=== PATIENT | female | born 1935 | race Caucasian/White ===

== ENCOUNTER → 2016-05-23 | Outpatient (CLI) | payer OTHER ==
[~2016-05-23] MED LIST: ANT25 PO; ASPI81TA28 PO; ATOR-22 PO; DILT120C68 PO; ESCI1TAB6 PO
[2016-05-23 14:04] LABS: CHOLESTEROL/HDL RATIO 3.2
== END | disposition home or self-care (01) ==
LOC: C.LABBC 11:59
PROVIDERS: ATTEND Family Medicine
DX: E55.9 Vitamin D deficiency, unspecified (principal); E78.5 Hyperlipidemia, unspecified

== ENCOUNTER → 2016-10-09 | Outpatient (CLI) | payer OTHER ==
[~2016-10-09] MED LIST changes: +ATOR-54 PO; +DILT120T3 PO; +ESCI10TA17 PO; +LISI-461 PO; +LSN10 PO; +SPRIN/30 INH; +ZLF50 PO
[2016-10-09 17:18] LABS: BASO % 0.4 %; BASO ABS # 0.03 K/uL (0-0.2); COMPLETE YES; HEMATOCRIT 42.9 % (37-47); IG% 0.1 %; LYMPH ABS # 2.44 K/uL (1.2-3.4); MEAN CELL VOLUME 88.6 fL (80-100); MEAN CORPUSCULAR HEMOGLOBIN 29.1 pg (25-34); MEAN CORPUSCULAR HGB CONC 32.9 g/dl (32-36); MEAN PLATELET VOLUME 9.2 fL (7.4-10.4); MONO % 9.5 %; PLATELET COUNT 402 K/uL (130-400); RED BLOOD COUNT 4.84 M/uL (4.2-5.4); WHITE BLOOD COUNT 7.17 K/uL (4.8-10.8)
[2016-10-09 17:22] LABS: URINE APPEARANCE CLEAR (CLEAR); URINE BILIRUBIN NEG (NEG); URINE COLOR DK YELLOW; URINE EPITHELIAL CELL AUTO 20-30 /lpf (0-5); URINE NITRITE NEG (NEG); URINE SPECIFIC GRAVITY 1.018 (1.000-1.030); UROBILINOGEN NEG (NEG)
[2016-10-09 17:23] LABS: MANUAL MICROSCOPIC REQUIRED? NO; REVIEW REQ? NO
[2016-10-09 18:08] LABS: ALT/SGPT 11 U/L (12-78); BLOOD UREA NITROGEN 8 mg/dl (7-18); BUN/CREATININE RATIO 12.4 (10-20); CARBON DIOXIDE 30 mmol/L (21-32); CHLORIDE 104 mmol/L (98-107); CHOLESTEROL 209 mg/dl (0-200); CREATININE 0.67 mg/dl (0.60-1.20); GLUCOSE 103 mg/dl (70-99); POTASSIUM 3.7 mmol/L (3.5-5.1); SODIUM 141 mmol/L (136-145); TRIGLYCERIDES 84 mg/dl (0-150); VERY LOW DENSITY LIPOPROT CALC 17 mg/dl
[2016-10-09 18:11] LABS: ALKALINE PHOSPHATASE 155 U/L (45-117); AST/SGOT 11 U/L (15-37); CHOLESTEROL/HDL RATIO 3.5; HDL CHOLESTEROL 60 mg/dl; LDL CHOLESTEROL CALCULATED 132 mg/dl
[2016-10-09 18:32] LABS: CALCIUM 9.1 mg/dl (8.5-10.1)
--- NOTE | 2016-10-14 11:15 | CODING QUERY MEDICAL NECESSITY ---
CQSUPPORTING DIAGNOSIS NEEDED A supporting diagnosis is required for the test/procedure performed on this patient in order for us to be reimbursed by the patient's insurance. Please provide a supporting diagnosis for the following test/procedure listed below next to the test name along with your signature. *If there is no additional diagnosis for this patient that would support the following test/procedure please document that below next to the test/procedure. Test(s)/Procedure(s) that require a supporting diagnosis: CATHERINE 10/09/16 URINE CULTURE Provider Signature: Date: Thank you Kriss Rodriguez [employer] Once completed, please kindly fax back to [phone] For questions please call [phone]
== END | disposition home or self-care (01) ==
LOC: C.LABBC 12:53
PROVIDERS: ATTEND Family Medicine
DX: R42 Dizziness and giddiness (principal); I10 Essential (primary) hypertension; E55.9 Vitamin D deficiency, unspecified; E78.5 Hyperlipidemia, unspecified

== ENCOUNTER 2016-10-13 11:44 | Emergency (ER) | payer OTHER ==
[~2016-10-13] VITALS: Ht 157.5 cm; Wt 51.2 kg
[2016-10-13 11:55] VITALS: TEMP 36.8; Ht 157.5 cm; Wt 51.2 kg
[2016-10-13] MEDS ORDERED: SODIUM CHLORIDE 0.9% 1000ML 1,000 ML IV STA (12:20)
[2016-10-13 12:27] LABS: BASO % 0.4 %; BASO ABS # 0.03 K/uL (0-0.2); COMPLETE YES; EOS % 2.1 %; HEMATOCRIT 41.5 % (37-47); IG% 0.3 %; LYMPH % 33.6 %; LYMPH ABS # 2.51 K/uL (1.2-3.4); MEAN CELL VOLUME 86.8 fL (80-100); MEAN CORPUSCULAR HEMOGLOBIN 29.1 pg (25-34); MEAN CORPUSCULAR HGB CONC 33.5 g/dl (32-36); MEAN PLATELET VOLUME 8.7 fL (7.4-10.4); MONO % 9.2 %; NEUT % 54.4 %; PLATELET COUNT 350 K/uL (130-400); RED BLOOD COUNT 4.78 M/uL (4.2-5.4); WHITE BLOOD COUNT 7.46 K/uL (4.8-10.8)
[2016-10-13 12:43] LABS: BLOOD UREA NITROGEN 10 mg/dl (7-18); BUN/CREATININE RATIO 11.9 (10-20); CALCIUM 8.6 mg/dl (8.5-10.1); CARBON DIOXIDE 28 mmol/L (21-32); CHLORIDE 105 mmol/L (98-107); CREATININE 0.82 mg/dl (0.60-1.20); GLUCOSE 139 mg/dl (70-99); MAGNESIUM 2.3 mg/dl (1.8-2.4); POTASSIUM 3.5 mmol/L (3.5-5.1); SODIUM 142 mmol/L (136-145)
--- NOTE | 2016-10-13 12:46 | DIAGNOSTIC IMAGING REPORT ---
CHEST ONE VIEW PORTABLE CLINICAL HISTORY: Generalized Weakness DIZZINESS, NAUSEA. COMPARISON STUDY: 09/12/2005 FINDINGS: The chest has an emphysematous configuration. The heart is the upper limits of normal in size. There is no failure. There is no focal pulmonary consolidation. There are no pleural effusions.[ There is radiographic evidence of pulmonary emphysema. IMPRESSION: Emphysema. No acute findings. Electronically signed by: Xavier Bland M.D. 10/13/2016 12:45 PM Dictated Date/Time: 10/13/2016 12:44 PM
--- NOTE | 2016-10-13 13:01 | DIAGNOSTIC IMAGING REPORT ---
CT HEAD WITHOUT CONTRAST (CT) CLINICAL HISTORY: Generalized Weakness DIZZINESS COMPARISON STUDY: MRI the brain dated 02/02/2016 TECHNIQUE: Axial CT of the brain is performed from the vertex to the skull base. IV contrast was not administered for this examination. CT DOSE: 537.48 mGy.cm FINDINGS: No intra or extra-axial mass lesions are visualized. There is no CT evidence of acute cortical infarction. There is no evidence of midline shift. There is no acute hemorrhage. No calvarial fractures are visualized. There are mild white matter hypodensities likely on a small vessel basis. There is no evidence of pathologic ventricular dilatation. There is no evidence of acute sinusitis IMPRESSION: No acute intracranial findings Electronically signed by: Xavier Bland M.D. 10/13/2016 1:00 PM Dictated Date/Time: 10/13/2016 12:59 PM
--- NOTE | 2016-10-13 13:05 | EMERGENCY ROOM VISIT NOTE ---
History Report prepared by Sanjeev: Amanda Jaime Under the Supervision of: Dr. Jamari Bell M.D. First contact with patient: 12:08 Chief Complaint: DIZZY Stated Complaint: DIZZY, NAUSEA Nursing Triage Summary: Dizziness for a few weeks. Pt saw PCP last week but did not hear back. Daughter reports she has been laying down all the time. Patient reports she gets more dizzy when standing. History of Present Illness The patient is a 81 year old female who presents to the Emergency Room with complaints of intermittent dizziness starting about 2 weeks ago. The patient describes the dizziness as room spinning. She has symptom relief with lying down and worsening symptoms with movement. She also reports nausea but denies vomiting. As per family, the patient has been sleeping more than normal. She has a loss of appetite and a reduced fluid intake. She denies any recent falls, headache, ear pain, urinary symptoms, lower extremity swelling, or any other complaints. She did not have any recent changes in medication. She has a history of hypertension and high cholesterol. She does not have a history of diabetes. She is a never smoker. Source of History: patient Onset: about 2 weeks ago Position: other (global) Quality: other (dizziness) Timing: intermittent Modifying Factors (Worsening): movement Modifying Factors (Relieving): other (lying down) Associated Symptoms: No headache, No urinary symptoms Review of Systems See HPI for pertinent positives & negatives. A total of 10 systems reviewed and were otherwise negative. Past Medical & Surgical Medical Problems: (1) High cholesterol (2) Hypertension Family History Patient reports no known family medical history. Social History Smoking Status: Never Smoker Marital Status: Occupation Status: retired Current/Historical Medications Scheduled Aspirin (Aspirin Ec), 81 MG PO DAILY Atorvastatin (Lipitor), 20 MG PO DAILY Diltiazem Hcl Ext Rel (Tiazac), 120 MG PO DAILY Escitalopram Oxalate (Lexapro), 5 MG PO DAILY Scheduled PRN Meclizine HCl (Meclizine HCl), 1 TAB PO TID PRN for Dizziness or Vertigo Allergies Coded Allergies: Penicillins (Verified Allergy, Mild, OTHER, 10/13/16) UNKNOWN Physical Exam Vital Signs Date Time Temp Pulse Resp B/P (MAP) Pulse Ox O2 Delivery O2 Flow Rate FiO2 10/13/16 14:40 64 16 193/77 94 6/11/17 12:10 78 16 138/66 94 Room Air 77 140/66 82 116/65 10/13/16 11:55 36.8 89 18 133/59 92 Room Air Physical Exam GENERAL: Patient is mildly dehydrated appearing and in no acute distress. HEENT: No acute trauma, normocephalic atraumatic, mucous membranes dry, no nasal congestion, no scleral icterus. NECK: No stridor, no adenopathy, no meningismus, trachea is midline. LUNGS: No dyspnea. Clear to auscultation and equal bilaterally. No wheeze, no rhonchi. HEART: Regular rate and rhythm. No murmurs, rubs, gallops appreciated. ABDOMEN: Soft, nontender, bowel sounds positive, no masses appreciated, no peritonitis. BACK: No midline tenderness, no CVA tenderness EXTREMITIES: Normal motion all extremities, no cyanosis, no edema. NEUROLOGIC: Alert and oriented, no acute motor or sensory deficits, no focal weakness, cranial nerves grossly intact. SKIN: No rash, no jaundice, no diaphoresis. Medical Decision & Procedures ER Provider Diagnostic Interpretation: X ray results are stated below per my interpretation and the radiologist's interpretation. CHEST ONE VIEW PORTABLE CLINICAL HISTORY: Generalized Weakness DIZZINESS, NAUSEA. COMPARISON STUDY: 09/12/2005 FINDINGS: The chest has an emphysematous configuration. The heart is the upper limits of normal in size. There is no failure. There is no focal pulmonary consolidation. There are no pleural effusions.[ There is radiographic evidence of pulmonary emphysema. IMPRESSION: Emphysema. No acute findings. Electronically signed by: Xavier Bland M.D. 10/13/2016 12:45 PM Dictated Date/Time: 10/13/2016 12:[address] results as stated below per interpretation by me and the radiologist: CT HEAD WITHOUT CONTRAST (CT) CLINICAL HISTORY: Generalized Weakness DIZZINESS COMPARISON STUDY: MRI the brain dated 02/02/2016 TECHNIQUE: Axial CT of the brain is performed from the vertex to the skull base. IV contrast was not administered for this examination. CT DOSE: 537.48 mGy.cm FINDINGS: No intra or extra-axial mass lesions are visualized. There is no CT evidence of acute cortical infarction. There is no evidence of midline shift. There is no acute hemorrhage. No calvarial fractures are visualized. There are mild white matter hypodensities likely on a small vessel basis. There is no evidence of pathologic ventricular dilatation. There is no evidence of acute sinusitis IMPRESSION: No acute intracranial findings Electronically signed by: Xavier Bland M.D. 10/13/2016 1:00 PM Dictated Date/Time: 10/13/2016 12:59 PM Laboratory Results 10/13/16 12:10 Red Blood Count 4.78, Mean Corpuscular Volume 86.8, Mean Corpuscular Hemoglobin 29.1, Mean Corpuscular Hemoglobin Concent 33.5, Mean Platelet Volume 8.7, Neutrophils (%) (Auto) 54.4, Lymphocytes (%) (Auto) 33.6, Monocytes (%) (Auto) 9.2, Eosinophils (%) (Auto) 2.1, Basophils (%) (Auto) 0.4, Neutrophils # (Auto) 4.05, Lymphocytes # (Auto) 2.51, Monocytes # (Auto) 0.69, Eosinophils # (Auto) 0.16, Basophils # (Auto) 0.03 10/13/16 12:10 Test 10/13/16 12:10 10/13/16 13:40 White Blood Count 7.46 K/uL (4.8-10.8) Red Blood Count 4.78 M/uL (4.2-5.4) Hemoglobin 13.9 g/dL (12.0-16.0) Hematocrit 41.5 % (37-47) Mean Corpuscular Volume 86.8 fL (80-100) Mean Corpuscular Hemoglobin 29.1 pg (25-34) Mean Corpuscular Hemoglobin Concent 33.5 g/dl (32-36) Platelet Count 350 K/uL (130-400) Mean Platelet Volume 8.7 fL (7.4-10.4) Neutrophils (%) (Auto) 54.4 % Lymphocytes (%) (Auto) 33.6 % Monocytes (%) (Auto) 9.2 % Eosinophils (%) (Auto) 2.1 % Basophils (%) (Auto) 0.4 % Neutrophils # (Auto) 4.05 K/uL (1.4-6.5) Lymphocytes # (Auto) 2.51 K/uL (1.2-3.4) Monocytes # (Auto) 0.69 K/uL (0.11-0.59) Eosinophils # (Auto) 0.16 K/uL (0-0.5) Basophils # (Auto) 0.03 K/uL (0-0.2) RDW Standard Deviation 44.1 fL (36.4-46.3) RDW Coefficient of Variation 13.8 % (11.5-14.5) Immature Granulocyte % (Auto) 0.3 % Immature Granulocyte # (Auto) 0.02 K/uL (0.00-0.02) Anion Gap 9.0 mmol/L (3-11) Est Creatinine Clear Calc Drug Dose 42.6 ml/min Estimated GFR () 77.8 Estimated GFR (Non- 67.1 BUN/Creatinine Ratio 11.9 (10-20) Calcium Level 8.6 mg/dl (8.5-10.1) Magnesium Level 2.3 mg/dl (1.8-2.4) Troponin I < 0.015 ng/ml (0-0.045) Urine Color YELLOW Urine Appearance CLEAR (CLEAR) Urine pH 7.5 (4.5-7.5) Urine Specific [place] 1.014 (1.000-1.030) Urine Protein NEG (NEG) Urine Glucose (UA) NEG (NEG) Urine Ketones NEG (NEG) Urine Occult Blood 1+ (NEG) Urine Nitrite NEG (NEG) Urine Bilirubin NEG (NEG) Urine Urobilinogen NEG (NEG) Urine Leukocyte Esterase TRACE (NEG) Urine WBC (Auto) 1-5 /hpf (0-5) Urine RBC (Auto) 5-10 /hpf (0-4) Urine Hyaline Casts (Auto) 1-5 /lpf (0-5) Urine Epithelial Cells (Auto) 10-20 /lpf (0-5) Urine Bacteria (Auto) NEG (NEG) Laboratory results as reviewed by me. Medications Administered Medications (Trade) Dose Ordered Sig/Alex Route Start Time Stop Time Status Last Admin Dose Admin Sodium Chloride 1,000 ml @ 999 mls/hr Q1H1M STAT IV 10/13/16 12:20 10/13/16 13:20 DC 10/13/16 12:45 999 MLS/HR Meclizine HCl (Antivert Tab) 25 mg NOW STAT PO 10/13/16 14:26 10/13/16 14:27 DC 10/13/16 14:34 25 MG Meclizine HCl (Antivert 25MG Home Pack) 1 homepack UD ONCE PO 10/13/16 14:30 10/13/16 14:31 DC 10/13/16 14:30 1 HOMEPACK ECG Indication: other (Dizzy) Rate (beats per minute): 67 Rhythm: normal sinus Findings: Q waves (Septal), no acute ischemic change, no ectopy, other ( Flipped P waves) Comparison ECG Date: April 08, 2001; September 10, 2015 Change: These are acute changes when compared to April 08, 2001. Q waves are also noted but the flipped P waves are new when compared to September 10, 2015. ED Course 1208: The patient was evaluated in room C02B. A complete history and physical exam was performed. 1220: Sodium Chloride 1000 ml @ 999 mls/hr IV 1418: Reevaluated the patient. Discussed results and recommended admission but the patient declined. She wants to try Meclizine at home. The patient's daughter is aware of the patient's decision. I discussed discharge instructions : She verbalized understanding and agreement. The patient is ready for discharge. 1426:: Meclizine HCl 25 mg PO 1430: Meclizine HCl 1 homepack PO Medical Decision Differential diagnoses include Benign positional vertigo, Dehydration, Hypovolemia, Anemia, Tumor, Infection, Hypoglycemia, Electrolyte abnormalities, Cardiac sources, Intracerebral event, Toxicologic, Neurologic, as well as others were entertained. Medication Reconciliation: I attest that I have personally reviewed the patient 's current medication list. Blood pressure screening: Patient was found to have an elevated blood pressure and was referred to their primary doctor for recheck and further treatment. 81 yr old female arrives [facility] complaint of vertiginous symptoms with standing over last few weeks. Mildly dehydrated appearing by exam consistent with poor appetite. Work-up including CT head, cxr, ua, labs all unremarkable. EKG with some subtle changes from previous a few weeks ago which may be related to lead placement though clearly there is somewhat a concern that this may he worse than usual. Fortunately Trop negative. Discussed bringing in for MRI, US neck/ heart, discussion with pulm/cards and further evaluation. She and family are not interested in staying in hospital. I discussed possibility of pulm HTN, etc , She is aware she can return at any time for further evaluation and treatment. Wishes to try meclizine as outpatient. Discussed restrictions. Made very clear she must contact PCP for follow up. Impression Primary Impression: Vertigo Additional Impression: Dehydration Scribe Attestation The scribe's documentation has been prepared under my direction and personally reviewed by me in its entirety. I confirm that the note above accurately reflects all work, treatment, procedures, and medical decision making performed by me. Departure Information Dispostion Home / Self-Care Prescriptions Meclizine HCl (Meclizine HCl) 25 Mg Tab 1 TAB PO TID Y for Dizziness or Vertigo, #15 TAB Prov: Jamari Bell M.D. 10/13/16 Referrals No Doctor, Assigned (PCP) Forms HOME CARE DOCUMENTATION FORM, IMPORTANT VISIT INFORMATION Patient Instructions ED Dizziness O, My [facility] Additional Instructions It is very important you follow up with your primary care provider for further evaluation to discuss your symptoms and your findings. Please discuss further work up, possibly including MRI, Ultrasound of Carotids, Ultrasound of Heart, etc. You may need further evaluation of your EKG findings as well. We are always here to help. Return if you feel you need further evaluation or if you have worsening symptoms of any kind. Problem Qualifiers
[2016-10-13] MEDS ORDERED: DILT120C68 PO (13:38)
[2016-10-13] MEDS ORDERED: ATOR-22 PO (13:38)
[2016-10-13] MEDS ORDERED: ASPI81TA28 PO (13:38)
[2016-10-13] MEDS ORDERED: ESCI1TAB6 PO (13:38)
[2016-10-13 13:53] LABS: URINE APPEARANCE CLEAR (CLEAR); URINE BILIRUBIN NEG (NEG); URINE COLOR YELLOW; URINE NITRITE NEG (NEG); URINE PH 7.5 (4.5-7.5); URINE SPECIFIC GRAVITY 1.014 (1.000-1.030); UROBILINOGEN NEG (NEG); ZZUR CULT IF INDIC CLEAN CATCH NO
[2016-10-13 13:54] LABS: MANUAL MICROSCOPIC REQUIRED? NO; REVIEW REQ? NO
[2016-10-13] MEDS ORDERED: MECLIZINE HCL 25 MG TAB PO STA (14:26)
[2016-10-13] MEDS ORDERED: ANT25 PO (14:27)
[2016-10-13] MEDS ORDERED: MECLIZINE HCL 25MG HOME PACK PO ONE (14:30)
[2016-10-13 14:40] VITALS: BP 193/77; PULSE 64; O2SAT 94
[2017-02-16] MEDS ORDERED: LSN10 PO (08:48)
[2017-03-10] MEDS ORDERED: ESCI10TA17 PO (09:26)
[2017-03-10] MEDS ORDERED: LISI-461 PO (09:26)
== END 2016-10-13 14:42 | disposition home or self-care (01) ==
LOC: C.EDB 11:45 → C.EDC 14:42
DX: R42 Dizziness and giddiness (principal); E86.0 Dehydration; I10 Essential (primary) hypertension; E78.00 Pure hypercholesterolemia, unspecified; Z79.82 Long term (current) use of aspirin; Z79.899 Other long term (current) drug therapy

== ENCOUNTER → 2017-01-16 | Outpatient (CLI) | payer OTHER ==
[~2017-01-16] MED LIST changes: -LISI-461 PO
[2017-01-16 12:13] LABS: URINE APPEARANCE CLOUDY (CLEAR); URINE COLOR DK YELLOW; URINE EPITHELIAL CELL AUTO 20-30 /lpf (0-5); URINE NITRITE NEG (NEG); URINE PH 5.5 (4.5-7.5); URINE SPECIFIC GRAVITY 1.029 (1.000-1.030); UROBILINOGEN NEG (NEG)
[2017-01-16 12:19] LABS: MANUAL MICROSCOPIC REQUIRED? NO; REVIEW REQ? YES
[2017-01-16 12:43] LABS: URINE BILIRUBIN NEG (NEG)
[2017-01-16 12:54] LABS: URINE PATH CASTS 0-3 WAXY CASTS /lpf (0)
[2017-01-16 12:55] LABS: URINE MUCUS PRESENT (NONE PRSENT)
== END | disposition home or self-care (01) ==
LOC: C.LABSPEC 11:07
PROVIDERS: ATTEND Nurse Practitioner Adult Health
DX: F03.90 Unspecified dementia, unspecified severity, without behavioral disturbance, psychotic disturbance, mood disturbance, and anxiety (principal)

== ENCOUNTER 2017-02-13 12:24 | Observation (INO) | payer OTHER ==
[~2017-02-13] VITALS: Ht 160 cm; Wt 48.2 kg
[~2017-02-13 12:24] MED LIST changes: -ATOR-54 PO; -DILT120T3 PO; -ESCI10TA17 PO; -LSN10 PO; -SPRIN/30 INH; -ZLF50 PO
[2017-02-13] MEDS ORDERED: SODIUM CHLORIDE 0.9% 500ML 500 ML IV STA ×2 (12:52→15:54)
--- NOTE | 2017-02-13 13:14 | DIAGNOSTIC IMAGING REPORT ---
CHEST ONE VIEW PORTABLE CLINICAL HISTORY: Generalized Weakness DIARRHEA, JAUNDICE. COMPARISON STUDY: 10/13/2016 FINDINGS: The heart is the upper limits of normal in size. The chest is emphysematous configuration. There is tortuosity/ectasia of the ascending thoracic aorta. There is no failure. There is no focal pulmonary consolidation. There are no pleural effusions.[ IMPRESSION: No active disease in the chest. Electronically signed by: Xavier Bland M.D. 02/13/2017 1:13 PM Dictated Date/Time: 02/13/2017 1:12 PM
[2017-02-13 13:35] LABS: BASO % 0.4 %; BASO ABS # 0.03 K/uL (0-0.2); COMPLETE YES; EOS % 1.3 %; HEMATOCRIT 41.1 % (37-47); IG% 0.1 %; LYMPH % 26.2 %; LYMPH ABS # 2.18 K/uL (1.2-3.4); MEAN CELL VOLUME 85.8 fL (80-100); MEAN CORPUSCULAR HEMOGLOBIN 28.8 pg (25-34); MEAN CORPUSCULAR HGB CONC 33.6 g/dl (32-36); MONO % 9.5 %; NEUT % 62.5 %; PLATELET COUNT 261 K/uL (130-400); RED BLOOD COUNT 4.79 M/uL (4.2-5.4); WHITE BLOOD COUNT 8.31 K/uL (4.8-10.8)
[2017-02-13 13:44] LABS: PROTHROMBIN TIME (PATIENT) 10.3 SECONDS (9.0-12.0)
[2017-02-13 13:59] LABS: ALT/SGPT 11 U/L (12-78); BLOOD UREA NITROGEN 17 mg/dl (7-18); CARBON DIOXIDE 28 mmol/L (21-32); CHLORIDE 107 mmol/L (98-107); CREATININE 0.75 mg/dl (0.60-1.20); GLUCOSE 98 mg/dl (70-99); MAGNESIUM 2.1 mg/dl (1.8-2.4); POTASSIUM 3.5 mmol/L (3.5-5.1); SODIUM 141 mmol/L (136-145)
[2017-02-13 14:02] LABS: ALKALINE PHOSPHATASE 145 U/L (45-117); AST/SGOT 10 U/L (15-37); CKMB/CK RATIO 4.1 (0-3.0); PHOSPHORUS 2.7 mg/dl (2.5-4.9)
--- NOTE | 2017-02-13 15:31 | DIAGNOSTIC IMAGING REPORT ---
ABDOMINAL AORTIC ULTRASOUND CLINICAL HISTORY: Pulsatile mid abdomen. COMPARISON STUDY: No previous studies for comparison. TECHNIQUE: Sonography of the abdominal aorta was performed. FINDINGS: The caliber of the proximal abdominal aorta was normal, measuring 2 cm. The caliber of the mid abdominal aorta was normal, measuring 1.9 cm. Note was made of a 5.5 x 5.5 cm infrarenal abdominal aortic aneurysm with extensive eccentric intraluminal thrombus. The proximal bilateral common iliac arteries were obscured on this exam. IMPRESSION: 5.5 cm infrarenal abdominal aortic aneurysm. Electronically signed by: Ramírez Saunders M.D. 02/13/2017 3:30 PM Dictated Date/Time: 02/13/2017 3:27 PM
[2017-02-13] MEDS ORDERED: OPTIRAY 320 IV PRN (16:00)
--- NOTE | 2017-02-13 16:57 | DIAGNOSTIC IMAGING REPORT ---
ANGIO ABD/PELVIS WITH CONTRAST CLINICAL HISTORY: 82 years-old Female presenting with abdominal aortic aneurysm on ultrasound, CTA for further evaluation. TECHNIQUE: Multidetector CT angiography of the abdomen and pelvis was performed after the administration of intravenous contrast. 3-D volumetric and/or maximum intensity projection (MIP) images were subsequently reconstructed for review. IV contrast: 93 mL of Optiray 320. A dose lowering technique was used consistent with the principles of ALARA (as low as reasonably achievable). COMPARISON: Ultrasound performed earlier the same day. CT DOSE (mGy.cm): The estimated cumulative dose is 254.23 mGy.cm. FINDINGS: [employer] topogram: Unremarkable. Vasculature: Calcified and noncalcified atherosclerosis of the aorta. Eccentric aneurysmal dilatation of the infrarenal abdominal aortic along the left lateral aspect immediately distal to the left renal artery with prominent crescentic mural thrombus. The morphology is consistent with a penetrating ulcer/pseudoaneurysm, measuring approximately 3 cm in height from the expected left lateral contour of the aorta, 2.3 cm in width at the neck, and 3.5 cm in width maximally. More inferiorly and medially proximal to the aortic bifurcation is an abdominal aortic aneurysm measuring 5.5 x 4.9 cm with prominent mural thrombus. The bilateral iliac vessels remain patent without significant stenosis or occlusion. Celiac, superior mesenteric, and right renal arteries patent at their origins and along the courses. Less than 25% stenosis at the origin of the left renal artery. Remaining abdomen and pelvis: Paraseptal emphysematous changes at the lung bases. Normal heart size. No pericardial pleural effusion. Allowing for the arterial phase of contrast, liver, gallbladder, pancreas, spleen, right adrenal gland normal. Left adrenal gland demonstrates nodular thickening. Hypodensity in the lower pole of the right kidney possibly simple cyst. No hydronephrosis. Bladder normal. Normal noncontrast appearance of the uterus essentially with a calcified fibroid. No adnexal masses. Diverticulosis of the sigmoid colon. No bowel obstruction. Mild wall thickening of the descending portion of the duodenum suggested. Degenerative changes of the spine. Osteopenia. IMPRESSION: 1. 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 2. Infrarenal abdominal aortic aneurysm immediately proximal to the bifurcation measuring 5.5 x 4.9 cm. Electronically signed by: Semaj Prather M.D. 02/13/2017 4:56 PM Dictated Date/Time: 02/13/2017 4:48 PM
[2017-02-13 17:16] LABS: MANUAL MICROSCOPIC REQUIRED? NO; REVIEW REQ? NO; URINE APPEARANCE CLEAR (CLEAR); URINE BILIRUBIN NEG (NEG); URINE COLOR YELLOW; URINE EPITHELIAL CELL AUTO >30 /lpf (0-5); URINE NITRITE NEG (NEG); URINE PH 5.5 (4.5-7.5); UROBILINOGEN NEG (NEG); ZZUR CULT IF INDIC CLEAN CATCH NO
[2017-02-13] MEDS ORDERED: ACETAMINOPHEN 325 MG TAB PO PRN (18:15)
[2017-02-13] MEDS ORDERED: ONDANSETRON INJ 2 MG/ML 2 ML VIAL IV PRN (18:15)
--- NOTE | 2017-02-13 19:54 | EMERGENCY ROOM VISIT NOTE ---
History Report prepared by Dainaibmartir: Keyshawn Nagel Under the Supervision of: Dr. Jamari Bell M.D. First contact with patient: 12:43 Chief Complaint: WEAKNESS Stated Complaint: DIARRHEA, JAUNDICE, VERY TIRED/SLEEPING A LOT History of Present Illness The patient is a 82 year old female who presents to the Emergency Room with complaints of persistent generalized weakness beginning a few days ago. She also complains of dizziness, diarrhea, and fatigue. The patient's daughter notes that the patient appeared jaundiced yesterday. She states that the patient has been having problems with diarrhea intermittently for years but it has worsened in the past few days. The patient denies any LOC, abdominal pain, chest pain, or SOB. She is a former smoker. Source of History: patient Onset: A few days ago Position: other (generalized) Quality: other (weakness) Timing: other (persistent) Associated Symptoms: + diarrhea, + fatigue, No LOC, No chest pain, No SOB, No abdominal pain Note: Additional symptoms: dizziness. Review of Systems See HPI for pertinent positives & negatives. A total of 10 systems reviewed and were otherwise negative. Past Medical & Surgical Medical Problems: (1) Alzheimers disease (2) Dehydration, mild (3) High cholesterol (4) Hypertension (5) Memory loss Family History Patient reports no known family medical history. Social History Smoking Status: Former Smoker Marital Status: Occupation Status: retired Current/Historical Medications Scheduled Aspirin (Aspirin Ec), 81 MG PO DAILY Allergies Coded Allergies: Penicillins (Verified Allergy, Unknown, OTHER, 02/13/17) UNKNOWN Physical Exam Vital Signs Date Time Temp Pulse Resp B/P (MAP) Pulse Ox O2 Delivery O2 Flow Rate FiO2 02/13/17 18:58 82 153/58 93 Room Air 02/13/17 17:02 61 182/68 97 Room Air 02/13/17 15:02 63 136/71 96 Room Air 02/13/17 13:32 63 02/13/17 12:26 36.4 80 18 141/69 96 Room Air Physical Exam GENERAL: Patient is frail appearing and in minimal distress. Appears mildly cachectic. Appears dehydrated. HEENT: No acute trauma, normocephalic atraumatic, mucous membranes dry, no nasal congestion, no scleral icterus. NECK: No stridor, no adenopathy, no meningismus, trachea is midline. LUNGS: No dyspnea. No wheeze, no rhonchi. Mildly decreased breath sounds in the left lower lobe. HEART: Regular rate and rhythm. No murmurs, rubs, gallops appreciated. ABDOMEN: Soft, nontender, bowel sounds positive, no peritonitis. Pulsatile mass mid abdomen. BACK: No midline tenderness, no CVA tenderness EXTREMITIES: Normal motion all extremities, no cyanosis. Veinous stasis bilateral lower legs. NEUROLOGIC: Alert and oriented, no acute motor or sensory deficits, no focal weakness, cranial nerves grossly intact. SKIN: No rash, no jaundice, no diaphoresis. Medical Decision & Procedures ER Provider Diagnostic Interpretation: Radiology results and stated below per my review and radiologist interpretation: CHEST ONE VIEW PORTABLE FINDINGS: The heart is the upper limits of normal in size. The chest is emphysematous configuration. There is tortuosity/ectasia of the ascending thoracic aorta. There is no failure. There is no focal pulmonary consolidation. There are no pleural effusions.[ IMPRESSION: No active disease in the chest. Electronically signed by: Xavier Bland M.D. 02/13/2017 1:13 PM ABDOMINAL AORTIC ULTRASOUND FINDINGS: The caliber of the proximal abdominal aorta was normal, measuring 2 cm. The caliber of the mid abdominal aorta was normal, measuring 1.9 cm. Note was made of a 5.5 x 5.5 cm infrarenal abdominal aortic aneurysm with extensive eccentric intraluminal thrombus. The proximal bilateral common iliac arteries were obscured on this exam. IMPRESSION: 5.5 cm infrarenal abdominal aortic aneurysm. Electronically signed by: Ramírez Saunders M.D. 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 Vasculature: Calcified and noncalcified atherosclerosis of the aorta. Eccentric aneurysmal dilatation of the infrarenal abdominal aortic along the left lateral aspect immediately distal to the left renal artery with prominent crescentic mural thrombus. The morphology is consistent with a penetrating ulcer/pseudoaneurysm, measuring approximately 3 cm in height from the expected left lateral contour of the aorta, 2.3 cm in width at the neck, and 3.5 cm in width maximally. More inferiorly and medially proximal to the aortic bifurcation is an abdominal aortic aneurysm measuring 5.5 x 4.9 cm with prominent mural thrombus. The bilateral iliac vessels remain patent without significant stenosis or occlusion. Celiac, superior mesenteric, and right renal arteries patent at their origins and along the courses. Less than 25% stenosis at the origin of the left renal artery. Remaining abdomen and pelvis: Paraseptal emphysematous changes at the lung bases. Normal heart size. No pericardial pleural effusion. Allowing for the arterial phase of contrast, liver, gallbladder, pancreas, spleen, right adrenal gland normal. Left adrenal gland demonstrates nodular thickening. Hypodensity in the lower pole of the right kidney possibly simple cyst. No hydronephrosis. Bladder normal. Normal noncontrast appearance of the uterus essentially with a calcified fibroid. No adnexal masses. Diverticulosis of the sigmoid colon. No bowel obstruction. Mild wall thickening of the descending portion of the duodenum suggested. Degenerative changes of the spine. Osteopenia. IMPRESSION: 1. 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 2. Infrarenal abdominal aortic aneurysm immediately proximal to the bifurcation measuring 5.5 x 4.9 cm. Electronically signed by: Semaj Prather M.D. 02/13/2017 4:56 PM Laboratory Results 02/13/17 13:20 Red Blood Count 4.79, Mean Corpuscular Volume 85.8, Mean Corpuscular Hemoglobin 28.8, Mean Corpuscular Hemoglobin Concent 33.6, Mean Platelet Volume 9.0, Neutrophils (%) (Auto) 62.5, Lymphocytes (%) (Auto) 26.2, Monocytes (%) (Auto) 9.5, Eosinophils (%) (Auto) 1.3, Basophils (%) (Auto) 0.4, Neutrophils # (Auto) 5.19, Lymphocytes # (Auto) 2.18, Monocytes # (Auto) 0.79, Eosinophils # (Auto) 0.11, Basophils # (Auto) 0.03 02/13/17 13:20 Test 02/13/17 13:20 02/13/17 17:05 White Blood Count 8.31 K/uL (4.8-10.8) Red Blood Count 4.79 M/uL (4.2-5.4) Hemoglobin 13.8 g/dL (12.0-16.0) Hematocrit 41.1 % (37-47) Mean Corpuscular Volume 85.8 fL (80-100) Mean Corpuscular Hemoglobin 28.8 pg (25-34) Mean Corpuscular Hemoglobin Concent 33.6 g/dl (32-36) Platelet Count 261 K/uL (130-400) Mean Platelet Volume 9.0 fL (7.4-10.4) Neutrophils (%) (Auto) 62.5 % Lymphocytes (%) (Auto) 26.2 % Monocytes (%) (Auto) 9.5 % Eosinophils (%) (Auto) 1.3 % Basophils (%) (Auto) 0.4 % Neutrophils # (Auto) 5.19 K/uL (1.4-6.5) Lymphocytes # (Auto) 2.18 K/uL (1.2-3.4) Monocytes # (Auto) 0.79 K/uL (0.11-0.59) Eosinophils # (Auto) 0.11 K/uL (0-0.5) Basophils # (Auto) 0.03 K/uL (0-0.2) RDW Standard Deviation 46.6 fL (36.4-46.3) RDW Coefficient of Variation 14.7 % (11.5-14.5) Immature Granulocyte % (Auto) 0.1 % Immature Granulocyte # (Auto) 0.01 K/uL (0.00-0.02) Prothrombin Time 10.3 SECONDS (9.0-12.0) Prothromb Time International Ratio 1.0 (0.9-1.1) Activated Partial Thromboplast Time 25.7 SECONDS (21.0-31.0) Partial Thromboplastin Ratio 1.0 Anion Gap 6.0 mmol/L (3-11) Est Creatinine Clear Calc Drug Dose 44.0 ml/min Estimated GFR () 86.0 Estimated GFR (Non- 74.2 BUN/Creatinine Ratio 23.0 (10-20) Calcium Level 9.0 mg/dl (8.5-10.1) Phosphorus Level 2.7 mg/dl (2.5-4.9) Magnesium Level 2.1 mg/dl (1.8-2.4) Total Bilirubin 0.4 mg/dl (0.2-1) Direct Bilirubin < 0.1 mg/dl (0-0.2) Aspartate Amino Transf (AST/SGOT) 10 U/L (15-37) Alanine Aminotransferase (ALT/SGPT) 11 U/L (12-78) Alkaline Phosphatase 145 U/L (45-117) Total Creatine Kinase 39 U/L (26-192) Creatine Kinase MB 1.6 ng/ml (0.5-3.6) Creatine Kinase MB Ratio 4.1 (0-3.0) Troponin I < 0.015 ng/ml (0-0.045) Total Protein 6.9 gm/dl (6.4-8.2) Albumin 3.4 gm/dl (3.4-5.0) Lipase 173 U/L (73-393) Urine Color YELLOW Urine Appearance CLEAR (CLEAR) Urine pH 5.5 (4.5-7.5) Urine Specific [place] 1.040 (1.000-1.030) Urine Protein TRACE (NEG) Urine Glucose (UA) NEG (NEG) Urine Ketones NEG (NEG) Urine Occult Blood 1+ (NEG) Urine Nitrite NEG (NEG) Urine Bilirubin NEG (NEG) Urine Urobilinogen NEG (NEG) Urine Leukocyte Esterase TRACE (NEG) Urine WBC (Auto) 5-10 /hpf (0-5) Urine RBC (Auto) 5-10 /hpf (0-4) Urine Hyaline Casts (Auto) 10-30 /lpf (0-5) Urine Epithelial Cells (Auto) >30 /lpf (0-5) Urine Bacteria (Auto) NEG (NEG) Laboratory results as reviewed by me. Medications Administered Medications (Trade) Dose Ordered Sig/Alex Route Start Time Stop Time Status Last Admin Dose Admin Sodium Chloride 500 ml @ 999 mls/hr Q31M STAT IV 02/13/17 12:52 02/13/17 13:22 DC 02/13/17 13:29 999 MLS/HR Sodium Chloride 500 ml @ 999 mls/hr Q31M STAT IV 02/13/17 15:54 02/13/17 16:24 DC 02/13/17 15:54 999 MLS/HR ECG Indication: weakness Rate (beats per minute): 65 Rhythm: normal sinus Findings: no acute ischemic change, no ectopy ED Course 1245: The patient was evaluated in room A9B. A complete history and physical exam was performed. 1252: Ordered Sodium Chloride 500 ml @ 999 mls/hr IV. 1410: I reassessed the patient. She feels fine. Her daughter states "she just doesn't look right". We discussed further testing and they agreed to an aortic US. 1552: I checked in on the patient. She still has not been able to give a urine sample. 1554: Ordered Sodium Chloride 500 ml @ 999 mls/hr IV. 1710: I spoke with the patient. She would like to go home. 1725: Upon reevaluation, the patient is resting comfortably. Her family would like her to stay in the hospital as they feel she is too weak to go home. Discussed results and treatment plan with the patient. She verbalized understanding and agreement with the treatment plan. The patient will be evaluated for further management. 1902: I checked in on the patient. Her blood pressure drops to the 30's and raises to the 50's periodically. Her ECG shows a sinus bradycardia with periodic atrial clauses. Medical Decision Differential: Sepsis, Infectious (UTI/Pneumonia/Meningitis/etc), Metabolic/ Electrolyte Abnormality, Cardiac, Hepatic, Endocrine, Toxicologic, Neurologic, amongst other pathologies entertained. 82 yr old female arrives with family for generalized weakness. Noted to be quite dehydrated by exam, along with findings of presumed aortic aneurysm. No neuro deficits and in no distress. Given 500ml Bolus x 2 with minimal UOP even after a few hours. UA finally just shows some trace blood which has been noted before, without clear evidence infection. CXR without obvious abnormality. US aorta 5.5cm aneurysm. Discussed with vascular who suggest CTA abdo/pelv for aorta eval, reviewed findings of this with Dr Man who notes plan to see her in a few days as outpatient. On re-evaluation of patient family is very much concerned about her weakness and risks of falling at home. Given their concerns , minimal UOP thus far, mild HTN and other findings hospitalist consulted for further evaluation. Medication Reconcilliation Current Medication List: was personally reviewed by me Blood Pressure Screening Patient's blood pressure: Elevated blood pressure Blood pressure disposition: Elevated BP felt to be situational Consults Time Called: 1549 Consulting Physician: Dr. Man -Vascular Surgery Returned Call: [phone] Discussed the patient's case. Dr. Man recommends ordering a CTA abdomen & pelvis aorta, and having the patient follow up this week. 1703: Discussed the patient's CTA. Dr. Man recommends the patient follow up in the clinic on Friday. Additional Consults: Time Called: 1720 Consulted Physician: Dr. Pablo -[facility] [place] Returned Call: [phone] Additional Comments: Discussed the patient's case. The patient will be evaluated for further treatment and disposition. Impression Primary Impression: Generalized weakness Additional Impressions: Aortic aneurysm Hematuria Dehydration Scribe Attestation The scribe's documentation has been prepared under my direction and personally reviewed by me in its entirety. I confirm that the note above accurately reflects all work, treatment, procedures, and medical decision making performed by me. Departure Information Dispostion Being Evaluated By Hospitalist Referrals Adrianne Ludwig MD (PCP) Patient Instructions My [facility] Problem Qualifiers
[2017-02-13 19:55] VITALS: Ht 160 cm; Wt 48.2 kg
[2017-02-13 21:00] VITALS: BP 153/58; PULSE 69; TEMP 36.5; O2SAT 95
[2017-02-13] MEDS: NSS + 20MEQ KCL 1000ML 1,000 ML IV SCH (21:35)
[2017-02-13] MEDS ORDERED: INFLUENZA VACCINE HIGH DOSE 65+ 0.5 ML SYR IM. ONE (22:00)
[2017-02-13] MEDS ORDERED: IV FLUIDS COMPLETED PRN (22:00)
[2017-02-13] MEDS ORDERED: INFLUENZA ADMINISTRATION CHARGE ONE (22:00)
[2017-02-13 23:50] VITALS: BP 134/61; PULSE 70; TEMP 36.5; O2SAT 95
[2017-02-14] VITALS (12 sets, daily range): BP systolic 162–213; BP diastolic 64–94; PULSE 72–87; TEMP 36.3–36.5; O2SAT 93–96
[2017-02-14] MEDS: NSS + 20MEQ KCL 1000ML 1,000 ML IV SCH ×2 (06:10→18:23)
[2017-02-14 07:19] LABS: BASO % 0.5 %; BASO ABS # 0.04 K/uL (0-0.2); COMPLETE YES; EOS % 2.5 %; IG% 0.1 %; LYMPH % 33.9 %; LYMPH ABS # 2.58 K/uL (1.2-3.4); MEAN CORPUSCULAR HEMOGLOBIN 27.7 pg (25-34); MEAN CORPUSCULAR HGB CONC 32.2 g/dl (32-36); MEAN PLATELET VOLUME 8.9 fL (7.4-10.4); MONO % 10.2 %; NEUT % 52.8 %; PLATELET COUNT 223 K/uL (130-400); WHITE BLOOD COUNT 7.62 K/uL (4.8-10.8)
[2017-02-14 07:27] LABS: PARTIAL THROMBOPLASTIN RATIO 1.1; PROTHROMBIN TIME (PATIENT) 10.3 SECONDS (9.0-12.0)
[2017-02-14 07:57] LABS: BUN/CREATININE RATIO 19.1 (10-20); CALCIUM 7.9 mg/dl (8.5-10.1); CREATININE 0.5 mg/dl (0.60-1.20); POTASSIUM 3.7 mmol/L (3.5-5.1)
--- NOTE | 2017-02-14 09:56 | History and Physical ---
History & Physical Date & Time of Service: Feb 14, 2017 at 09:46. The patient was seen and examined on 02/13/2017 Chief Complaint: Dehydration, Mild. Memory Loss Primary Care Physician: Adrianne Ludwig MD History of Present Illness Source: patient, family The patient is an 82-year-old female who presents to emergency room with progressive generalized weakness over the past months in particular worsening over the past few days. She also has had some dizziness, diarrhea and fatigue. The patient's daughter thought that she might for jaundice the previous day. She has not had any recent travels or any known sick exposures. Family reports that she's had progressive memory loss due to dementia over the past several years, and was unable to tolerate 2 medications that were tried for improvement. Family also notes that there has been what they thought was blood in her urine. Past Medical/Surgical History Medical Problems: (1) Alzheimers disease Status: Chronic (2) High cholesterol Status: Chronic (3) Hypertension Status: Chronic Family History Patient reports no known family medical history. Social History Smoking Status: Former Smoker Smokeless Tobacco Use: No Alcohol Use: none Drug Use: none Marital Status: Occupational Status: retired Immunizations History of Influenza Vaccine: Unknown History of Tetanus Vaccine?: Unknown History of Pneumococcal: Unknown History of Hepatitis B Vaccine: Unknown Multi-Drug Resistant Organisms History of MDRO: No Allergies Coded Allergies: Penicillins (Verified Allergy, Unknown, OTHER, 02/13/17) UNKNOWN Home Medications Scheduled Aspirin (Aspirin Ec), 81 MG PO DAILY Review of Systems The patient denies chest pain, palpitations, shortness of breath, cough, lower extremity swelling, vision change, hearing change, sore throat, fevers, chills, sweats, vomiting, constipation, abdominal pain, pelvic pain, blood in stool, dysuria, urinary frequency or urgency, rash, abnormal bruising or bleeding, imbalance, focal weakness, numbness or tingling in arms or legs, generalized arthralgias or myalgias, back or neck pain, or night sweats. The review of systems is otherwise negative other than for that already noted above, and at least 10 systems have been reviewed. Physical Exam Vital Signs Date Time Temp Pulse Resp B/P (MAP) Pulse Ox O2 Delivery O2 Flow Rate FiO2 02/14/17 08:12 36.4 72 18 189/66 (107) 95 Room Air 02/14/17 07:50 195/94 (127) 02/14/17 00:00 93 Room Air 02/13/17 23:50 36.5 70 18 134/61 (85) 95 Room Air 02/13/17 21:00 36.5 69 20 153/58 (89) 95 Room Air 02/13/17 20:17 79 149/57 93 02/13/17 19:55 Room Air 02/13/17 18:58 82 153/58 93 Room Air 02/13/17 17:02 61 182/68 97 Room Air 02/13/17 15:02 63 136/71 96 Room Air 02/13/17 13:32 63 02/13/17 12:26 36.4 80 18 141/69 96 Room Air The patient is awake, well-developed and adequately nourished, alert and oriented 3, normocephalic and atraumatic, lying in bed and in no acute distress. HEENT--PERRL, EOMI, mucous membranes and oropharynx dry. Neck--supple, no JVD or bruits, thyroid normal, trachea midline, no adenopathy. Heart--normal S1 and S2, no extra beats, no murmurs, rubs or gallops. Lungs--clear bilaterally but diminished throughout, no respiratory distress, no accessory muscle use. Abdomen--normal bowel sounds and soft, nontender and nondistended, no hernias or masses, no organomegaly. Extremities--no cyanosis, clubbing or edema. There are good distal pulses b/l. Dermatologic--normal skin turgor, normal color, warm and dry, no abnormal lymph nodes, no rash. Neurologic--cranial nerves II through XII grossly intact, motor and sensory examination normal. Rheumatologic--normal range of motion, nontender, muscles and joints. Psychiatric--normal affect. Diagnostics Laboratory Results Results Past 24 Hours Test 02/13/17 13:20 02/13/17 17:05 02/14/17 07:03 Range/Units White Blood Count 8.31 7.62 4.8-10.8 K/uL Red Blood Count 4.79 4.30 4.2-5.4 M/uL Hemoglobin 13.8 11.9 12.0-16.0 g/dL Hematocrit 41.1 37.0 37-47 % Mean Corpuscular Volume 85.8 86.0 80-100 fL Mean Corpuscular Hemoglobin 28.8 27.7 25-34 pg Mean Corpuscular Hemoglobin Concent 33.6 32.2 32-36 g/dl Platelet Count 261 223 130-400 K/uL Mean Platelet Volume 9.0 8.9 7.4-10.4 fL Neutrophils (%) (Auto) 62.5 52.8 % Lymphocytes (%) (Auto) 26.2 33.9 % Monocytes (%) (Auto) 9.5 10.2 % Eosinophils (%) (Auto) 1.3 2.5 % Basophils (%) (Auto) 0.4 0.5 % Neutrophils # (Auto) 5.19 4.02 1.4-6.5 K/uL Lymphocytes # (Auto) 2.18 2.58 1.2-3.4 K/uL Monocytes # (Auto) 0.79 0.78 0.11-0.59 K/uL Eosinophils # (Auto) 0.11 0.19 0-0.5 K/uL Basophils # (Auto) 0.03 0.04 0-0.2 K/uL RDW Standard Deviation 46.6 46.3 36.4-46.3 fL RDW Coefficient of Variation 14.7 14.7 11.5-14.5 % Immature Granulocyte % (Auto) 0.1 0.1 % Immature Granulocyte # (Auto) 0.01 0.01 0.00-0.02 K/uL Prothrombin Time 10.3 10.3 9.0-12.0 SECONDS Prothromb Time International Ratio 1.0 1.0 0.9-1.1 Activated Partial Thromboplast Time 25.7 28.0 21.0-31.0 SECONDS Partial Thromboplastin Ratio 1.0 1.1 Sodium Level 141 142 136-145 mmol/L Potassium Level 3.5 3.7 3.5-5.1 mmol/L Chloride Level 107 110 98-107 mmol/L Carbon Dioxide Level 28 26 21-32 mmol/L Anion Gap 6.0 6.0 3-11 mmol/L Blood Urea Nitrogen 17 10 7-18 mg/dl Creatinine 0.75 0.50 0.60-1.20 mg/dl Est Creatinine Clear Calc Drug Dose 44.0 66.0 ml/min Estimated GFR () 86.0 104.5 Estimated GFR (Non- 74.2 90.1 BUN/Creatinine Ratio 23.0 19.1 10-20 Random Glucose 98 85 70-99 mg/dl Calcium Level 9.0 7.9 8.5-10.1 mg/dl Phosphorus Level 2.7 2.5-4.9 mg/dl Magnesium Level 2.1 2.0 1.8-2.4 mg/dl Total Bilirubin 0.4 0.2-1 mg/dl Direct Bilirubin < 0.1 0-0.2 mg/dl Aspartate Amino Transf (AST/SGOT) 10 15-37 U/L Alanine Aminotransferase (ALT/SGPT) 11 12-78 U/L Alkaline Phosphatase 145 45-117 U/L Total Creatine Kinase 39 26-192 U/L Creatine Kinase MB 1.6 0.5-3.6 ng/ml Creatine Kinase MB Ratio 4.1 0-3.0 Troponin I < 0.015 0-0.045 ng/ml Total Protein 6.9 6.4-8.2 gm/dl Albumin 3.4 3.4-5.0 gm/dl Lipase 173 73-393 U/L Urine Color YELLOW Urine Appearance CLEAR CLEAR Urine pH 5.5 4.5-7.5 Urine Specific [place] 1.040 1.000-1.030 Urine Protein TRACE NEG Urine Glucose (UA) NEG NEG Urine Ketones NEG NEG Urine Occult Blood 1+ NEG Urine Nitrite NEG NEG Urine Bilirubin NEG NEG Urine Urobilinogen NEG NEG Urine Leukocyte Esterase TRACE NEG Urine WBC (Auto) 5-10 0-5 /hpf Urine RBC (Auto) 5-10 0-4 /hpf Urine Hyaline Casts (Auto) 10-30 0-5 /lpf Urine Epithelial Cells (Auto) >30 0-5 /lpf Urine Bacteria (Auto) NEG NEG Diagnostic Radiology Patient Name: YAMILA VO Unit Number: [id number] Dictated: 02/13/171311 Transcribed: 02/13/171311 ARG Printed Date/Time: [~ rep prt dt]/[~ rep prt tm] [~ rep ct labl] - [~ rep ct ivnm] [facility] [place] [address] Dictated: 02/13/171311 Transcribed: 10/12/17 1312 ARG Printed Date/Time: [~ rep prt dt]/[~ rep prt tm] [~ rep ct labl] - [~ rep ct ivnm] CHEST ONE VIEW PORTABLE CLINICAL HISTORY: Generalized Weakness DIARRHEA, JAUNDICE. COMPARISON STUDY: 10/13/2016 FINDINGS: The heart is the upper limits of normal in size. The chest is emphysematous configuration. There is tortuosity/ectasia of the ascending thoracic aorta. There is no failure. There is no focal pulmonary consolidation. There are no pleural effusions.[ IMPRESSION: No active disease in the chest. Electronically signed by: Xavier Bland M.D. 02/13/2017 1:13 PM Dictated Date/Time: 02/13/2017 1:12 PM The status of this report is Signed. Draft = Not yet reviewed or approved by Radiologist. Signed = Reviewed and approved by Radiologist. <AttendingPhy></AttendingPhy> <FamilyPhy>Adrianne Ludwig MD</FamilyPhy> < PrimaryPhy>Adrianne Ludwig MD</PrimaryPhy> <UnitNumber>[id number]</UnitNumber > <VisitNumber>[id number]</VisitNumber> <PatientName>YAMILA VO</ PatientName> <DateOfBirth>1935</DateOfBirth> <Location>[facility]</Location> < ServiceDate>02/13/17</ServiceDate> <MNE>ESINDI</MNE> <OrderingPhy>Jamari Bell M.D.</OrderingPhy> <OrderingPhyMNE>f rep ord dr ruiz</OrderingPhyMNE> < DictatingPhyMNE>f rep dict dr ruiz</DictatingPhyMNE> <CCListMNE>f rep ct mne</ CCListMNE> <AdmittingPhyMNE>f pt admit dr ruiz</AdmittingPhyMNE> <AttendingPhyMNE >f pt attend dr ruiz</AttendingPhyMNE> <ConsultingPhyMNE>f pt consult dr ruiz</ConsultingPhyMNE> <FamilyPhyMNE>f pt fam dr ruiz</FamilyPhyMNE> <OtherPhyMNE>f pt other dr ruiz</OtherPhyMNE> < PrimaryPhyMNE>f pt prim care dr ruiz</PrimaryPhyMNE> <ReferringPhyMNE>f pt referring dr ruiz</ReferringPhyMNE> Patient Name: YAMILA VO Unit Number: [id number] Dictated: 02/13/171526 Transcribed: 02/13/171526 JA Printed Date/Time: [~ rep prt dt]/[~ rep prt tm] [~ rep ct labl] - [~ rep ct ivnm] [facility] Radiology Department [place], [place] [id number] Dictated: 02/13/171526 Transcribed: 02/13/171526 JA Printed Date/Time: [~ rep prt dt]/[~ rep prt tm] [~ rep ct labl] - [~ rep ct ivnm] [~ rep ct add3]] ABDOMINAL AORTIC ULTRASOUND CLINICAL HISTORY: Pulsatile mid abdomen. COMPARISON STUDY: No previous studies for comparison. TECHNIQUE: Sonography of the abdominal aorta was performed. FINDINGS: The caliber of the proximal abdominal aorta was normal, measuring 2 cm. The caliber of the mid abdominal aorta was normal, measuring 1.9 cm. Note was made of a 5.5 x 5.5 cm infrarenal abdominal aortic aneurysm with extensive eccentric intraluminal thrombus. The proximal bilateral common iliac arteries were obscured on this exam. IMPRESSION: 5.5 cm infrarenal abdominal aortic aneurysm. Electronically signed by: Ramírez Saunders M.D. 02/13/2017 3:30 PM Dictated Date/Time: 02/13/2017 3:27 PM The status of this report is Signed. Draft = Not yet reviewed or approved by Radiologist. Signed = Reviewed and approved by Radiologist. <AttendingPhy></AttendingPhy> <FamilyPhy>Adrianne Ludwig MD</FamilyPhy> < PrimaryPhy>Adrianne Ludwig MD</PrimaryPhy> <UnitNumber>[id number]</UnitNumber > <VisitNumber>[id number]</VisitNumber> <PatientName>YAMILA VO</ PatientName> <DateOfBirth>1935</DateOfBirth> <Location>[facility]</Location> < ServiceDate>02/13/17</ServiceDate> <MNE>ESINDI</MNE> <OrderingPhy>Jamari Bell M.D.</OrderingPhy> <OrderingPhyMNE>f rep ord dr ruiz</OrderingPhyMNE> < DictatingPhyMNE>f rep dict dr ruiz</DictatingPhyMNE> <CCListMNE>f rep ct mne</ CCListMNE> <AdmittingPhyMNE>f pt admit dr ruiz</AdmittingPhyMNE> <AttendingPhyMNE >f pt attend dr ruiz</AttendingPhyMNE> <ConsultingPhyMNE>f pt consult dr ruiz</ConsultingPhyMNE> <FamilyPhyMNE>f pt fam dr ruiz</FamilyPhyMNE> <OtherPhyMNE>f pt other dr uriz</OtherPhyMNE> < PrimaryPhyMNE>f pt prim care dr ruiz</PrimaryPhyMNE> <ReferringPhyMNE>f pt referring dr ruiz</ReferringPhyMNE> Patient Name: YAMILA VO Unit Number: [id number] Dictated: 02/13/171647 Transcribed: 02/13/171647 PBS Printed Date/Time: [~ rep prt dt]/[~ rep prt tm] [~ rep ct labl] - [~ rep ct ivnm] [facility] [place] [address] Dictated: 02/13/171647 Transcribed: 02/13/171647 PBS Printed Date/Time: [~ rep prt dt]/[~ rep prt tm] [~ rep ct labl] - [~ rep ct ivnm] [~ rep ct add3]] ANGIO ABD/PELVIS WITH CONTRAST CLINICAL HISTORY: 82 years-old Female presenting with abdominal aortic aneurysm on ultrasound, CTA for further evaluation. TECHNIQUE: Multidetector CT angiography of the abdomen and pelvis was performed after the administration of intravenous contrast. 3-D volumetric and/or maximum intensity projection (MIP) images were subsequently reconstructed for review. IV contrast: 93 mL of Optiray 320. A dose lowering technique was used consistent with the principles of ALARA (as low as reasonably achievable). COMPARISON: Ultrasound performed earlier the same day. CT DOSE (mGy.cm): The estimated cumulative dose is 254.23 mGy.cm. FINDINGS: Correctional Counselor/Case Manager topogram: Unremarkable. Vasculature: Calcified and noncalcified atherosclerosis of the aorta. Eccentric aneurysmal dilatation of the infrarenal abdominal aortic along the left lateral aspect immediately distal to the left renal artery with prominent crescentic mural thrombus. The morphology is consistent with a penetrating ulcer/pseudoaneurysm, measuring approximately 3 cm in height from the expected left lateral contour of the aorta, 2.3 cm in width at the neck, and 3.5 cm in width maximally. More inferiorly and medially proximal to the aortic bifurcation is an abdominal aortic aneurysm measuring 5.5 x 4.9 cm with prominent mural thrombus. The bilateral iliac vessels remain patent without significant stenosis or occlusion. Celiac, superior mesenteric, and right renal arteries patent at their origins and along the courses. Less than 25% stenosis at the origin of the left renal artery. Remaining abdomen and pelvis: Paraseptal emphysematous changes at the lung bases. Normal heart size. No pericardial pleural effusion. Allowing for the arterial phase of contrast, liver, gallbladder, pancreas, spleen, right adrenal gland normal. Left adrenal gland demonstrates nodular thickening. Hypodensity in the lower pole of the right kidney possibly simple cyst. No hydronephrosis. Bladder normal. Normal noncontrast appearance of the uterus essentially with a calcified fibroid. No adnexal masses. Diverticulosis of the sigmoid colon. No bowel obstruction. Mild wall thickening of the descending portion of the duodenum suggested. Degenerative changes of the spine. Osteopenia. IMPRESSION: 1. 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 2. Infrarenal abdominal aortic aneurysm immediately proximal to the bifurcation measuring 5.5 x 4.9 cm. Electronically signed by: Semaj Prather M.D. 02/13/2017 4:56 PM Dictated Date/Time: 02/13/2017 4:48 PM The status of this report is Signed. Draft = Not yet reviewed or approved by Radiologist. Signed = Reviewed and approved by Radiologist. <AttendingPhy></AttendingPhy> <FamilyPhy>Adrianne Ludwig MD</FamilyPhy> < PrimaryPhy>Adrianne Ludwig MD</PrimaryPhy> <UnitNumber>[id number]</UnitNumber > <VisitNumber>[id number]</VisitNumber> <PatientName>YAMILA VO</ PatientName> <DateOfBirth>1935</DateOfBirth> <Location>[facility]</Location> < ServiceDate>02/13/17</ServiceDate> <MNE>ESINDI</MNE> <OrderingPhy>Jamari Bell M.D.</OrderingPhy> <OrderingPhyMNE>f rep ord dr ruiz</OrderingPhyMNE> < DictatingPhyMNE>f rep dict dr ruiz</DictatingPhyMNE> <CCListMNE>f rep ct sara</ CCListMNE> <AdmittingPhyMNE>f pt admit dr ruiz</AdmittingPhyMNE> <AttendingPhyMNE >f pt attend dr ruiz</AttendingPhyMNE> <ConsultingPhyMNE>f pt consult dr ruiz</ConsultingPhyMNE> <FamilyPhyMNE>f pt fam dr ruiz</FamilyPhyMNE> <OtherPhyMNE>f pt other dr ruiz</OtherPhyMNE> < PrimaryPhyMNE>f pt prim care dr ruiz</PrimaryPhyMNE> <ReferringPhyMNE>f pt referring dr ruiz</ReferringPhyMNE> Impression Assessment and Plan Dehydration/secondary to resolving diarrhea-- Admit for IV fluids. Urine specific gravity elevated suggesting dehydration. Follow serial laboratories, urine culture and sensitivities. Deconditioning-- Consult PT/OT/renal social worker. 5.5 x 4.9 infrarenal abdominal aortic aneurysm-- Noted and follow as an outpatient with Dr. Man who is aware of the patient. SDAT- Has been intolerant of medications tried in the past. Has been seen by Dr. Guan in the past. Continue aspirin 81 mg daily. Level of Care Med/Surg Advanced Directives Existing Advance Directive: No Existing Living Will: No Existing Power of Senior Military Analyst: Yes (DTRS THINK THAT DTR KRISTA MIGHT BE. NOT SURE) Resuscitation Status FULL RESUSCITATION VTE Prophylaxis VTE Risk Assessment Done? Y/N: Yes Risk Level: Moderate Given or contraindicated: SCD's
--- NOTE | 2017-02-14 10:41 | Neurology Consultation ---
Neurology Consultation Date of Consultation: Feb 14, 2017. Attending Physician: Eduardo Pablo M.D. 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 Over the past couple years the patient has been tried on 3 different medications to help slow down the symptoms of dementia but is not tolerated Aricept, Namenda, or Exelon patch. Patient's symptoms at last clinic visit in August appeared fairly stable. She has been noted to have a slow cognitive decline over several years. No behavioral disturbance or hallucinations. The patient more recently has been living with her daughter. Per review of the ER notes, the patient presented with generalized weakness, dizziness, diarrhea, and fatigue. Daughter was also concerned about some possible jaundice. This morning, history is taken by the patient who is a fairly poor historian. She cannot tell me why she was in the hospital. She denied any weakness. Denied any illness symptoms. Denied any dizziness. She denies any pain. No chest pain or shortness of breath. She does admit to some memory problems. She feels like she is at her baseline and feels pretty good. Labs reviewed. Unremarkable CBC and complete metabolic panel except for a elevated alkaline Raghu. UA suggests possible UTI. Brain MRI from 2016 was reviewed. Noted minimal old small vessel ischemic disease and a tiny left basal ganglia infarct. Patient is taking daily aspirin. On review of systems the patient does note a mild headache this morning but reports that it seems a normal headache and is not unusual for her. She reports that she rarely gets a headache Past Medical/Surgical History Medical Problems: (1) Aortic aneurysm Status: Acute (2) Dehydration Status: Acute (3) Dehydration Status: Acute (4) Generalized weakness Status: Acute (5) Hematuria Status: Acute (6) Vertigo Status: Acute Mixed moderate Alzheimer's and vascular type dementia Family History Noncontributory Social History Lives with daughter. Needs help with some of her activities of daily living such as managing medications Smokeless Tobacco Use: No Alcohol Use: none Drug Use: none Marital Status: Occupation Status: retired Allergies Coded Allergies: Penicillins (Verified Allergy, Unknown, OTHER, 02/13/17) UNKNOWN Current Inpatient Medications Current Inpatient Medications Medications (Trade) Dose Ordered Sig/Alex Route Start Time Stop Time Status Last Admin Dose Admin Ioversol (Optiray 320) 111 ml UD PRN IV 02/13/17 16:00 02/17/17 15:59 Acetaminophen (Tylenol Tab) 650 mg Q4H PRN PO 02/13/17 18:15 03/15/17 18:14 Aspirin (Ecotrin Tab) 81 mg DAILY PO 02/14/17 08:00 03/16/17 08:59 Ondansetron HCl (Zofran Inj) 4 mg Q6H PRN IV 02/13/17 18:15 03/15/17 18:14 Potassium Chloride/Sodium Chloride 1,000 ml @ 100 mls/hr Q10H IV 02/13/17 21:00 03/15/17 20:59 02/14/17 06:10 100 MLS/HR Miscellaneous (Iv Fluids Completed) 1 ea PRN PRN N/A 02/13/17 22:00 02/13/18 21:59 Review of Systems Complete review of systems otherwise negative except for the above noted in history of present illness Physical Exam Vital Signs (Past 24 Hrs): Date Time Temp Pulse Resp B/P (MAP) Pulse Ox O2 Delivery O2 Flow Rate FiO2 02/14/17 08:30 96 Room Air 02/14/17 08:12 36.4 72 18 189/66 (107) 95 Room Air 02/14/17 07:50 195/94 (127) 02/14/17 00:00 93 Room Air 02/13/17 23:50 36.5 70 18 134/61 (85) 95 Room Air 02/13/17 21:00 36.5 69 20 153/58 (89) 95 Room Air 02/13/17 20:17 79 149/57 93 02/13/17 19:55 Room Air 02/13/17 18:58 82 153/58 93 Room Air 02/13/17 17:02 61 182/68 97 Room Air 02/13/17 15:02 63 136/71 96 Room Air 02/13/17 13:32 63 02/13/17 12:26 36.4 80 18 141/69 96 Room Air Gen.: Patient is alert and sitting in bed, in no acute distress. HEENT: Normocephalic /atraumatic, no scleral icterus Heart: Regular rate and rhythm Extremities: No gross deformities or rashes noted Neurological examination: Mental status: Patient is alert and oriented x2. She was oriented to person and correctly stated that she was in the hospital and her correct room number. She incorrectly stated that the year was 2007 and that the month was January. She did not recognize me from clinic. Attention and concentration normal for the situation. Poor fund of knowledge. Poor historian. Speech is fluent without any dysarthria or aphasia noted Cranial nerve: Funduscopic examination was unremarkable. No papilledema. Pupils equally round and reactive to light. Extraocular muscles intact without nystagmus. No facial asymmetry noted. Facial sensation intact. Tongue is midline. Good palatal elevation. Good shoulder shrug bilaterally. Hearing grossly intact to voice. Strength: 5/5 both proximal and distally in all extremities. There is no arm drift. Tone is normal. Sensation: Grossly intact to light touch in all extremities. Deep tendon reflexes: +1 in bilateral biceps, brachioradialis and patellar. Toes were downgoing to plantar stimulation Coordination: Patient had good finger to nose without dysmetria Station within the bed was normal Laboratory Results Past 24 Hours: 02/14/17 07:03 Red Blood Count 4.30, Mean Corpuscular Volume 86.0, Mean Corpuscular Hemoglobin 27.7, Mean Corpuscular Hemoglobin Concent 32.2, Mean Platelet Volume 8.9, Neutrophils (%) (Auto) 52.8, Lymphocytes (%) (Auto) 33.9, Monocytes (%) (Auto) 10.2, Eosinophils (%) (Auto) 2.5, Basophils (%) (Auto) 0.5, Neutrophils # (Auto ) 4.02, Lymphocytes # (Auto) 2.58, Monocytes # (Auto) 0.78, Eosinophils # (Auto ) 0.19, Basophils # (Auto) 0.04 02/14/17 07:03 Test 02/13/17 13:20 02/13/17 17:05 02/14/17 07:03 Phosphorus Level 2.7 mg/dl (2.5-4.9) Total Bilirubin 0.4 mg/dl (0.2-1) Direct Bilirubin < 0.1 mg/dl (0-0.2) Aspartate Amino Transf (AST/SGOT) 10 U/L (15-37) Alanine Aminotransferase (ALT/SGPT) 11 U/L (12-78) Alkaline Phosphatase 145 U/L (45-117) Total Creatine Kinase 39 U/L (26-192) Creatine Kinase MB 1.6 ng/ml (0.5-3.6) Creatine Kinase MB Ratio 4.1 (0-3.0) Troponin I < 0.015 ng/ml (0-0.045) Total Protein 6.9 gm/dl (6.4-8.2) Albumin 3.4 gm/dl (3.4-5.0) Lipase 173 U/L (73-393) Urine Color YELLOW Urine Appearance CLEAR (CLEAR) Urine pH 5.5 (4.5-7.5) Urine Specific [place] 1.040 (1.000-1.030) Urine Protein TRACE (NEG) Urine Glucose (UA) NEG (NEG) Urine Ketones NEG (NEG) Urine Occult Blood 1+ (NEG) Urine Nitrite NEG (NEG) Urine Bilirubin NEG (NEG) Urine Urobilinogen NEG (NEG) Urine Leukocyte Esterase TRACE (NEG) Urine WBC (Auto) 5-10 /hpf (0-5) Urine RBC (Auto) 5-10 /hpf (0-4) Urine Hyaline Casts (Auto) 10-30 /lpf (0-5) Urine Epithelial Cells (Auto) >30 /lpf (0-5) Urine Bacteria (Auto) NEG (NEG) White Blood Count 7.62 K/uL (4.8-10.8) Red Blood Count 4.30 M/uL (4.2-5.4) Hemoglobin 11.9 g/dL (12.0-16.0) Hematocrit 37.0 % (37-47) Mean Corpuscular Volume 86.0 fL (80-100) Mean Corpuscular Hemoglobin 27.7 pg (25-34) Mean Corpuscular Hemoglobin Concent 32.2 g/dl (32-36) Platelet Count 223 K/uL (130-400) Mean Platelet Volume 8.9 fL (7.4-10.4) Neutrophils (%) (Auto) 52.8 % Lymphocytes (%) (Auto) 33.9 % Monocytes (%) (Auto) 10.2 % Eosinophils (%) (Auto) 2.5 % Basophils (%) (Auto) 0.5 % Neutrophils # (Auto) 4.02 K/uL (1.4-6.5) Lymphocytes # (Auto) 2.58 K/uL (1.2-3.4) Monocytes # (Auto) 0.78 K/uL (0.11-0.59) Eosinophils # (Auto) 0.19 K/uL (0-0.5) Basophils # (Auto) 0.04 K/uL (0-0.2) RDW Standard Deviation 46.3 fL (36.4-46.3) RDW Coefficient of Variation 14.7 % (11.5-14.5) Immature Granulocyte % (Auto) 0.1 % Immature Granulocyte # (Auto) 0.01 K/uL (0.00-0.02) Prothrombin Time 10.3 SECONDS (9.0-12.0) Prothromb Time International Ratio 1.0 (0.9-1.1) Activated Partial Thromboplast Time 28.0 SECONDS (21.0-31.0) Partial Thromboplastin Ratio 1.1 Anion Gap 6.0 mmol/L (3-11) Est Creatinine Clear Calc Drug Dose 66.0 ml/min Estimated GFR () 104.5 Estimated GFR (Non- 90.1 BUN/Creatinine Ratio 19.1 (10-20) Calcium Level 7.9 mg/dl (8.5-10.1) Magnesium Level 2.0 mg/dl (1.8-2.4) Imaging As noted above in history of present illness Impression This is a 82-year-old female who is followed in neurology clinic for 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 Patient has not tolerated 3 different medications for treatment of dementia. Neurological status is stable. Plan No additional neurological recommendations at this time. Infectious and metabolic workup per hospitalist team regarding generalized weakness and not feeling well. The patient already has neurology follow-up appointment in clinic in August 2017 for dementia reevaluation and can keep this appointment. Agree with PT OT evaluation for discharge planning If there is any questions or concerns, feel free to call/page me
[2017-02-14] MEDS: ASPIRIN 81 MG ECTAB PO SCH (10:52)
[2017-02-14] MEDS: HydrALAZINE HCL 20 MG/ML VIAL IV. PRN ×2 (14:48→20:53)
[2017-02-14] MEDS ORDERED: ATOR-54 PO (16:19)
[2017-02-14] MEDS ORDERED: ZLF50 PO (16:19)
[2017-02-14] MEDS ORDERED: SPRIN/30 INH (16:19)
[2017-02-14] MEDS ORDERED: DILT120T3 PO (16:19)
--- NOTE | 2017-02-14 16:29 | Hospitalist Progress Note ---
Hospitalist Progress Note Date of Service Feb 14, 2017. Subjective Pt evaluation today including: conversation w/ patient, conversation w/ family (daughter at bedside), physical exam, chart review, lab review, review of inpatient medication list Pain: None PO Intake: Tolerating PO diet Voiding: no voiding problems Patient complains of dizziness upon standing. She complains of weakness and fatigue as well as dyspnea on exertion. Per the daughter, the patient has been having poor appetite, weight loss, and intermittent diarrhea for the last few months. The patient denies fevers, chills, sweats, chest pain, palpitations, claudication, cough, wheezing, shortness of breath at rest, nausea, vomiting, abdominal pain, dysuria, hematuria, urinary retention, paralysis, numbness and tingling. Additional Comments: See HPI for pertinent positives and negatives. All other systems reviewed and negative. Objective Vital Signs Date Time Temp Pulse Resp B/P (MAP) Pulse Ox O2 Delivery O2 Flow Rate FiO2 02/14/17 15:45 162/71 (101) 02/14/17 12:00 175/72 (106) 02/14/17 08:30 96 Room Air 02/14/17 08:12 36.4 72 18 189/66 (107) 95 Room Air 02/14/17 07:50 195/94 (127) 02/14/17 00:00 93 Room Air 02/13/17 23:50 36.5 70 18 134/61 (85) 95 Room Air 02/13/17 21:00 36.5 69 20 153/58 (89) 95 Room Air 02/13/17 20:17 79 149/57 93 02/13/17 19:55 Room Air 02/13/17 18:58 82 153/58 93 Room Air 02/13/17 17:02 61 182/68 97 Room Air Physical Exam Notes: General appearance: +Thin. Well-developed, well-nourished, no apparent distress Head: Normocephalic, atraumatic Eyes: Normal inspection, PERRL, EOMI ENT: Normal ENT inspection, hearing grossly normal, pharynx normal Neck: Supple, no JVD, trachea midline Respiratory/Chest: Lungs clear to auscultation, normal breath sounds, no respiratory distress Cardiovascular: Regular rate & rhythm, no gallop, no murmur Abdomen/GI: Normal bowel sounds, non-tender, soft Extremities/Musculoskeletal: Normal inspection, no calf tenderness, no pedal edema Neurological/Psych: +Disoriented to time. Alert, normal mood/affect, oriented x 2 Skin: Normal color, warm/dry, no rash Laboratory Results Last 24 Hours Test 02/13/17 17:05 02/14/17 07:03 Urine Color YELLOW Urine Appearance CLEAR Urine pH 5.5 Urine Specific [place] 1.040 Urine Protein TRACE Urine Glucose (UA) NEG Urine Ketones NEG Urine Occult Blood 1+ Urine Nitrite NEG Urine Bilirubin NEG Urine Urobilinogen NEG Urine Leukocyte Esterase TRACE Urine WBC (Auto) 5-10 /hpf Urine RBC (Auto) 5-10 /hpf Urine Hyaline Casts (Auto) 10-30 /lpf Urine Epithelial Cells (Auto) >30 /lpf Urine Bacteria (Auto) NEG White Blood Count 7.62 K/uL Red Blood Count 4.30 M/uL Hemoglobin 11.9 g/dL Hematocrit 37.0 % Mean Corpuscular Volume 86.0 fL Mean Corpuscular Hemoglobin 27.7 pg Mean Corpuscular Hemoglobin Concent 32.2 g/dl Platelet Count 223 K/uL Mean Platelet Volume 8.9 fL Neutrophils (%) (Auto) 52.8 % Lymphocytes (%) (Auto) 33.9 % Monocytes (%) (Auto) 10.2 % Eosinophils (%) (Auto) 2.5 % Basophils (%) (Auto) 0.5 % Neutrophils # (Auto) 4.02 K/uL Lymphocytes # (Auto) 2.58 K/uL Monocytes # (Auto) 0.78 K/uL Eosinophils # (Auto) 0.19 K/uL Basophils # (Auto) 0.04 K/uL RDW Standard Deviation 46.3 fL RDW Coefficient of Variation 14.7 % Immature Granulocyte % (Auto) 0.1 % Immature Granulocyte # (Auto) 0.01 K/uL Prothrombin Time 10.3 SECONDS Prothromb Time International Ratio 1.0 Activated Partial Thromboplast Time 28.0 SECONDS Partial Thromboplastin Ratio 1.1 Sodium Level 142 mmol/L Potassium Level 3.7 mmol/L Chloride Level 110 mmol/L Carbon Dioxide Level 26 mmol/L Anion Gap 6.0 mmol/L Blood Urea Nitrogen 10 mg/dl Creatinine 0.50 mg/dl Est Creatinine Clear Calc Drug Dose 66.0 ml/min Estimated GFR () 104.5 Estimated GFR (Non- 90.1 BUN/Creatinine Ratio 19.1 Random Glucose 85 mg/dl Calcium Level 7.9 mg/dl Magnesium Level 2.0 mg/dl Assessment and Plan 82 y/o female with a history of HTN, HLD, COPD, Alzheimer's disease, and depression who presents with weakness, dizziness and fatigue. Dehydration, intermittent diarrhea, weakness, fatigue--stable -Admit to med/surg for observation -Decrease IVF to 75 cc/hr. Poor oral intake -Ongoing intermittent diarrhea as well as decreased appetite and weight loss in last 6 months or so -Consult manager body Memory loss -Neurology consulted, appreciate recs: No additional neurological recommendations at this time. Keep previously scheduled neuro f/u appt. Agree with PT/OT eval. Deconditioning -PT/OT evaluate and treat -PT recommend rehab if pt cannot meet specified goals 5.5 x 4.9 infrarenal abdominal aortic aneurysm -Noted and follow as an outpatient with Dr. Man who is aware of the patient. HTN -Continue diltiazem 120 mg PO qd -Cover with hydralazine 10 mg IV q6h prn SBP >180 HLD -Continue Lipitor 20 mg PO hs Depression -Continue Zoloft 50 mg PO qd COPD -Continue Spiriva inh qd DVT prophylaxis -SCDs Code Status -Level I, FULL RESUSCITATION STATUS
[2017-02-14] MEDS: BOOST PLUS VANILLA PO SCH ×2 (18:25)
[2017-02-15] VITALS (7 sets, daily range): BP systolic 145–211; BP diastolic 62–86; PULSE 64–88; TEMP 36.5–36.7; O2SAT 93–95
[2017-02-15] MEDS: NSS + 20MEQ KCL 1000ML 1,000 ML IV SCH ×2 (05:58→20:13)
[2017-02-15 06:15] LABS: BASO % 0.7 %; BASO ABS # 0.05 K/uL (0-0.2); COMPLETE YES; EOS % 2.8 %; HEMATOCRIT 35.1 % (37-47); IG% 0.3 %; LYMPH % 37.2 %; LYMPH ABS # 2.79 K/uL (1.2-3.4); MEAN CELL VOLUME 85.2 fL (80-100); MEAN CORPUSCULAR HEMOGLOBIN 28.9 pg (25-34); MEAN CORPUSCULAR HGB CONC 33.9 g/dl (32-36); MEAN PLATELET VOLUME 9.1 fL (7.4-10.4); PLATELET COUNT 232 K/uL (130-400); RED BLOOD COUNT 4.12 M/uL (4.2-5.4)
[2017-02-15 06:20] LABS: PARTIAL THROMBOPLASTIN RATIO 1.1; PROTHROMBIN TIME (PATIENT) 10.7 SECONDS (9.0-12.0)
[2017-02-15 06:41] LABS: BUN/CREATININE RATIO 10.7 (10-20); CALCIUM 8.2 mg/dl (8.5-10.1); CREATININE 0.42 mg/dl (0.60-1.20); MAGNESIUM 1.9 mg/dl (1.8-2.4); POTASSIUM 3.7 mmol/L (3.5-5.1)
[2017-02-15] MEDS ORDERED: SERTRALINE HCL 50 MG TAB PO SCH (08:00)
[2017-02-15] MEDS: TIOTROPIUM BROMIDE 5 PUFF/90 MCG INH INH SCH (09:08)
[2017-02-15] MEDS: BOOST PLUS VANILLA PO SCH ×6 (09:09→17:34)
[2017-02-15] MEDS: DILTIAZEM HCL 120 MG EXT REL CAP PO SCH (09:10)
[2017-02-15] MEDS: ASPIRIN 81 MG ECTAB PO SCH (09:10)
[2017-02-15] MEDS: ATORVASTATIN 20 MG TAB PO SCH (09:10)
[2017-02-15] MEDS ORDERED: ESCI10TA17 PO (16:45)
--- NOTE | 2017-02-15 16:50 | Discharge Instructions ---
Discharge Instructions Date of Service Feb 15, 2017. Admission Reason for Admission: Dehydration, Mild. Memory Loss Discharge Discharge Diagnosis / Problem: Incidental Infrarenal abdominal aortic aneurysm / hypertension Discharge Goals Goal(s): Decrease discomfort, Improve function Activity Recommendations Activity Limitations: resume your previous activity . Instructions / Follow-Up Instructions / Follow-Up F/U with vascular surgery on Friday (Appointment already made) F/U with PCP in 1-2 weeks (Appointment not made) Current Hospital Diet Patient's current hospital diet: Regular Diet Discharge Diet Recommended Diet: Regular Diet Pending Studies Studies pending at discharge: no Medical Emergencies . Who to Call and When: Medical Emergencies: If at any time you feel your situation is an emergency, please call 911 immediately. . Non-Emergent Contact Non-Emergency issues call your: Primary Care Provider Call Non-Emergent contact if: your pain is worsening, your pain is unusual for you . . "Provider Documentation" section prepared by Jose Alejandro Bernal. . VTE Core Measure Inpt VTE Proph given/why not?: SCD's
[2017-02-15] MEDS ORDERED: LISINOPRIL 10 MG TAB PO SCH (21:00)
--- NOTE | 2017-02-15 23:47 | Progress Note ---
Subjective Date of Service: Feb 15, 2017. Subjective Pt evaluation today including: conversation w/ patient, physical exam 82 yo female has no complaints and is reading the newspaper. Problem List Medical Problems: (1) Aortic aneurysm Status: Acute (2) Dehydration Status: Acute (3) Dehydration Status: Acute (4) Generalized weakness Status: Acute (5) Hematuria Status: Acute (6) Vertigo Status: Acute Review of Systems Constitutional: No fever, No chills Respiratory: No cough, No sputum Cardiac: No chest pain, No orthopnea Breast: No breast lump Abdomen: No pain, No nausea Musculoskeletal: No joint pain Neurologic: No memory loss, No paralysis Psychiatric: No depression symptoms, No anhedonism Endo: No fatigue Skin: No rash, No itch All Other Systems: Reviewed and Negative Medications Current Inpatient Medications Medications (Trade) Dose Ordered Sig/Alex Route Start Time Stop Time Status Last Admin Dose Admin Ioversol (Optiray 320) 111 ml UD PRN IV 02/13/17 16:00 02/17/17 15:59 Acetaminophen (Tylenol Tab) 650 mg Q4H PRN PO 02/13/17 18:15 03/15/17 18:14 02/14/17 22:21 650 MG Aspirin (Ecotrin Tab) 81 mg DAILY PO 02/14/17 08:00 03/16/17 08:59 02/15/17 09:10 81 MG Ondansetron HCl (Zofran Inj) 4 mg Q6H PRN IV 02/13/17 18:15 03/15/17 18:14 Potassium Chloride/Sodium Chloride 1,000 ml @ 75 mls/hr [id number] IV 02/13/17 21:00 03/15/17 20:59 02/15/17 20:13 75 MLS/HR Miscellaneous (Iv Fluids Completed) 1 ea PRN PRN N/A 02/13/17 22:00 02/13/18 21:59 Hydralazine HCl (HydrALAZINE INJ) 10 mg Q6H PRN IV. 02/14/17 13:45 03/16/17 13:44 02/14/17 20:53 10 MG Atorvastatin Calcium (Lipitor Tab) 20 mg DAILY PO 02/15/17 08:00 03/17/17 07:59 02/15/17 09:10 20 MG Tiotropium [place] (Spiriva Handihaler Inhaler) 1 puff DAILY INH 02/15/17 08:00 03/17/17 07:59 02/15/17 09:08 1 PUFF Diltiazem HCl (TIAzac CAP) 120 mg QAM PO 02/15/17 08:00 03/17/17 07:59 02/15/17 09:10 120 MG Enteral Nutritional Formula (Boost Plus Vanilla) 1 can TIDM PO 02/14/17 17:00 03/16/17 16:59 02/15/17 09:09 1 CAN Escitalopram Oxalate (Lexapro Tab) 10 mg QAM PO 02/16/17 08:00 03/18/17 07:59 Lisinopril (Zestril Tab) 10 mg QPM PO 02/15/17 21:00 03/17/17 20:59 02/15/17 20:15 10 MG Objective Vital Signs Date Time Temp Pulse Resp B/P (MAP) Pulse Ox O2 Delivery O2 Flow Rate FiO2 02/15/17 16:00 Room Air 02/15/17 16:00 36.7 70 14 151/62 (91) 95 Room Air 73 182/66 (104) 76 174/79 (110) 02/15/17 11:24 36.6 67 18 173/66 (101) 94 Room Air 81 161/77 (105) 84 160/78 (105) 02/15/17 08:00 Room Air 02/15/17 07:15 36.5 74 20 177/70 (105) 94 Room Air 02/15/17 03:55 36.5 74 18 145/77 (99) 95 Room Air 02/15/17 01:20 145/77 (99) 02/15/17 00:00 93 Room Air Physical Exam General Appearance: WD/WN, no apparent distress Neck: supple, no adenopathy Respiratory/Chest: chest non-tender, lungs clear, normal breath sounds Cardiovascular: regular rate, rhythm, no edema, no gallop Abdomen: normal bowel sounds, non tender Extremities: non-tender Neurologic/Psychiatric: + pertinent finding (oriented to person, place ( improvement), not time (2013), but does know our president is trump (which she very much likes)) Lymphatic: no adenopathy Laboratory Results Last 24 Hours Test 02/15/17 05:45 White Blood Count 7.50 K/uL Red Blood Count 4.12 M/uL Hemoglobin 11.9 g/dL Hematocrit 35.1 % Mean Corpuscular Volume 85.2 fL Mean Corpuscular Hemoglobin 28.9 pg Mean Corpuscular Hemoglobin Concent 33.9 g/dl Platelet Count 232 K/uL Mean Platelet Volume 9.1 fL Neutrophils (%) (Auto) 49.0 % Lymphocytes (%) (Auto) 37.2 % Monocytes (%) (Auto) 10.0 % Eosinophils (%) (Auto) 2.8 % Basophils (%) (Auto) 0.7 % Neutrophils # (Auto) 3.68 K/uL Lymphocytes # (Auto) 2.79 K/uL Monocytes # (Auto) 0.75 K/uL Eosinophils # (Auto) 0.21 K/uL Basophils # (Auto) 0.05 K/uL RDW Standard Deviation 46.0 fL RDW Coefficient of Variation 14.6 % Immature Granulocyte % (Auto) 0.3 % Immature Granulocyte # (Auto) 0.02 K/uL Prothrombin Time 10.7 SECONDS Prothromb Time International Ratio 1.0 Activated Partial Thromboplast Time 29.7 SECONDS Partial Thromboplastin Ratio 1.1 Sodium Level 140 mmol/L Potassium Level 3.7 mmol/L Chloride Level 108 mmol/L Carbon Dioxide Level 26 mmol/L Anion Gap 5.0 mmol/L Blood Urea Nitrogen 5 mg/dl Creatinine 0.42 mg/dl Est Creatinine Clear Calc Drug Dose 78.6 ml/min Estimated GFR () 110.6 Estimated GFR (Non- 95.5 BUN/Creatinine Ratio 10.7 Random Glucose 89 mg/dl Calcium Level 8.2 mg/dl Magnesium Level 1.9 mg/dl Assessment and Plan This is a 82-year-old female who is followed in neurology clinic for 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 Patient has not tolerated 3 different medications for treatment of dementia. As per Neuro, Neurological status is stable. Infrarenal aortic aneurysm Found on imaging in ER Infrarenal abdominal aortic aneurysm immediately proximal to the bifurcation measuring 5.5 x 4.9 cm. D/W daughter Keisha Has appointment on Friday with vascular surgeon. Patient is asymptomatic BP is elevated, will add new BP med: lisinopril Moderate Mixed Vascular and Alzheimer's dementia Appreciate Neuro input No additional neurological recommendations at this time. Infectious and metabolic workup per hospitalist team regarding generalized weakness and not feeling well. The patient already has neurology follow-up appointment in clinic in August 2017 for dementia reevaluation and can keep this appointment. Agree with PT OT evaluation for discharge planning HTN not controlled. will continue home meds and start lisnopril depression Daughter states no improvement, will increase lexapro to 10mg PO daily will discharge patient tomorrow in AM if BP is better controlled.
[2017-02-16 06:42] LABS: BASO % 0.5 %; BASO ABS # 0.04 K/uL (0-0.2); COMPLETE YES; EOS % 4.5 %; HEMATOCRIT 36.6 % (37-47); IG% 0.2 %; LYMPH % 36.6 %; LYMPH ABS # 2.94 K/uL (1.2-3.4); MEAN CELL VOLUME 85.3 fL (80-100); MEAN CORPUSCULAR HEMOGLOBIN 27.5 pg (25-34); MEAN CORPUSCULAR HGB CONC 32.2 g/dl (32-36); NEUT % 48.2 %; PLATELET COUNT 253 K/uL (130-400); RED BLOOD COUNT 4.29 M/uL (4.2-5.4); WHITE BLOOD COUNT 8.03 K/uL (4.8-10.8)
[2017-02-16 06:57] LABS: PARTIAL THROMBOPLASTIN RATIO 1.1; PROTHROMBIN TIME (PATIENT) 10.5 SECONDS (9.0-12.0)
[2017-02-16 07:18] LABS: BUN/CREATININE RATIO 12.3 (10-20); CREATININE 0.42 mg/dl (0.60-1.20); MAGNESIUM 1.9 mg/dl (1.8-2.4); POTASSIUM 3.9 mmol/L (3.5-5.1)
[2017-02-16 07:26] VITALS: BP_SYST 156; BP_SYST 163; BP_SYST 166; BP_DIAS 66; BP_DIAS 67; BP_DIAS 69; PULSE 72; PULSE 75; TEMP 36.5; O2SAT 95
[2017-02-16] MEDS ORDERED: ESCITALOPRAM OXALATE 10 MG TAB PO SCH (08:00)
[2017-02-16] MEDS: TIOTROPIUM BROMIDE 5 PUFF/90 MCG INH INH SCH (08:31)
[2017-02-16] MEDS: ASPIRIN 81 MG ECTAB PO SCH (08:32)
[2017-02-16] MEDS: BOOST PLUS VANILLA PO SCH ×2 (08:32)
[2017-02-16] MEDS: ATORVASTATIN 20 MG TAB PO SCH (08:33)
[2017-02-16] MEDS: DILTIAZEM HCL 120 MG EXT REL CAP PO SCH (08:34)
[2017-02-16] MEDS ORDERED: LSN10 PO (08:48)
--- NOTE | 2017-02-16 08:53 | Discharge Instructions ---
Discharge Instructions Date of Service Feb 16, 2017. Admission Reason for Admission: Hypertension, memory loss Discharge Discharge Diagnosis / Problem: Hypetertension, Abdominal aortic aneurysm Discharge Goals Goal(s): Decrease discomfort, Improve function, Specific goals (follow up with vascular surgery tomorrow) Activity Recommendations Activity Limitations: resume your previous activity . Instructions / Follow-Up Instructions / Follow-Up Medications: - LISINOPRIL: new blood pressure medication, take 10mg in the evening, due this evening, script sent to pharmacy [facility]: needs close follow up with vascular surgery Hypertension: Lisinopril added in addition to Cardizem, close follow up with Dr. Ludwig to make sure blood pressure controlled, there is room to increase lisinopril follow a low sodium diet FOLLOW UP - vascular surgery tomorrow for AAA - please call for appointment with Dr. Ludwig in 1-2 weeks for blood pressure check Current Hospital Diet Patient's current hospital diet: Regular Diet Discharge Diet Recommended Diet: Low Sodium Diet (2gm Na) Pending Studies Studies pending at discharge: no Medical Emergencies . Who to Call and When: Medical Emergencies: If at any time you feel your situation is an emergency, please call 911 immediately. . Non-Emergent Contact Non-Emergency issues call your: Primary Care Provider Call Non-Emergent contact if: your pain is worsening, your pain is unusual for you, you have any medication questions . . "Provider Documentation" section prepared by Marcello Christopher. . VTE Core Measure Inpt VTE Proph given/why not?: SCD's [place] Drug Monitoring Program Search Results: no issues identified
--- NOTE | 2017-02-16 09:16 | Discharge Summary ---
Discharge Summary Date of Service Feb 16, 2017. Discharge Summary Admission Date: Feb 13, 2017 at 18:17 Discharge Date: Feb 16, 2017 Discharge Disposition: Home Principal Diagnosis: Hypertensive urgency Problems/Secondary Diagnoses: AAA, infrarenal Confusion, dementia Dizziness, chronic Immunizations: Have You Had Influenza Vaccine: Unknown History of Tetanus Vaccine?: Unknown History of Pneumococcal: Unknown History of Hepatitis B Vaccine: Unknown Procedures: CT angiogram abdomen/pelvis - AAA, infrarenal, details in full report and below Consultations: none Medication Reconciliation New Medications: Lisinopril (Zestril) 10 Mg Tab 10 MG PO QPM, #30 TAB 3 Refills Continued Medications: Aspirin (Aspirin Ec) 81 Mg Tab 81 MG PO DAILY Atorvastatin (Lipitor) 20 Mg Tab 1 TAB PO DAILY for 90 Days, #90 TAB 1 Refill Diltiazem Hcl (Diltiazem Hcl) 120 Mg Tab 120 MG PO DAILY Escitalopram (Lexapro) 10 Mg Tab 10 MG PO DAILY for 30 Days, #30 TAB Tiotropium [place] (Spiriva Handihaler) 30 Puff/540 Mcg Aerp 1 CAP INH DAILY for 30 Days, #30 CAP 3 Refills Discharge Exam Patient feeling well, sitting in bed reading newspaper. No complaints of pain or shortness of breath. Ambulated independently to the bathroom without dizziness. Discuss that blood pressure was better controlled this AM at 160's systolic. Discussed taking Lisinopril 10mg every evening in addition to Cardizem. Discussed importance of close follow up with vascular surgery, scheduled for Saturday 02/17 Review of Systems: Constitutional: No fever, No chills, No sweats, No weight loss, No weakness , No fatigue, No problem reported Eyes: No worsening of vision, No eye pain, No redness, No discharge, No diplopia, No problem reported ENT: No hearing loss, No unusual epistaxis, No nasal symptoms, No sore throat, No tinnitus, No dental problems, No trouble swallowing, No problem reported Respiratory: No cough, No sputum, No wheezing, No shortness of breath, No dyspnea on exertion, No dyspnea at rest, No hemoptysis, No problem reported Cardiovascular: No chest pain, No orthopnea, No PND, No edema, No claudication, No palpitations, No problem reported Abdomen: No pain, No nausea, No vomiting, No diarrhea, No constipation, No GI bleeding, No problem reported Musculoskeletal: No joint pain, No muscle pain, No swelling, No calf pain, No problem reported Genitourinary - Female: No dysuria, No urinary frequency, No urinary urgency , No urinary incontinence, No urinary retention, No hematuria Neurologic: + memory loss (chronic), No paralysis, No weakness, No numbness/ tingling, No vertigo, No balance problems, No problem reported Psychiatric: + depression symptoms, No anhedonism, No anxiety, No insomnia, No substance abuse, No problem reported Endocrine: No fatigue, No excessive thirst, No excessive urination, No problem reported Hematologic / Lymphatic: No abnormal bleeding/bruising, No clotting problems , No swollen lymph nodes, No night sweats, No problem reported Integumentary: No rash, No itch, No new/changing skin lesions, No color change, No bleeding, No problem reported Physical Exam: General Appearance: WD/WN, no apparent distress Eyes: normal inspection, EOMI, sclerae normal ENT: normal ENT inspection, hearing grossly normal, pharynx normal Neck: supple, no adenopathy, no JVD, trachea midline Respiratory/Chest: chest non-tender, lungs clear, normal breath sounds, no respiratory distress, no accessory muscle use Cardiovascular: regular rate, rhythm, no edema, no gallop, no JVD, no murmur , normal peripheral pulses Abdomen / GI: normal bowel sounds, non tender, soft, no organomegaly, + pertinent finding (AAA can be palpated below umbilicus) Extremities: normal inspection, no calf tenderness, normal capillary refill , no pedal edema, normal range of motion, pelvis stable Neurologic/Psychiatric: defensive secondary coach II-XII nml as tested, no motor/sensory deficits , alert, normal mood/affect, normal reflexes, oriented x 3 Skin: normal color, warm/dry, no rash Lymphatic: no adenopathy Hospital Course This is a 82-year-old female who is followed in neurology clinic for 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 Patient has not tolerated 3 different medications for treatment of dementia. As per Neuro, Neurological status is stable. Infrarenal aortic aneurysm Found on imaging in ER Infrarenal abdominal aortic aneurysm immediately proximal to the bifurcation measuring 5.[address] Bernal discussed with daughter Keisha Has appointment on Saturday 02/17 with vascular surgeon. Patient is asymptomatic Moderate Mixed Vascular and Alzheimer's dementia Appreciate Neuro input No additional neurological recommendations at this time. Infectious and metabolic workup per hospitalist team regarding generalized weakness and not feeling well. The patient already has neurology follow-up appointment in clinic in August 2017 for dementia reevaluation and can keep this appointment. HTN was not controlled at times, systolic pressure > 200, no immediate symptoms Lisinopril 10mg added in the evening yesterday, BP improved this AM to 160's systolic, continue Cardizem 120mg daily follow up with vascular surgery and PCP, likely need to titrate up on Lisinopril follow potassium with being on UMBERTO depression Daughter states no improvement, will increase lexapro to 10mg PO daily d/c to home with daughter, follow up with vascular surgery tomorrow, PCP in 1-2 weeks Total Time Spent: Greater than 30 minutes This includes examination of the patient, discharge planning, medication reconciliation, and communication with other providers. Discharge Instructions Please refer to the electronic Patient Visit Report (Discharge Instructions) for additional information. Follow-Up Vascular surgery 02/17 Dr. Ludwig in 1-2 weeks for blood pressure check Additional Copies To Adrianne Ludwig MD
[2017-02-16 09:33] VITALS: BP 166/67; PULSE 72; TEMP 36.5; O2SAT 95
== END 2017-02-16 10:20 | disposition home or self-care (01) ==
LOC: C.EDB 12:26 → C.4E 18:17 → EDBEDREQ 18:21 → ENRESERV 19:14
PROVIDERS: ADMIT Hospitalist; ATTEND Internal Medicine
DX: I16.0 Hypertensive urgency (principal); E86.0 Dehydration; R19.7 Diarrhea, unspecified; F32.9 Major depressive disorder, single episode, unspecified; I71.4 Abdominal aortic aneurysm, without rupture; R41.0 Disorientation, unspecified; G30.9 Alzheimer's disease, unspecified; F02.80 Dementia in other diseases classified elsewhere, unspecified severity, without behavioral disturbance, psychotic disturbance, mood disturbance, and anxiety; J44.9 Chronic obstructive pulmonary disease, unspecified; Z79.82 Long term (current) use of aspirin; Z87.891 Personal history of nicotine dependence

== ENCOUNTER 2017-03-25 06:41 | Day surgery (SDC) | payer OTHER ==
[2017-03-10 09:27] VITALS: Ht 152.4 cm; Wt 48.7 kg
--- NOTE | 2017-03-10 10:12 | PAT Medication Instructions ---
Service Date Mar 10, 2017. Current Home Medication List Aspirin (Aspirin Ec), 81 MG PO HS Atorvastatin (Lipitor), 1 TAB PO HS Diltiazem Hcl (Diltiazem Hcl), 120 MG PO HS Escitalopram (Lexapro), 10 MG PO HS Lisinopril (Zestril), 10 MG PO HS Tiotropium [place] (Spiriva Handihaler), 1 CAP INH DAILY PRN for WHEEZING Medication Instructions For Your Scheduled Surgery - Contact your surgeon for instructions for: Aspirin (Aspirin Ec), 81 MG PO HS - Hold the following medications the night before surgery: Lisinopril (Zestril), 10 MG PO HS - Take the following medications the morning of surgery with a sip of water: Tiotropium [place] (Spiriva Handihaler), 1 CAP INH DAILY PRN for WHEEZING (if needed) - Take the following medications as scheduled the night before surgery: Atorvastatin (Lipitor), 1 TAB PO HS Escitalopram (Lexapro), 10 MG PO HS Diltiazem Hcl (Diltiazem Hcl), 120 MG PO HS Tiotropium [place] (Spiriva Handihaler), 1 CAP INH DAILY PRN for WHEEZING (if needed) If you have any questions please call us at [phone] or [phone] or [phone]
[2017-03-10 11:08] LABS: BASO % 0.4 %; BASO ABS # 0.03 K/uL (0-0.2); COMPLETE YES; EOS % 1.5 %; HEMATOCRIT 38.2 % (37-47); IG% 0.3 %; LYMPH % 22.7 %; LYMPH ABS # 1.63 K/uL (1.2-3.4); MEAN CELL VOLUME 86.8 fL (80-100); MEAN CORPUSCULAR HEMOGLOBIN 28.4 pg (25-34); MEAN CORPUSCULAR HGB CONC 32.7 g/dl (32-36); MEAN PLATELET VOLUME 9.2 fL (7.4-10.4); MONO % 7.9 %; NEUT % 67.2 %; PLATELET COUNT 326 K/uL (130-400); WHITE BLOOD COUNT 7.17 K/uL (4.8-10.8)
[2017-03-10 11:22] LABS: PARTIAL THROMBOPLASTIN RATIO 1.1; PROTHROMBIN TIME (PATIENT) 10.5 SECONDS (9.0-12.0)
[2017-03-10 13:25] LABS: BUN/CREATININE RATIO 9.5 (10-20); CREATININE 0.7 mg/dl (0.60-1.20); POTASSIUM 4.1 mmol/L (3.5-5.1)
[~2017-03-25] VITALS: Ht 152.4 cm; Wt 48.7 kg
--- NOTE | 2017-03-25 06:13 | History and Physical ---
History & Physical Date of Service Mar 25, 2017. History & Physical CC: Abdominal aortic aneurysm HPI: Mrs. Chin is an 82-year-old female that was admitted for dehydration and weakness. She was found to have a 5.5 cm abdominal aortic aneurysm. This was a bilobed aneurysm starting below the renal arteries. She was not known to have an aneurysm in the past. There is a family history of aneurysmal disease. She has no symptoms other than chronic back pain. She has no claudication, but she does not walk fast enough to claudicate. She has no symptoms of cerebrovascular insufficiency. She is slightly confused. ALLERGIES: PENICILLIN. MEDICATIONS: Included aspirin, diltiazem, Lexapro, Lipitor, lisinopril and Spiriva. PAST MEDICAL HISTORY: Positive for Alzheimer's, hypercholesterolemia and hypertension. FAMILY HISTORY: Not known. SOCIAL HISTORY: She is a former smoker, smoked for 40 years, quit 12 years ago. She does not drink. REVIEW OF SYSTEMS: Ten systems were reviewed. Positive findings were loss of appetite, jaundice, diarrhea in the history of present illness. PHYSICAL EXAMINATION: The patient is awake, oriented x3. She is in no apparent distress. She has normal body habitus. Blood pressure was 112/70 on the right, 110/70 on the left. Head and neck within normal limits. No carotid bruits. Heart had a regular rate and rhythm. Lungs are clear bilaterally. Abdominal exam is benign with a 5-cm pulsatile mass in the midepigastrium. Vascular exam reveals radials, carotids, supratemporal arteries +2 bilaterally. Femorals are +2. I cannot appreciate pedal pulses in either foot. Upper and lower extremities are normal on inspection. There is good capillary refill in both feet. Neurologic exam is grossly intact. IMPRESSION: Abdominal aortic aneurysm. PLAN AND RECOMMENDATIONS: The CTA showed that the aneurysm may be able to be repaired by the endovascular approach. There is a seal zone below the upper lobe of the aneurysm. The neck itself is fairly short. Patient is admitted at this time for a possible PEVAR. If this can not be done will not convert to open but send her to [place] for a FEVAR. I have discussed the risks options and benefits of the procedure with the patient. The patient understands the risks options and benefits and agrees to the procedure.
[~2017-03-25 06:41] MED LIST changes: -ANT25 PO; -ATOR-22 PO; +ATOR-54 PO; +CLINDAMYCIN 600 MG/54 ML D5W 54 ML IV SCH; -DILT120C68 PO; +DILT120T3 PO; +ESCI10TA17 PO; -ESCI1TAB6 PO; +LACTATED RINGER'S 1000ML 1,000 ML IV ONE; +LACTATED RINGER'S 1000ML 1,000 ML IV SCH; +LISI-461 PO; +SPRIN/30 INH
[2017-03-25] MEDS ORDERED: ADD VANTAGE IV SCH (07:00)
[2017-03-25] MEDS ORDERED: CLINDAMYCIN IV SCH (07:00)
[2017-03-25] MEDS ORDERED: DEXTROSE 5% IV SCH (07:00)
--- NOTE | 2017-03-25 07:26 | Progress Note ---
Progress Note Date of Service Mar 25, 2017. Progress Note Patient with diarrhea today. Due to the type of surgery would cancel surgery and reschedule.
[2017-03-25 07:52] LABS: BASO % 0.5 %; BASO ABS # 0.04 K/uL (0-0.2); HEMATOCRIT 39.5 % (37-47); IG% 0.4 %; LYMPH % 30.3 %; LYMPH ABS # 2.23 K/uL (1.2-3.4); MEAN CELL VOLUME 87.2 fL (80-100); MEAN CORPUSCULAR HEMOGLOBIN 27.8 pg (25-34); MEAN PLATELET VOLUME 9.4 fL (7.4-10.4); MONO % 11.2 %; NEUT % 55.6 %; PLATELET COUNT 289 K/uL (130-400); RED BLOOD COUNT 4.53 M/uL (4.2-5.4); WHITE BLOOD COUNT 7.35 K/uL (4.8-10.8)
[2017-03-25 08:04] LABS: COMPLETE YES; MEAN CORPUSCULAR HGB CONC 31.9 g/dl (32-36)
[2017-03-25 08:21] LABS: BUN/CREATININE RATIO 17.8 (10-20); CALCIUM 8.4 mg/dl (8.5-10.1); CREATININE 0.74 mg/dl (0.60-1.20); PHOSPHORUS 2.8 mg/dl (2.5-4.9); POTASSIUM 3.9 mmol/L (3.5-5.1)
== END 2017-03-25 08:40 | disposition home or self-care (01) ==
LOC: C.ACU 06:41
PROVIDERS: ATTEND Surgery Vascular Surgery
DX: I71.4 Abdominal aortic aneurysm, without rupture (principal); Z53.8 Procedure and treatment not carried out for other reasons; R19.7 Diarrhea, unspecified; I10 Essential (primary) hypertension; E78.00 Pure hypercholesterolemia, unspecified; Z87.891 Personal history of nicotine dependence; Z79.82 Long term (current) use of aspirin; Z79.899 Other long term (current) drug therapy

== ENCOUNTER 2017-04-11 08:29 | Inpatient (IN) | payer OTHER ==
[2017-04-11] VITALS (25 sets, daily range): BP systolic 54–167; BP diastolic 31–72; PULSE 55–79; TEMP 36.5–36.8; O2SAT 92–100; Ht 152.4 cm; Wt 54.2 kg
[~2017-04-11] VITALS: Ht 152.4 cm; Wt 54.2 kg
--- NOTE | 2017-04-11 06:03 | History and Physical ---
History & Physical Date of Service Apr 11, 2017. History & Physical CC: Abdominal aortic aneurysm HPI: Mrs. Chin is an 82-year-old female that was admitted for dehydration and weakness. She was found to have a 5.5 cm abdominal aortic aneurysm. This was a bilobed aneurysm starting below the renal arteries. She was not known to have an aneurysm in the past. There is a family history of aneurysmal disease. She has no symptoms other than chronic back pain. She has no claudication, but she does not walk fast enough to claudicate. She has no symptoms of cerebrovascular insufficiency. She is slightly confused. ALLERGIES: PENICILLIN. MEDICATIONS: Included aspirin, diltiazem, Lexapro, Lipitor, lisinopril and Spiriva. PAST MEDICAL HISTORY: Positive for Alzheimer's, hypercholesterolemia and hypertension. FAMILY HISTORY: Not known. SOCIAL HISTORY: She is a former smoker, smoked for 40 years, quit 12 years ago. She does not drink. REVIEW OF SYSTEMS: Ten systems were reviewed. Positive findings were loss of appetite, jaundice, diarrhea in the history of present illness. PHYSICAL EXAMINATION: The patient is awake, oriented x3. She is in no apparent distress. She has normal body habitus. Blood pressure was 112/70 on the right, 110/70 on the left. Head and neck within normal limits. No carotid bruits. Heart had a regular rate and rhythm. Lungs are clear bilaterally. Abdominal exam is benign with a 5-cm pulsatile mass in the midepigastrium. Vascular exam reveals radials, carotids, supratemporal arteries +2 bilaterally. Femorals are +2. I cannot appreciate pedal pulses in either foot. Upper and lower extremities are normal on inspection. There is good capillary refill in both feet. Neurologic exam is grossly intact. IMPRESSION: Abdominal aortic aneurysm. PLAN AND RECOMMENDATIONS: The CTA showed that the aneurysm may be able to be repaired by the endovascular approach. There is a seal zone below the upper lobe of the aneurysm. The neck itself is fairly short. Patient is admitted at this time for a possible PEVAR. If this can not be done will not convert to open but send her to [place] for a FEVAR. I have discussed the risks options and benefits of the procedure with the patient. The patient understands the risks options and benefits and agrees to the procedure.
[~2017-04-11 08:29] MED LIST changes: -CLINDAMYCIN 600 MG/54 ML D5W 54 ML IV SCH; +CLINDAMYCIN 600 MG/54 ML D5W IV SCH; -LACTATED RINGER'S 1000ML 1,000 ML IV ONE; +SODIUM CHLORIDE 0.9% 1000ML 1,000 ML IV SCH
--- NOTE | 2017-04-11 09:49 | History & Physical Bridge Note ---
H&P Re-Evaluation Bridge Note: I have examined the patient, reviewed the History & Physical and in the interval since the performance of the History & Physical I have noted the following changes of clinical significance: No changes noted
[2017-04-11 10:05] LABS: CALCIUM 8.7 mg/dl (8.5-10.1); CREATININE 0.76 mg/dl (0.60-1.20); POTASSIUM 3.9 mmol/L (3.5-5.1)
[2017-04-11] MEDS ORDERED: LIDOCAINE HCL 2% 2 ML VIAL (20MG/ML) ONE (10:50)
[2017-04-11] MEDS ORDERED: MIDAZOLAM HCL 1 MG/ML 2ML VIAL ONE (10:50)
[2017-04-11] MEDS ORDERED: FENTANYL CITRATE INJ 50 MCG/1 ML 2 ML VIAL ONE (10:50)
[2017-04-11] MEDS ORDERED: ONDANSETRON INJ 2 MG/ML 2 ML VIAL ONE (10:50)
[2017-04-11] MEDS ORDERED: NEOSTIGMINE METHYLSULFATE 5 MG/5 ML SYR ONE (10:50)
[2017-04-11] MEDS ORDERED: GLYCOPYRROLATE INJ 0.2 MG/ML VIAL ONE (10:50)
[2017-04-11] MEDS ORDERED: PROPOFOL IV EMULSION 10 MG/ML 20 ML VIAL IV ONE (10:50)
[2017-04-11] MEDS ORDERED: DEXAMETHASONE SOD INJ 4 MG/ML VIAL ONE (10:50)
[2017-04-11] MEDS ORDERED: PHENYLEPHRINE HCL INJ 10 MG/ML VIAL ONE (12:02)
[2017-04-11] MEDS ORDERED: CISATRACURIUM BESYLATE IV SOLN 2 MG/ML 10 ML VIAL ONE (12:02)
[2017-04-11] MEDS ORDERED: HEPARIN SOD (PORCINE) 1000 UNIT/ML 10 ML VIAL ONE (13:40)
[2017-04-11] MEDS ORDERED: IODIXANOL (VISIPAQUE) 270 MG/ML 150ML FLUSH ONE (14:09)
--- NOTE | 2017-04-11 14:16 | [facility] Post Operative Brief Note ---
Immediate Operative Summary Operative Date Apr 11, 2017. Pre-Operative Diagnosis Abdominal aortic aneurysm Post-Operative Diagnosis Same Procedure(s) Performed Percutaneous Endovascular Aneurysm Repair, Right Femoral Cutdown, Repair Of Femoral Artery, Insertion Of Endovascular Anchors, Coil Embolization Of Sac Surgeon Dr. Man Ballistic Technician Surgeon(s) Lizabeth Menezes MD Estimated Blood Loss 150 ml Findings Type I endoleak of upper sac seen, shows delayed fill and pooling of contrast Specimens None Anesthesia Gen Complication(s) None Disposition Recovery Room / PACU
[2017-04-11] MEDS ORDERED: LABETALOL HCL IV 5 MG/ML 20ML IV ONE (14:29)
[2017-04-11] MEDS ORDERED: EpHEDrine SULFATE INJ 50 MG/ML AMP IV PRN (14:30)
[2017-04-11] MEDS ORDERED: ONDANSETRON INJ 2 MG/ML 2 ML VIAL IV PRN (14:30)
[2017-04-11] MEDS ORDERED: ATROPINE SULFATE 0.1 MG/ML 5ML SYR IV PRN (14:30)
[2017-04-11] MEDS ORDERED: TIOTROPIUM BROMIDE 5 PUFF/90 MCG INH INH PRN (14:30)
[2017-04-11] MEDS ORDERED: FLUMAZENIL 0.1 MG/1 ML 10 ML VIAL IV PRN (14:30)
[2017-04-11] MEDS ORDERED: OXYCODONE/ACETAMINOPHEN 5-325 TAB PO PRN (14:30)
[2017-04-11] MEDS ORDERED: FENTANYL CITRATE INJ 50 MCG/1 ML 2 ML VIAL IV PRN (14:30)
[2017-04-11] MEDS ORDERED: ACETAMINOPHEN 325 MG TAB PO PRN (14:30)
[2017-04-11] MEDS ORDERED: NALOXONE HCL 0.4 MG/1 ML VIAL/CARP IV PRN (14:30)
[2017-04-11] MEDS ORDERED: LABETALOL HCL IV 5 MG/ML 20ML IV PRN (14:30)
[2017-04-11 14:44] LABS: HEMATOCRIT 33.1 % (37-47)
--- NOTE | 2017-04-11 14:53 | Anesthesiology Progress Note ---
Anesthesia Post Op Note Date & Time Apr 11, 2017 at 14:52 Vital Signs Pain Intensity: 0 Vital Signs Past 12 Hours Date Time Temp Pulse Resp B/P (MAP) Pulse Ox O2 Delivery O2 Flow Rate FiO2 04/11/17 14:19 37.4 80 16 133/55 100 Oxymask 10 04/11/17 09:11 36.7 71 22 152/72 97 Room Air Notes Mental Status: alert / awake / arousable, participated in evaluation Pt Amnestic to Procedure: Yes Nausea / Vomiting: adequately controlled Pain: adequately controlled Airway Patency, RR, SpO2: stable & adequate BP & HR: stable & adequate Hydration State: stable & adequate Anesthetic Complications: no major complications apparent patient to be transferred to ICU.
--- NOTE | 2017-04-11 15:38 | DIAGNOSTIC IMAGING REPORT ---
DATE OF PROCEDURE: 04/11/2017 PREOPERATIVE DIAGNOSIS: Infrarenal asymptomatic abdominal aortic aneurysm. POSTOPERATIVE DIAGNOSIS: Same. PROCEDURES: 1. EVAR with Endurant 2 graft main body of the right femoral access with a 28 x 13 x 145. 2. Contralateral limb via left femoral access with a 16 x 13 x 124 iliac limb. 3. Coil embolization of proximal bilobed aneurysm with four 6 mm nesting coils. 4. Proximal fixation with 2 Aptus aortic screws. 5. Percutaneous skin closure of the left femoral artery with ProGlide used in a Preclose fashion. 6. Cut-down of right femoral artery and primary closure. SURGEON: Dr. Kieran Man. CIVIL ENGINEERING DIRECTOR: Dr. Lizabeth Menezes. ANESTHESIA: General endotracheal anesthesia. FLUIDS: 1200 crystalloid. URINE OUTPUT: 100 mL. CONTRAST: 229 mL. FLUOROSCOPY TIME: 21.5 minutes. MILLIGRAYS: 508 milligrays. CONDITION: Extubated to PACU. COMPLICATIONS: Right femoral ProGlide to adequately obtain hemostasis requiring a right femoral cutdown. INDICATIONS: Mrs. Chin is an 82-year-old female who presents with a bilobed infrarenal abdominal aortic aneurysm. She is asymptomatic at this time given size criteria and her proximal aneurysm saccular in appearance. She was advised of the risks and benefits of undergoing endovascular procedure and agreed to undergo the procedure. PROCEDURE: The patient was brought into the operative suite. A timeout occurred. The patient was prepped and draped in the usual fashion. A bilateral common femoral access was obtained. ProGlides were placed in a Preclose fashion bilaterally. The right side required 3 ProGlides as the first did not deploy successfully. A 8 Togolese sheaths were placed in bilateral groins. A Glidewire was then inserted through the right 8-Togolese sheath into the aorta. Kumpe catheter was placed over the wire and the wire was exchanged for a Gerald wire. The right femoral artery then was serially dilated with a 12, 14, 16 size dilator and then an 18-Togolese Finley DrySeal sheath was placed into the external iliac artery. On the left side a Glidewire was placed. A marking pigtail was then placed over the wire into the aorta. An aortogram was performed. This demonstrated a bilobed infrarenal abdominal aortic aneurysm with the proximal aneurysm having a saccular and coliform appearance. A Lunderquist wire was placed through the pigtail. The pigtail was removed and then the 8-Togolese sheath was removed. A 12 Togolese Finley DrySeal sheath was placed into the left femoral artery. A wire then was reinserted and the angled glide catheter was parked in the proximal aneurysm. This was confirmed with angiography. A Lunderquist Glidewire was then reinserted. A pigtail was placed through this and then the Glidewire was removed and the marker pigtail was hooked up to the power injector. Attention was turned back to the right groin. The main body of the device was advanced through the right femoral artery. Another aortogram was obtained to verify location of the renals. Once the device was positioned appropriately we began to deploy. Once a couple of stents were released the graft was repositioned and another aortogram was was taken. The graft was readjusted and deployed until the contralateral gate opened. A floppy Glidewire was then inserted through the marked pigtail on the left side. This catheter was exchanged for a Kumpe catheter. The contralateral gate was cannulated. The Kumpe catheter was able to sit clearly within the graft. The contralateral limb was placed. The graft was ballooned at the proximal end and all the junction points. Completion aortogram was obtained. This showed a continued type 1 endoleak in the proximal aneurysm. The stent was re-ballooned and another aortogram was obtained. This showed persistent endoleak. Two Aptus screws were placed. Aortogram was obtained. This also demonstrated persistent endoleak; however, it had slowed significantly. At this time, it was decided that we will reimage the patient in 3 months to see if the endoleak stops once the patient is no longer heparinized. At this time, catheters were removed. A floppy ____ was placed in the right femoral artery. The 18 Togolese Finley DrySeal was removed. The ProGlide knots were patent and tied however there remained significant, however hemostasis was not obtained. The ____ were cut down. The femoral artery was dissected free. Arteriotomies were closed with 6-0 Prolene. Hemostasis was obtained. Attention was then turned to the left side and the 14-Togolese sheath was removed. ProGlides were tightened and hemostasis was obtained. Pressure was held on the left groin. The right femoral incision was closed with 2-0, 3-0 and 4-0 Vicryl and Dermabond. The patient was then extubated and transferred to PACU in stable condition. Dr. Kieran Man was present and scrubbed for the entirety of this case.
[2017-04-11] MEDS ORDERED: D5W AND 1/2NSS 1,000 ML IV SCH (16:00)
--- NOTE | 2017-04-11 16:41 | Critical Care Consultation ---
Critical Care Consultation Date of Consultation: Apr 11, 2017. Attending Physician: Kieran Man M.D. Reason for Consultation: Percutaneous Endovascular AAA Repair History of Present Illness The patient is an 82-year-old female with a past medical history of Alzheimer's dementia, hypertension, hyperlipidemia, and 5.5 x 4.9 cm abdominal aortic aneurysm that presents today for AAA repair. The patient was incidentally found to have a 5.5 cm AAA on a previous admission in February when she was admitted for generalized weakness and dehydration. A PEVAR (percutaneous endovascular AAA repair) was successfully performed by Dr. Man this afternoon and pulses were obtained bilaterally in both the posterior tibial and dorsalis pedis arteries. The patient has a history of moderate mixed vascular and Alzheimer's dementia, and at baseline has mild confusion. No acute events were reported during the surgery and Dr. Man stated that they AAA contained a rupture in the upper lobe. Past Medical/Surgical History Hypertension, hyperlipidemia, AAA, mixed vascular and Alzheimer's dementia Family History Patient reports no known family medical history. Social History Smoking Status: Former Smoker Drug Use: none Marital Status: Occupation Status: retired Allergies Coded Allergies: Donepezil (Unverified Allergy, Unknown, unknown, 03/10/17) Penicillins (Verified Allergy, Unknown, UNKNOWN, 03/10/17) Home Medications Scheduled Aspirin (Aspirin Ec), 81 MG PO HS Atorvastatin (Lipitor), 1 TAB PO HS Diltiazem Hcl (Diltiazem Hcl), 120 MG PO HS Escitalopram (Lexapro), 10 MG PO HS Lisinopril (Zestril), 10 MG PO HS Scheduled PRN Tiotropium [place] (Spiriva Handihaler), 1 CAP INH DAILY PRN for WHEEZING Current Inpatient Medications Current Inpatient Medications Medications (Trade) Dose Ordered Sig/Alex Route Start Time Stop Time Status Last Admin Dose Admin Morphine Sulfate (MoRPHine SULFATE INJ) If PO analgesic is orde... Q2H PRN IV 04/11/17 14:30 04/25/17 14:29 Oxycodone/ Acetaminophen (Percocet 5-325mg Tab) `1-2 TABS FOR MODER... Q4H PRN PO 04/11/17 14:30 04/25/17 14:29 Acetaminophen (Tylenol Tab) 650 mg Q4H PRN PO 04/11/17 14:30 05/11/17 14:29 Clindamycin Phosphate 600 mg/ Dextrose 54 ml @ 100 mls/hr Q8H IV 04/11/17 20:00 04/12/17 04:33 Dextrose/Sodium Chloride 1,000 ml @ 125 mls/hr Q8H IV 04/11/17 16:00 05/11/17 14:15 Aspirin (Ecotrin Tab) 81 mg HS PO 04/11/17 21:00 05/11/17 20:59 Atorvastatin Calcium (Lipitor Tab) 20 mg HS PO 04/11/17 21:00 05/11/17 20:59 Escitalopram Oxalate (Lexapro Tab) 10 mg HS PO 04/11/17 21:00 05/11/17 20:59 Lisinopril (Zestril Tab) 10 mg HS PO 04/11/17 21:00 05/11/17 20:59 Tiotropium [place] (Spiriva Handihaler Inhaler) 1 puff DAILY PRN INH 04/11/17 14:30 05/11/17 14:29 Diltiazem HCl (TIAzac CAP) 120 mg HS PO 04/11/17 21:00 05/11/17 20:59 Fentanyl Citrate (Fentanyl Inj) 25 mcg Q5M PRN IV 04/11/17 14:30 04/11/17 19:30 Naloxone HCl (Narcan Inj) 0.2 mg Q2M PRN IV 04/11/17 14:30 04/11/17 19:30 Flumazenil (Romazicon Inj) 0.2 mg Q2M PRN IV 04/11/17 14:30 04/11/17 19:30 Ondansetron HCl (Zofran Inj) 4 mg ONE PRN IV 04/11/17 14:30 04/11/17 19:30 Labetalol HCl (Normodyne IV) 5 mg Q5M PRN IV 04/11/17 14:30 04/11/17 19:30 Ephedrine Sulfate (EpHEDrine SULFATE INJ) 5 mg Q5M PRN IV 04/11/17 14:30 04/11/17 19:30 Atropine Sulfate (Atropine Sulfate 0.1MG/Ml Inj) 0.5 mg Q1M PRN IV 04/11/17 14:30 12/8/17 19:30 Review of Systems Constitutional: + fatigue, No fever, No chills, No sweats Eyes: No worsening of vision Respiratory: No cough, No sputum, No wheezing, No shortness of breath Cardiovascular: No chest pain, No palpitations Abdomen: No pain, No nausea, No vomiting, No diarrhea, No constipation Neurologic: No weakness, No numbness/tingling Physical Exam Date Time Temp Pulse Resp B/P (MAP) Pulse Ox O2 Delivery O2 Flow Rate FiO2 04/11/17 15:24 37.2 04/11/17 15:22 69 12 139/52 98 04/11/17 15:22 70 12 04/11/17 15:21 67 24 04/11/17 15:21 72 24 130/75 99 04/11/17 15:16 69 16 143/73 99 04/11/17 15:16 69 16 04/11/17 15:11 66 16 04/11/17 15:11 70 16 147/67 98 04/11/17 15:06 71 14 04/11/17 15:06 71 14 140/54 98 04/11/17 15:05 152/83 04/11/17 15:01 72 14 134/52 98 04/11/17 15:01 72 14 04/11/17 15:00 73 12 150/74 98 04/11/17 15:00 73 12 04/11/17 14:56 136/64 04/11/17 14:55 74 16 04/11/17 14:55 74 16 124/50 97 04/11/17 14:50 76 16 04/11/17 14:50 76 16 148/74 94 04/11/17 14:49 77 14 129/52 93 04/11/17 14:49 77 14 04/11/17 14:45 146/69 04/11/17 14:44 78 16 116/47 99 04/11/17 14:44 79 16 04/11/17 14:41 145/61 04/11/17 14:39 76 17 129/52 99 04/11/17 14:39 76 17 04/11/17 14:35 153/73 04/11/17 14:34 77 15 124/49 99 04/11/17 14:34 77 15 04/11/17 14:30 147/66 04/11/17 14:29 78 17 135/53 99 04/11/17 14:29 78 17 04/11/17 14:25 147/65 04/11/17 14:24 78 12 04/11/17 14:24 78 12 126/51 99 04/11/17 14:20 164/62 04/11/17 14:20 146/73 04/11/17 14:19 37.4 80 16 133/55 100 Oxymask 10 04/11/17 14:19 80 7 99 04/11/17 14:19 80 7 04/11/17 09:11 36.7 71 22 152/72 97 Room Air General Appearance: well-appearing, no apparent distress Head: normocephalic, atraumatic Eyes: PERRLA, EOMI, sclerae normal, conjunctivae normal Neck: normal range of motion, trachea midline Respiratory: breath sounds normal, clear to auscultation, no respiratory distress Cardiovasular: regular rate/rhythm, normal S1S2, no M/G/R Abdomen: non tender, normal bowel sounds, no rebound, no masses Lower Extremities: no edema, normal ROM, other (Dressings over bilateral femoral arteries c/d/i with no acute tenderness over the manipulated areas. Patient able to move her lower extremities displaying 5/5 strength and sensation over the lower extremities grossly intact. Pulses were obtained over the dorsalis pedis and posterior tibial arteries) Pulses: radial (R) (2+), radial (L) (2+), dorsalis pedis (R) (1+), dorsalis pedis (L) (1+), posterior tibial (R), posterior tibial (L) (1+) Neuro: alert, normal motor exam, normal sensation, normal speech, other ( Oriented to person and place) Laboratory Results Last 24 Hours Test 04/11/17 09:27 04/11/17 14:35 Sodium Level 136 mmol/L Potassium Level 3.9 mmol/L Chloride Level 106 mmol/L Carbon Dioxide Level 28 mmol/L Anion Gap 2.0 mmol/L Blood Urea Nitrogen 17 mg/dl Creatinine 0.76 mg/dl Est Creatinine Clear Calc Drug Dose 41.0 ml/min Estimated GFR () 84.7 Estimated GFR (Non- 73.1 BUN/Creatinine Ratio 22.0 Random Glucose 91 mg/dl Calcium Level 8.7 mg/dl Hemoglobin 10.7 g/dL Hematocrit 33.1 % Assessment & Plan Patient is an 82 year old female that presents to the ICU for post-op therapy s/ p percutaneous endovascular AAA repair Neuro - CAM ICU negative - Oriented to place and person - Underlying mixed vascular and Alzheimer's dementia - Continue home Lexapro 10 mg PO qhs CV - AAA repair : Percutaneous Endovascular Aneurysm Repair, Right Femoral Cutdown , Repair Of Femoral Artery, Insertion Of Endovascular Anchors, Coil Embolization Of Sac - Type I endoleak of upper sac seen, shows delayed fill and pooling of contrast - No complications, estimated blood loss 150 mL - Continue home Aspirin, Lipitor, Diltiazem, and Lisinopril - Monitor on telemetry - Labetalol 5mg for SBP > 160 or DBP > 100 - Percocet and Labetalol on board for pain Respiratory - Saturating well on room air - Supplemental oxygen as required - Lungs clear to auscultation - Continue home Tiotropium [place] that is used PRN for wheezing GI/ Nutrition - AHA heart healthy diet Fluids/ Renal - IV D5 + 1/2 NS @ 125 ml/hr - CBC and BMP ordered for tomorrow ID - Clindamycin 600mg q8h 2 doses post op Heme - H/H 10.6/33.1 - Baseline Hgb of 12 - CBC ordered for tomorrow morning Endocrine - No history of Diabetes or Thyroid disease DVT PPX - SCD Code Status - Full Resuscitation Addendum: At 1830 Dr. Man called to room over concern over right femoral hematoma. Dr. Man examined the site and stated the sutures were appropriately in place and he was not concerned with the surgical site at this time Resident Physician Supervision Note: Dr. Ribeiro was resident physician during care of patient. I separately evaluated patient and did history and exam. I discussed the case with the resident and generally agree with the findings and plan. Patient had a second episode of back pain and hypotension with systolics in the 50s. Patient was immediately resuscitated with crystalloid, colloid, as well as blood. Initially she was given 1 unit of packed red blood cells. I discussed this case with Dr. Man at the bedside. Limited bedside ultrasound did not reveal retroperitoneal hematoma nor free fluid in the pelvis. It was noted that her IVC was completely collapsing with respiration, examination of the hematoma site did not reveal an expanding hematoma. Since the initial resuscitation the patient's urinary output has greatly increased. I have personally spent 90 minutes of critical care time in the direct management of this patient. This is a life/limb threatening event. This includes time spent evaluating patient, direct bedside care, chart review, placing orders, interpretation of diagnostic studies, discussion with consultants, patient, and family members, as well as other required patient management activities. This time is exclusive of all separately billable procedures, and teaching time and separate from and in addition to any other critical care service time. Documented By: Dane Lares DO Resident Tracking Resident Involvement: Resident Care Provided Care Provided: [facility]
[2017-04-11] MEDS ORDERED: NURSING VERBAL MED ORDER ONE ×4 (19:00→21:30)
[2017-04-11] MEDS ORDERED: NOREPINEPHRINE BIT INJ 8 MG in DEXTROSE 5% 500ML 500 ML IV PRN (19:00)
[2017-04-11] MEDS: SODIUM CHLORIDE 0.9% 1000ML 1,000 ML IV SCH ×2 (19:00→19:01)
[2017-04-11] MEDS: MoRPHine SULFATE 4 MG/ML 1 ML CARP\\VIAL IV PRN (19:35)
[2017-04-11] MEDS: ALBUMIN HUMAN 25% 12.5 GM/50 ML VIAL IV SCH ×2 (19:36→20:08)
[2017-04-11 19:46] LABS: BUN/CREATININE RATIO 24.8 (10-20); CALCIUM 6.4 mg/dl (8.5-10.1); CREATININE 0.63 mg/dl (0.60-1.20); POTASSIUM 3.9 mmol/L (3.5-5.1)
[2017-04-11] MEDS ORDERED: CALCIUM GLUCONATE 10% 1,000 MG in SODIUM CHLORIDE 0.9% 50ML 50 ML IV STA (20:00)
[2017-04-11] MEDS: CLINDAMYCIN IV 600 MG in DEXTROSE 5% 50ML 50 ML IV SCH (20:08)
[2017-04-11] MEDS: DILTIAZEM HCL 120 MG EXT REL CAP PO SCH (21:00)
[2017-04-11] MEDS: LISINOPRIL 10 MG TAB PO SCH (21:00)
[2017-04-11] MEDS: ASPIRIN 81 MG ECTAB PO SCH (21:21)
[2017-04-11] MEDS: ESCITALOPRAM OXALATE 10 MG TAB PO SCH (21:21)
[2017-04-11] MEDS: ATORVASTATIN 20 MG TAB PO SCH (21:21)
[2017-04-11] MEDS: NORMOSOL R 1,000 ML IV SCH (21:45)
[2017-04-12] VITALS (11 sets, daily range): BP systolic 125–189; BP diastolic 48–93; PULSE 69–97; TEMP 36.5–36.8; O2SAT 91–100
[2017-04-12 01:07] LABS: HEMATOCRIT 26.9 % (37-47); MEAN CELL VOLUME 87.3 fL (80-100); MEAN CORPUSCULAR HEMOGLOBIN 28.6 pg (25-34); MEAN CORPUSCULAR HGB CONC 32.7 g/dl (32-36); PLATELET COUNT 133 K/uL (130-400); RED BLOOD COUNT 3.08 M/uL (4.2-5.4); WHITE BLOOD COUNT 9.83 K/uL (4.8-10.8)
[2017-04-12] MEDS: CLINDAMYCIN IV 600 MG in DEXTROSE 5% 50ML 50 ML IV SCH (03:50)
[2017-04-12] MEDS: NORMOSOL R 1,000 ML IV SCH (06:28)
[2017-04-12 06:45] LABS: HEMATOCRIT 25.2 % (37-47); MEAN CELL VOLUME 86.9 fL (80-100); MEAN CORPUSCULAR HEMOGLOBIN 28.3 pg (25-34); MEAN CORPUSCULAR HGB CONC 32.5 g/dl (32-36); MEAN PLATELET VOLUME 9.3 fL (7.4-10.4); PLATELET COUNT 147 K/uL (130-400); WHITE BLOOD COUNT 10.26 K/uL (4.8-10.8)
[2017-04-12 07:24] LABS: CALCIUM 7.3 mg/dl (8.5-10.1); CREATININE 0.55 mg/dl (0.60-1.20); PHOSPHORUS 2.9 mg/dl (2.5-4.9); POTASSIUM 4.3 mmol/L (3.5-5.1)
[2017-04-12] MEDS: MoRPHine SULFATE 4 MG/ML 1 ML CARP\\VIAL IV PRN (08:20)
[2017-04-12] MEDS ORDERED: PANTOprazole SOD 40 MG TAB PO STA (10:04)
--- NOTE | 2017-04-12 10:04 | Progress Note ---
Progress Note Date of Service: Apr 12, 2017. Subjective No complaints this am. Did have emesis earlier today with mild chest discomfort. Problem List Medical Problems: (1) Aortic aneurysm Status: Acute (2) Dehydration Status: Acute (3) Dehydration Status: Acute (4) Generalized weakness Status: Acute (5) Hematuria Status: Acute (6) Vertigo Status: Acute Objective Vital Signs Vital Signs Past 12 Hours Date Time Temp Pulse Resp B/P (MAP) Pulse Ox O2 Delivery O2 Flow Rate FiO2 04/12/17 08:00 36.8 80 26 189/93 (125) 98 Nasal Cannula 2.0 145/66 (92) 04/12/17 08:00 Nasal Cannula 2.0 98 04/12/17 06:00 73 20 153/65 (94) 93 Room Air 04/12/17 05:00 76 14 138/54 (82) 100 Nasal Cannula 2.0 139/48 (78) 04/12/17 04:00 36.5 71 15 129/50 (76) 98 Nasal Cannula 2.0 132/51 (78) 04/12/17 04:00 Nasal Cannula 2.0 04/12/17 03:00 74 17 141/55 (83) 99 Nasal Cannula 2.0 148/57 (87) 04/12/17 02:00 77 16 151/51 (84) 98 Nasal Cannula 2.0 155/57 (89) 04/12/17 01:00 73 12 160/60 (93) 98 Nasal Cannula 2.0 158/58 (91) 04/12/17 00:00 36.5 69 19 125/69 (87) 99 Nasal Cannula 2.0 04/12/17 00:00 Nasal Cannula 2.0 04/11/17 23:00 70 14 119/50 (73) 98 Nasal Cannula 2.0 Exam Awake and alert VSS, Afebrile Groins without change from last pm Calves without tenderness Dopplers unchanged. Good urine output Good perfusion to feet Laboratory and Microbiology Results Past 24 Hours Test 04/11/17 14:35 04/11/17 19:12 04/12/17 00:10 04/12/17 00:57 Range/Units Hemoglobin 10.7 7.7 8.8 12.0-16.0 g/dL Hematocrit 33.1 23.0 26.9 37-47 % Sodium Level 138 136-145 mmol/L Potassium Level 3.9 3.5-5.1 mmol/L Chloride Level 111 98-107 mmol/L Carbon Dioxide Level 22 21-32 mmol/L Anion Gap 5.0 3-11 mmol/L Blood Urea Nitrogen 16 7-18 mg/dl Creatinine 0.63 0.60-1.20 mg/dl Est Creatinine Clear Calc Drug Dose 49.5 ml/min Estimated GFR () 96.8 Estimated GFR (Non- 83.5 BUN/Creatinine Ratio 24.8 10-20 Random Glucose 245 70-99 mg/dl Calcium Level 6.4 8.5-10.1 mg/dl Ionized Calcium 1.01 1.12-1.32 mmol/l Random Cortisol 33.71 mcg/dl Bedside Glucose 153 70-90 mg/dl White Blood Count 9.83 4.8-10.8 K/uL Red Blood Count 3.08 4.2-5.4 M/uL Mean Corpuscular Volume 87.3 80-100 fL Mean Corpuscular Hemoglobin 28.6 25-34 pg Mean Corpuscular Hemoglobin Concent 32.7 32-36 g/dl RDW Standard Deviation 44.9 36.4-46.3 fL RDW Coefficient of Variation 14.0 11.5-14.5 % Platelet Count 133 130-400 K/uL Mean Platelet Volume 9.0 7.4-10.4 fL Test 04/12/17 05:57 04/12/17 08:57 Range/Units White Blood Count 10.26 4.8-10.8 K/uL Red Blood Count 2.90 4.2-5.4 M/uL Hemoglobin 8.2 12.0-16.0 g/dL Hematocrit 25.2 37-47 % Mean Corpuscular Volume 86.9 80-100 fL Mean Corpuscular Hemoglobin 28.3 25-34 pg Mean Corpuscular Hemoglobin Concent 32.5 32-36 g/dl RDW Standard Deviation 45.1 36.4-46.3 fL RDW Coefficient of Variation 14.2 11.5-14.5 % Platelet Count 147 130-400 K/uL Mean Platelet Volume 9.3 7.4-10.4 fL Sodium Level 135 136-145 mmol/L Potassium Level 4.3 3.5-5.1 mmol/L Chloride Level 106 98-107 mmol/L Carbon Dioxide Level 22 21-32 mmol/L Anion Gap 7.0 3-11 mmol/L Blood Urea Nitrogen 13 7-18 mg/dl Creatinine 0.55 0.60-1.20 mg/dl Est Creatinine Clear Calc Drug Dose 56.6 ml/min Estimated GFR () 101.2 Estimated GFR (Non- 87.4 BUN/Creatinine Ratio 23.0 10-20 Random Glucose 123 70-99 mg/dl Calcium Level 7.3 8.5-10.1 mg/dl Phosphorus Level 2.9 2.5-4.9 mg/dl Magnesium Level 2.0 1.8-2.4 mg/dl Troponin I < 0.015 0-0.045 ng/ml Imp: Post PEVAR with right groin repair Plan: Patient had a bought of hypotension last pm. Responded to fluids and one unit of blood. Doing much better today. Will transfer to floor if hgb remains stable.
--- NOTE | 2017-04-12 11:10 | Critical Care Progress Note ---
Critical Care Progress Note Date of Service Apr 12, 2017. ICU Day ICU Day Number: [address] Lares Subjective Patient is resting comfortably in bed this morning with no acute complaints. The patient did have an episode of emesis this morning mostly containing food she has eaten for breakfast. She was complaining of Objective GENERAL: Awake, alert, well-appearing, in no distress HENT: Normocephalic, atraumatic. EYES: Normal conjunctiva. Sclera non-icteric. NECK: Supple. No nuchal rigidity. RESPIRATORY: Clear to auscultation. CARDIAC: Regular rate, normal rhythm. Extremities warm and well perfused. Pulses equal. ABDOMEN: Soft, non-distended. No tenderness to palpation. No rebound or guarding. No masses. RECTAL: Deferred. MUSCULOSKELETAL: Chest examination reveals no tenderness. Dressings c/d/i over bilateral groin areas. No tenderness to palpation over the incisional sites bilaterally. Hematoma appears reduced in size from exam post-operatively. LOWER EXTREMITIES: Calves are equal size bilaterally and non-tender. No edema. No discoloration. NEURO: Normal sensorium. No sensory or motor deficits noted. SKIN: No rash or jaundice noted. Current SOFA Score SOFA Score Response (Comments) Value Platelets (x10) < 150 1 Bilirubin (mg/dL) < 1.2 0 [place] Coma Score 15 0 Level of Hypotension No Hypotension 0 Creatinine (mg/dL) < 1.2 0 Total 1 Assessment & Plan Patient is an 82 year old female that presents to the ICU for post-op therapy s/ p percutaneous endovascular AAA repair Neuro - CAM ICU negative - Oriented to place and person - Underlying mixed vascular and Alzheimer's dementia - Continue home Lexapro 10 mg PO qhs CV - POD #1 s/p AAA repair - Hypotension significantly improved after 2L fluid bolus + 1 unit of PRBC ( last night at bedside p - AAA repair : Percutaneous Endovascular Aneurysm Repair, Right Femoral Cutdown , Repair Of Femoral Artery, Insertion Of Endovascular Anchors, Coil Embolization Of Sac - Type I endoleak of upper sac seen, shows delayed fill and pooling of contrast - No complications, estimated blood loss 150 mL - Continue home Aspirin, Lipitor, Diltiazem, and Lisinopril - Monitor on telemetry - Labetalol 5mg for SBP > 160 or DBP > 100 - Percocet and Labetalol on board for pain - Patient was complaining of chest pain early today --> Initial troponin negative and No ST changes on initial EKG --> Repeat Troponin this afternoon - Questionable Afib on initial EKG --> Will remain on telemetry and will recheck EKG - Will d/c A line after afternoon labs Respiratory - Saturating well on room air - Supplemental oxygen as required - Lungs clear to auscultation - Continue home Tiotropium [place] that is used PRN for wheezing GI/ Nutrition - AHA heart healthy diet - Protonix Fluids/ Renal - D/C Fluids --> Initially received IV D5 + 1/2 NS @ 125 ml/hr - Creatinine 0.55 ID - Clindamycin 600mg q8h 2 doses post op Heme - H/H 9.7/30.8 after receiving 1 unit of blood --> Repeat H/H with afternoon troponin - Baseline Hgb of 12 Endocrine - No history of Diabetes or Thyroid disease DVT PPX - SCD Code Status - Full Resuscitation Resident Physician Supervision Note: Dr. Ribeiro was resident physician during care of patient. I separately evaluated patient and did history and exam. I discussed the case with the resident and generally agree with the findings and plan. Patient's hypotensive episode overnight was likely secondary to vasovagal pain response and decrease preload, H&H has remained stable status post transfusion of 1 unit, sitting upright in bed eating breakfast feels well. Stable for downgraded out of the ICU today Documented By: Dane Lares DO Consults & Procedures Consultants: Intensive Care Procedures: A-line placement Data Medications: Current Inpatient Medications Medications (Trade) Dose Ordered Sig/Alex Route Start Time Stop Time Status Last Admin Dose Admin Morphine Sulfate (MoRPHine SULFATE INJ) If PO analgesic is orde... Q2H PRN IV 04/11/17 14:30 04/25/17 14:29 04/12/17 08:20 3 MG Oxycodone/ Acetaminophen (Percocet 5-325mg Tab) `1-2 TABS FOR MODER... Q4H PRN PO 04/11/17 14:30 04/25/17 14:29 Acetaminophen (Tylenol Tab) 650 mg Q4H PRN PO 04/11/17 14:30 05/11/17 14:29 04/11/17 17:44 650 MG Aspirin (Ecotrin Tab) 81 mg HS PO 04/11/17 21:00 05/11/17 20:59 04/11/17 21:21 81 MG Atorvastatin Calcium (Lipitor Tab) 20 mg HS PO 04/11/17 21:00 05/11/17 20:59 04/11/17 21:21 20 MG Escitalopram Oxalate (Lexapro Tab) 10 mg HS PO 04/11/17 21:00 05/11/17 20:59 04/11/17 21:21 10 MG Lisinopril (Zestril Tab) 10 mg HS PO 04/11/17 21:00 05/11/17 20:59 Future hold Tiotropium [place] (Spiriva Handihaler Inhaler) 1 puff DAILY PRN INH 04/11/17 14:30 05/11/17 14:29 Diltiazem HCl (TIAzac CAP) 120 mg HS PO 04/11/17 21:00 05/11/17 20:59 Future hold Pantoprazole Sodium (Protonix Tab) 40 mg QAM PO 04/13/17 09:00 05/13/17 08:59 Vital Signs: Date Time Temp Pulse Resp B/P (MAP) Pulse Ox O2 Delivery O2 Flow Rate FiO2 04/12/17 08:00 36.8 80 26 189/93 (125) 98 Nasal Cannula 2.0 145/66 (92) 04/12/17 08:00 Nasal Cannula 2.0 98 04/12/17 06:00 73 20 153/65 (94) 93 Room Air 04/12/17 05:00 76 14 138/54 (82) 100 Nasal Cannula 2.0 139/48 (78) 04/12/17 04:00 36.5 71 15 129/50 (76) 98 Nasal Cannula 2.0 132/51 (78) 04/12/17 04:00 Nasal Cannula 2.0 04/12/17 03:00 74 17 141/55 (83) 99 Nasal Cannula 2.0 148/57 (87) 04/12/17 02:00 77 16 151/51 (84) 98 Nasal Cannula 2.0 155/57 (89) 04/12/17 01:00 73 12 160/60 (93) 98 Nasal Cannula 2.0 158/58 (91) 04/12/17 00:00 36.5 69 19 125/69 (87) 99 Nasal Cannula 2.0 04/12/17 00:00 Nasal Cannula 2.0 04/11/17 23:00 70 14 119/50 (73) 98 Nasal Cannula 2.0 04/11/17 22:00 73 17 151/63 (92) 98 Nasal Cannula 2.0 153/61 (91) 04/11/17 21:39 36.7 70 16 155/67 99 2.0 04/11/17 21:00 36.8 79 18 122/71 99 2.0 04/11/17 20:00 Nasal Cannula 2.0 04/11/17 20:00 36.6 75 14 146/58 95 2.0 04/11/17 19:30 36.6 74 18 157/61 94 2.0 04/11/17 19:15 36.7 65 15 167/65 94 2.0 04/11/17 19:00 36.8 62 16 157/59 92 2.0 04/11/17 18:58 63 17 102/49 (66) 100 Nasal Cannula 2.0 04/11/17 18:53 55 22 62/37 (45) 100 Nasal Cannula 2.0 04/11/17 18:49 62 24 54/31 (39) 99 Nasal Cannula 2.0 04/11/17 18:47 77 23 78/38 (51) 100 Nasal Cannula 2.0 04/11/17 18:45 79 19 98 Nasal Cannula 2.0 04/11/17 18:36 72 20 94/45 (61) 97 Nasal Cannula 2.0 04/11/17 18:31 70 21 88/51 (63) 99 Nasal Cannula 2.0 04/11/17 18:00 73 21 124/60 (81) 98 Nasal Cannula 2.0 110/52 (71) 04/11/17 17:45 68 16 132/63 (86) 99 Nasal Cannula 2.0 04/11/17 17:30 64 19 130/61 (84) 99 Nasal Cannula 2.0 04/11/17 17:15 63 20 115/62 (79) 99 Nasal Cannula 2.0 04/11/17 17:00 64 16 119/58 (78) 99 Nasal Cannula 2.0 04/11/17 16:46 65 16 103/50 (67) 98 Nasal Cannula 2.0 04/11/17 16:30 65 20 109/52 (71) 98 Nasal Cannula 2.0 04/11/17 16:15 36.5 107/51 (69) 04/11/17 16:00 107/54 (71) 04/11/17 16:00 Nasal Cannula 2.0 04/11/17 15:24 37.2 04/11/17 15:22 69 12 139/52 98 04/11/17 15:22 70 12 04/11/17 15:21 67 24 04/11/17 15:21 72 24 130/75 99 04/11/17 15:16 69 16 143/73 99 04/11/17 15:16 69 16 04/11/17 15:11 66 16 04/11/17 15:11 70 16 147/67 98 04/11/17 15:06 71 14 04/11/17 15:06 71 14 140/54 98 04/11/17 15:05 152/83 04/11/17 15:01 72 14 134/52 98 04/11/17 15:01 72 14 04/11/17 15:00 73 12 150/74 98 04/11/17 15:00 73 12 04/11/17 14:56 136/64 04/11/17 14:55 74 16 04/11/17 14:55 74 16 124/50 97 04/11/17 14:50 76 16 04/11/17 14:50 76 16 148/74 94 04/11/17 14:49 77 14 129/52 93 04/11/17 14:49 77 14 04/11/17 14:45 146/69 04/11/17 14:44 78 16 116/47 99 04/11/17 14:44 79 16 04/11/17 14:41 145/61 04/11/17 14:39 76 17 129/52 99 04/11/17 14:39 76 17 04/11/17 14:35 153/73 04/11/17 14:34 77 15 124/49 99 04/11/17 14:34 77 15 04/11/17 14:30 147/66 04/11/17 14:29 78 17 135/53 99 04/11/17 14:29 78 17 04/11/17 14:25 147/65 04/11/17 14:24 78 12 04/11/17 14:24 78 12 126/51 99 04/11/17 14:20 164/62 04/11/17 14:20 146/73 04/11/17 14:19 37.4 80 16 133/55 100 Oxymask 10 04/11/17 14:19 80 7 99 04/11/17 14:19 80 7 Laboratory Results: Last 24 Hours Test 04/11/17 14:35 04/11/17 19:12 04/12/17 00:10 04/12/17 00:57 Hemoglobin 10.7 g/dL 7.7 g/dL 8.8 g/dL Hematocrit 33.1 % 23.0 % 26.9 % Sodium Level 138 mmol/L Potassium Level 3.9 mmol/L Chloride Level 111 mmol/L Carbon Dioxide Level 22 mmol/L Anion Gap 5.0 mmol/L Blood Urea Nitrogen 16 mg/dl Creatinine 0.63 mg/dl Est Creatinine Clear Calc Drug Dose 49.5 ml/min Estimated GFR () 96.8 Estimated GFR (Non- 83.5 BUN/Creatinine Ratio 24.8 Random Glucose 245 mg/dl Calcium Level 6.4 mg/dl Ionized Calcium 1.01 mmol/l Random Cortisol 33.71 mcg/dl Bedside Glucose 153 mg/dl White Blood Count 9.83 K/uL Red Blood Count 3.08 M/uL Mean Corpuscular Volume 87.3 fL Mean Corpuscular Hemoglobin 28.6 pg Mean Corpuscular Hemoglobin Concent 32.7 g/dl RDW Standard Deviation 44.9 fL RDW Coefficient of Variation 14.0 % Platelet Count 133 K/uL Mean Platelet Volume 9.0 fL Test 04/12/17 05:57 04/12/17 08:57 White Blood Count 10.26 K/uL Red Blood Count 2.90 M/uL Hemoglobin 8.2 g/dL Hematocrit 25.2 % Mean Corpuscular Volume 86.9 fL Mean Corpuscular Hemoglobin 28.3 pg Mean Corpuscular Hemoglobin Concent 32.5 g/dl RDW Standard Deviation 45.1 fL RDW Coefficient of Variation 14.2 % Platelet Count 147 K/uL Mean Platelet Volume 9.3 fL Sodium Level 135 mmol/L Potassium Level 4.3 mmol/L Chloride Level 106 mmol/L Carbon Dioxide Level 22 mmol/L Anion Gap 7.0 mmol/L Blood Urea Nitrogen 13 mg/dl Creatinine 0.55 mg/dl Est Creatinine Clear Calc Drug Dose 56.6 ml/min Estimated GFR () 101.2 Estimated GFR (Non- 87.4 BUN/Creatinine Ratio 23.0 Random Glucose 123 mg/dl Calcium Level 7.3 mg/dl Phosphorus Level 2.9 mg/dl Magnesium Level 2.0 mg/dl Troponin I < 0.015 ng/ml Resident Tracking Resident Involvement: Resident Care Provided Care Provided: Adult Hospital Medicine
[2017-04-12 14:47] LABS: HEMATOCRIT 26.9 % (37-47)
[2017-04-12] MEDS: ASPIRIN 81 MG ECTAB PO SCH (23:36)
[2017-04-12] MEDS: ESCITALOPRAM OXALATE 10 MG TAB PO SCH (23:36)
[2017-04-12] MEDS: LISINOPRIL 10 MG TAB PO SCH (23:37)
[2017-04-12] MEDS: ATORVASTATIN 20 MG TAB PO SCH (23:37)
[2017-04-12] MEDS: DILTIAZEM HCL 120 MG EXT REL CAP PO SCH (23:37)
[2017-04-13 07:25] VITALS: BP 100/57; PULSE 76; TEMP 36.7; O2SAT 90
[2017-04-13 07:30] VITALS: O2SAT 90
[2017-04-13] MEDS ORDERED: PANTOprazole SOD 40 MG TAB PO SCH (09:00)
[2017-04-13] MEDS ORDERED: OXYC-57 PO (10:04)
--- NOTE | 2017-04-13 10:04 | Progress Note ---
Progress Note Date of Service: Apr 13, 2017. Subjective No complaints. No pain Problem List Medical Problems: (1) Aortic aneurysm Status: Acute (2) Dehydration Status: Acute (3) Dehydration Status: Acute (4) Generalized weakness Status: Acute (5) Hematuria Status: Acute (6) Vertigo Status: Acute Objective Vital Signs Vital Signs Past 12 Hours Date Time Temp Pulse Resp B/P (MAP) Pulse Ox O2 Delivery O2 Flow Rate FiO2 04/13/17 07:30 90 Room Air 04/13/17 07:25 36.7 76 15 100/57 (71) 90 Room Air 04/12/17 23:40 Nasal Cannula 2.0 04/12/17 23:10 36.7 85 17 126/64 (84) 91 Nasal Cannula 2.0 Exam Awake alert Eating well No changed in groins. Hgb stable Laboratory and Microbiology Results Past 24 Hours Test 04/12/17 14:31 04/12/17 20:20 Range/Units Hemoglobin 8.7 12.0-16.0 g/dL Hematocrit 26.9 37-47 % Troponin I 0.026 0.044 0-0.045 ng/ml Imp: Post PEVAR Plan: Doing well, Will d/c today. Slightly confused but has confusion as a baseline
--- NOTE | 2017-04-13 10:07 | Discharge Instructions ---
Discharge Instructions Date of Service Apr 13, 2017. Admission Reason for Admission: Abdominal Aortic Aneurysm Discharge Discharge Diagnosis / Problem: Endovascular aortic aneurysm repair Discharge Goals Goal(s): Therapeutic intervention Activity Recommendations Activity Limitations: per Instructions/Follow-up section Shower/Bathe: tomorrow . Instructions / Follow-Up Instructions / Follow-Up Call [phone] to schedule a follow up appointment if one not already scheduled. SPECIAL CARE INSTRUCTIONS: Medications: * Continue to take your medications as directed. Incision/Puncture Site Care: * You will have an incision or puncture in each of your groins. Liquid glue will be used to seal your incisions/puncture site. This will lift off as the incisions/ puncture sites heal. * If Liquid glue is not used, there will be small dressings covering your incisions. After you get home, you may remove the dressings and shower - allowing the warm soapy water to run over it. * Be sure to dry the sites well and keep them dry. * DO NOT SOAK IN A TUB/POOL/etc. UNTIL ALL SURGICAL SITES ARE HEALED. DO NOT REMOVE THE GLUE UNTIL THE INCISIONS HEAL. 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 * You may walk and go up and down steps. * Avoid excessive bending or movement at the level of the incisions or punctures. Risks and Possible Complications: * Infection/Drainage/Bleeding - Drainage or bleeding from the incisions/ puncture site should be minimal. If you have excessive bleeding or drainage, call our office ([phone]) right away. * Pain/Numbness - You may experience some mild pain or soreness at your incision sites. You may also have some numbness around the incisions or into the insides of your thighs. Bruising is normal and should resolve within 2 weeks. * Changes in Appetite or Bowel Habits - Mostly related to anesthesia and pain medication, some patients have reported decreased appetite and/or problems with constipation. These symptoms usually improve over a few weeks. Remembering to take an [id number] stool softener, as directed, will help you to avoid constipation. Call our office and seek emergent treatment if you develop: * Fever or chills * Have a temperature greater than 101 degrees F * Any redness or purulent drainage from your incisions or punctures * Severe abdominal, chest or back pain SKIN IRRITATION: * You may experience some redness and/or swelling in the area where radiation was administered. If any skin irritation occurs, please contact your family physician. You will be receiving a call from the Vascular Surgery Nurse after you are discharged. FOLLOW UP VISIT: It is important for you to keep your follow up appointments with your medical provider. Keep any scheduled doctor appointments. Current Hospital Diet Patient's current hospital diet: AHA Diet (Heart Healthy) Discharge Diet Recommended Diet: AHA Diet (Heart Healthy) Procedures Procedures Performed: Percutaneous Endovascular Aneurysm Repair, Right Femoral Cutdown, Repair Of Femoral Artery, Insertion Of Endovascular Anchors, Coil Embolization Of Sac Pending Studies Studies pending at discharge: no Medical Emergencies . Who to Call and When: Medical Emergencies: If at any time you feel your situation is an emergency, please call 911 immediately. . Non-Emergent Contact Non-Emergency issues call your: Surgeon . "Provider Documentation" section prepared by Kieran Man. . VTE Core Measure Inpt VTE Proph given/why not?: Enoxaparin (Lovenox)SQ, SCD's [place] Drug Monitoring Program Search Results: no issues identified
[2017-04-13 10:09] VITALS: BP 100/57; PULSE 76; TEMP 36.7; O2SAT 90
--- NOTE | 2017-04-15 01:22 | DISCHARGE SUMMARY ---
ADMISSION DIAGNOSIS: Abdominal aortic aneurysm. DISCHARGE DIAGNOSES: 1. Status post endovascular aortic aneurysm repair and right femoral cutdown. 2. Abdominal aortic aneurysm. DISCHARGE CONDITION: Stable. CONSULTATIONS IN THE HOSPITAL: Included critical care during his ICU stay. PROCEDURES IN THE HOSPITAL: Included: 1. Percutaneous endovascular aneurysm repair with right femoral cutdown and repair of femoral artery. 2. Insertion of endovascular anchors and coil embolization of the sac. This was performed on 04/11/2017 with an EBL of 150 mL and a noted type 1 endoleak. HISTORY OF PRESENT ILLNESS: Mrs. Chin is an 82-year-old female who was admitted to the hospital for weakness and dehydration. During her workup, she was found to have a 5.5 cm abdominal aortic aneurysm which was bilobed, starting below the renal artery. She had no symptoms and not been known previously to have any aneurysm. She denied any other complaints. However, due to the size of the aneurysm and her risk of rupture, she was recommended to consider undergoing repair. This was discussed with the patient as well as her family, and she expressed understanding and agreement to proceed. HOSPITAL COURSE: The patient was admitted on 04/11/2017 after undergoing her percutaneous endovascular aneurysm repair and right femoral cut down. She did essentially well postoperatively. She had some nausea and emesis x1. On postop day 1, her hemoglobin and vital signs remained essentially stable otherwise. She did have 1 unit of blood during her hospital stay and did have some fluid resuscitation as well. The patient continued to improve and was felt to be stable enough for discharge on postop day 2. PHYSICAL EXAMINATION: VITAL SIGNS: On the day of discharge, her vital signs were as follows: Blood pressure of 126/64 with a temperature of 36.7, pulse of 85, pulse oximetry of 91% on room air. CONSTITUTIONAL AND GENERAL: The patient is a chronically ill appearing elderly female in no acute distress. She was ambulatory with a walker. HEAD: Normocephalic, atraumatic. EYES: EOMI. ENMT: No hearing loss, rhinorrhea or pharyngeal erythema. NECK: Supple, nontender, with midline trachea, without masses or crepitus. LUNGS: No dyspnea. They are decreased somewhat throughout but clear bilaterally. CARDIOVASCULAR: Nondisplaced apical impulse with a regular rate and rhythm, without murmurs. Peripheral pulses are equal in extremities including carotid, brachial, radial and femoral pulses. Her lower extremity distal pulses are +1. She has brisk capillary refill and no sign of distal ischemia. ABDOMEN: Soft, nontender, with normoactive bowel sounds in all 4 quadrants, without guarding or rebound. There is no flank or CVA tenderness. EXTREMITIES: Both lower demonstrate no cyanosis, edema, clubbing, varicosities or ulcers. Bilateral groin sites demonstrate good healing for postop day 2. Her right groin is closed with el, this is tender to palpation, did not appear to have any significant erythema and only a minimal amount of bloody discharge on the dressing. There is no erythema and no significant ecchymosis. Her left groin did demonstrate some mild left groin ecchymosis, no tenderness at this puncture site appropriately for postop day 2. NEUROLOGIC: The patient has grossly intact cranial nerves and grossly intact sensation. She does have some mild baseline confusion. FOLLOWUP: Should be with Dr. Man or his PA, Laura Lewis, within 2 days for reevaluation. MEDICATIONS: Reconciled and are as per her discharge instructions. DIET: Should be a low-cholesterol AHA diet. The patient and family members advised to call the office with any other questions.
[2017-04-15] MEDS ORDERED: PRVHFAIN INH (15:59)
[2017-04-15] MEDS ORDERED: SPRIN INH (15:59)
== END 2017-04-13 11:06 | disposition home or self-care (01) | DRG 269 ==
LOC: C.ACU 08:29 → C.3E 12:02 → UNDOADMIN 12:02 → EDBEDREQSVC 12:43 → CANBEDREQ 13:34 → C.MSICU 14:21 → CANBEDREQ 14:49 → ENRESERV 15:14 → C.MSN 04-12 16:04
PROVIDERS: ADMIT Surgery Vascular Surgery; ATTEND Surgery Vascular Surgery
PROC: 04V03DZ Restriction of Abdominal Aorta with Intraluminal Device, Percutaneous Approach (ICD-10-PCS; principal; 2017-04-11 10:30)
DX: I71.4 Abdominal aortic aneurysm, without rupture (principal); I95.9 Hypotension, unspecified; G30.9 Alzheimer's disease, unspecified; F02.80 Dementia in other diseases classified elsewhere, unspecified severity, without behavioral disturbance, psychotic disturbance, mood disturbance, and anxiety; I10 Essential (primary) hypertension; E78.5 Hyperlipidemia, unspecified; Z79.82 Long term (current) use of aspirin; Z79.899 Other long term (current) drug therapy; Z87.891 Personal history of nicotine dependence; Z88.0 Allergy status to penicillin

== ENCOUNTER 2017-04-14 11:08 | Observation (INO) | payer OTHER ==
[~2017-04-14] VITALS: Ht 160 cm; Wt 57.1 kg
[~2017-04-14 11:08] MED LIST changes: -CLINDAMYCIN 600 MG/54 ML D5W IV SCH; -LACTATED RINGER'S 1000ML 1,000 ML IV SCH; +OXYC-57 PO; -SODIUM CHLORIDE 0.9% 1000ML 1,000 ML IV SCH
[2017-04-14] MEDS ORDERED: OXYCODONE/ACETAMINOPHEN 5-325 TAB PO STA (11:35)
--- NOTE | 2017-04-14 12:35 | DIAGNOSTIC IMAGING REPORT ---
L-SPINE MIN 4 VIEWS ROUTINE CLINICAL HISTORY: Back pain status post trauma COMPARISON STUDY: No previous studies for comparison. FINDINGS: The bones are osteopenic. No acute fractures or traumatic subluxations are visualized. There is no pathologic bowel dilatation. The patient is status post aortobiiliac stent grafting. An embolic coils are visualized within the left central abdomen at the L2 level. IMPRESSION: Osteopenia. No acute fractures or traumatic subluxations are visualized. Electronically signed by: Xavier Bland M.D. 04/14/2017 12:34 PM Dictated Date/Time: 04/14/2017 12:33 PM
--- NOTE | 2017-04-14 12:36 | DIAGNOSTIC IMAGING REPORT ---
CHEST ONE VIEW PORTABLE CLINICAL HISTORY: fall CHEST AND BACK PAIN COMPARISON STUDY: 02/13/2017 FINDINGS: The heart is mildly enlarged. The chest has an emphysematous configuration. There is no pneumothorax. There is no focal pulmonary consolidation. There are no pleural effusions. There are minimal basilar atelectatic changes.[ IMPRESSION: No active disease in the chest. Electronically signed by: Xavier Bland M.D. 04/14/2017 12:35 PM Dictated Date/Time: 04/14/2017 12:34 PM
--- NOTE | 2017-04-14 13:05 | EMERGENCY ROOM VISIT NOTE ---
History Report prepared by Dainaibmartir: Christine Whitten Under the Supervision of: Dr. Jacky Alvarez D.O. First contact with patient: 11:28 Chief Complaint: FALL Stated Complaint: FALL/CONTUSION History of Present Illness The patient is an 82 year old female who presents to the Emergency Room with complaints of a sudden fall that occurred just prior to arrival. Per the patient's daughter, the patient was trying to get out of bed this morning when she fell. She notes that the patient hit her head and back and has complained of head pain and back pain. The patient's daughter does not believe that the patient lost any consciousness. She notes that the patient just had surgery on Friday on her Aortic Aneurysms. The patient's history is limited secondary to the patient's Alzheimer's and dementia. Source of History: patient, family (daughter) History Limited By: dementia (and Alzheimer's) Onset: prior to arrival Position: other (global) Quality: other (fall) Timing: other (sudden) Associated Symptoms: + headache, + back pain, No LOC Review of Systems The HPI and ROS are limited secondary to the patient's dementia and Alzheimer's. Past Medical & Surgical Medical Problems: (1) AAA (abdominal aortic aneurysm) (2) Alzheimers disease (3) Dehydration, mild (4) High cholesterol (5) Hypertension (6) Memory loss Family History Patient reports no known family medical history. Social History Smoking Status: Former Smoker Drug Use: none Marital Status: Occupation Status: retired Current/Historical Medications Scheduled Aspirin (Aspirin Ec), 81 MG PO HS Atorvastatin (Lipitor), 1 TAB PO HS Diltiazem Hcl (Diltiazem Hcl), 120 MG PO HS Escitalopram (Lexapro), 10 MG PO HS Lisinopril (Zestril), 10 MG PO HS Scheduled PRN Tiotropium [place] (Spiriva Handihaler), 1 CAP INH DAILY PRN for WHEEZING Allergies Coded Allergies: Donepezil (Unverified Allergy, Unknown, unknown, 04/14/17) Penicillins (Verified Allergy, Unknown, UNKNOWN, 04/14/17) Physical Exam Vital Signs Date Time Temp Pulse Resp B/P (MAP) Pulse Ox O2 Delivery O2 Flow Rate FiO2 04/14/17 14:34 89 04/14/17 14:08 95 114/69 91 Room Air 04/14/17 12:05 98 04/14/17 11:19 90 Room Air 04/14/17 11:19 37.0 107 20 169/69 94 Room Air Physical Exam CONSTITUTIONAL/VITAL SIGNS: Reviewed / noted above. GENERAL: Non-toxic in appearance. INTEGUMENTARY: Warm, dry, and [place]. HEAD: Normocephalic. EYES: without scleral icterus or trauma. ENT/OROPHARYNX: clear and moist. LYMPHADENOPATHY/NECK: Is supple without lymphadenopathy or meningismus. RESPIRATORY: Lungs clear and equal. CARDIOVASCULAR: Regular rate and rhythm. GI/ABDOMEN: Soft and nontender. No organomegaly or pulsatile mass. No rebound or guarding. Normal bowel sounds. EXTREMITIES: Warm and well perfused. Ecchymosis in the bilateral groin, consistent with recent procedure. BACK: No CVA tenderness. NEUROLOGICAL: Intact without focal deficits. PSYCHIATRIC: normal affect. MUSCULOSKELETAL: Normally developed with good muscle tone. Medical Decision & Procedures ER Provider Diagnostic Interpretation: X ray results and stated below per my interpretation and radiology interpretation. L-SPINE MIN 4 VIEWS ROUTINE CLINICAL HISTORY: Back pain status post trauma COMPARISON STUDY: No previous studies for comparison. FINDINGS: The bones are osteopenic. No acute fractures or traumatic subluxations are visualized. There is no pathologic bowel dilatation. The patient is status post aortobiiliac stent grafting. An embolic coils are visualized within the left central abdomen at the L2 level. IMPRESSION: Osteopenia. No acute fractures or traumatic subluxations are visualized. Electronically signed by: Xavier Bland M.D. 04/14/2017 12:34 PM Dictated Date/Time: 04/14/2017 12:33 PM CHEST ONE VIEW PORTABLE CLINICAL HISTORY: fall CHEST AND BACK PAIN COMPARISON STUDY: 02/13/2017 FINDINGS: The heart is mildly enlarged. The chest has an emphysematous configuration. There is no pneumothorax. There is no focal pulmonary consolidation. There are no pleural effusions. There are minimal basilar atelectatic changes.[ IMPRESSION: No active disease in the chest. Electronically signed by: Xavier Bland M.D. 04/14/2017 12:35 PM Dictated Date/Time: 04/14/2017 12:34 PM Laboratory Results 04/14/17 11:20 04/14/17 11:20 Test 04/14/17 11:20 Red Blood Count 3.17 M/uL (4.2-5.4) Mean Corpuscular Volume 86.4 fL (80-100) Mean Corpuscular Hemoglobin 29.0 pg (25-34) Mean Corpuscular Hemoglobin Concent 33.6 g/dl (32-36) RDW Standard Deviation 44.3 fL (36.4-46.3) RDW Coefficient of Variation 13.9 % (11.5-14.5) Mean Platelet Volume 9.4 fL (7.4-10.4) Anion Gap 7.0 mmol/L (3-11) Est Creatinine Clear Calc Drug Dose 65.2 ml/min Estimated GFR () 101.2 Estimated GFR (Non- 87.4 BUN/Creatinine Ratio 14.4 (10-20) Calcium Level 8.2 mg/dl (8.5-10.1) Laboratory results as stated above per my review. Medications Administered Medications (Trade) Dose Ordered Sig/Alex Route Start Time Stop Time Status Last Admin Dose Admin Oxycodone/ Acetaminophen (Percocet 5-325mg Tab) 1 tab NOW STAT PO 04/14/17 11:35 04/14/17 11:37 DC 04/14/17 12:05 1 TAB ED Course 1130: Previous medical records were reviewed. The patient was evaluated in room C2B. A complete history and physical examination was performed. 1257: Ordered Percocet 5-325 mg 1 tab PO. 1258: I reevaluated the patient and she is resting comfortably. I discussed the test results with her and her daughter and I discussed the treatment plan. The patient's daughter notes that the patient is too weak to go home. Medical Decision Differentials include: Close head injury, intracranial bleed, facial trauma, cervical spine trauma, chest and thoracic trauma, abdominal and intra-abdominal trauma, spine neurologic trauma, and extremity trauma. This is an 82-year-old female who presents to the ED with a chief complaint of a fall. The patient fell out of bed. She complained of some back pain. She also reports that she hit her head. Her exam was unremarkable with regards to her recent fall. She has no obvious contusions or injuries to her back or head. She is mildly tender diffusely in the back. There is no midline tenderness to the cervical, thoracic or lumbar spine. The patient does have some ecchymosis in the bilateral groins related to recent aortic aneurysm repair. X-ray of the chest and lumbar spine were performed there is no evidence of acute injury per the patient was told results. She was given a Percocet for pain. This isn't well for controlling her pain but the patient is too weak to go home. Daughter is concerned that she is not going to do well at home. PT/OT evaluation was performed here. She is felt to be a good candidate for rehabilitation. Because of pending insurance acceptance and time of day, the patient will be observed overnight awaiting pending insurance approval for PT/OT. I did speak with the hospitalist about this patient. They will see the patient. Medication Reconcilliation Current Medication List: was personally reviewed by me Blood Pressure Screening Patient's blood pressure: Elevated blood pressure Blood pressure disposition: Referred to PCP Impression Primary Impression: Fall Additional Impression: Back pain Scribe Attestation The scribe's documentation has been prepared under my direction and personally reviewed by me in its entirety. I confirm that the note above accurately reflects all work, treatment, procedures, and medical decision making performed by me. Departure Information Dispostion Being Evaluated By Hospitalist Referrals Adrianne Ludwig MD (PCP) Forms HOME CARE DOCUMENTATION FORM, IMPORTANT VISIT INFORMATION Patient Instructions My [facility] Additional Instructions Follow-up with your doctor for further care and evaluation in 1-2 days. Return to the emergency department for worsening or new symptoms or any concerns. You have been examined and treated today on an emergency basis only. This is not a substitute for, or an effort to provide, complete comprehensive medical care. It is impossible to recognize and treat all injuries or illnesses in a single emergency department visit. It is therefore important that you follow up closely with your doctor. Call as soon as possible for an appointment. Problem Qualifiers
[2017-04-14 14:48] LABS: HEMATOCRIT 27.4 % (37-47); MEAN CELL VOLUME 86.4 fL (80-100); MEAN CORPUSCULAR HGB CONC 33.6 g/dl (32-36); MEAN PLATELET VOLUME 9.4 fL (7.4-10.4); PLATELET COUNT 220 K/uL (130-400); RED BLOOD COUNT 3.17 M/uL (4.2-5.4)
[2017-04-14 14:55] LABS: BUN/CREATININE RATIO 14.4 (10-20); CALCIUM 8.2 mg/dl (8.5-10.1); CREATININE 0.55 mg/dl (0.60-1.20); POTASSIUM 3.5 mmol/L (3.5-5.1)
[2017-04-14] MEDS ORDERED: ACETAMINOPHEN 325 MG TAB PO PRN (17:15)
[2017-04-14] MEDS ORDERED: ONDANSETRON INJ 2 MG/ML 2 ML VIAL IV PRN (17:15)
[2017-04-14 18:20] VITALS: BP 153/70; PULSE 109; TEMP 37.1; O2SAT 98; Ht 160 cm; Wt 57.1 kg
[2017-04-14] MEDS ORDERED: IV FLUIDS COMPLETED PRN (20:00)
--- NOTE | 2017-04-14 23:22 | History and Physical ---
History & Physical Date & Time of Service: Apr 14, 2017 at 22:59 Chief Complaint: Back Pain, Fall Primary Care Physician: Adrianne Ludwig MD History of Present Illness Source: patient, family, hospital records 82 yo female with recent history of AAA endovascular repair, was just discharged on 04/13. Her post operative course was complicated by acute blood loss anemia, some hypotension and chest pain. She was treated with PRBC transfusion and watched closely in the ICU. Her vitals were stable and she was eating well. Discharged to home. She returned today after falling at home. The fall was unwitnessed and the patient is a poor historian with baseline dementia. She was found on her back on the floor next to her bed. She c/o pain in her back. Her family said that in the hospital she ambulated to the restroom with assistance, never further. In the ED her vitals were stable. CXR and x-ray of her lumbar spine was negative for any fractures. She was evaluated by PT/OT and they recommended rehabilitation. Attempted to transfer patient to [facility] directly from the ED but there was not enough time to secure insurance authorization. Admission was requested. Patient denies chest pain, dyspnea, light headedness or dizziness. Admits to generalized weakness. Admits to some abdominal pain but cannot really describe when she has it or characterized the pain or location. Again, she is a poor historian. Past Medical/Surgical History AAA repair Acute blood loss anemia Medical Problems: (1) Alzheimers disease Status: Chronic (2) High cholesterol Status: Chronic (3) Hypertension Status: Chronic Family History Patient reports no known family medical history. HTN Social History Smoking Status: Former Smoker Drug Use: none Marital Status: Occupational Status: retired Immunizations History of Influenza Vaccine: Unknown History of Tetanus Vaccine?: Unknown History of Pneumococcal: Unknown History of Hepatitis B Vaccine: Unknown Multi-Drug Resistant Organisms History of MDRO: No Allergies Coded Allergies: Donepezil (Unverified Allergy, Unknown, unknown, 04/14/17) Penicillins (Verified Allergy, Unknown, UNKNOWN, 04/14/17) Home Medications Scheduled Aspirin (Aspirin Ec), 81 MG PO HS Atorvastatin (Lipitor), 1 TAB PO HS Diltiazem Hcl (Diltiazem Hcl), 120 MG PO HS Escitalopram (Lexapro), 10 MG PO HS Lisinopril (Zestril), 10 MG PO HS Scheduled PRN Tiotropium [place] (Spiriva Handihaler), 1 CAP INH DAILY PRN for WHEEZING Review of Systems Constitutional: No fever, No chills, No sweats, No weight loss, No weakness, No fatigue, No problem reported Eyes: No worsening of vision, No eye pain, No redness, No discharge, No diplopia, No problem reported ENT: No hearing loss, No unusual epistaxis, No nasal symptoms, No sore throat, No tinnitus, No dental problems, No trouble swallowing, No problem reported Respiratory: No cough, No sputum, No wheezing, No shortness of breath, No dyspnea on exertion, No dyspnea at rest, No hemoptysis, No problem reported Cardiovascular: No chest pain, No orthopnea, No PND, No edema, No claudication , No palpitations, No problem reported Abdomen: + pain (vague description, intermittent), No nausea, No vomiting, No diarrhea, No constipation, No GI bleeding, No problem reported Musculoskeletal: + joint pain (low back after fall), No muscle pain, No swelling, No calf pain, No problem reported Genitourinary - Female: No dysuria, No urinary frequency, No urinary urgency, No urinary incontinence, No urinary retention, No hematuria Psychiatric: No depression symptoms, No anhedonism, No anxiety, No insomnia, No substance abuse, No problem reported Endocrine: No fatigue, No excessive thirst, No excessive urination, No problem reported Hematologic / Lymphatic: No abnormal bleeding/bruising, No clotting problems, No swollen lymph nodes, No night sweats, No problem reported Integumentary: No rash, No itch, No new/changing skin lesions, No color change , No bleeding, No problem reported Allergic / Immunologic: No environmental allergies, No seasonal allergies, No pet sensitivities, No food allergies, No hives, No frequent infections, No poor healing, No prolonged convalescence, No problem reported Physical Exam Vital Signs Date Time Temp Pulse Resp B/P (MAP) Pulse Ox O2 Delivery O2 Flow Rate FiO2 04/14/17 18:20 37.1 109 20 153/70 98 Nasal Cannula 2.0 04/14/17 17:48 99 134/65 91 04/14/17 16:54 109 121/59 90 Room Air 12/11/17 14:34 89 04/14/17 14:08 95 114/69 91 Room Air 04/14/17 12:05 98 04/14/17 11:19 90 Room Air 04/14/17 11:19 37.0 107 20 169/69 94 Room Air General Appearance: WD/WN, no apparent distress Head: normocephalic, atraumatic Eyes: normal inspection, EOMI, sclerae normal ENT: normal ENT inspection, hearing grossly normal, pharynx normal Neck: supple, no adenopathy, no JVD, trachea midline Respiratory/Chest: chest non-tender, lungs clear, normal breath sounds, no respiratory distress, no accessory muscle use Cardiovascular: regular rate, rhythm, no edema, no gallop, no JVD, no murmur, normal peripheral pulses Abdomen/GI: normal bowel sounds, non tender, soft, no organomegaly Back: normal inspection, no CVA tenderness, no muscle spasm, normal range of motion Extremities/Musculoskelatal: normal inspection, no calf tenderness, normal capillary refill, no pedal edema, normal range of motion Neurologic/Psych: waist fitter II-XII nml as tested, alert, normal mood/affect, oriented x 3, + abnormal gait (needs assistance, poor balance, shuffling), + motor weakness (generalized) Skin: normal color, warm/dry, no rash Diagnostics Laboratory Results Results Past 24 Hours Test 04/14/17 11:20 Range/Units White Blood Count 15.20 4.8-10.8 K/uL Red Blood Count 3.17 4.2-5.4 M/uL Hemoglobin 9.2 12.0-16.0 g/dL Hematocrit 27.4 37-47 % Mean Corpuscular Volume 86.4 80-100 fL Mean Corpuscular Hemoglobin 29.0 25-34 pg Mean Corpuscular Hemoglobin Concent 33.6 32-36 g/dl RDW Standard Deviation 44.3 36.4-46.3 fL RDW Coefficient of Variation 13.9 11.5-14.5 % Platelet Count 220 130-400 K/uL Mean Platelet Volume 9.4 7.4-10.4 fL Sodium Level 134 136-145 mmol/L Potassium Level 3.5 3.5-5.1 mmol/L Chloride Level 101 98-107 mmol/L Carbon Dioxide Level 26 21-32 mmol/L Anion Gap 7.0 3-11 mmol/L Blood Urea Nitrogen 8 7-18 mg/dl Creatinine 0.55 0.60-1.20 mg/dl Est Creatinine Clear Calc Drug Dose 65.2 ml/min Estimated GFR () 101.2 Estimated GFR (Non- 87.4 BUN/Creatinine Ratio 14.4 10-20 Random Glucose 92 70-99 mg/dl Calcium Level 8.2 8.5-10.1 mg/dl Diagnostic Radiology Lumbar spine: no fractures, + osteopenia CXR normal EKG poor baseline, lots of artifact, however, rhythm does appear to be irregular, questionable P waves, rate controlled Impression Assessment and Plan 82 yo female with recent AAA endovascular repair, returns after discharge after falling at home, no loss of consciousness, just overall weakness - Fall at home: likely just deconditioning, therapy recommending rehab PT/OT to continue no fractures on lumbar x-ray could there be another etiology to fall, could it be syncope since it was unwitnessed and poor historian repeat EKG in the AM due to possible atrial fibrillation, this was noted on prior stay on critical care progress note check echocardiogram - Atrial fibrillation? repeat EKG in the AM to see if quality can be improved if Atrial fibrillation confirmed then consult cardiology since this would be new diagnosis would need to determine anticoagulation on Diltiazem already, continue current dosing - Recent AAA repair with acute blood loss anemia abdomen soft, non tender and distal pulses in legs intact Hb stable at 9.2 - Alzheimer's dementia - Leukocytosis: reaction to fall? no pneumonia on CXR no fever will check UA and urine culture Level of Care Med/Surg Advanced Directives Existing Living Will: No Existing Power of Scroll Machine Operator: No Resuscitation Status FULL RESUSCITATION VTE Prophylaxis VTE Risk Assessment Done? Y/N: Yes Risk Level: Moderate Given or contraindicated: Unfractionated heparin SQ Additional Copies To Kieran Man M.D.; Adrianne Ludwig MD
[2017-04-14 23:25] VITALS: BP 157/77; PULSE 103; TEMP 36.8; O2SAT 92
[2017-04-15 03:02] LABS: URINE APPEARANCE CLEAR (CLEAR); URINE BILIRUBIN NEG (NEG); URINE COLOR YELLOW; URINE NITRITE NEG (NEG); URINE PH 5.5 (4.5-7.5); URINE SPECIFIC GRAVITY 1.016 (1.000-1.030); UROBILINOGEN NEG (NEG)
[2017-04-15 03:03] LABS: MANUAL MICROSCOPIC REQUIRED? NO; REVIEW REQ? NO
[2017-04-15 06:35] LABS: PROTHROMBIN TIME (PATIENT) 10.3 SECONDS (9.0-12.0)
[2017-04-15 07:00] VITALS: BP 122/73; PULSE 103; TEMP 36.5; O2SAT 94
[2017-04-15] MEDS ORDERED: DILTIAZEM HCL 30 MG TAB PO ONE (08:30)
[2017-04-15] MEDS ORDERED: HEPARIN SOD 5000 UNIT/0.5 ML CARP SQ SCH (09:00)
[2017-04-15 11:50] LABS: BASO % 0.2 %; BASO ABS # 0.02 K/uL (0-0.2); EOS % 0.2 %; HEMATOCRIT 25.5 % (37-47); IG% 0.4 %; LYMPH % 10.8 %; LYMPH ABS # 1.29 K/uL (1.2-3.4); MEAN CELL VOLUME 85.9 fL (80-100); MEAN CORPUSCULAR HGB CONC 33.7 g/dl (32-36); MEAN PLATELET VOLUME 8.8 fL (7.4-10.4); MONO % 12.6 %; NEUT % 75.8 %; PLATELET COUNT 222 K/uL (130-400); RED BLOOD COUNT 2.97 M/uL (4.2-5.4); WHITE BLOOD COUNT 11.89 K/uL (4.8-10.8)
[2017-04-15 12:37] LABS: COMPLETE YES
--- NOTE | 2017-04-15 13:30 | ECHOCARDIOGRAM REPORT ---
*NOTICE TO RECEIVING LIBERTARIAN AGENCY This information is strictly Confidential and protected under [place] law. [place] law prohibits you from making any further disclosure of this information unless further disclosure is expressly permitted by the written consent of the person to whom it pertains or is authorized by law. A general authorization for the release of medical or other information is not sufficient for this purpose. Hospital accepts no responsibility if the information is made available to any other person, INCLUDING THE PATIENT. Interpretation Summary * Name: YAMILA VO Study Date: 04/15/2017 06:38 AM BP: 157/77 mmHg * Patient Location: .[facility]\S\W353\S\2 HR: 102 * : 1935 (M/d/yyy) Gender: Female Height: 63 in * Age: 82 yrs Ethnicity: [place] Weight: 125 lb * Ordering Physician: Marcello Christopher * Referring Physician: Self, Referred * Performed By: Crystal Marshall, [facility] * * Reason For Study: POSSIBLE SYNCOPE * BSA: 1.6 m2 * -- Conclusions -- * Left ventricular systolic function is normal. * No regional wall motion abnormalities noted. * Ejection Fraction = 60-65%. * There is borderline concentric left ventricular hypertrophy. * Grade I diastolic dysfunction, (abnormal relaxation pattern). * Aortic valve sclerosis bordering on mild stenosis. * Mild aortic regurgitation. * Mild to moderate mitral regurgitation. Procedure Details * A complete two-dimensional transthoracic echocardiogram was performed (2D, M-mode, Doppler and color flow Doppler). Left Ventricle * The left ventricle is normal in size. * There is borderline concentric left ventricular hypertrophy. * Left ventricular systolic function is normal. * Ejection Fraction = 60-65%. * No regional wall motion abnormalities noted. Right Ventricle * The right ventricle is grossly normal size. * The right ventricular systolic function is normal as assessed by tricuspid annular plane systolic excursion (TAPSE) (normal >1.5 cm). Atria * The left atrium is mildly dilated. * Right atrial size is normal. * No ASD detected; PFO is not assessed. Mitral Valve * The mitral valve is normal. * There is no mitral valve stenosis. * There is mild to moderate mitral regurgitation. Tricuspid Valve * The tricuspid valve is not well visualized, but is grossly normal. * There is no tricuspid stenosis. * Significant tricuspid regurgitation is absent. Aortic Valve * The aortic valve is not well visualized. * Aortic valve sclerosis bordering on mild stenosis. * Mild aortic regurgitation. Pulmonic Valve * The pulmonary valve is not well seen, but the Doppler examination is normal without significant regurgitation or stenosis. Great Vessels * The aortic root is normal size. * The pulmonary is not well visualized. Pericardium/Pleural * There is no pericardial effusion. Great Vessels * Normal inferior vena cava size and collapsability with sniff indicates a normal right atrial pressure of 3 mmHg Left Ventricular Diastolic Function * Grade I diastolic dysfunction, (abnormal relaxation pattern). MMode 2D Measurements and Calculations IVSd 1.0 cm IVSs 1.3 cm LVIDd 4.3 cm LVIDs 3.6 cm LVPWd 0.96 cm LVPWs 1.1 cm IVS/LVPW 1.1 FS 15.2 % EDV(Teich) 83.2 ml ESV(Teich) 56.2 ml EF(Teich) 32.5 % EDV(cubed) 79.7 ml ESV(cubed) 48.5 ml EF(cubed) 39.1 % % IVS thick 20.9 % % LVPW thick 17.1 % LV mass(C)d 143.5 grams LV mass(C)dI 90.6 grams/m\S\2 LV mass(C)s 143.6 grams LV mass(C)sI 90.7 grams/m\S\2 SV(Teich) 27.0 ml SI(Teich) 17.1 ml/m\S\2 SV(cubed) 31.2 ml SI(cubed) 19.7 ml/m\S\2 Ao root diam 3.3 cm Ao root area 8.7 cm\S\2 LA dimension 2.8 cm LA/Ao 0.84 LVOT diam 1.9 cm LVOT area 2.9 cm\S\2 LVAd ap4 29.3 cm\S\2 LVLd ap4 7.4 cm EDV(MOD-sp4) 95.1 ml EDV(sp4-el) 98.5 ml LVAs ap4 20.6 cm\S\2 LVLs ap4 6.0 cm ESV(MOD-sp4) 59.5 ml ESV(sp4-el) 60.0 ml EF(MOD-sp4) 37.5 % EF(sp4-el) 39.1 % LVAd ap2 25.3 cm\S\2 LVLd ap2 6.9 cm EDV(MOD-sp2) 78.3 ml EDV(sp2-el) 79.1 ml LVAs ap2 16.9 cm\S\2 LVLs ap2 5.3 cm ESV(MOD-sp2) 46.3 ml ESV(sp2-el) 45.4 ml EF(MOD-sp2) 40.9 % EF(sp2-el) 42.6 % LVLd %diff -7.91 % EDV(MOD-bp) 86.0 ml LVLs %diff -13.36 % ESV(MOD-bp) 55.4 ml EF(MOD-bp) 35.6 % SV(MOD-sp4) 35.6 ml SI(MOD-sp4) 22.5 ml/m\S\2 SV(MOD-sp2) 32.0 ml SI(MOD-sp2) 20.2 ml/m\S\2 SV(MOD-bp) 30.7 ml SI(MOD-bp) 19.4 ml/m\S\2 SV(sp4-el) 38.5 ml SI(sp4-el) 24.3 ml/m\S\2 SV(sp2-el) 33.7 ml SI(sp2-el) 21.3 ml/m\S\2 Doppler Measurements and Calculations MV E max matheus 71.8 cm/sec MV A max matheus 92.6 cm/sec MV E/A 0.77 MV P1/2t max matheus 86.9 cm/sec MV P1/2t 79.4 msec MVA(P1/2t) 2.8 cm\S\2 MV dec slope 320.4 cm/sec\S\2 MV dec time 0.28 sec Ao V2 max 188.2 cm/sec Ao max PG 14.2 mmHg Ao max PG (full) 10.1 mmHg DARIAN(V,A) 1.6 cm\S\2 DARIAN(V,D) 1.6 cm\S\2 AI max matheus 394.5 cm/sec AI max PG 62.4 mmHg AI dec slope 319.8 cm/sec\S\2 AI P1/2t 361.2 msec LV V1 max PG 4.0 mmHg LV V1 max 100.4 cm/sec MR max matheus 619.7 cm/sec MR max PG 154.0 mmHg PA V2 max 104.5 cm/sec PA max PG 4.4 mmHg TR max matheus 317.6 cm/sec
--- NOTE | 2017-04-15 14:35 | DIAGNOSTIC IMAGING REPORT ---
CT SCAN OF THE BRAIN WITHOUT IV CONTRAST CLINICAL HISTORY: Change in mental status. COMPARISON STUDY: CT of the brain dated 10/13/2016. TECHNIQUE: Unenhanced axial CT scan of the brain is performed from the vertex to the skull base. CT DOSE: 537.48 mGy.cm FINDINGS: Brain parenchyma: There are age-related involutional changes noting mild to moderate subcortical and periventricular microangiopathic change. There is no hemorrhage, mass effect, or evidence of acute territorial ischemia by CT criteria. Ortega-white matter is preserved. No extra-axial fluid collection is seen. Ventricles, sulci, cisterns: Prominent secondary to involutional change. Intracranial vasculature: There is atherosclerotic calcification of the cavernous carotid and vertebral arteries. Calvarium: Unremarkable. Sinuses and mastoids: The visualized paranasal sinuses are clear. The mastoid air cells are well pneumatized. Orbits: The bony orbits are grossly intact. There are bilateral ocular lens implants. IMPRESSION: There is no hemorrhage, mass effect, or evidence of acute territorial ischemia by CT criteria. Electronically signed by: Waldo Wilson M.D. 04/15/2017 2:33 PM Dictated Date/Time: 04/15/2017 2:31 PM
[2017-04-15 15:27] VITALS: BP 129/59; PULSE 94; TEMP 36.9; O2SAT 95
[2017-04-15 15:53] VITALS: BP 129/59; PULSE 94; TEMP 36.9; O2SAT 95
[2017-04-15] MEDS ORDERED: PRVHFAIN INH (15:59)
[2017-04-15] MEDS ORDERED: SPRIN INH (15:59)
--- NOTE | 2017-04-15 16:04 | Discharge Instructions ---
Discharge Instructions Date of Service Apr 15, 2017. Admission Reason for Admission: Back Pain, Fall Discharge Discharge Diagnosis / Problem: fall - weakness Discharge Goals Goal(s): Improve function, Increase independence, Diagnostic testing, Therapeutic intervention Activity Recommendations Activity Level: Assistance Required Therapies: Physical Therapy, Occupational Therapy . Additional Information Patient informed of condition: Yes Advance Directives: No DNR: No Level of Care: Skilled (rehab emphasis) Communicable Disease: No Prognosis: Improving Instructions / Follow-Up Instructions / Follow-Up a) fall / weakness -appearing to be deconditioning and delirium -ongoing PT/OT -ongoing supportive care -fortunately showed no significant trauma from the fall b) delirium on dementia -appears per family to have a degree of baseline dementia but current mentation much worse - only since AAA repair last week - suspect she has a large degree of delirium superimposed on chronic dementia -no other secondary causes identified (no s/s infections, CT head negative for stroke, exam reassuring and consistent with simple delirium. did have WBC 15 but came down to 12 without intervention and deemed likely demargination from the fall) c) question of afib -has had periods of irregular rhythm - auscultates to sinus w ectopy, EKGs show at times sinus w ectopy and at times afib, although every afib appearing tracing also has a wandering baseline making interpretation quite difficult -if she were to have afib she would benefit from anticoagulation based on CHADS2 -Vasc of 5; would follow serial EKGs and have event monitor set up to better determine this d) severe COPD -changed spiriva from "prn" to scheduled, added albuterol prn; has been stable, does have faint wheeze on exam but asymptomatic e) probable osteoporosis -bones appearing quite osteopenic on plain films, as possible in near future would obtain DEXA and vitamin D levels, then treat as appropriate. as thin, white, postmenopausal, former smoker - certainly high risk Current Hospital Diet Patient's current hospital diet: Regular Diet Discharge Diet Recommended Diet: Regular Diet Pending Studies Studies pending at discharge: no Medical Emergencies . Who to Call and When: Medical Emergencies: If at any time you feel your situation is an emergency, please call 911 immediately. . Non-Emergent Contact Non-Emergency issues call your: Primary Care Provider . . "Provider Documentation" section prepared by Brandon Mahoney. . Core Measure Problem Core Measures: None
--- NOTE | 2017-04-15 18:21 | Discharge Summary ---
Discharge Summary Date of Service Apr 15, 2017. Discharge Summary Admission Date: Apr 14, 2017 at 17:04 Discharge Date: Apr 15, 2017 Discharge Disposition: snf facility Principal Diagnosis: fall/weakness Problems/Secondary Diagnoses: delirium superimposed on dementia possible paroxysmal afib severe COPD leukocytosis likely demargination from falling Immunizations: Have You Had Influenza Vaccine: Unknown History of Tetanus Vaccine?: Unknown History of Pneumococcal: Unknown History of Hepatitis B Vaccine: Unknown Procedures: DIAGNOSTIC IMAGING [~ rep ct add3]] CT SCAN OF THE BRAIN WITHOUT IV CONTRAST CLINICAL HISTORY: Change in mental status. COMPARISON STUDY: CT of the brain dated 10/13/2016. TECHNIQUE: Unenhanced axial CT scan of the brain is performed from the vertex to the skull base. CT DOSE: 537.48 mGy.cm FINDINGS: Brain parenchyma: There are age-related involutional changes noting mild to moderate subcortical and periventricular microangiopathic change. There is no hemorrhage, mass effect, or evidence of acute territorial ischemia by CT criteria. Ortega-white matter is preserved. No extra-axial fluid collection is seen. Ventricles, sulci, cisterns: Prominent secondary to involutional change. Intracranial vasculature: There is atherosclerotic calcification of the cavernous carotid and vertebral arteries. Calvarium: Unremarkable. Sinuses and mastoids: The visualized paranasal sinuses are clear. The mastoid air cells are well pneumatized. Orbits: The bony orbits are grossly intact. There are bilateral ocular lens implants. IMPRESSION: There is no hemorrhage, mass effect, or evidence of acute territorial ischemia by CT criteria. Electronically signed by: Waldo Wilson M.D. 04/15/2017 2:33 PM Dictated Date/Time: 04/15/2017 2:31 PM [~ rep ct add3]] CHEST ONE VIEW PORTABLE CLINICAL HISTORY: fall CHEST AND BACK PAIN COMPARISON STUDY: 02/13/2017 FINDINGS: The heart is mildly enlarged. The chest has an emphysematous configuration. There is no pneumothorax. There is no focal pulmonary consolidation. There are no pleural effusions. There are minimal basilar atelectatic changes.[ IMPRESSION: No active disease in the chest. Electronically signed by: Xavier Bland M.D. 04/14/2017 12:35 PM Dictated Date/Time: 04/14/2017 12:34 PM L-SPINE MIN 4 VIEWS ROUTINE CLINICAL HISTORY: Back pain status post trauma COMPARISON STUDY: No previous studies for comparison. FINDINGS: The bones are osteopenic. No acute fractures or traumatic subluxations are visualized. There is no pathologic bowel dilatation. The patient is status post aortobiiliac stent grafting. An embolic coils are visualized within the left central abdomen at the L2 level. IMPRESSION: Osteopenia. No acute fractures or traumatic subluxations are visualized. Electronically signed by: Xavier Bland M.D. 04/14/2017 12:34 PM Dictated Date/Time: 04/14/2017 12:33 PM Last Resulted CBC 04/15/17 11:34 Red Blood Count 2.97, Mean Corpuscular Volume 85.9, Mean Corpuscular Hemoglobin 29.0, Mean Corpuscular Hemoglobin Concent 33.7, Mean Platelet Volume 8.8, Neutrophils (%) (Auto) 75.8, Lymphocytes (%) (Auto) 10.8, Monocytes (%) (Auto) 12.6, Eosinophils (%) (Auto) 0.2, Basophils (%) (Auto) 0.2, Neutrophils # (Auto ) 9.01, Lymphocytes # (Auto) 1.29, Monocytes # (Auto) 1.50, Eosinophils # (Auto ) 0.02, Basophils # (Auto) 0.02 Last Resulted BMP 04/14/17 11:20 Last 24 Hours Test 04/15/17 02:00 04/15/17 05:50 04/15/17 11:34 Urine Color YELLOW Urine Appearance CLEAR Urine pH 5.5 Urine Specific Clements 1.016 Urine Protein NEG Urine Glucose (UA) NEG Urine Ketones 1+ Urine Occult Blood 1+ Urine Nitrite NEG Urine Bilirubin NEG Urine Urobilinogen NEG Urine Leukocyte Esterase NEG Urine WBC (Auto) 1-5 /hpf Urine RBC (Auto) 0-4 /hpf Urine Hyaline Casts (Auto) 0 /lpf Urine Epithelial Cells (Auto) 5-10 /lpf Urine Bacteria (Auto) NEG Prothrombin Time 10.3 SECONDS Prothromb Time International Ratio 1.0 White Blood Count 11.89 K/uL Red Blood Count 2.97 M/uL Hemoglobin 8.6 g/dL Hematocrit 25.5 % Mean Corpuscular Volume 85.9 fL Mean Corpuscular Hemoglobin 29.0 pg Mean Corpuscular Hemoglobin Concent 33.7 g/dl Platelet Count 222 K/uL Mean Platelet Volume 8.8 fL Neutrophils (%) (Auto) 75.8 % Lymphocytes (%) (Auto) 10.8 % Monocytes (%) (Auto) 12.6 % Eosinophils (%) (Auto) 0.2 % Basophils (%) (Auto) 0.2 % Neutrophils # (Auto) 9.01 K/uL Lymphocytes # (Auto) 1.29 K/uL Monocytes # (Auto) 1.50 K/uL Eosinophils # (Auto) 0.02 K/uL Basophils # (Auto) 0.02 K/uL RDW Standard Deviation 43.7 fL RDW Coefficient of Variation 13.9 % Immature Granulocyte % (Auto) 0.4 % Immature Granulocyte # (Auto) 0.05 K/uL Red Blood Cell Morphology Unremarkable Medication Reconciliation New Medications: Albuterol (Ventolin Hfa) 60 Puffs/5400 Mcg Aers 1 PUFF INH Q4 PRN for SOB/Wheezing, #1 INHALER Tiotropium Ambrose (Spiriva Handihaler) 5 Puff/90 Mcg Aerp 1 PUFF INH QAM, #30 CAP Continued Medications: Aspirin (Aspirin Ec) 81 Mg Tab 81 MG PO HS Atorvastatin (Lipitor) 20 Mg Tab 1 TAB PO HS for 90 Days, TAB 1 Refill Diltiazem Hcl (Diltiazem Hcl) 120 Mg Tab 120 MG PO HS Escitalopram (Lexapro) 10 Mg Tab 10 MG PO HS, TAB Lisinopril (Zestril) 10 Mg Tab 10 MG PO HS, TAB Discontinued Medications: Tiotropium Ambrose (Spiriva Handihaler) 30 Puff/540 Mcg Aerp 1 CAP INH DAILY PRN for WHEEZING for 30 Days, #30 CAP 3 Refills Discharge Exam Physical Exam: General Appearance: no apparent distress Eyes: EOMI ENT: hearing grossly normal Neck: trachea midline Respiratory/Chest: no respiratory distress, no accessory muscle use, + wheezing (faint) Cardiovascular: regular rate, rhythm (regular w ectopy) Neurologic/Psychiatric: map colorer II-XII nml as tested, alert, + disoriented Skin: normal color, warm/dry Hospital Course fall - appearing to be a combination of deconditioning/weakness and lack of attentiveness from delirium -will benefit from SNF stay [id number] -baseline dementia better tahn current mentation per family -note that she got worse after AAA repair -no other causes identified - no evidence of bacterial infection no stroke -supportive care questionable paroxysmal afib -EKGs both last stay and current show regular w ectopy when good tracings, but some tracings also appear c/w afib -- but oddly enough each of these are also technically difficult to interpret due to wandering baselines --> because she would definitely benefit from anticoagulation ([id number] of 5, not quite 7% risk of stroke per year) if she actually had afib, confirming or refuting this is of importance - would do serial ekgs and event monitor to better define situation severe COPD -change spiriva to daily scheduled, add albuterol prn leukocytosis -appearing demargination from fall - improved from 15-->12 wtihout intervention ; clinical follow up warranted presumed osteoporosis -fortunately no fractures with this fall, high risk- outpt w/u warratned Total Time Spent: Greater than 30 minutes This includes examination of the patient, discharge planning, medication reconciliation, and communication with other providers. Discharge Instructions Please refer to the electronic Patient Visit Report (Discharge Instructions) for additional information.
[2017-04-15] MEDS ORDERED: DILTIAZEM HCL 120 MG EXT REL CAP PO SCH (21:00)
[2017-04-15] MEDS ORDERED: ESCITALOPRAM OXALATE 10 MG TAB PO SCH (21:00)
[2017-04-15] MEDS ORDERED: ATORVASTATIN 20 MG TAB PO SCH (21:00)
[2017-04-15] MEDS ORDERED: LISINOPRIL 10 MG TAB PO SCH (21:00)
[2017-04-15] MEDS ORDERED: ASPIRIN 81 MG ECTAB PO SCH (21:00)
[2017-04-16] MEDS ORDERED: TIOTROPIUM BROMIDE 5 PUFF/90 MCG INH INH SCH (09:00)
== END 2017-04-15 16:40 ==
LOC: EDBD 11:08 → C.EDC 11:10 → C.MSW 17:04 → ENRESERV 17:28
PROVIDERS: ADMIT Internal Medicine; ATTEND Family Medicine
DX: R53.1 Weakness (principal); R51 Headache; M54.9 Dorsalgia, unspecified; G30.9 Alzheimer's disease, unspecified; F02.80 Dementia in other diseases classified elsewhere, unspecified severity, without behavioral disturbance, psychotic disturbance, mood disturbance, and anxiety; I10 Essential (primary) hypertension; E78.00 Pure hypercholesterolemia, unspecified; J44.9 Chronic obstructive pulmonary disease, unspecified; D72.829 Elevated white blood cell count, unspecified; W06.XXXA Fall from bed, initial encounter; Z87.891 Personal history of nicotine dependence; Z79.82 Long term (current) use of aspirin; Z79.899 Other long term (current) drug therapy

== ENCOUNTER 2017-04-16 09:54 | Observation (INO) | payer OTHER ==
[~2017-04-16] VITALS: Ht 162.6 cm; Wt 51.2 kg
[~2017-04-16 09:54] MED LIST changes: -OXYC-57 PO; +PRVHFAIN INH; +SPRIN INH; -SPRIN/30 INH
[2017-04-16 10:30] LABS: BASO % 0.1 %; BASO ABS # 0.01 K/uL (0-0.2); EOS % 0.5 %; EOS ABS # 0.04 K/uL (0-0.5); HEMATOCRIT 24.9 % (37-47); HEMOGLOBIN 8.4 g/dL (12.0-16.0); IG# 0.02 K/uL (0.00-0.02); LYMPH % 14.6 %; LYMPH ABS # 1.26 K/uL (1.2-3.4); MEAN CELL VOLUME 86.5 fL (80-100); MEAN CORPUSCULAR HEMOGLOBIN 29.2 pg (25-34); MEAN CORPUSCULAR HGB CONC 33.7 g/dl (32-36); MEAN PLATELET VOLUME 8.6 fL (7.4-10.4); MONO % 13.2 %; MONO ABS # 1.14 K/uL (0.11-0.59); NEUT % 71.4 %; NEUT ABS # 6.15 K/uL (1.4-6.5); PLATELET COUNT 244 K/uL (130-400); RED CELL DISTRIBUTION WIDTH CV 14.1 % (11.5-14.5); RED CELL DISTRIBUTION WIDTH SD 44.1 fL (36.4-46.3); WHITE BLOOD COUNT 8.62 K/uL (4.8-10.8)
--- NOTE | 2017-04-16 10:44 | EMERGENCY ROOM VISIT NOTE ---
History Report prepared by Sanjeev: Andrei Davis Under the Supervision of: Dr. Jacky Guardado M.D. First contact with patient: 10:00 Chief Complaint: BLEEDING Stated Complaint: WOUND History of Present Illness The patient is a 82 year old female who presents to the Emergency Room with complaints of persistent bleeding starting this morning. The patient has recently had an aneurysm repair, and she is having some bleeding from her right groin. Source of History: patient Onset: this morning Position: other (right groin) Quality: other (bleeding) Timing: other (persistent ) Review of Systems See HPI for pertinent positives & negatives. A total of 10 systems reviewed and were otherwise negative. Past Medical & Surgical Medical Problems: (1) AAA (abdominal aortic aneurysm) (2) Alzheimers disease (3) Dehydration, mild (4) High cholesterol (5) Hypertension (6) Memory loss Family History Patient reports no known family medical history. Social History Smoking Status: Former Smoker Drug Use: none Marital Status: Occupation Status: retired Current/Historical Medications Scheduled Aspirin (Aspirin Ec), 81 MG PO HS Atorvastatin (Lipitor), 1 TAB PO HS Diltiazem Hcl (Diltiazem Hcl), 120 MG PO HS Escitalopram (Lexapro), 10 MG PO HS Lisinopril (Zestril), 10 MG PO HS Tiotropium [place] (Spiriva Handihaler), 1 PUFF INH QAM Scheduled PRN Albuterol (Ventolin Hfa), 1 PUFF INH Q4 PRN for SOB/Wheezing Allergies Coded Allergies: Donepezil (Unverified Allergy, Unknown, unknown, 04/14/17) Penicillins (Verified Allergy, Unknown, UNKNOWN, 04/14/17) Physical Exam Vital Signs Date Time Temp Pulse Resp B/P (MAP) Pulse Ox O2 Delivery O2 Flow Rate FiO2 04/16/17 12:45 36.9 77 20 139/63 Room Air 04/16/17 11:01 139/63 04/16/17 10:54 77 20 94 04/16/17 10:48 74 04/16/17 10:46 129/75 04/16/17 10:01 36.9 81 18 148/65 95 Room Air Physical Exam GENERAL: Patient is a healthy-appearing well-nourished female HEAD: Normocephalic atraumatic EYES: Ocular movements intact pupils equal and react to light OROPHARYNX mucous membranes are moist no exudates present no erythema or edema present NECK: Supple no nuchal rigidity CHEST: Good equal expansion LUNGS: Clear and equal to auscultation CARDIAC: Normal S1 and S2 ABDOMEN: Soft nontender no guarding BACK: No CVA tenderness EXTREMITIES: Oozing fluid from the right inguinal area. No pain upon palpation normal muscle strength in all groups no clubbing cyanosis or edema NEURO: Patient is following commands and answering questions appropriately. Alert and oriented x3 Cranial Nerves 2-12 grossly intact Medical Decision & Procedures ER Provider Diagnostic Interpretation: Radiology results as stated below per my review and radiologist interpretation: CT SCAN OF THE BRAIN WITHOUT IV CONTRAST CLINICAL HISTORY: Change in mental status. COMPARISON STUDY: CT of the brain dated 04/15/2017. TECHNIQUE: Unenhanced axial CT scan of the brain is performed from the vertex to the skull base. A dose lowering technique was utilized adhering to the principles of ALARA. CT DOSE: 537.48 mGy.cm FINDINGS: Brain parenchyma: There are age-related involutional changes noting mild subcortical and periventricular microangiopathic change. There is no hemorrhage, mass effect, or evidence of acute territorial ischemia by CT criteria. Ortega-white matter is preserved. No extra-axial fluid collection is seen. Ventricles, sulci, cisterns: Prominent secondary to involutional change. Intracranial vasculature: There is atherosclerotic calcification of the cavernous carotid arteries. Calvarium: Unremarkable. Sinuses and mastoids: The visualized paranasal sinuses are clear. The mastoid air cells are well pneumatized. Orbits: The bony orbits are grossly intact. There are bilateral ocular lens implants. IMPRESSION: There is no hemorrhage, mass effect, or evidence of acute territorial ischemia by CT criteria. Electronically signed by: Waldo Wilson M.D. 04/16/2017 11:49 AM Dictated Date/Time: 04/16/2017 11:48 AM CHEST ONE VIEW PORTABLE CLINICAL HISTORY: Acute change in mental status COMPARISON STUDY: 04/14/2017 FINDINGS: The cardiac and mediastinal contours remain stable. The patient remains hyperinflated. There are mildly increased basilar markings likely atelectatic. There is no failure. There are no significant pleural effusions.[ IMPRESSION: 1. Suspected emphysema 2. Mildly prominent basilar markings likely atelectatic Electronically signed by: Xavier Bland M.D. 04/16/2017 11:52 AM Dictated Date/Time: 04/16/2017 11:51 AM Laboratory Results 04/16/17 10:15 Red Blood Count 2.88, Mean Corpuscular Volume 86.5, Mean Corpuscular Hemoglobin 29.2, Mean Corpuscular Hemoglobin Concent 33.7, Mean Platelet Volume 8.6, Neutrophils (%) (Auto) 71.4, Lymphocytes (%) (Auto) 14.6, Monocytes (%) (Auto) 13.2, Eosinophils (%) (Auto) 0.5, Basophils (%) (Auto) 0.1, Neutrophils # (Auto ) 6.15, Lymphocytes # (Auto) 1.26, Monocytes # (Auto) 1.14, Eosinophils # (Auto ) 0.04, Basophils # (Auto) 0.01 04/16/17 10:15 Test 04/16/17 10:15 04/16/17 12:56 White Blood Count 8.62 K/uL (4.8-10.8) Red Blood Count 2.88 M/uL (4.2-5.4) Hemoglobin 8.4 g/dL (12.0-16.0) Hematocrit 24.9 % (37-47) Mean Corpuscular Volume 86.5 fL (80-100) Mean Corpuscular Hemoglobin 29.2 pg (25-34) Mean Corpuscular Hemoglobin Concent 33.7 g/dl (32-36) Platelet Count 244 K/uL (130-400) Mean Platelet Volume 8.6 fL (7.4-10.4) Neutrophils (%) (Auto) 71.4 % Lymphocytes (%) (Auto) 14.6 % Monocytes (%) (Auto) 13.2 % Eosinophils (%) (Auto) 0.5 % Basophils (%) (Auto) 0.1 % Neutrophils # (Auto) 6.15 K/uL (1.4-6.5) Lymphocytes # (Auto) 1.26 K/uL (1.2-3.4) Monocytes # (Auto) 1.14 K/uL (0.11-0.59) Eosinophils # (Auto) 0.04 K/uL (0-0.5) Basophils # (Auto) 0.01 K/uL (0-0.2) RDW Standard Deviation 44.1 fL (36.4-46.3) RDW Coefficient of Variation 14.1 % (11.5-14.5) Immature Granulocyte % (Auto) 0.2 % Immature Granulocyte # (Auto) 0.02 K/uL (0.00-0.02) Red Blood Cell Morphology Unremarkable Anion Gap 9.0 mmol/L (3-11) Est Creatinine Clear Calc Drug Dose 91.4 ml/min Estimated GFR () 111.5 Estimated GFR (Non- 96.2 BUN/Creatinine Ratio 18.0 (10-20) Calcium Level 7.9 mg/dl (8.5-10.1) Total Bilirubin 1.1 mg/dl (0.2-1) Direct Bilirubin 0.3 mg/dl (0-0.2) Aspartate Amino Transf (AST/SGOT) 18 U/L (15-37) Alanine Aminotransferase (ALT/SGPT) 12 U/L (12-78) Alkaline Phosphatase 88 U/L (45-117) Total Creatine Kinase 109 U/L (26-192) Creatine Kinase MB 2.5 ng/ml (0.5-3.6) Creatine Kinase MB Ratio 2.3 (0-3.0) Troponin I 1.520 ng/ml (0-0.045) Total Protein 5.5 gm/dl (6.4-8.2) Albumin 2.3 gm/dl (3.4-5.0) Lipase 185 U/L (73-393) Labs reviewed by ED physician. ECG Indication: weakness Rate (beats per minute): 80 Rhythm: sinus rhythm Findings: PVC, no acute ischemic change, other (Short [place] interval) ED Course 1000: Past medical records reviewed. The patient was evaluated in room B2. A complete history and physical examination was performed. 1014: I discussed the patient's case with Laura Lewis PA-C, Endovascular Surgery, and she states that Dr. Man is going to come evaluate the patient. 1036: I reassessed the patient, and she was resting comfortably. 1055: Potassium Chloride 40meq PO 1114: Sodium Chloride 500 ml @ 999 mls/hr 1200: I talked to the patient, and I discussed the results. 1257: I discussed the patient's case with Dr. Man - Vascular Surgery, and he recommends that the patient be evaluated by the hospitalist. 1308: I discussed the patient's case with Dr. Torre, she has agreed to evaluate the patient for further management and care. 1313: Upon reevaluation, the patient is doing well, and I discussed the treatment plan with her. She is agreeable to the plan and will be evaluated for further management. Medical Decision Differential diagnoses include: Surgical site bleeding. This is an 82-year-old female who is brought in from her long term over concerns that the patient was hallucinating this morning and in addition was bleeding from her right groin area. The bleeding is controlled upon arrival to the emergency department and 4 x 4's were placed. Due to the fact that the patient was hallucinating she was sent for CAT scan of the head as well as a chest x-ray. The patient was found to have an elevation in her troponin at 1.5 however has no evidence of STEMI on EKG. She has a normal white blood cell count. Due to the patient's hemoglobin being 8.2 a type and screen was obtained. Medication Reconcilliation Current Medication List: was personally reviewed by me Blood Pressure Screening Patient's blood pressure: Elevated blood pressure Monitored by the hospitalist Consults Time Called: 1005 Consulting Physician: Laura Lewis PA-C, Endovascular surgery Returned Call: 1014 I discussed the patient's case with Laura Lewis PA-C, Endovascular Surgery, and she states that Dr. Man is going to come evaluate the patient. Additional Consults: Time Called: 1005 Consulted Physician: Dr. Man - Vascular Surgery Returned Call: 1257 Additional Comments: I discussed the patient's case with Dr. Man - Vascular Surgery, and he recommends that the patient be evaluated by the hospitalist. Time Called: 1300 Consulted Physician: Dr. Torre Returned Call: 1308 Additional Comments: I discussed the patient's case with Dr. Torre, she has agreed to evaluate the patient for further management and care. Impression Primary Impression: Weakness Additional Impressions: Anemia Elevated troponin Scribe Attestation The scribe's documentation has been prepared under my direction and personally reviewed by me in its entirety. I confirm that the note above accurately reflects all work, treatment, procedures, and medical decision making performed by me. Departure Information Dispostion Being Evaluated By Hospitalist Referrals Adrianne Ludwig MD (PCP) Patient Instructions My [facility] Problem Qualifiers Additional Impressions: Anemia Anemia type: unspecified type Qualified Codes: D64.9 - Anemia, unspecified
[2017-04-16 10:47] LABS: ALBUMIN 2.3 gm/dl (3.4-5.0); CALCIUM 7.9 mg/dl (8.5-10.1); CREATININE 0.41 mg/dl (0.60-1.20)
[2017-04-16 10:50] LABS: TOTAL PROTEIN 5.5 gm/dl (6.4-8.2)
[2017-04-16] MEDS ORDERED: POTASSIUM CHLORIDE 20 MEQ/15 ML UDC PO STA (10:55)
[2017-04-16] MEDS ORDERED: SODIUM CHLORIDE 0.9% 500ML 500 ML IV STA (11:14)
--- NOTE | 2017-04-16 11:51 | DIAGNOSTIC IMAGING REPORT ---
CT SCAN OF THE BRAIN WITHOUT IV CONTRAST CLINICAL HISTORY: Change in mental status. COMPARISON STUDY: CT of the brain dated 04/15/2017. TECHNIQUE: Unenhanced axial CT scan of the brain is performed from the vertex to the skull base. A dose lowering technique was utilized adhering to the principles of ALARA. CT DOSE: 537.48 mGy.cm FINDINGS: Brain parenchyma: There are age-related involutional changes noting mild subcortical and periventricular microangiopathic change. There is no hemorrhage, mass effect, or evidence of acute territorial ischemia by CT criteria. Ortega-white matter is preserved. No extra-axial fluid collection is seen. Ventricles, sulci, cisterns: Prominent secondary to involutional change. Intracranial vasculature: There is atherosclerotic calcification of the cavernous carotid arteries. Calvarium: Unremarkable. Sinuses and mastoids: The visualized paranasal sinuses are clear. The mastoid air cells are well pneumatized. Orbits: The bony orbits are grossly intact. There are bilateral ocular lens implants. IMPRESSION: There is no hemorrhage, mass effect, or evidence of acute territorial ischemia by CT criteria. Electronically signed by: Waldo Wilson M.D. 04/16/2017 11:49 AM Dictated Date/Time: 04/16/2017 11:48 AM
--- NOTE | 2017-04-16 11:54 | DIAGNOSTIC IMAGING REPORT ---
CHEST ONE VIEW PORTABLE CLINICAL HISTORY: Acute change in mental status COMPARISON STUDY: 04/14/2017 FINDINGS: The cardiac and mediastinal contours remain stable. The patient remains hyperinflated. There are mildly increased basilar markings likely atelectatic. There is no failure. There are no significant pleural effusions.[ IMPRESSION: 1. Suspected emphysema 2. Mildly prominent basilar markings likely atelectatic Electronically signed by: Xavier Bland M.D. 04/16/2017 11:52 AM Dictated Date/Time: 04/16/2017 11:51 AM
[2017-04-16 12:45] VITALS: BP 139/63; PULSE 77; TEMP 36.9; Ht 162.6 cm; Wt 51.2 kg
[2017-04-16 12:53] LABS: CKMB 2.5 ng/ml (0.5-3.6)
[2017-04-16] MEDS ORDERED: POTASSIUM CHLORIDE 20 MEQ/15 ML UDC ONE (13:25)
[2017-04-16] MEDS ORDERED: ONDANSETRON INJ 2 MG/ML 2 ML VIAL IV PRN (13:45)
[2017-04-16] MEDS ORDERED: MAGNESIUM HYDROXIDE SUSP 30 ML UDC PO PRN (13:45)
[2017-04-16] MEDS ORDERED: ALUMINUM/MAGNESIUM/SIMETH (MAALOX MAX) 30 ML UDC PO PRN (13:45)
[2017-04-16] MEDS ORDERED: ALBUTEROL HFA 8 GM INHALER INH PRN (13:45)
[2017-04-16] MEDS ORDERED: IV FLUIDS COMPLETED PRN (14:00)
[2017-04-16 15:35] VITALS: BP 139/65; TEMP 36.9; O2SAT 94
--- NOTE | 2017-04-16 16:51 | ECHOCARDIOGRAM REPORT ---
*NOTICE TO RECEIVING LIBERTARIAN AGENCY This information is strictly Confidential and protected under [place] law. [place] law prohibits you from making any further disclosure of this information unless further disclosure is expressly permitted by the written consent of the person to whom it pertains or is authorized by law. A general authorization for the release of medical or other information is not sufficient for this purpose. Hospital accepts no responsibility if the information is made available to any other person, INCLUDING THE PATIENT. Interpretation Summary * Name: YAMILA VO Study Date: 04/16/2017 03:29 PM BP: 139/65 mmHg * Patient Location: [facility] HR: 78 * : 1935 (M/d/yyyy) Gender: Female Height: 64 in * Age: 82 yrs Ethnicity: [place] Weight: 126 lb * Ordering Physician: Brandon Mahoney * Performed By: Yolanda Nur RDCS * * Reason For Study: LIMITED- ELEVATED TROP * BSA: 1.6 m2 * -- Conclusions -- * Limited 2D study. * Left ventricular systolic function is normal. * No regional wall motion abnormalities noted. * Ejection Fraction = 55-60%. * There is borderline concentric left ventricular hypertrophy. * Compared with study dated 04/30/2017, no significant change. Procedure Details * Left Ventricle The left ventricle is normal in size. There is borderline concentric left ventricular hypertrophy. Ejection Fraction = 55-60%. Left ventricular systolic function is normal. No regional wall motion abnormalities noted. * Right Ventricle The right ventricle is not well visualized. * Atria Borderline left atrial enlargement. * Mitral Valve The mitral valve is grossly normal. * Tricuspid Valve The tricuspid valve is not well visualized, but is grossly normal. * Aortic Valve The aortic valve opens well. * Great Vessels The aortic root is normal size. Normal inferior vena cava size and collapsability with sniff indicates a normal right atrial pressure of 3 mmHg * * MMode 2D Measurements and Calculations * IVSd 1.4 cm * IVSs 1.6 cm * * LVIDd 4.9 cm * LVIDs 3.4 cm * LVPWd 0.96 cm * LVPWs 1.7 cm * * IVS/LVPW 1.4 * FS 29.9 % * EDV(Teich) 110.5 ml * ESV(Teich) 47.5 ml * EF(Teich) 57.0 % * * EDV(cubed) 114.5 ml * ESV(cubed) 39.4 ml * EF(cubed) 65.6 % * % IVS thick 11.6 % * % LVPW thick 81.6 % * * LV mass(C)d 217.0 grams * LV mass(C)dI 135.0 grams/m\S\2 * LV mass(C)s 218.1 grams * LV mass(C)sI 135.7 grams/m\S\2 * * SV(Teich) 63.0 ml * SI(Teich) 39.2 ml/m\S\2 * SV(cubed) 75.1 ml * SI(cubed) 46.8 ml/m\S\2 * * LA dimension 3.3 cm * * LVAd ap4 31.0 cm\S\2 * LVLd ap4 7.5 cm * EDV(MOD-sp4) 106.5 ml * EDV(sp4-el) 107.8 ml * LVAs ap4 17.2 cm\S\2 * LVLs ap4 5.4 cm * ESV(MOD-sp4) 46.7 ml * ESV(sp4-el) 46.2 ml * EF(MOD-sp4) 56.2 % * EF(sp4-el) 57.1 % * * LVAd ap2 29.4 cm\S\2 * LVLd ap2 7.4 cm * EDV(MOD-sp2) 96.7 ml * EDV(sp2-el) 99.6 ml * LVAs ap2 17.0 cm\S\2 * LVLs ap2 6.0 cm * ESV(MOD-sp2) 41.6 ml * ESV(sp2-el) 40.7 ml * EF(MOD-sp2) 57.0 % * EF(sp2-el) 59.2 % * * LVLd %diff -2.43 % * EDV(MOD-bp) 101.5 ml * LVLs %diff 10.3 % * ESV(MOD-bp) 46.2 ml * EF(MOD-bp) 54.5 % * * SV(MOD-sp4) 59.8 ml * SI(MOD-sp4) 37.2 ml/m\S\2 * * SV(MOD-sp2) 55.1 ml * SI(MOD-sp2) 34.3 ml/m\S\2 * * SV(MOD-bp) 55.4 ml * SI(MOD-bp) 34.4 ml/m\S\2 * * SV(sp4-el) 61.6 ml * SI(sp4-el) 38.3 ml/m\S\2 * * SV(sp2-el) 58.9 ml * SI(sp2-el) 36.7 ml/m\S\2 * * *
[2017-04-16 19:20] VITALS: BP 151/76; PULSE 89; TEMP 37.1; O2SAT 93
--- NOTE | 2017-04-16 20:55 | HISTORY & PHYSICAL EXAMINATION ---
DATE OF ADMISSION: 04/16/2017 CHIEF COMPLAINT: Bleeding from groin site. HISTORY OF PRESENT ILLNESS: The patient is a pleasant, somewhat confused 82-year-old female known to me from yesterday when she was discharged to [facility]. At that point in time, she was in stable condition was showing no acute illness other than weakness and delirium, went to [facility] and then unfortunately this morning had a sudden onset of what sounded to be rather profuse bleeding from her right groin site where she had an endovascular repair of an abdominal aortic aneurysm. In discussion with the physician at [facility] , apparently it was a rather dramatic amount of bleeding and they sent her to the ER for further evaluation where fortunately she was hemodynamically stable, but of course with the bleeding, vascular surgery was asked to evaluate because she incidentally was found to have an elevated troponin and we were asked to admit. She adamantly denies any chest pain or shortness of breath. She seems less confused than yesterday and certainly I believe her proximal history to have veracity. She has not had any cardiac symptoms or pulmonary symptoms whatsoever. She does not entirely remember bleeding from her groin site but vaguely does. She denies any weakness, lightheadedness or dizziness. REVIEW OF SYSTEMS: Fairly difficult because of her mental state, but essentially is negative except for as above as best can be ascertained. PAST MEDICAL HISTORY: Includes Alzheimer's type dementia which sounds to be probably moderate based on mental status as described by her daughters although this is not entirely clear, abdominal aortic aneurysm status post recent repair, hypertension, hyperlipidemia, longstanding tobacco abuse, severe COPD. PAST SURGICAL HISTORY: Most relevant is the recent endovascular abdominal aortic aneurysm repair. FAMILY HISTORY: Hypertension. SOCIAL HISTORY: She is a former smoker it is hard to quantify pack years, but in discussion with her daughters it sounds like quite a bit. She is and retired. Has been living at home independently until her most recent hospital stay where she was then transferred to [facility] with a rehab emphasis. ALLERGIES: INCLUDES DONEPEZIL AND PENICILLINS. HOME MEDICATIONS: Aspirin 81 mg daily, Lipitor, diltiazem 120 mg at bedtime, Lexapro 10 mg at bedtime, lisinopril 10 mg at bedtime, Spiriva 18 mcg 1 puff daily and albuterol q. 4 hours p.r.n. shortness of breath or wheeze. PHYSICAL EXAMINATION: VITAL SIGNS: Temp 36.9, pulse 77, respiratory rate 20, blood pressure 139/63. She is 94-95% on room air. GENERAL: She is awake and alert. She still essentially disoriented in that she does not know where she is. She does know who she is. She is vaguely aware of the circumstances of what is going on but she is much more conversationally appropriate than she was yesterday. HEENT: Normocephalic, atraumatic. Mucous membranes are moist. CARDIOVASCULAR: Distant, but not tachycardic. No rubs, murmurs or gallops. LUNGS: Clear to auscultation bilaterally. No rales, rhonchi, or wheezes. Her wheezing from has cleared. "DICTATION ENDS HERE" MTDD
--- NOTE | 2017-04-16 20:55 | History and Physical ---
History & Physical Date of Service Apr 16, 2017. History & Physical obs #[id number]
--- NOTE | 2017-04-16 21:02 | HISTORY & PHYSICAL EXAMINATION ---
DATE OF ADMISSION: 04/16/2017 This is a continuation on admission H&P. PHYSICAL EXAMINATION ABDOMEN: Soft, nondistended, nontender, no masses or organomegaly. EXTREMITIES: Without cyanosis, clubbing or edema. She has no calf tenderness. Her right groin site shows a linear incision without overt opening or dehiscence. There is no surrounding erythema. There is no crepitus. There is a serosanguineous drainage constantly coming out of it. It seems to have responded fairly well to pressure, given that the dressing was not overtly saturated; however, as soon as I took it off to inspect the site, there was immediate serosanguineous drainage, but again, responded to pressure when I put it back on and her right posterior thigh has diffuse bruising. There are no cords. There is no calf tenderness. Distally, she appears to be neurovascularly intact. MENTAL STATUS: As above noted in the HPI with confusion and disorientation, but better conversation. The daughters also note this, as well, that she is not back to her baseline, but is better than she was before. SKIN: Shows no rashes, no pallor or icterus. NEUROLOGIC: Shows no focal deficits. Cranial nerves II-XII are grossly intact. Gross motor and sensory are intact. MUSCULOSKELETAL: Exam yields no gross lesions. LABS AND DIAGNOSTICS: CBC shows a white count of 8.62, hemoglobin 8.4, platelets 244. Her hemoglobin yesterday was 8.6. Complete metabolic panel with sodium 134, potassium 3.0, chloride 99, CO2 25, BUN 7, creatinine 0.41, calcium 7.9, glucose 110, total bilirubin of 1.1 with a direct of 0.3, AST 18, ALT 12, alkaline phosphatase is 88, CK total of 109 with an MB of 2.5. Troponin 1.52, total protein 5.5, albumin 2.3, lipase 185. PT of 10.1 with an INR of 1.0. EKG is sinus with ectopy and no ischemic changes.
[2017-04-16] MEDS: ESCITALOPRAM OXALATE 10 MG TAB PO SCH (21:05)
[2017-04-16] MEDS: ATORVASTATIN 20 MG TAB PO SCH (21:05)
[2017-04-16] MEDS: LISINOPRIL 10 MG TAB PO SCH (21:05)
[2017-04-16] MEDS: DILTIAZEM HCL 120 MG ER CAP PO SCH (21:05)
[2017-04-16] MEDS: BOOST VANILLA PO SCH (21:13)
--- NOTE | 2017-04-16 21:22 | HISTORY & PHYSICAL EXAMINATION ---
DATE OF ADMISSION: 04/16/2017 ADDENDUM LABS AND DIAGNOSTICS: After EKG, her head CT showed age-related involutional changes, no hemorrhage, mass effect or territorial ischemia. Essentially nothing acute and her chest x-ray showed suspected emphysema hyperinflation, increased basilar markings, likely atelectasis. ASSESSMENT AND PLAN: 1. Bleeding. This appears to be bleeding from her operative site. Fortunately, she is very hemodynamically stable, so I doubt it is an arterial bleed. The question would be whether it is capillary bleed, incisional bleed or nearby venous bleed. Does appear to be temporarily stabilized with pressure and I have discussed the case with vascular surgery who will be evaluating her for if any more definitive management is needed because of the bleeding, although she does not appear to be in much of an acute blood loss anemia situation. Obviously, we will be following her hemodynamics closely and trending her hemoglobin with a low threshold to transfuse especially should the bleeding continue. However, at this point in time she appears stable enough that I doubt this will be necessary. 2. Elevated troponin, it almost certainly has to be demand ischemia given that she shows no EKG signs of myocardial infarction and no symptoms of cardiac ischemia and therefore one would have to relate it to the physiologic stress of the bleeding or at least even of the stressors of having the bleeding and then being transferred back to the ER possibly but again she is totally asymptomatic. We will repeat an echocardiogram to ensure there is no new wall motion abnormalities and will trend cardiac enzymes. There is certainly absolutely no indication for an emergent heart catheterization at this time as I was working with her yesterday working up her possible atrial fibrillation. There was nothing about her situation that appeared unstable from a coronary disease standpoint. Certainly with her age, hypertension, hyperlipidemia and tobacco use, she likely does harbor a degree of underlying coronary disease and I discussed this with her and her daughters in regards to medication management versus interventional management and given her generally asymptomatic stage unless there is any new wall motion abnormalities, it appears prudent to hold off on excessive interventions at this time. Otherwise, as above-noted. 3. Dementia with superimposed delirium as discussed in yesterday's notes and discussed extensively with her daughter, Skyla yesterday and then readdressed with both Skyla and Arielle today. She appears to have baseline dementia and had delirium that seems to really entirely be related to the procedure and anesthesia. She has now been screened and rescreened for toxic metabolic, infectious or other neurovascular encephalopathy type changes yesterday as well as again today with no significant positive findings and I suspect that her delirium will slowly lift over time in less restrictive environments, hence yesterday she had gone to a skilled. 4. Weakness/deconditioning and falls. This appears to be predominantly related to the delirium. I would believe skilled to be the most appropriate level of care for her at this time once the above acute issues have been once again settled. 5. Chronic obstructive pulmonary disease. She had very severe chronic obstructive pulmonary disease on PFTs 15 years ago but is surprisingly asymptomatic yesterday noting her PFTs as well as her wheezing. I changed her Spiriva from p.r.n. to scheduled and added p.r.n. albuterol and she is no longer wheezing. She is not hypoxic and she is not short of breath. 6. Hypokalemia, repleted in the ER. Follow up in the morning. 7. Protein malnutrition with hypoalbuminemia, nutritional support here and at the skilled. 8. Hypocalcemia. Check a vitamin D, especially given that she has presumed osteoporosis. 9. Deep venous thrombosis prophylaxis. Pharmacologic prophylaxis contraindicated due to the bleeding from her groin site. 10. Disposition: She will be observed on telemetry with all of the above. I anticipate a return to skilled that appears to be the most appropriate setting for her weakness and delirium. I had extensive discussions with her daughters, one of which was overtly and openly hostile initially in our discussions and then once I was able to explain the entirety of her mother's situation what see and what we were doing for her, she then became appreciative of efforts in care.
[2017-04-16 23:50] VITALS: O2SAT 93
[2017-04-17] VITALS (8 sets, daily range): BP systolic 154–176; BP diastolic 64–76; PULSE 73–85; TEMP 36.5–37.2; O2SAT 92–95
[2017-04-17] MEDS: TIOTROPIUM BROMIDE 5 PUFF/90 MCG INH INH SCH (08:01)
[2017-04-17] MEDS: BOOST VANILLA PO SCH ×3 (08:13→21:16)
[2017-04-17] MEDS ORDERED: OPTIRAY 320 IV PRN (10:45)
[2017-04-17 12:23] LABS: BASO % 0.1 %; BASO ABS # 0.01 K/uL (0-0.2); EOS % 0.6 %; EOS ABS # 0.06 K/uL (0-0.5); HEMATOCRIT 25.8 % (37-47); HEMOGLOBIN 8.5 g/dL (12.0-16.0); IG# 0.04 K/uL (0.00-0.02); LYMPH % 17.8 %; LYMPH ABS # 1.65 K/uL (1.2-3.4); MEAN CELL VOLUME 86.9 fL (80-100); MEAN CORPUSCULAR HEMOGLOBIN 28.6 pg (25-34); MEAN CORPUSCULAR HGB CONC 32.9 g/dl (32-36); MEAN PLATELET VOLUME 8.7 fL (7.4-10.4); MONO % 15.5 %; MONO ABS # 1.43 K/uL (0.11-0.59); NEUT % 65.6 %; NEUT ABS # 6.06 K/uL (1.4-6.5); PLATELET COUNT 303 K/uL (130-400); RED CELL DISTRIBUTION WIDTH CV 14.4 % (11.5-14.5); RED CELL DISTRIBUTION WIDTH SD 45.6 fL (36.4-46.3); WHITE BLOOD COUNT 9.25 K/uL (4.8-10.8)
[2017-04-17 12:52] LABS: CALCIUM 7.9 mg/dl (8.5-10.1); CREATININE 0.36 mg/dl (0.60-1.20); POTASSIUM 3.6 mmol/L (3.5-5.1)
--- NOTE | 2017-04-17 13:15 | Medical Consult ---
Consultation Note Date of Service Apr 17, 2017. Consultation Note consult not needed/ Patient well known to us. Recent PEVAR with right groin cutdown. Has serousang drainage from groin. On exam: No hematoma of right groin. Dressing has serous drainage on it. Good distal flow. Imp: Serous drainage from groin Plan: Frequent dressing changes. CTA for follow up for PEVAR ordered.
--- NOTE | 2017-04-17 15:08 | DIAGNOSTIC IMAGING REPORT ---
ANGIO ABD/PELVIS COMBO CLINICAL HISTORY: 82 years-old Female presenting with postop endograft placement on 04/11/2017. TECHNIQUE: Multidetector CT angiography of the abdomen and pelvis was performed before and after the administration of intravenous contrast. 3-D volumetric and/or maximum intensity projection (MIP) images were subsequently reconstructed for review. IV contrast: 95 mL of Optiray 320. A dose lowering technique was used consistent with the principles of ALARA (as low as reasonably achievable). Stenosis measurements were based on NASCET-like criteria. COMPARISON: 02/13/2017. CT DOSE (mGy.cm): The estimated cumulative dose is 1265.93 mGy.cm. FINDINGS: Warranty Coordinator topogram: Unremarkable. 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 Additionally, a modular stent graft in the infrarenal abdominal aorta is now in place with biiliac extension across both the penetrating ulcer/pseudoaneurysm and more distal fusiform aneurysm. There is partial opacification of the penetrating ulcer/pseudoaneurysm which appears intimately associated with the stent graft likely implying alyssa discontinuity or poor apposition of modular components. No evidence of a feeding vessel. The more distal aneurysm is completely occluded. The aneurysm sac now measures up to 5.7 x 5.3 cm, previously 5.5 x 4.9 cm. No evidence of a feeding vessel or opacification on delayed imaging. Mild periaortic fat infiltration at the aneurysm. The stent is patent throughout including the bilateral iliac extension. Major branch vessels of the abdominal aorta are patent though approximately 50% stenosis of the left renal artery is apparent. Conventional hepatic arterial anatomy. Bilateral common, internal, and external iliac arteries patent. Although significant infiltration and hematoma surrounding the superficial aspect of the right common femoral artery, no pseudoaneurysm is apparent despite mild intimal irregularity. This is likely at the site of intravascular access. The hematoma measures up to 2 to 3 cm in diameter. Remaining abdomen and pelvis: Lung bases: Minimal dependent changes likely atelectasis. Mild smooth interlobular septal thickening. Multichamber enlargement of the heart. Interval development of small bilateral pleural effusions. Liver: Normal morphology. Tiny hypodensity in the left hepatic lobe likely hepatic cyst or hamartoma. Patent hepatic vasculature. Biliary: No intrahepatic or extrahepatic biliary ductal dilatation. Normal gallbladder. Pancreas: Normal. Spleen: Normal. Adrenal glands: Mild nodular thickening of the adrenal glands, nonspecific. Kidneys and ureters: Well-defined hypodensity in the right kidney likely simple cyst. No hydronephrosis. Normal excretion bilaterally. No nephrolithiasis. Extrarenal pelvises noted. Ureters poorly assessed. Bladder: Normal. Pelvic organs: Uterus and ovaries normal. Bowel: Limited diverticulosis of the sigmoid colon. Moderate stool burden throughout normal caliber colon. Feces noted within the dilated small bowel. Small bowel measures up to 3.2 cm in diameter in the superior pelvis (series 7 image 258). No focal transition point to suggest obstruction. Mild distention of the descending portion of the duodenum likely in part due to mass effect on the horizontal portion of the duodenum secondary to the aneurysm. Peritoneal cavity: No free fluid or intraperitoneal gas. Mild diffuse retroperitoneal infiltration. Lymph nodes: No enlarged lymph nodes in the abdomen or pelvis. Abdominal wall: Mild diffuse body wall edema. Musculoskeletal: Degenerative changes of the spine. Osteopenia. IMPRESSION: 1. Posttreatment changes of the modular endograft placement in the infrarenal aorta extending into the bilateral common iliac arteries. 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 This may either represent a defect in the graft or junctional separation of modular components. 2. Slight interval increased size of the infrarenal abdominal aortic aneurysm immediately inferior to the penetrating ulcer/pseudoaneurysm, however, no convincing evidence of an endoleak. This has been appropriately occluded by the stent graft. 3. Small hematoma associated with right common femoral arterial access. No evidence of a local pseudoaneurysm. Electronically signed by: Semaj Prather M.D. 04/17/2017 3:06 PM Dictated Date/Time: 04/17/2017 2:39 PM
--- NOTE | 2017-04-17 18:24 | Progress Note ---
Subjective Date of Service: Apr 17, 2017. Subjective Pt evaluation today including: conversation w/ patient, conversation w/ family , physical exam, chart review, lab review, review of inpatient medication list no new complaints no cp no sob [facility] not [facility], year is 1954 revisited with dtr and updated at the time of my visit and revisit was awaiting vascular surgery eval - later evaluated, input appreciated ongoing oozing from groin site through the night but no major bleeding Problem List Medical Problems: (1) Anemia Status: Acute (2) Aortic aneurysm Status: Acute (3) Back pain Status: Acute (4) Dehydration Status: Acute (5) Dehydration Status: Acute (6) Elevated troponin Status: Acute (7) Fall Status: Acute (8) Generalized weakness Status: Acute (9) Hematuria Status: Acute (10) Vertigo Status: Acute (11) Weakness Status: Acute Review of Systems all other ROS otherwise negative except for as above as best can be ascertained Objective Vital Signs Date Time Temp Pulse Resp B/P (MAP) Pulse Ox O2 Delivery O2 Flow Rate FiO2 04/17/17 16:03 36.9 73 20 176/70 (105) 94 04/17/17 16:00 Room Air 04/17/17 12:00 Room Air 04/17/17 11:34 37.2 83 20 156/74 (101) 94 Room Air 04/17/17 08:00 Room Air 04/17/17 07:25 36.8 85 20 155/64 (94) 95 Room Air 154/76 (102) 04/17/17 04:15 93 Room Air 04/17/17 03:30 36.7 80 18 158/72 (100) 92 Room Air 04/17/17 00:24 36.7 82 16 155/67 (96) 93 Room Air 04/16/17 23:50 93 Room Air 04/16/17 20:00 Room Air 04/16/17 19:20 37.1 89 18 151/76 (101) 93 Room Air Physical Exam General Appearance: no apparent distress Eyes: EOMI ENT: hearing grossly normal Neck: trachea midline Respiratory/Chest: no respiratory distress, no accessory muscle use Extremities: + pertinent finding (R groin site with dressing, gauze w serosanguanous drainage but not saturated and not overtly bloody) Neurologic/Psychiatric: stamp redemption clerk II-XII nml as tested, alert, + disoriented (see above, conversationally appropriate but doesn't remember circumstances surrounding situation) Skin: normal color Laboratory Results Last 24 Hours Test 04/16/17 18:28 04/16/17 23:50 04/17/17 03:38 04/17/17 11:48 Hemoglobin 8.8 g/dL 8.5 g/dL Troponin I 1.400 ng/ml 1.140 ng/ml Urine Color YELLOW Urine Appearance CLEAR Urine pH 8.5 Urine Specific [place] 1.018 Urine Protein NEG Urine Glucose (UA) NEG Urine Ketones NEG Urine Occult Blood NEG Urine Nitrite NEG Urine Bilirubin NEG Urine Urobilinogen NEG Urine Leukocyte Esterase TRACE Urine WBC (Auto) 1-5 /hpf Urine RBC (Auto) 5-10 /hpf Urine Hyaline Casts (Auto) 0 /lpf Urine Epithelial Cells (Auto) 10-20 /lpf Urine Bacteria (Auto) NEG White Blood Count 9.25 K/uL Red Blood Count 2.97 M/uL Hematocrit 25.8 % Mean Corpuscular Volume 86.9 fL Mean Corpuscular Hemoglobin 28.6 pg Mean Corpuscular Hemoglobin Concent 32.9 g/dl Platelet Count 303 K/uL Mean Platelet Volume 8.7 fL Neutrophils (%) (Auto) 65.6 % Lymphocytes (%) (Auto) 17.8 % Monocytes (%) (Auto) 15.5 % Eosinophils (%) (Auto) 0.6 % Basophils (%) (Auto) 0.1 % Neutrophils # (Auto) 6.06 K/uL Lymphocytes # (Auto) 1.65 K/uL Monocytes # (Auto) 1.43 K/uL Eosinophils # (Auto) 0.06 K/uL Basophils # (Auto) 0.01 K/uL RDW Standard Deviation 45.6 fL RDW Coefficient of Variation 14.4 % Immature Granulocyte % (Auto) 0.4 % Immature Granulocyte # (Auto) 0.04 K/uL Red Blood Cell Morphology Unremarkable Sodium Level 133 mmol/L Potassium Level 3.6 mmol/L Chloride Level 101 mmol/L Carbon Dioxide Level 25 mmol/L Anion Gap 7.0 mmol/L Blood Urea Nitrogen 8 mg/dl Creatinine 0.36 mg/dl Est Creatinine Clear Calc Drug Dose 104.1 ml/min Estimated GFR () 116.4 Estimated GFR (Non- 100.4 BUN/Creatinine Ratio 23.5 Random Glucose 92 mg/dl Calcium Level 7.9 mg/dl 25-Hydroxy Vitamin D Total 11.7 ng/ml Assessment and Plan 1. Bleeding. -hemodynamically stable, pressure and gauze currently controlling the situation , but seems to bleed more with movement, which obviously would preclude meaningful rehab. -vascular surgery eval pending; coags and platelets have been Ok, Hgb stable - continue to follow 2. Elevated troponin, it almost certainly has to be demand ischemia given that she shows no EKG signs of myocardial infarction and no symptoms of cardiac ischemia and echo without RWMA -med management, presumed CAD. no symptoms. troponin slowly going down and never reached a high peak -would strongly consider stress testing once able -certainly no role for [facility] at this time given overall stability 3. Dementia with superimposed delirium -supportive care, least restrictive environment, re-orientation, frequently re- screen for other exacerbating / inciting factors - none at this time 4. Weakness/deconditioning and falls. This appears to be predominantly related to the delirium. -PT/OT/SNF once bleeding issue has been resolved 5. Chronic obstructive pulmonary disease. She had very severe chronic obstructive pulmonary disease on PFTs 15 years ago but is surprisingly asymptomatic -spiriva daily, albuterol prn 6. Hypokalemia, repleted in the ER. repeat BMP shows repletion 7. Protein malnutrition with hypoalbuminemia, nutritional support here and at the [facility] facility - for now boost TID 8. Hypocalcemia and vitamin D deficiency - replace D, repeat levels in 3 months , outpt DEXA 9. Deep venous thrombosis prophylaxis. Pharmacologic prophylaxis contraindicated due to the bleeding from her groin site. 10. dispo - maintain on tele pending further input from vascular, anticipate eventual return to SNF
[2017-04-17] MEDS: ACETAMINOPHEN 325 MG TAB PO PRN (18:27)
[2017-04-17] MEDS: ESCITALOPRAM OXALATE 10 MG TAB PO SCH (21:16)
[2017-04-17] MEDS: LISINOPRIL 10 MG TAB PO SCH (21:16)
[2017-04-17] MEDS: DILTIAZEM HCL 120 MG ER CAP PO SCH (21:16)
[2017-04-17] MEDS: ATORVASTATIN 20 MG TAB PO SCH (21:16)
[2017-04-18] VITALS (7 sets, daily range): BP systolic 133–169; BP diastolic 54–74; PULSE 66–85; TEMP 36.5–37.1; O2SAT 92–97
[2017-04-18] MEDS: CHOLECALCIFEROL 1000 INTER.UNIT TAB PO SCH (08:45)
[2017-04-18] MEDS: TIOTROPIUM BROMIDE 5 PUFF/90 MCG INH INH SCH (08:46)
[2017-04-18] MEDS ORDERED: ERGOCALCIFEROL 50,000 INTER.UNIT CAP PO SCH (09:00)
[2017-04-18] MEDS: BOOST VANILLA PO SCH ×3 (09:00→21:00)
[2017-04-18 09:46] LABS: BASO % 0.2 %; BASO ABS # 0.02 K/uL (0-0.2); HEMATOCRIT 27.5 % (37-47); HEMOGLOBIN 9.1 g/dL (12.0-16.0); IG# 0.03 K/uL (0.00-0.02); LYMPH % 14.4 %; MEAN CORPUSCULAR HEMOGLOBIN 28.8 pg (25-34); MEAN PLATELET VOLUME 8.4 fL (7.4-10.4); MONO % 11.3 %; NEUT % 72.8 %; NEUT ABS # 7.08 K/uL (1.4-6.5); PLATELET COUNT 329 K/uL (130-400); RED CELL DISTRIBUTION WIDTH CV 14.4 % (11.5-14.5); RED CELL DISTRIBUTION WIDTH SD 45.5 fL (36.4-46.3); WHITE BLOOD COUNT 9.73 K/uL (4.8-10.8)
[2017-04-18 09:48] LABS: MEAN CORPUSCULAR HGB CONC 33.1 g/dl (32-36)
[2017-04-18] MEDS: ACETAMINOPHEN 325 MG TAB PO PRN (12:54)
[2017-04-18] MEDS: DICLOFENAC SOD 1% GEL 100 GM TUBE EXT SCH ×3 (17:05→21:35)
--- NOTE | 2017-04-18 18:40 | Progress Note ---
Subjective Date of Service: Apr 18, 2017. Subjective Pt evaluation today including: conversation w/ patient, physical exam, chart review, lab review, review of inpatient medication list feeling better she notes no breathing problems no belly pain no leg or foot pain d/w vascular - no interventions needed, small leak self healing repeat CT 4wks nursing notes slow oozing of serous fluid Problem List Medical Problems: (1) Anemia Status: Acute (2) Aortic aneurysm Status: Acute (3) Back pain Status: Acute (4) Dehydration Status: Acute (5) Dehydration Status: Acute (6) Elevated troponin Status: Acute (7) Fall Status: Acute (8) Generalized weakness Status: Acute (9) Hematuria Status: Acute (10) Vertigo Status: Acute (11) Weakness Status: Acute Review of Systems ROS otherwise unobtainable except for as above Objective Vital Signs Date Time Temp Pulse Resp B/P (MAP) Pulse Ox O2 Delivery O2 Flow Rate FiO2 04/18/17 16:00 Room Air 04/18/17 15:09 37.1 66 20 133/70 (91) 93 Room Air 04/18/17 12:00 Room Air 04/18/17 11:40 36.6 73 18 169/70 (103) 97 04/18/17 08:00 Room Air 04/18/17 07:56 36.8 68 18 143/54 (83) 94 04/18/17 04:00 Room Air 04/18/17 03:10 36.5 85 18 168/74 (105) 92 Room Air 04/18/17 00:01 Room Air 04/17/17 23:35 36.5 75 18 163/75 (104) 94 Room Air 04/17/17 20:00 Room Air 04/17/17 19:29 36.6 78 18 173/72 (105) 95 Room Air Physical Exam General Appearance: no apparent distress Eyes: EOMI ENT: hearing grossly normal Neck: trachea midline Respiratory/Chest: no respiratory distress, no accessory muscle use Extremities: no pedal edema, no calf tenderness, + pertinent finding (good DP pulses b/l) Neurologic/Psychiatric: tree trimmer II-XII nml as tested, alert, + pertinent finding ( about the same mentation as yesterday) Skin: normal color, warm/dry Laboratory Results Last 24 Hours Test 04/18/17 09:33 White Blood Count 9.73 K/uL Red Blood Count 3.16 M/uL Hemoglobin 9.1 g/dL Hematocrit 27.5 % Mean Corpuscular Volume 87.0 fL Mean Corpuscular Hemoglobin 28.8 pg Mean Corpuscular Hemoglobin Concent 33.1 g/dl Platelet Count 329 K/uL Mean Platelet Volume 8.4 fL Neutrophils (%) (Auto) 72.8 % Lymphocytes (%) (Auto) 14.4 % Monocytes (%) (Auto) 11.3 % Eosinophils (%) (Auto) 1.0 % Basophils (%) (Auto) 0.2 % Neutrophils # (Auto) 7.08 K/uL Lymphocytes # (Auto) 1.40 K/uL Monocytes # (Auto) 1.10 K/uL Eosinophils # (Auto) 0.10 K/uL Basophils # (Auto) 0.02 K/uL RDW Standard Deviation 45.5 fL RDW Coefficient of Variation 14.4 % Immature Granulocyte % (Auto) 0.3 % Immature Granulocyte # (Auto) 0.03 K/uL Assessment and Plan 1. Bleeding. -hemodynamically stable, bleeding has faded to low amount of serous fluid 2. Elevated troponin, it almost certainly has to be demand ischemia given that she shows no EKG signs of myocardial infarction and no symptoms of cardiac ischemia and echo without RWMA - possibly trop even up from aortic leak -med management, presumed CAD. no symptoms. troponin slowly going down and never reached a high peak -would strongly consider stress testing once able -certainly no role for C at this time given overall stability 3. Dementia with superimposed delirium -supportive care, least restrictive environment, re-orientation, frequently re- screen for other exacerbating / inciting factors - none at this time - does seem improving 4. Weakness/deconditioning and falls. This appears to be predominantly related to the delirium. -PT/OT/SNF once bleeding issue has been resolved - probably back to [facility] tomorrow 5. Chronic obstructive pulmonary disease. She had very severe chronic obstructive pulmonary disease on PFTs 15 years ago but is surprisingly asymptomatic -continue spiriva daily, albuterol prn 6. Hypokalemia, repleted in the ER. repeat BMP shows repletion 7. Protein malnutrition with hypoalbuminemia, nutritional support here and at the [facility] facility - for now boost TID 8. Hypocalcemia and vitamin D deficiency - replace D, repeat levels in 3 months , outpt DEXA 9. Deep venous thrombosis prophylaxis. Pharmacologic prophylaxis contraindicated due to the bleeding from her groin site. 10. dispo - med surg, hopefully SNF tomorrow
[2017-04-18] MEDS: ESCITALOPRAM OXALATE 10 MG TAB PO SCH (21:38)
[2017-04-18] MEDS: DILTIAZEM HCL 120 MG ER CAP PO SCH (21:38)
[2017-04-18] MEDS: ATORVASTATIN 20 MG TAB PO SCH (21:39)
[2017-04-18] MEDS: LISINOPRIL 10 MG TAB PO SCH (21:39)
[2017-04-19 07:22] VITALS: BP 152/66; PULSE 74; TEMP 36.7; O2SAT 92
[2017-04-19] MEDS: CHOLECALCIFEROL 1000 INTER.UNIT TAB PO SCH (08:54)
[2017-04-19] MEDS: DICLOFENAC SOD 1% GEL 100 GM TUBE EXT SCH ×4 (08:55→21:12)
[2017-04-19] MEDS: BOOST VANILLA PO SCH ×3 (08:57→21:00)
[2017-04-19] MEDS: TIOTROPIUM BROMIDE 5 PUFF/90 MCG INH INH SCH (08:58)
[2017-04-19] MEDS ORDERED: Boost PO (09:29)
[2017-04-19] MEDS ORDERED: ERGO500011 PO (09:29)
[2017-04-19] MEDS ORDERED: VTMD1000 PO (09:29)
[2017-04-19] MEDS ORDERED: VLTG EXT (09:29)
--- NOTE | 2017-04-19 09:35 | Discharge Instructions ---
Discharge Instructions Date of Service Apr 19, 2017. Admission Reason for Admission: Anemia, Elevated Troponin Discharge Discharge Diagnosis / Problem: groin bleeding - now stable Discharge Goals Goal(s): Diagnostic testing, Therapeutic intervention Activity Recommendations Activity Level: Assistance Required Therapies: Physical Therapy, Occupational Therapy . Additional Information Patient informed of condition: No Advance Directives: No DNR: No Level of Care: Skilled (rehab emphasis) Communicable Disease: No Prognosis: Improving Instructions / Follow-Up Instructions / Follow-Up a) groin bleeding / anemia /endovascular repair of aneurysm -fortunately blood counts and hemodynamics stayed stable, bleeding has now resolved to serous drainage from the site -ongoing clinical follow up, periodic CBCs -repeat CT scan in 4 weeks and ongoing follow up with Dr Aggarwal -local wound care and dressings -hold aspirin an additional 48hrs then resume b) elevated troponin -no symptoms / ekg changes / echo findings consistent with ND -either was demand ischemia due to above, or possibly due to aortic pathology since she did have a small leak (see CT report - vascular surgery input on this was watchful waiting and repeat CT in 4 weeks) -resume aspirin as above -due to risks for CAD, would be reasonable for stress testing at some point in the near future once groin site has healed and deconditioning improved, but certainly no urgency in this regard; is already on appropriate med management in this regard as well c) delirium / weakness -ongoing PT/OT, time -goal is to return home -no new provoking factors identified (other than obviously having had to return to hospital environment; but no new infectious/toxic/metabolic reasons to provoke delirium) and seems to be slowly improving d) vitamin D deficiency -and presumed osteoporosis -vitamin D supplementation as above, repeat levels in about 12 weeks -outpt DEXA in near, but not emergent, future e) COPD -no exacerbation -spiriva daily, albuterol prn Current Hospital Diet Patient's current hospital diet: Regular Diet Discharge Diet Recommended Diet: Regular Diet Pending Studies Studies pending at discharge: no Medical Emergencies . Who to Call and When: Medical Emergencies: If at any time you feel your situation is an emergency, please call 911 immediately. . Non-Emergent Contact Non-Emergency issues call your: Primary Care Provider, Surgeon (dr aggarwal) . . "Provider Documentation" section prepared by Brandon Mahoney. . Core Measure Problem Core Measures: None
[2017-04-19 15:16] VITALS: BP 146/70; PULSE 72; TEMP 36.6; O2SAT 97
--- NOTE | 2017-04-19 16:21 | Progress Note ---
Subjective Date of Service: Apr 19, 2017. Subjective Pt evaluation today including: conversation w/ patient, conversation w/ family , physical exam, chart review, lab review, review of inpatient medication list feeling good overall no significant bleeding no cp no sob ready to go to snf for rehab far less confused - family believes she's around baseline mentation. family expresses frustration at lack of communication w vascular surgery. offered empathy and also explained what vascular d/w me in conversations regarding CT - family expressed appreciation of this and understanding of findings and plan Problem List Medical Problems: (1) Anemia Status: Acute (2) Aortic aneurysm Status: Acute (3) Back pain Status: Acute (4) Dehydration Status: Acute (5) Dehydration Status: Acute (6) Elevated troponin Status: Acute (7) Fall Status: Acute (8) Generalized weakness Status: Acute (9) Hematuria Status: Acute (10) Vertigo Status: Acute (11) Weakness Status: Acute Review of Systems all other ROS otherwise negative except for as above Objective Vital Signs Date Time Temp Pulse Resp B/P (MAP) Pulse Ox O2 Delivery O2 Flow Rate FiO2 04/19/17 15:40 Room Air 04/19/17 15:16 36.6 72 16 146/70 (95) 97 Room Air 04/19/17 07:30 Room Air 04/19/17 07:22 36.7 74 19 152/66 (94) 92 Room Air 04/19/17 00:25 Room Air 04/18/17 23:38 36.9 79 18 158/65 (96) 92 Room Air 04/18/17 21:36 74 163/64 (97) 04/18/17 20:00 36.7 68 18 161/73 (102) 94 Room Air 04/18/17 20:00 Room Air Physical Exam General Appearance: no apparent distress Eyes: EOMI ENT: hearing grossly normal Neck: trachea midline Respiratory/Chest: no respiratory distress, no accessory muscle use Extremities: normal range of motion 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 Bleeding. -hemodynamically stable, bleeding has faded to low amount of serous fluid 2. Elevated troponin, either related to aortic pathology or demand ischemia given that she shows no EKG signs of myocardial infarction and no symptoms of cardiac ischemia and echo without RWMA - possibly trop even up from aortic leak -med management, presumed CAD. no symptoms. troponin slowly going down and never reached a high peak -would strongly consider stress testing once able -certainly no role for C at this time given overall stability 3. Dementia with superimposed delirium -supportive care, least restrictive environment, re-orientation, frequently re- screen for other exacerbating / inciting factors - none at this time - does seem improving further 4. Weakness/deconditioning and falls. This appears to be predominantly related to the delirium. -PT/OT/SNF once bleeding issue has been resolved - stable for snf but they won' t accept until 04/21 5. Chronic obstructive pulmonary disease. She had very severe chronic obstructive pulmonary disease on PFTs 15 years ago but is surprisingly asymptomatic -continue spiriva daily, albuterol prn 6. Hypokalemia, repleted in the ER. repeat BMP shows repletion 7. Protein malnutrition with hypoalbuminemia, nutritional support here and at the assisted facility - for now boost TID 8. Hypocalcemia and vitamin D deficiency - replace D, repeat levels in 3 months , outpt DEXA 9. Deep venous thrombosis prophylaxis. Pharmacologic prophylaxis contraindicated due to the bleeding from her groin site. mechanical of dubious benefit and possible harm (falls, skin breakdown, etc) 10. dispo - stable on med/surg - to SNF once able
[2017-04-19 21:00] VITALS: BP 146/68; PULSE 68
[2017-04-19] MEDS: ATORVASTATIN 20 MG TAB PO SCH (21:13)
[2017-04-19] MEDS: DILTIAZEM HCL 120 MG ER CAP PO SCH (21:13)
[2017-04-19] MEDS: LISINOPRIL 10 MG TAB PO SCH (21:13)
[2017-04-19] MEDS: ESCITALOPRAM OXALATE 10 MG TAB PO SCH (21:13)
[2017-04-19 22:48] VITALS: BP 171/69; PULSE 90; TEMP 36.5; O2SAT 90
[2017-04-20 07:27] VITALS: BP_SYST 119; BP_SYST 158; BP_DIAS 61; BP_DIAS 71; PULSE 67; PULSE 75; TEMP 36.7; O2SAT 94
[2017-04-20] MEDS: DICLOFENAC SOD 1% GEL 100 GM TUBE EXT SCH ×4 (09:00→21:02)
[2017-04-20] MEDS: TIOTROPIUM BROMIDE 5 PUFF/90 MCG INH INH SCH (09:04)
[2017-04-20] MEDS: CHOLECALCIFEROL 1000 INTER.UNIT TAB PO SCH (09:04)
[2017-04-20] MEDS: BOOST VANILLA PO SCH ×3 (09:06→21:00)
--- NOTE | 2017-04-20 09:41 | Progress Note ---
Progress Note Date of Service: Apr 20, 2017. Subjective No complaints. Sitting in chair Problem List Medical Problems: (1) Anemia Status: Acute (2) Aortic aneurysm Status: Acute (3) Back pain Status: Acute (4) Dehydration Status: Acute (5) Dehydration Status: Acute (6) Elevated troponin Status: Acute (7) Fall Status: Acute (8) Generalized weakness Status: Acute (9) Hematuria Status: Acute (10) Vertigo Status: Acute (11) Weakness Status: Acute Objective Vital Signs Vital Signs Past 12 Hours Date Time Temp Pulse Resp B/P (MAP) Pulse Ox O2 Delivery O2 Flow Rate FiO2 04/20/17 07:27 36.7 67 18 158/71 (100) 94 Room Air 04/19/17 23:45 Room Air 04/19/17 22:48 36.5 90 16 171/69 (103) 90 Room Air Exam VSS Afebrile Groin incision ok, Serous drainage still present but decreasing Imp: Right groin drainage Plan: Continue local care Will repeat CT scan in 4 weeks
[2017-04-20] MEDS: ACETAMINOPHEN 325 MG TAB PO PRN (11:45)
[2017-04-20 15:30] VITALS: BP 158/71; PULSE 67; TEMP 36.7; O2SAT 94
[2017-04-20 15:58] VITALS: BP 124/84; PULSE 125; TEMP 36.5; O2SAT 96
--- NOTE | 2017-04-20 16:10 | Progress Note ---
Subjective Date of Service: Apr 20, 2017. Subjective Pt evaluation today including: conversation w/ patient, physical exam, chart review, lab review, review of inpatient medication list feeling ok overall no new complaints nursing notes hematuria pt awaiting placement tomorrow Problem List Medical Problems: (1) Anemia Status: Acute (2) Aortic aneurysm Status: Acute (3) Back pain Status: Acute (4) Dehydration Status: Acute (5) Dehydration Status: Acute (6) Elevated troponin Status: Acute (7) Fall Status: Acute (8) Generalized weakness Status: Acute (9) Hematuria Status: Acute (10) Vertigo Status: Acute (11) Weakness Status: Acute Review of Systems all other ROS otherwise negative except for as above Objective Vital Signs Date Time Temp Pulse Resp B/P (MAP) Pulse Ox O2 Delivery O2 Flow Rate FiO2 04/20/17 15:58 36.5 125 22 124/84 (97) 96 Room Air 04/20/17 07:45 Room Air 04/20/17 07:27 36.7 67 18 158/71 (100) 94 Room Air 04/19/17 23:45 Room Air 04/19/17 22:48 36.5 90 16 171/69 (103) 90 Room Air 04/19/17 21:00 68 146/68 (94) Physical Exam General Appearance: no apparent distress Eyes: EOMI ENT: hearing grossly normal Neck: trachea midline Respiratory/Chest: no respiratory distress, no accessory muscle use Extremities: normal range of motion Neurologic/Psychiatric: no bake 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 Bleeding. -hemodynamically stable, bleeding has faded to low amount of serous fluid, stable 2. Elevated troponin, either related to aortic pathology or demand ischemia given that she shows no EKG signs of myocardial infarction and no symptoms of cardiac ischemia and echo without RWMA - possibly trop even up from aortic leak -med management, presumed CAD. no symptoms. troponin slowly going down and never reached a high peak -would strongly consider stress testing once able -certainly no role for [facility] at this time given overall stability 3. Dementia with superimposed delirium -supportive care, least restrictive environment, re-orientation, frequently re- screen for other exacerbating / inciting factors - none at this time - shows ongoing improvement 4. Weakness/deconditioning and falls. This appears to be predominantly related to the delirium. -PT/OT/SNF-->stable for snf but they won't accept until 04/21 5. Chronic obstructive pulmonary disease. She had very severe chronic obstructive pulmonary disease on PFTs 15 years ago but is surprisingly asymptomatic -continue spiriva daily, albuterol prn 6. Hypokalemia, repleted in the ER. repeat BMP shows repletion 7. Protein malnutrition with hypoalbuminemia, nutritional support here and at the [facility] facility - for now boost TID 8. Hypocalcemia and vitamin D deficiency - replace D, repeat levels in 3 months , outpt DEXA 9. Deep venous thrombosis prophylaxis. Pharmacologic prophylaxis contraindicated due to the bleeding from her groin site. mechanical of dubious benefit and possible harm (falls, skin breakdown, etc) 10. hematuria - check UA, follow for sx. 11. dispo - stable on med/surg - to SNF once able
[2017-04-20] MEDS: ATORVASTATIN 20 MG TAB PO SCH (21:02)
[2017-04-20] MEDS: ESCITALOPRAM OXALATE 10 MG TAB PO SCH (21:02)
[2017-04-20] MEDS: LISINOPRIL 10 MG TAB PO SCH (21:02)
[2017-04-20 21:10] VITALS: BP 135/72; PULSE 83
[2017-04-20] MEDS: DILTIAZEM HCL 120 MG ER CAP PO SCH (21:10)
[2017-04-20 22:55] VITALS: BP 152/66; PULSE 85; TEMP 36.8; O2SAT 95
[2017-04-21 07:17] VITALS: BP 145/65; PULSE 80; TEMP 36.9; O2SAT 92
[2017-04-21] MEDS: BOOST VANILLA PO SCH ×3 (08:39→21:05)
[2017-04-21] MEDS: TIOTROPIUM BROMIDE 5 PUFF/90 MCG INH INH SCH (08:39)
[2017-04-21] MEDS: CHOLECALCIFEROL 1000 INTER.UNIT TAB PO SCH (08:40)
[2017-04-21] MEDS: DICLOFENAC SOD 1% GEL 100 GM TUBE EXT SCH ×4 (08:40→21:04)
[2017-04-21] MEDS: CEPHALEXIN MONOHYDRATE 500 MG CAP PO SCH ×2 (10:24→21:10)
--- NOTE | 2017-04-21 14:28 | Hospitalist Progress Note ---
Hospitalist Progress Note Date of Service Apr 21, 2017. Subjective Pt evaluation today including: conversation w/ patient, physical exam, chart review, lab review, review of inpatient medication list Pain: 3-5/10 dull abdominal pain, chronic PO Intake: Tolerating PO diet Voiding: no voiding problems Patient complains of 3-5 out of 10 dull pain diffusely in her abdomen, which is chronic. She does not note any alleviating or exacerbating factors. She otherwise is feeling well and denies other complaints. The patient denies fevers, chills, sweats, chest pain, palpitations, claudication, cough, wheezing , shortness of breath, nausea, vomiting, dysuria, hematuria, urinary retention, paralysis, weakness, numbness and tingling. Additional Comments: See HPI for pertinent positives and negatives. All other systems reviewed and negative. Objective Vital Signs Date Time Temp Pulse Resp B/P (MAP) Pulse Ox O2 Delivery O2 Flow Rate FiO2 04/21/17 07:55 Room Air 04/21/17 07:17 36.9 80 17 145/65 (91) 92 Room Air 04/21/17 00:00 Room Air 04/20/17 22:55 36.8 85 16 152/66 (94) 95 Room Air Nasal Cannula 04/20/17 21:10 83 135/72 (93) 04/20/17 15:58 36.5 125 22 124/84 (97) 96 Room Air 04/20/17 15:30 36.7 67 18 158/71 (100) 94 Room Air 04/20/17 15:30 Room Air Physical Exam Notes: General appearance: +Thin. Well-developed, well-nourished, no apparent distress Head: Normocephalic, atraumatic Eyes: Normal inspection, PERRL, EOMI ENT: Normal ENT inspection, hearing grossly normal, pharynx normal Neck: Supple, no JVD, trachea midline Respiratory/Chest: Lungs clear to auscultation, normal breath sounds, no respiratory distress Cardiovascular: Regular rate & rhythm, no gallop, no murmur Abdomen/GI: +Mild diffuse TTP. Normal bowel sounds, soft Extremities/Musculoskeletal: Normal inspection, no calf tenderness, no pedal edema Neurological/Psych: Alert, normal mood/affect Skin: Normal color, warm/dry, no rash Assessment and Plan 82 y/o female with a history of HTN, HLD, COPD, dementia, anxiety/depression, and osteopenia who presents with bleeding from the right groin. Bleeding from right groin site in setting of recent endovascular repair of AAA-- resolving -CTA abdomen/pelvis shows evidence of type III endoleak. Small hematoma associated with right common femoral arterial access. -Vascular surgery consulted, appreciate recs: Continue local wound care, repeat CT in 4 weeks -Area draining serosanguineous fluid -OK to resume aspirin on discharge UTI -UA positive for nitrites, leuks, 4+ bacteria -Urine culture pending -Start Keflex 500 mg PO BID for now pending C&S Elevated troponin--stable, likely secondary to demand ischemia -No ischemic changes on EKG, asymptomatic -Echo with regional wall motional abnormalities -Could be secondary to aortic leak -Troponin trending down -Consider stress testing when able HTN, HLD--stable -Continue diltiazem 120 mg PO qd, lisinopril 10 mg PO qd, Lipitor 20 mg PO qd COPD--stable, no acute exacerbation -Continue Spiriva Dementia--stable Depression/anxiety -Continue Lexapro 10 mg PO qd Weakness, deconditioning, and falls -PT/OT recommend SNF Protein malnutrition w/hypoalbuminemia -Boost TID -Could be contributing to weakness above Osteopenia, hypocalcemia and vitamin D deficiency -Vitamin D 11.7 here, repeat in 3 months. Recommend outpt DEXA -Ergocalciferol 01757 PO weekly -Vitamin D3 2000 IU PO qd DVT prophylaxis -Hold chemical prophylaxis due to bleeding -Mechanical ppx of questionable benefit, high risk of skin breakdown, etc. Code Status -Level I, FULL RESUSCITATION STATUS Dispo -[facility] when able. Not able to take today
[2017-04-21] MEDS ORDERED: ENOXAPARIN 40 MG/0.4 ML SYR SQ SCH (14:30)
[2017-04-21 15:21] VITALS: BP 147/56; PULSE 71; TEMP 36.7; O2SAT 97
[2017-04-21 20:54] VITALS: BP 125/57; PULSE 76
[2017-04-21] MEDS: DILTIAZEM HCL 120 MG ER CAP PO SCH (21:09)
[2017-04-21] MEDS: LISINOPRIL 10 MG TAB PO SCH (21:11)
[2017-04-21] MEDS: ESCITALOPRAM OXALATE 10 MG TAB PO SCH (21:11)
[2017-04-21] MEDS: ATORVASTATIN 20 MG TAB PO SCH (21:11)
[2017-04-21 22:52] VITALS: BP 143/63; PULSE 72; TEMP 36.7; O2SAT 94
[2017-04-22 07:20] VITALS: BP 133/56; PULSE 80; TEMP 36.9; O2SAT 94
[2017-04-22] MEDS: CHOLECALCIFEROL 1000 INTER.UNIT TAB PO SCH (07:44)
[2017-04-22] MEDS: DICLOFENAC SOD 1% GEL 100 GM TUBE EXT SCH (07:44)
[2017-04-22] MEDS: CEPHALEXIN MONOHYDRATE 500 MG CAP PO SCH (07:44)
[2017-04-22] MEDS: BOOST VANILLA PO SCH (07:48)
[2017-04-22] MEDS ORDERED: CALCIUM 600MG + VIT D 400 IU TAB PO SCH (09:00)
[2017-04-22] MEDS: TIOTROPIUM BROMIDE 5 PUFF/90 MCG INH INH SCH (10:14)
--- NOTE | 2017-04-22 11:16 | Discharge Summary ---
Discharge Summary Date of Service Apr 22, 2017. Discharge Summary Admission Date: Apr 16, 2017 at 13:33 Discharge Date: Apr 22, 2017 Discharge Disposition: nursing home facility ([facility]) Principal Diagnosis: Bleed from endovascular repair site Problems/Secondary Diagnoses: HTN, HLD, COPD, dementia, anxiety/depression, osteopenia Immunizations: Have You Had Influenza Vaccine: Unknown History of Tetanus Vaccine?: Unknown History of Pneumococcal: Unknown History of Hepatitis B Vaccine: Unknown Procedures: CT SCAN OF THE BRAIN WITHOUT IV CONTRAST CLINICAL HISTORY: Change in mental status. COMPARISON STUDY: CT of the brain dated 04/15/2017. TECHNIQUE: Unenhanced axial CT scan of the brain is performed from the vertex to the skull base. A dose lowering technique was utilized adhering to the principles of ALARA. CT DOSE: 537.48 mGy.cm FINDINGS: Brain parenchyma: There are age-related involutional changes noting mild subcortical and periventricular microangiopathic change. There is no hemorrhage, mass effect, or evidence of acute territorial ischemia by CT criteria. Ortega-white matter is preserved. No extra-axial fluid collection is seen. Ventricles, sulci, cisterns: Prominent secondary to involutional change. Intracranial vasculature: There is atherosclerotic calcification of the cavernous carotid arteries. Calvarium: Unremarkable. Sinuses and mastoids: The visualized paranasal sinuses are clear. The mastoid air cells are well pneumatized. Orbits: The bony orbits are grossly intact. There are bilateral ocular lens implants. IMPRESSION: There is no hemorrhage, mass effect, or evidence of acute territorial ischemia by CT criteria. CHEST ONE VIEW PORTABLE CLINICAL HISTORY: Acute change in mental status COMPARISON STUDY: 04/14/2017 FINDINGS: The cardiac and mediastinal contours remain stable. The patient remains hyperinflated. There are mildly increased basilar markings likely atelectatic. There is no failure. There are no significant pleural effusions.[ IMPRESSION: 1. Suspected emphysema 2. Mildly prominent basilar markings likely atelectatic ANGIO ABD/PELVIS COMBO CLINICAL HISTORY: 82 years-old Female presenting with postop endograft placement on 04/11/2017. TECHNIQUE: Multidetector CT angiography of the abdomen and pelvis was performed before and after the administration of intravenous contrast. 3-D volumetric and/or maximum intensity projection (MIP) images were subsequently reconstructed for review. IV contrast: 95 mL of Optiray 320. A dose lowering technique was used consistent with the principles of ALARA (as low as reasonably achievable). Stenosis measurements were based on NASCET-like criteria. COMPARISON: 02/13/2017. CT DOSE (mGy.cm): The estimated cumulative dose is 1265.93 mGy.cm. FINDINGS: At Risk Paraprofessional topogram: Unremarkable. 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 Additionally, a modular stent graft in the infrarenal abdominal aorta is now in place with biiliac extension across both the penetrating ulcer/pseudoaneurysm and more distal fusiform aneurysm. There is partial opacification of the penetrating ulcer/pseudoaneurysm which appears intimately associated with the stent graft likely implying alyssa discontinuity or poor apposition of modular components. No evidence of a feeding vessel. The more distal aneurysm is completely occluded. The aneurysm sac now measures up to 5.7 x 5.3 cm, previously 5.5 x 4.9 cm. No evidence of a feeding vessel or opacification on delayed imaging. Mild periaortic fat infiltration at the aneurysm. The stent is patent throughout including the bilateral iliac extension. Major branch vessels of the abdominal aorta are patent though approximately 50% stenosis of the left renal artery is apparent. Conventional hepatic arterial anatomy. Bilateral common, internal, and external iliac arteries patent. Although significant infiltration and hematoma surrounding the superficial aspect of the right common femoral artery, no pseudoaneurysm is apparent despite mild intimal irregularity. This is likely at the site of intravascular access. The hematoma measures up to 2 to 3 cm in diameter. Remaining abdomen and pelvis: Lung bases: Minimal dependent changes likely atelectasis. Mild smooth interlobular septal thickening. Multichamber enlargement of the heart. Interval development of small bilateral pleural effusions. Liver: Normal morphology. Tiny hypodensity in the left hepatic lobe likely hepatic cyst or hamartoma. Patent hepatic vasculature. Biliary: No intrahepatic or extrahepatic biliary ductal dilatation. Normal gallbladder. Pancreas: Normal. Spleen: Normal. Adrenal glands: Mild nodular thickening of the adrenal glands, nonspecific. Kidneys and ureters: Well-defined hypodensity in the right kidney likely simple cyst. No hydronephrosis. Normal excretion bilaterally. No nephrolithiasis. Extrarenal pelvises noted. Ureters poorly assessed. Bladder: Normal. Pelvic organs: Uterus and ovaries normal. Bowel: Limited diverticulosis of the sigmoid colon. Moderate stool burden throughout normal caliber colon. Feces noted within the dilated small bowel. Small bowel measures up to 3.2 cm in diameter in the superior pelvis (series 7 image 258). No focal transition point to suggest obstruction. Mild distention of the descending portion of the duodenum likely in part due to mass effect on the horizontal portion of the duodenum secondary to the aneurysm. Peritoneal cavity: No free fluid or intraperitoneal gas. Mild diffuse retroperitoneal infiltration. Lymph nodes: No enlarged lymph nodes in the abdomen or pelvis. Abdominal wall: Mild diffuse body wall edema. Musculoskeletal: Degenerative changes of the spine. Osteopenia. IMPRESSION: 1. Posttreatment changes of the modular endograft placement in the infrarenal aorta extending into the bilateral common iliac arteries. 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 This may either represent a defect in the graft or junctional separation of modular components. 2. Slight interval increased size of the infrarenal abdominal aortic aneurysm immediately inferior to the penetrating ulcer/pseudoaneurysm, however, no convincing evidence of an endoleak. This has been appropriately occluded by the stent graft. 3. Small hematoma associated with right common femoral arterial access. No evidence of a local pseudoaneurysm. Consultations: Vascular surgery Medication Reconciliation New Medications: Cholecalciferol (Vitamin D3) 1,000 Inter.unit Tab 2000 INTER.UNIT PO QAM, #30 TAB Diclofenac Sod (Voltaren) 100 Appln/100 Gm Gel 1 APPLN EXT QID, #100 GM Ergocalciferol (Vitamin D 43146 Unit) 50,000 Unit Cap 44389 INTERUNIT PO Fr@0900, #12 CAP [Boost] () 1 CAN LIQD 1 CAN PO TID, #30 BTL Continued Medications: Albuterol (Ventolin Hfa) 60 Puffs/5400 Mcg Aers 1 PUFF INH Q4 PRN for SOB/Wheezing, #1 INHALER Aspirin (Aspirin Ec) 81 Mg Tab 81 MG PO HS Atorvastatin (Lipitor) 20 Mg Tab 1 TAB PO HS for 90 Days, TAB 1 Refill Diltiazem Hcl (Diltiazem Hcl) 120 Mg Tab 120 MG PO HS Escitalopram (Lexapro) 10 Mg Tab 10 MG PO HS, TAB Lisinopril (Zestril) 10 Mg Tab 10 MG PO HS, TAB Tiotropium [place] (Spiriva Handihaler) 5 Puff/90 Mcg Aerp 1 PUFF INH QAM, #30 CAP Discharge Exam The patient reports feeling better. She still has her chronic abdominal pain but states that is less severe today, about a 3/10. She denies any other complaints. The patient denies fevers, chills, sweats, chest pain, palpitations , claudication, cough, wheezing, shortness of breath, nausea, vomiting, dysuria , hematuria, urinary retention, paralysis, weakness, numbness and tingling. Constitutional: No fever, No chills, No sweats Eyes: No worsening of vision, No eye pain, No diplopia ENT: No hearing loss, No nasal symptoms, No trouble swallowing Respiratory: No cough, No wheezing, No shortness of breath Cardiovascular: No chest pain, No claudication, No palpitations Abdomen: +Pain. No nausea, No vomiting Musculoskeletal: No joint pain, No muscle pain, No swelling Genitourinary - Female: No dysuria, No urinary retention, No hematuria Neurologic: No paralysis, No weakness, No numbness/tingling Integumentary: No rash, No itch, No color change General appearance: +Thin. Well-developed, well-nourished, no apparent distress Head: Normocephalic, atraumatic Eyes: Normal inspection, PERRL, EOMI ENT: Normal ENT inspection, hearing grossly normal, pharynx normal Neck: Supple, no JVD, trachea midline Respiratory/Chest: Lungs clear to auscultation, normal breath sounds, no respiratory distress Cardiovascular: Regular rate & rhythm, no gallop, no murmur Abdomen/GI: +Mild diffuse TTP. Normal bowel sounds, soft Extremities/Musculoskeletal: Normal inspection, no calf tenderness, no pedal edema Neurological/Psych: Alert, normal mood/affect Skin: Normal color, warm/dry, no rash Hospital Course 82 y/o female with a history of HTN, HLD, COPD, dementia, anxiety/depression, and osteopenia who presents with bleeding from the right groin. Bleeding from right groin site in setting of recent endovascular repair of AAA-- resolving -CTA abdomen/pelvis shows evidence of type III endoleak. Small hematoma associated with right common femoral arterial access. -Vascular surgery consulted, appreciate recs: Continue local wound care, repeat CT in 4 weeks -Area draining serosanguineous fluid -OK to resume aspirin on discharge UTI -UA positive for nitrites, leuks, 4+ bacteria -Urine culture pending -Start Keflex 500 mg PO BID for now pending C&S. Day #2 Elevated troponin--stable, likely secondary to demand ischemia -No ischemic changes on EKG, asymptomatic -Echo with regional wall motional abnormalities -Could be secondary to aortic leak -Troponin trending down -Consider stress testing when able HTN, HLD--stable -Continue diltiazem 120 mg PO qd, lisinopril 10 mg PO qd, Lipitor 20 mg PO qd COPD--stable, no acute exacerbation -Continue Spiriva Dementia--stable Depression/anxiety -Continue Lexapro 10 mg PO qd Weakness, deconditioning, and falls -PT/OT recommend SNF Protein malnutrition w/hypoalbuminemia -Boost TID -Could be contributing to weakness above Osteopenia, hypocalcemia and vitamin D deficiency -Vitamin D 11.7 here, repeat in 3 months. Recommend outpt DEXA -Ergocalciferol 04991 PO weekly -Vitamin D3 2000 IU PO qd DVT prophylaxis -Hold chemical prophylaxis due to bleeding -Mechanical ppx of questionable benefit, high risk of skin breakdown, etc. Code Status -Level I, FULL RESUSCITATION STATUS Dispo -Insurance auth approved for SNF. [facility] able to accept pt Total Time Spent: Greater than 30 minutes This includes examination of the patient, discharge planning, medication reconciliation, and communication with other providers. Discharge Instructions Please refer to the electronic Patient Visit Report (Discharge Instructions) for additional information. Follow-Up F/u with PCP and Dr. Man Repeat CTA abdomen/pelvis in 4 weeks Additional Copies To [facility]; Adrianne Ludwig M.D.
[2017-04-22 11:34] VITALS: BP 133/56; PULSE 80; TEMP 36.9; O2SAT 94
== END 2017-04-22 11:50 ==
LOC: EDBD 09:54 → C.EDB 09:57 → C.2T 13:33 → ENRESERV 14:02 → EDBEDREQ 04-18 18:34 → ENRESERV 04-18 19:05 → C.MSW 04-18 19:52
PROVIDERS: ADMIT Family Medicine; ATTEND Hospitalist
DX: I97.618 Postprocedural hemorrhage of a circulatory system organ or structure following other circulatory system procedure (principal); R53.1 Weakness; D64.9 Anemia, unspecified; J44.9 Chronic obstructive pulmonary disease, unspecified; M85.80 Other specified disorders of bone density and structure, unspecified site; E87.6 Hypokalemia; E83.51 Hypocalcemia; G30.9 Alzheimer's disease, unspecified; F02.80 Dementia in other diseases classified elsewhere, unspecified severity, without behavioral disturbance, psychotic disturbance, mood disturbance, and anxiety; E78.00 Pure hypercholesterolemia, unspecified; I10 Essential (primary) hypertension; Z87.891 Personal history of nicotine dependence; Z79.82 Long term (current) use of aspirin; Z88.0 Allergy status to penicillin; Z91.81 History of falling

== ENCOUNTER → 2017-05-20 | Outpatient (CLI) | payer OTHER ==
[~2017-05-20] MED LIST changes: +Boost PO; +ERGO500011 PO; +OPTIRAY 320 IV PRN; +VLTG EXT; +VTMD1000 PO
--- NOTE | 2017-05-20 11:17 | DIAGNOSTIC IMAGING REPORT ---
ANGIO ABD/PELVIS COMBO CLINICAL HISTORY: 82 years-old Female presents with abdominal aortic aneurysm status post repair. COMPARISON STUDY: CTA abdomen and pelvis 04/17/2017 TECHNIQUE: Following the IV administration of 120 cc of Optiray 320, CT angiogram of the abdomen and pelvis was performed from the lung bases the proximal femora. Images are reviewed in the axial, sagittal, and coronal planes. 3-D MIPS images are created and assessed. IV contrast was administered without complication. A dose lowering technique was utilized adhering to the principles of ALARA. CT DOSE: 1006.86 mGycm FINDINGS: CTA: No intramural hematoma identified on the noncontrast scan. Extensive mixed plaquing of the thoracic aorta, iliac and femoral vasculature redemonstrated. Aorto biiliac stent graft is again noted which is patent. Fusiform aneurysmal dilation of the infrarenal abdominal aorta redemonstrated measuring up to 5.6 x 4.7 cm in transverse and AP dimension, previously measuring approximately 5.6 x 4.9 cm on study dated 04/17/2017. No evidence of aneurysm rupture. Penetrating ulcer extending through the graft material below the level of the left renal artery origin is again seen measuring approximately 4.1 x 3.2 x 3.8 cm which appears unchanged from comparison. Multiple coils are seen within this distribution dependently. The iliac and femoral arteries are patent. There is a peripherally enhancing 2.5 x 1.4 cm collection near the right femoral access site which has decreased in size from prior study suggesting resolving hematoma. There is moderate atherosclerosis of the origin of the celiac trunk and superior mesenteric artery without evidence of high-grade stenosis. Inferior mesenteric arteries not well seen secondary to streak artifact. Renal arteries are patent bilaterally. CT ABDOMEN/PELVIS: Emphysematous changes are noted at the level the lung bases. No pneumatosis or pneumoperitoneum. Inferior cardiac chambers are unremarkable. Gallbladder, spleen, and pancreas appear unremarkable. There is a 3 mm low attenuating lesion of the left hepatic lobe noted suggesting hepatic cyst. No intrahepatic biliary ductal dilation identified. Thickening of the adrenal glands suggests adrenal hyperplasia. Renal vascular calcifications are noted bilaterally. No renal or ureteral calculi or hydronephrosis. 2.4 x 1.7 cm low attenuating lesion of the inferior pole right kidney suggests renal cyst. Urinary bladder is only partially distended. Calcification of the left ureter body measuring 7 mm suggests calcified fibroid. No adnexal mass lesions identified. No bulky adenopathy. There is no bowel obstruction or focal bowel wall thickening identified. Moderate sigmoid diverticulosis without diverticulitis. The bones appear at least moderately demineralized however appear intact. Multilevel degenerative changes of the spine are noted including advanced facet arthropathy. IMPRESSION: 1. Patent aortobiiliac stent graft redemonstrated with stable size of fusiform infrarenal [place] abdominal aortic aneurysm measuring up to 5.6 x 4.7 cm. No evidence of aneurysm rupture. 2. 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 3. Decreased size of small right inguinal hematoma adjacent to the right common femoral arterial access site. The above report was generated using voice recognition software. It may contain grammatical, syntax or spelling errors. Electronically signed by: Luis Maurer M.D. 05/20/2017 11:16 AM Dictated Date/Time: 05/20/2017 10:58 AM
== END | disposition home or self-care (01) ==
LOC: C.CTS 10:08
PROVIDERS: ATTEND Physician Assistant
DX: I71.4 Abdominal aortic aneurysm, without rupture (principal); Z95.5 Presence of coronary angioplasty implant and graft

== ENCOUNTER → 2017-08-21 | Outpatient (CLI) | payer OTHER ==
[~2017-08-21] MED LIST changes: -OPTIRAY 320 IV PRN
[2017-08-21 13:45] LABS: BASO % 0.5 %; BASO ABS # 0.04 K/uL (0-0.2); EOS % 1.6 %; EOS ABS # 0.13 K/uL (0-0.5); HEMATOCRIT 42.1 % (37-47); HEMOGLOBIN 13.3 g/dL (12.0-16.0); IG# 0.02 K/uL (0.00-0.02); LYMPH ABS # 2.81 K/uL (1.2-3.4); MEAN CORPUSCULAR HEMOGLOBIN 26.5 pg (25-34); MEAN CORPUSCULAR HGB CONC 31.6 g/dl (32-36); MEAN PLATELET VOLUME 9.5 fL (7.4-10.4); MONO % 10.3 %; MONO ABS # 0.83 K/uL (0.11-0.59); NEUT % 52.4 %; NEUT ABS # 4.21 K/uL (1.4-6.5); PLATELET COUNT 278 K/uL (130-400); RED CELL DISTRIBUTION WIDTH SD 48.6 fL (36.4-46.3); WHITE BLOOD COUNT 8.04 K/uL (4.8-10.8)
[2017-08-21 14:14] LABS: ALBUMIN 3.2 gm/dl (3.4-5.0); ALT/SGPT 14 U/L (12-78); AST/SGOT 14 U/L (15-37); BLOOD UREA NITROGEN 11 mg/dl (7-18); CARBON DIOXIDE 28 mmol/L (21-32); CREATININE 0.68 mg/dl (0.60-1.20); GLUCOSE 91 mg/dl (70-99); POTASSIUM 3.8 mmol/L (3.5-5.1); SODIUM 141 mmol/L (136-145)
[2017-08-21 14:16] LABS: ALKALINE PHOSPHATASE 135 U/L (45-117); TOTAL PROTEIN 6.9 gm/dl (6.4-8.2)
== END | disposition home or self-care (01) ==
LOC: C.LABBC 10:23
PROVIDERS: ATTEND Physician Assistant
DX: T82.330A Leakage of aortic (bifurcation) graft (replacement), initial encounter (principal); X58.XXXA Exposure to other specified factors, initial encounter

== ENCOUNTER → 2017-08-26 | Outpatient (CLI) | payer OTHER ==
[~2017-08-26] MED LIST changes: +OPTIRAY 320 IV PRN
--- NOTE | 2017-08-26 10:14 | DIAGNOSTIC IMAGING REPORT ---
ANGIO AA MACKENZIE LE RUNOFF CLINICAL HISTORY: 08/21/17 1030 C= 0.68 TECHNIQUE: Transaxial acquisition with multi axial reformatted images. COMPARISON STUDY: 05/20/2017 FINDINGS: Findings of an aorto biiliac stent graft. Stent graft appears to be stable. There is considerable [place] aneurysmal dilatation of the abdominal aorta measuring 5.5 cm. This is stable. The 4 cm penetrating ulcer extending to the endograft is stable. This consistent with a type III endoleak. This again is unchanged. There is no significant right inguinal hematoma. There is considerable atherosclerotic change of the arterial structures of the abdomen and pelvis throughout considered stable. There is moderate atherosclerotic change of the superficial femoral artery throughout its length. There is have a. Moderate stenosis of the distal left superficial femoral artery at the adductor canal. Stenosis of the left superficial femoral artery at the adductor canal. Popliteal artery opacifies appropriately. There is somewhat dampened 3 vessel runoff to the right leg. All 3 runoff vessels appear to be patent with perineal somewhat diminished in terms of flow distally. This is also seen of the other 2 vessels consistent with distal chronic small vessel change. The left leg shows poor flow within the anterior tibial artery. There is near complete loss of flow within the anterior tibial and peroneal vessel medially superior to the ankle. IMPRESSION: 1. Essentially unchanged evaluation of the abdomen and pelvis arterial vasculature compared to the prior study. 2. Stable type III endoleak with no change in size. 4. The penetrating ulcer through the endograft appears to be stable. 5. Unchanging aneurysmal distention of the [place] abdominal aorta. 6. Considerable chronic small vessel change of all major runoff vessels of the lower legs distally although this predominates in the right peroneal artery distally and on the left within the anterior tibial artery. 7. Near-complete loss of flow involving the extreme distal runoff vessels bilaterally. This consistent with a considerable chronic small vessel change. 8. Moderate stenosis distal left superficial femoral artery at the adductor canal The above report was generated using voice recognition software. It may contain grammatical, syntax or spelling errors. Electronically signed by: Goyo Rahman M.D. 08/26/2017 10:12 AM Dictated Date/Time: 08/26/2017 9:51 AM
== END | disposition home or self-care (01) ==
LOC: C.CTS 08:56
PROVIDERS: ATTEND Surgery Vascular Surgery
DX: T82.330A Leakage of aortic (bifurcation) graft (replacement), initial encounter (principal); X58.XXXA Exposure to other specified factors, initial encounter; I67.89 Other cerebrovascular disease; I77.1 Stricture of artery

== ENCOUNTER → 2017-09-19 | Day surgery (SDC) | payer OTHER ==
[~2017-09-19] VITALS: Ht 165.1 cm; Wt 47.6 kg
[~2017-09-19] MED LIST changes: +CLINDAMYCIN 600 MG/54 ML D5W IV SCH; +FENTANYL CITRATE INJ 50 MCG/1 ML 2 ML VIAL IV ONE; +FENTANYL CITRATE INJ 50 MCG/1 ML 2 ML VIAL ONE; +HEPARIN SOD (PORCINE) 1000 UNIT/ML 10 ML VIAL ONE; +IODIXANOL (VISIPAQUE) 270 MG/ML 150ML IV ONE; +LIDOCAINE HCL 1% 20 ML VIAL INJ ONE; +MIDAZOLAM HCL 1 MG/ML 2ML VIAL IV ONE; +MIDAZOLAM HCL 1 MG/ML 2ML VIAL ONE; -OPTIRAY 320 IV PRN; +SODIUM CHLORIDE 0.9% 1000ML IV SCH
--- NOTE | 2017-09-19 05:53 | History and Physical ---
History & Physical Date of Service September 19, 2017. History & Physical CC: Type I endoleak HPI: Mrs. Chin is an 82-year-old female who was found to have a 5.5 cm abdominal aortic aneurysm. This was a bilobed aneurysm starting below the renal arteries. She had a PEVAR done but was found to have an endoleak post op. She has no symptoms other than chronic back pain. She has no claudication , but she does not walk fast enough to claudicate. She has no symptoms of cerebrovascular insufficiency. ALLERGIES: PENICILLIN. MEDICATIONS: Included aspirin, diltiazem, Lexapro, Lipitor, lisinopril and Spiriva. PAST MEDICAL HISTORY: Positive for Alzheimer's, hypercholesterolemia and hypertension. FAMILY HISTORY: Not known. SOCIAL HISTORY: She is a former smoker, smoked for 40 years, quit 12 years ago. She does not drink. REVIEW OF SYSTEMS: Ten systems were reviewed. Positive findings were loss of appetite, jaundice, diarrhea in the history of present illness. PHYSICAL EXAMINATION: The patient is awake, oriented x3. She is in no apparent distress. She has normal body habitus. Blood pressure was 112/70 on the right, 110/70 on the left. Head and neck within normal limits. No carotid bruits. Heart had a regular rate and rhythm. Lungs are clear bilaterally. Abdominal exam is benign with a 5-cm pulsatile mass in the midepigastrium. Vascular exam reveals radials, carotids, supratemporal arteries +2 bilaterally. Femorals are +2. I cannot appreciate pedal pulses in either foot. Upper and lower extremities are normal on inspection. There is good capillary refill in both feet. Neurologic exam is grossly intact. IMPRESSION: Endoleak of PEVAR. PLAN AND RECOMMENDATIONS: Patient is now admitted for aortography. I have discussed the risks options and benefits of the procedure with the patient. The patient understands the risks options and benefits and agrees to the procedure.
[2017-09-19 09:22] VITALS: BP 172/62; PULSE 78; TEMP 36.5; O2SAT 95; Ht 165.1 cm; Wt 47.6 kg
--- NOTE | 2017-09-19 10:32 | Pre Sedation Assessment ---
Pre Sedation Assessment General Date of Sedation: September 19, 2017. Vital Signs Past 12 Hours Date Time Temp Pulse Resp B/P (MAP) Pulse Ox O2 Delivery O2 Flow Rate FiO2 09/19/17 09:22 36.5 78 16 172/62 (98) 95 Room Air Pre-Sedation Airway Assessment Smoking Status: Former Smoker Hx of Sleep Apnea: No Short Thick Neck: No Thyro-mental Distance: > 3 Finger Breadths Oral Cavity: Dentures Mallampati Classification: Class III ASA Classification: Class II NPO Status Date of Last Intake of Fluids: September 18, 2017 Time of Last Intake of Fluids: 1999 Date of Last Intake of Solids: September 18, 2017 Time of Last Intake of Solids: 1999 Notes The planned sedation has been discussed with the patient. Informed Consent was obtained. I have identified the patient, determined the appropriateness of sedation and have assessed the patient immediately prior to the procedure. All medicine(s) and interventions are by my order.
--- NOTE | 2017-09-19 11:46 | Post Sedation Assessment ---
Post Sedation Assessment General Date of Sedation September 19, 2017. Vital Signs: Vital Signs Past 12 Hours Date Time Temp Pulse Resp B/P (MAP) Pulse Ox O2 Delivery O2 Flow Rate FiO2 09/19/17 09:22 36.5 78 16 172/62 (98) 95 Room Air Post Procedure Recovery Score Activity: (2) Moves 4 extremities * Respiration: (2) Deep breath/cough Circulation: (2) +/-20% PreAnes Value Consciousness: (1) Arouseable (by name) Oxygen Saturation: (1) O2 needed for >90% Post Anesthesia Score: 8 Discharge Sedation Level of Care: Fast Track Phase II Post Sedation Plan On clinical assessment, the patient appears to have tolerated the sedation without complications. Patient is recovering as anticipated. Patient will continue to be monitored by nursing and may be discharged when sedation discharge criteria are met per below protocol. Upon Completions of procedure up to additional 15 minutes continue every 5 minute vital signs and the P.A.R. score; then discharge to a Phase I or Fast Track to Phase II per the following guidelines: * Discharge Patient to appropriate Phase II area if PAR is 8 or greater or return to pre- procedure baseline. The post - procedure orders will be as directed. * If PAR score is less than 8 or not return to pre-procedure baseline then patient will follow Phase I monitoring till PAR is reached for Phase II. The Phase I may be done in procedure room or may call to secure a Phase I area. * If naloxone or flumazenil are used for reversal, hold in Phase I for an additional 60 -120 minutes before discharge to Phase II. Please call the Sedation Physician to re-evaluate and complete post-note for discharge to Phase II area. Do NOT discharge from procedure sedation or Phase 1 until post- sedation evaluation note is complete by procedure /sedation MD Sedation Discharge Instructions to be given to the patient at discharge to home.
--- NOTE | 2017-09-19 11:46 | [facility] Post Operative Brief Note ---
Immediate Operative Summary Operative Date September 19, 2017. Pre-Operative Diagnosis Endoleak of PEVAR Post-Operative Diagnosis No endoleak Procedure(s) Performed Aortogram Moderate Sedation 1125 - 1145 Surgeon Donovan Remediation Project Engineer Surgeon(s) None Estimated Blood Loss 5 Findings Consistent with Post-Op Diagnosis Specimens None Drains None Anesthesia Type IV Sedat Cons RN Only Complication(s) none Disposition Accompanied Pt To Recover: no Disposition:
--- NOTE | 2017-09-19 11:50 | Discharge Instructions ---
Discharge Instructions Date of Service September 19, 2017. Visit Reason for Visit: Type 1 Endoleak Discharge Discharge Diagnosis / Problem: Type I endoleak Discharge Goals Goal(s): Diagnostic testing Activity Recommendations Activity Limitations: per Instructions/Follow-up section Anesthesia . Post Anesthesia Instructions: If you have had General Anesthesia or IV Sedation: * Do not drive today. * Resume driving when surgeon permits. * Do not make important decisions or sign legal documents today. * Call surgeon for: 1. Temperature elevations greater than 101 degrees F. 2. Uncontrollable pain. 3. Excessive bleeding. 4. Persistent nausea and vomiting. 5. Medication intolerance (nausea, vomiting or rash). * For nausea and vomiting use only clear liquids such as: tea, soda, bouillon until nausea subsides, then gradually increase diet as tolerated. * If you have any concerns or questions, call your surgeon's office. If physician is unavailable and it is an emergency, call 911 or go to the nearest emergency room. . Instructions / Follow-Up Instructions / Follow-Up Call [phone] to schedule a follow up appointment if one not already scheduled. SPECIAL CARE INSTRUCTIONS: Medications: * Continue to take your medications as directed. If you have been given a prescription for Plavix, please fill it immediately and take as directed. Incision Care: * Your puncture site may have some bruising and minor swelling for about one week. * You will have a small dressing covering your puncture site. You may remove the dressing after 24 hours and shower. You may let the warm soapy water run over it, but be sure to dry the puncture site well and keep it dry. * DO NOT IMMERSE THE INCISION IN A TUB/POOL/etc. UNTIL HEALED. * Puncture sites should be kept covered with a band-aid until it begins to heal. Restrictions: * Depending on whether you leg or arm was punctured to access the arteries, you will be required to lay flat, hold your arm still, or both, for about 4 hours after the procedure to prevent bleeding. * Limit your activity for the first 48 hours. You may walk and go up and down steps. Avoid excessive bending or movement at the puncture site. Possible Complications: * Excessive Swelling - after blood flow is improved you may notice increased swelling in the lower legs. This is a normal response. This usually depends on the amount of blockages in the leg, how long they have been there prior to your procedure and how much blood flow was restored. Elevating your legs will help to improve this. Please notify our office ([phone] ) if the swelling does not go away after lying in bed overnight. * Infection/Drainage/Bleeding - Drainage or bleeding from the puncture site should be minimal. If you have excessive bleeding or drainage, call our office ([phone]) right away. * Pain - You may experience some mild pain or soreness at your puncture site. If your pain does not improve, please contact our office ([phone]). Call your doctor and seek emergent treatment if you develop: * Temperature above 101 degrees * Any fever or chills * Any redness or purulent drainage from the puncture site * Any new dusky/blue colored toes or feet with coolness or sharp or aching pain. SKIN IRRITATION: * You may experience some redness and/or swelling in the area where radiation was administered. If any skin irritation occurs, please contact your family physician. FOLLOW UP VISIT: Keep any scheduled doctor appointments. Diet Recommendations Recommended Home Diet: resume previous diet Procedures Procedures Performed: Aortogram Moderate Sedation 1125 - 1145 Pending Studies Studies pending at discharge: no Medical Emergencies . Who to Call and When: Medical Emergencies: If at any time you feel your situation is an emergency, please call 911 immediately. . Non-Emergent Contact Non-Emergency issues call your: Surgeon . . "Provider Documentation" section prepared by Kieran Man. .
[2017-09-19 11:55] VITALS: BP 118/55; PULSE 60; TEMP 36.4; O2SAT 94
--- NOTE | 2017-09-19 11:55 | [facility] Operative Report ---
Operative Report Operative Date September 19, 2017. Pre-Operative Diagnosis Endoleak of PEVAR Post-Operative Diagnosis No endoleak Procedure(s) Performed Aortogram Moderate Sedation 1125 - 1145 Surgeon Donovan Military Logistics Specialist Surgeon(s) None Estimated Blood Loss 5 Findings No evidence of endoleak was seen Specimens None Drains None Anesthesia Type IV Sedat Cons RN Only Complication(s) none Disposition no Indications This patient's an 82-year-old female with endograft in place. She was found to have a type I endoleak on 2 CT scans done postoperatively. Aortogram for diagnosis was recommended.I have discussed the risks options and benefits of the procedure with the patient. The patient understands the risks options and benefits and agrees to the procedure. Description of Procedure The patient was taken to the angiogram suite and placed in the supine position. The right groin was prepped and draped in a sterile manner. Local anesthetic was administered and a percutaneous puncture was made in the right common femoral artery. An 035 wire and 5 [place] sheath were inserted. Next an 035 Glidewire and a pigtail was inserted through the sheath. It was passed up to just above the stent graft. We then did an aortogram in the anterior position. This was followed by right and left obliques, a crosstable lateral, and both cranial and caudal views. No evidence of endoleak's were seen on any injections. We did run to the imaging well beyond the point where the contrast had exited the graft. There is no delayed filling of any aneurysm sac. Sheath was then pulled pressure was applied adequate hemostasis was obtained. Sterile dressings were applied to the wound. The patient left the operation room in satisfactory condition and tolerated the procedure well. All needle and sponge counts were correct at the end of the procedure. I attest to the content of the Intraoperative Record and any orders documented therein. Any exceptions are noted below.
[2017-09-19 12:10] VITALS: BP 117/54; PULSE 58; TEMP 36.4; O2SAT 93
[2017-09-19 12:40] VITALS: BP 127/62; PULSE 60; O2SAT 93
[2017-09-19 13:10] VITALS: BP 127/73; PULSE 56; TEMP 36.5; O2SAT 94
[2017-09-19 14:10] VITALS: BP 122/73; PULSE 54; TEMP 36.5; O2SAT 95
== END | disposition home or self-care (01) ==
LOC: C.ACU 08:51
PROVIDERS: ATTEND Surgery Vascular Surgery
DX: T85.898A Other specified complication of other internal prosthetic devices, implants and grafts, initial encounter (principal); Y83.8 Other surgical procedures as the cause of abnormal reaction of the patient, or of later complication, without mention of misadventure at the time of the procedure; I71.4 Abdominal aortic aneurysm, without rupture; G30.9 Alzheimer's disease, unspecified; F02.80 Dementia in other diseases classified elsewhere, unspecified severity, without behavioral disturbance, psychotic disturbance, mood disturbance, and anxiety; E78.00 Pure hypercholesterolemia, unspecified; I10 Essential (primary) hypertension; Z88.0 Allergy status to penicillin; Z79.82 Long term (current) use of aspirin

== ENCOUNTER 2023-12-01 19:34 | Observation (INO) ==
[2023-12-01 20:23] LABS: Basophils # (auto) 0.08 K/uL (0.00-0.20); Basophils % (auto) 0.8 %; Eosinophils # (auto) 0.23 K/uL (0.00-0.50); Eosinophils % (auto) 2.2 %; Hematocrit (blood only) 42.3 % (37.0-47.0); Hemoglobin 13.9 g/dl (12.0-16.0); Immature Granulocytes # (auto) 0.06 K/uL (0.01-0.20); Immature Granulocytes % (auto) 0.6 %; Lymphocytes # (auto) 3.15 K/uL (1.20-3.40); Mean Corpuscular Hemoglobin 29.3 pg (25.0-34.0); Mean Corpuscular Hgb Conc 32.9 g/dL (32.0-36.0); Mean Corpuscular Volume 89.2 fL (80.0-100.0); Mean Platelet Volume 9.6 fL (9.4-12.4); Monocytes # (auto) 0.89 K/uL (0.11-0.59); Monocytes % (auto) 8.5 %; Neutrophils # (auto) 6.08 K/uL (1.40-6.50); Neutrophils % (auto) 57.9 %; Platelet Count 339 K/uL (130-400); RDW Coefficient of Variation 13.8 % (11.5-14.5); RDW Standard Deviation 45.1 fL (36.4-46.3); Red Blood Count 4.74 M/uL (4.20-5.40); White Blood Count 10.49 K/ul (4.8-10.8)
[2023-12-01 20:34] LABS: Alanine Aminotransferase 16 U/L (7-52); Albumin Globulin Ratio 1.4 (0.9-2); Albumin Level 4.2 gm/dl (3.4-5.0); Alkaline Phosphatase 95 U/L (34-104); Anion Gap 10 (3-11); Aspartate Aminotransferase 19 U/L (13-39); BUN Creatinine Ratio 28.3 (10-20); Bilirubin,Total 0.3 mg/dl (0.2-1.0); Blood Urea Nitrogen 53 mg/dl (6-23); Calcium 9.7 mg/dl (8.6-10.3); Carbon Dioxide 25 mmol/L (21-32); Chloride 100 mmol/L (98-107); Est GFR (African American) 27.3 ml/min; Est GFR (Non-African American) 23.6 ml/min; Globulin 2.9 gm/dl (2.5-4.0); Glucose 127 mg/dl (70-99(Fasting)); Potassium 3.9 mmol/L (3.5-5.1); Sodium 135 mmol/L (136-145); Total Protein 7.1 gm/dl (6.0-8.3)
--- NOTE | 2023-12-01 22:11 | Emergency Department Note ---
Impression & Plan Acute kidney injury, Acute metabolic encephalopathy, Acute dehydration ED Provider Note NAME: YAMILA VO AGE: 88 SEX: F : 1935 ARRIVES VIA: Walk-In INFORMANT: Patient, Daughter ED PROVIDER(S): Alejandro Gan MD CHIEF COMPLAINT: Weakness, decreased alertness, decreased appetite MEDICAL DECISION MAKING: Patient presents due to concern for word decreased appetite confusion weakness and fatigue. IV was established and blood work was obtained. Patient has a normal white count hemoglobin and platelet count. The patient's kidney function with BELA with creatinine 1.8 today. Patient's baseline is 0.8. The patient was ordered IV fluids. Urinalysis does not show evidence of obvious blood or infection. Patient's EKG did show possible SVT although by the time the patient had been seen by myself for heart rate had improved. Given the patient's BELA I do believe the patient would benefit from admission at this time. I did speak with the on-call hospital service Dr. Valle and the patient was admitted to the medicine service. Discussion w/ other healthcare providers: Dr. Oquendo inpatient medicine service Prior /Outside records reviewed: None Differential diagnosis: Infection, dehydration, metabolic abnormality, hypo/hyperglycemia, electrolyte imbalance, anemia, UTI, pneumonia, thyroid dysfunction among others were considered. Diagnostics, as interpreted by me: ECG: EKG shows possible SVT with a rate of 139 normal axis. Cardiac monitoring: An order was placed for continuous cardiac monitoring. The monitor shows a rate of 85 with sinus rhythm. Patient was placed on pulse oximetry Medical decision rules: None Imaging studies: I informally interpreted the patient's Chest x-ray does not show obvious pneumonia or pneumothorax but emphysematous changes noted with formal report to follow. HPI: Is old patient presents with daughter at bedside due to concern for patient started acting strangely and has had an increased propensity to sleep. Daughter was concerned given this and was referred here for further evaluation and treatment. Patient's daughter states that she was recently diagnosed with an E. coli UTI and was treated on antibiotic for a week which she finished several days ago. Patient states that her daughter was especially concerned today is that she was not very responsive and was so concerned that she brought her in today. She has noticed a decreased appetite. Patient denies any chest pains or shortness of breath. Patient does have a history of dementia. PAST MEDICAL HISTORY: See Below PAST SURGICAL HISTORY: See Below SOCIAL HISTORY: See Below HOME MEDICATIONS: See Below ALLERGIES: See Below VITALS: See Below PHYSICAL EXAMINATION: GENERAL: NAD, non-toxic. EYE EXAM: Normal conjunctiva. PERRL, no anisocoria and EOM's grossly intact w/o pain. OROPHARYNX: Dry mucus membranes, grossly normal dentition. NECK: Trachea midline, no stridor. LUNGS: Clear to auscultation. Normal chest wall mechanics. HEART: NSR, no MRG. ABDOMEN: Abdomen soft, non-tender, no masses, no rebound or guarding. BACK: No CVA TTP. SKIN: No rashes and no bruising. UPPER EXTREMITIES: Upper extremities are grossly normal. LOWER EXTREMITIES: Grossly normal, no edema. NEURO EXAM: Awake and alert follows commands, cranial nerves II-XII grossly intact, normal speech, moves all 4 extremities. Past Med/Surg History Problem List (Updated 12/06/23 @ 18:43 by Alejandro Gan MD) Acute dehydration (Acute) Acute metabolic encephalopathy (Acute) Urinary tract infection Acute kidney injury (Acute) Urinary incontinence (Chronic) High cholesterol (Chronic) Alzheimers disease (Chronic) Hypertension (Chronic) Anxiety (Chronic) Aortic regurgitation (Chronic) COPD (chronic obstructive pulmonary disease) (Chronic) Depression (Chronic) Hearing loss (Chronic) Mitral regurgitation (Chronic) Osteopenia (Chronic) Venous insufficiency (Chronic) Vitamin B12 deficiency (Chronic) Vitamin D deficiency (Chronic) Surgical History S/P cataract surgery S/P abdominal aortic aneurysm repair Family History Denies family history of Ovarian cancer Prostate cancer Myocardial infarction Breast cancer Colorectal cancer Social History Smoking Status: Former smoker Tobacco Type: Cigarettes Age Started Using Tobacco: 20; Age Quit Using Tobacco: 70; packs per day: 1; Second Hand Exposure: No; Do You Dip or Chew Tobacco: No; Hx Alcohol Use: Yes Alcohol type: beer Alcohol Intake Frequency: Monthly or Less Hx Substance Use: No Preferred Language: Belarusian Communication Ability: Impaired Visual Impairment: No Limitations Hearing Ability: Normal Sales Project Coordinator Required: No Beliefs That Will Affect Care: None marital status: / Current Living Situation: Family Current Living Situation Comment: lives with daughter 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 Safe at Home: Yes Childhood Exposure to Second-Hand Smoke: No Diet: regular Diet Comment: regular Dental Care, Regularly: No Physical Activity Frequency: Does not Exercise Seatbelt Use: always Sunscreen Use: Yes Assistive Devices: Bedside Commode, Walker and Wheelchair Allergies Allergies Allergy/AdvReac Type Severity Reaction Status Date / Time donepezil Allergy Unknown CAN'T Verified 12/01/23 21:51 REMEMBER Penicillins Allergy Unknown CAN'T Verified 12/01/23 21:51 REMEMBER Home Meds Home Medications Medication Instructions Recorded Confirmed aspirin 81 mg tablet,delayed 81 mg PO DAILY 02/17/19 12/01/23 release umeclidinium 62.5 mcg/actuation 1 inh inhalation DAILY 12/01/23 12/01/23 blister powder for inhalation (Incruse Ellipta) Previous Rx's Medication Instructions Recorded diaper,brief,adult,disposable #120 ea 02/18/22 (Undergarment misc) atorvastatin 20 mg tablet 20 mg PO DAILY #90 tabs 03/18/23 albuterol sulfate 90 mcg/actuation 2 puff inhalation QID PRN 11/07/23 aerosol inhaler (Ventolin HFA) shortness of breath or wheezing #8.5 grams diltiazem HCl 180 mg capsule,24 180 mg PO DAILY #30 caps 11/07/23 hr,extended release lisinopril 20 1 tab PO DAILY #30 tabs 11/07/23 mg-hydrochlorothiazide 25 mg tablet cyanocobalamin (vitamin B-12) 1,000 mcg PO DAILY #90 tabs 12/03/23 1,000 mcg tablet,extended release mirtazapine 15 mg tablet (Remeron) 7.5 mg (1/2 x 15 mg) PO HS #30 tabs 12/03/23 thiamine HCl (vitamin B1) 100 mg 200 mg (2 x 100 mg) PO BID 30 days 12/03/23 tablet #120 tabs Results & Data (ED) Vital Signs Vital Signs - 24 hr 12/01/23 19:43 12/01/23 21:21 Temperature 36.5 C Temperature Source Temporal Artery Scan Pulse Rate 140 H 101 H Respiratory Rate 20 Respiratory Effort / Characteristics Non-Labored Respiratory Depth Normal Respiratory Pattern Regular Blood Pressure 113/75 Blood Pressure Mean 87 Pulse Oximetry 93 Oxygen Delivery Method Room Air Sepsis Recent Fever Within 48 Hours No Sepsis New/Unexplained Change in Mental Status N/A Sepsis Action Taken by Nursing No Action Required Home Medications Current Medication List: was personally reviewed by me Laboratory Data Attestation: I reviewed the patient's lab results. 12/03/23 05:54 12/03/23 05:54 Lab Results 12/01/23 12/01/23 Range/Units 19:50 22:40 WBC 10.49 (4.8-10.8) K/ul RBC 4.74 (4.20-5.40) M/uL Hgb 13.9 (12.0-16.0) g/dl Hct 42.3 (37.0-47.0) % MCV 89.2 (80.0-100.0) fL MCH 29.3 (25.0-34.0) pg MCHC 32.9 (32.0-36.0) g/dL RDW Std Deviation 45.1 (36.4-46.3) fL RDW Coeff of Steven 13.8 (11.5-14.5) % Plt Count 339 (130-400) K/uL MPV 9.6 (9.4-12.4) fL Immature Gran % (Auto) 0.6 % Neut % (Auto) 57.9 % Lymph % (Auto) 30.0 % [place] % (Auto) 8.5 % Eos % (Auto) 2.2 % Baso % (Auto) 0.8 % Neut # (Auto) 6.08 (1.40-6.50) K/uL Lymph # (Auto) 3.15 (1.20-3.40) K/uL [place] # (Auto) 0.89 H (0.11-0.59) K/uL Eos # (Auto) 0.23 (0.00-0.50) K/uL Baso # (Auto) 0.08 (0.00-0.20) K/uL Immature Gran # (Auto) 0.06 (0.01-0.20) K/uL Sodium 135 L (136-145) mmol/L Potassium 3.9 (3.5-5.1) mmol/L Chloride 100 (98-107) mmol/L Carbon Dioxide 25 (21-32) mmol/L Anion Gap 10 (3-11) BUN 53 H (6-23) mg/dl Creatinine 1.87 H (0.6-1.2) mg/dl Est Cr Clr Drug Dosing Not Reportable Est GFR ( Amer) 27.3 ml/min Est GFR (Non-Af Amer) 23.6 ml/min BUN/Creatinine Ratio 28.3 H (10-20) Glucose 127 H (70-99(Fasting)) mg/dl Calcium 9.7 (8.6-10.3) mg/dl Total Bilirubin 0.3 (0.2-1.0) mg/dl AST 19 (13-39) U/L ALT 16 (7-52) U/L Alkaline Phosphatase 95 (34-104) U/L Total Protein 7.1 (6.0-8.3) gm/dl Albumin 4.2 (3.4-5.0) gm/dl Globulin 2.9 (2.5-4.0) gm/dl Albumin/Globulin Ratio 1.4 (0.9-2) Urine Color Yellow Urine Appearance Clear (Clear) Urine pH 5.5 (4.5-7.5) Ur Specific [place] 1.011 (1.000-1.030) Urine Protein Negative (Negative) Urine Glucose (UA) Negative (Negative) Urine Ketones Negative (Negative) Urine Blood Negative (Negative) Urine Nitrite Negative (Negative) Urine Bilirubin Negative (Negative) Urine Urobilinogen Negative (Negative) Ur Leukocyte Esterase Trace H (Negative) Urine WBC (Auto) 0-5 (0-5) /hpf Urine RBC (Auto) 0-2 (0-2) /hpf U Hyaline Cast (Auto) 3-5 H (0-2) /lpf U Epithel Cells (Auto) 0-2 (0-2) /hpf Urine Bacteria (Auto) None Seen (None Seen) Administered Medications Discontinued Medications Acetaminophen (Acetaminophen 325 Mg Tab) 650 mg PO Q4H PRN PRN Reason: pain/fever Stop: 01/01/24 01:10 Last Admin: 12/03/23 05:46 Dose: 650 mg Documented By: PLF Aspirin (Aspirin 81 Mg Ectab) 81 mg PO DAILY MORIAH Stop: 01/01/24 08:59 Last Admin: 12/03/23 09:01 Dose: 81 mg Documented By: Admin: 12/02/23 07:21 Dose: 81 mg Documented By: MACO Atorvastatin Calcium (Atorvastatin 20 Mg Tab) 20 mg PO DAILY MORIAH Stop: 01/01/24 08:59 Last Admin: 12/03/23 09:01 Dose: 20 mg Documented By: Admin: 12/02/23 07:20 Dose: 20 mg Documented By: MACO Cyanocobalamin (Cyanocobalamin (B-12) 500 Mcg Tablet) 1,000 mcg PO QAM MORIAH Stop: 01/02/24 08:59 Last Admin: 12/03/23 09:00 Dose: 1,000 mcg Documented By: MACO Diltiazem HCl (Diltiazem Hcl 180 Mg Capcr) 180 mg PO DAILY [facility] Stop: 01/01/24 08:59 Last Admin: 12/03/23 09:01 Dose: 180 mg Documented By: Admin: 12/02/23 07:20 Dose: Not Given Documented By: MACO Heparin Sodium (Porcine) (Heparin Sod 5,000 Unit/0.5 Ml Vial) 5,000 units SQ Q12 MORIAH Stop: 01/01/24 08:59 Last Admin: 12/03/23 09:01 Dose: 5,000 units Documented By: Admin: 12/02/23 21:07 Dose: 5,000 units Documented By: Admin: 12/02/23 07:19 Dose: 5,000 units Documented By: MACO Sodium Chloride (Nss) 1,000 mls @ 999 mls/hr IV .Q1H1M ONE Stop: 12/01/23 23:29 Last Infusion: 12/02/23 00:39 Dose: Infused Documented By: Admin: 12/01/23 22:43 Dose: 999 mls/hr Documented By: ESTELA Sodium Chloride (Nss) 1,000 mls @ 50 mls/hr IV .Q20H MORIAH Stop: 12/31/23 23:29 Last Admin: 12/03/23 07:44 Dose: Not Given Documented By: Infusion: 12/03/23 07:00 Dose: Infused Documented By: Infusion: 12/02/23 16:49 Dose: 50 mls/hr Documented By: Admin: 12/02/23 13:11 Dose: 100 mls/hr Documented By: Infusion: 12/02/23 13:10 Dose: Infused Documented By: Admin: 12/02/23 00:40 Dose: 100 mls/hr Documented By: ESTELA Ceftriaxone Sodium (Rocephin) 1,000 mg in 50 mls @ 100 mls/hr IV Q24H MORIAH Stop: 12/12/23 05:59 Last Infusion: 12/03/23 07:44 Dose: Infused Documented By: Admin: 12/03/23 06:38 Dose: 100 mls/hr Documented By: Infusion: 12/02/23 07:07 Dose: Infused Documented By: Admin: 12/02/23 06:21 Dose: 100 mls/hr Documented By: POLLO Thiamine HCl (Thiamine Hcl 100 Mg Tab) 200 mg PO BID MORIAH Stop: 01/02/24 08:59 Last Admin: 12/03/23 10:59 Dose: 200 mg Documented By: MACO Umeclidinium [place] (Umeclidinium [place] 62.5mcg/Blister 7 Puffs/Inhaler) 1 puffs INH DAILY MORIAH Stop: 01/01/24 08:59 Last Admin: 12/03/23 09:01 Dose: 1 puffs Documented By: Admin: 12/02/23 07:20 Dose: 1 puffs Documented By: MACO Discharge Plan Visit Data Chief Complaint: Urinary Symptoms Stated Complaint: UTI, WEAKNESS, LETHARGIC, SOB ED Provider: Alejandro Gan Discharge Problem: Acute kidney injury, Acute metabolic encephalopathy, Acute dehydration Patient Disposition: Admitted As Inpatient Discharge Instructions Interventions: ED Discharge Assessment Last Done: 12/02/23 01:03
[2023-12-01] MEDS: SODIUM CHLORIDE 0.9% 1,000 ML IV ONE (22:43)
[2023-12-01 23:02] LABS: Appearance Urine Clear (Clear); Bacteria Urine Automated None Seen (None Seen); Bilirubin Urine Negative (Negative); Blood Urine Negative (Negative); Color Urine Yellow; Epithelial Cell Urine Auto 0-2 /hpf (0-2); Glucose Urine UA Negative (Negative); Ketones Urine Negative (Negative); Leukocyte Esterase Urine Trace (Negative); Nitrite Urine Negative (Negative); Protein Urine Negative (Negative); RBC Urine Automated 0-2 /hpf (0-2); Specific Gravity Urine 1.011 (1.000-1.030); Urobilinogen Urine Negative (Negative); WBC Urine Automated 0-5 /hpf (0-5); pH Urine 5.5 (4.5-7.5)
--- NOTE | 2023-12-01 23:32 | History & Physical Report ---
Date of Service December 01, 2023 Assessment & Plan (1) Acute kidney injury: (2) Dehydration: (3) Urinary tract infection: (4) High cholesterol: (5) Alzheimers disease: (6) Hypertension: (7) Anxiety: (8) Depression: Plan Acute kidney injury/dehydration- Creatinine 1.87 upon admission, with base 0.87 Status post 1 L normal saline bolus from the ED Placed on NSS at 100 mL/h times additional liter Repeat laboratories in a.m. Hold lisinopril/HCTZ Urinary tract infection- Urine culture from 11/17/2023 is pansensitive E. coli, treated with unknown antibiotic for 7 days Follow urine culture and sensitivity Placed on ceftriaxone 1 g IV daily Altered mental status/metabolic encephalopathy/SDAT/depression/anxiety- Treat exacerbating UTI urinary tract infection And IV fluids for dehydration COPD- Continue Incruse Ellipta and albuterol sulfate 4 times daily as needed Hypertension- Holding lisinopril/HCTZ as noted due to acute kidney injury Continue aspirin, and diltiazem History of Present Illness Chief Complaint: The patient presents to the emergency department with family, where family provides most of the history due to patient's underlying dementia. The patient was placed on 7 days of unknown antibiotic that she finished 4 days ago for an E. coli UTI diagnosed on 11/17/2023. Her daughter reports that 2 days later, the patient started acting ""squirlley", and then slept all day today. Due to continued decreased responsiveness, she was brought to the emergency department for assessment. Primary Care Provider: Adrianne Ludwig MD The patient is AN 88-year-old female with a past medical history including abdominal aortic aneurysm, hypercholesterolemia, SDAT, hypertension, anxiety, aortic regurgitation, COPD, depression, venous insufficiency, B12 deficiency and vitamin D deficiency. She has history urinary tract infection with Klebsiella from on 06/04/2023, and most recently was diagnosed with an E. coli urine tract infection on 11/17/2023. As noted above, she completed a 7-day course of oral antibiotics 4 days ago, and then 2 days ago began to start having altered mentation, and slept all day today, which caused her family to be concerned to bring to the ED for assessment. Her daughter reports that she was so unresponsive that she thought her mother was Allergies Allergy/AdvReac Type Severity Reaction Status Date / Time donepezil Allergy Unknown CAN'T Verified 12/01/23 21:51 REMEMBER Penicillins Allergy Unknown CAN'T Verified 12/01/23 21:51 REMEMBER Home Medications Medication Instructions Recorded Confirmed Type aspirin 81 mg tablet,delayed 81 mg PO DAILY 02/17/19 12/01/23 History release diaper,brief,adult,disposable #120 ea 02/18/22 11/07/23 Rx (Undergarment misc) atorvastatin 20 mg tablet 20 mg PO DAILY #90 tabs 03/18/23 12/01/23 Rx albuterol sulfate 90 mcg/actuation 2 puff inhalation QID PRN 11/07/23 12/01/23 Rx aerosol inhaler (Ventolin HFA) shortness of breath or wheezing #8.5 grams diltiazem HCl 180 mg capsule,24 180 mg PO DAILY #30 caps 11/07/23 12/01/23 Rx hr,extended release lisinopril 20 1 tab PO DAILY #30 tabs 11/07/23 12/01/23 Rx mg-hydrochlorothiazide 25 mg tablet umeclidinium 62.5 mcg/actuation 1 inh inhalation DAILY 12/01/23 12/01/23 History blister powder for inhalation (Incruse Ellipta) Past Med/Surg History Problem List (Updated 12/02/23 @ 05:24 by Eduardo Pablo MD) Urinary tract infection Acute kidney injury Urinary incontinence (Chronic) High cholesterol (Chronic) Alzheimers disease (Chronic) Hypertension (Chronic) Anxiety (Chronic) Aortic regurgitation (Chronic) COPD (chronic obstructive pulmonary disease) (Chronic) Depression (Chronic) Hearing loss (Chronic) Mitral regurgitation (Chronic) Osteopenia (Chronic) Venous insufficiency (Chronic) Vitamin B12 deficiency (Chronic) Vitamin D deficiency (Chronic) Surgical History S/P cataract surgery S/P abdominal aortic aneurysm repair Family History Denies family history of Ovarian cancer Prostate cancer Myocardial infarction Breast cancer Colorectal cancer Social History Smoking Status: Former smoker Tobacco Type: Cigarettes Age Started Using Tobacco: 20; Age Quit Using Tobacco: 70; packs per day: 1; Second Hand Exposure: No; Do You Dip or Chew Tobacco: No; Hx Alcohol Use: Yes Alcohol type: beer Alcohol Intake Frequency: Monthly or Less Hx Substance Use: No Preferred Language: Macedonian Communication Ability: Impaired Visual Impairment: No Limitations Hearing Ability: Normal Kier Drier Required: No Beliefs That Will Affect Care: None marital status: / Current Living Situation: Family Current Living Situation Comment: lives with daughter 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 Other Information That Helps Us Care for You: No Feels Safe at Home: Yes Childhood Exposure to Second-Hand Smoke: No Diet: regular Diet Comment: regular Dental Care, Regularly: No Physical Activity Frequency: Does not Exercise Seatbelt Use: always Sunscreen Use: Yes Assistive Devices: Denture - Upper, Denture - Lower and Glasses Assistive Devices Comment: glasses not here Review of Systems Review of Systems: As reported by the patient's family, denies chest pain, palpitations, shortness of breath, dyspnea on exertion, cough, lower extremity swelling, sore throat, fevers, chills, sweats, nausea, vomiting, diarrhea , constipation, abdominal pain, pelvic pain, blood in urine or stool, dysuria, urinary frequency or urgency, rash, abnormal bruising or bleeding, imbalance, focal weakness, numbness or tingling in arms or legs, generalized arthralgias or myalgias, back or neck pain, or night sweats. The review of systems is otherwise negative other than for that already noted above, and at least 10 systems have been reviewed. Physical Exam Physical Exam: The patient is awake, confused, normocephalic and atraumatic, lying in bed and i n no acute distress. HEENT--PERRL, EOMI, mucous membranes and oropharynx dry. Neck--supple. No JVD. No bruits. Thyroid normal, trachea midline, no adenopathy. Heart--normal S1 and S2. No murmurs, rubs or gallops. Lungs--clear bilaterally, no respiratory distress, no accessory muscle use. Abdomen--normal bowel sounds and soft. Nontender. Nondistended, no hernias or masses, no organomegaly. Extremities--no cyanosis or clubbing. No edema. Dermatologic--normal skin turgor, normal color, no abnormal lymph nodes, no rash. Neurologic--cranial nerves II through XII grossly intact. Rheumatologic--normal range of motion. Psychiatric-confused Results & Data Results & Data Vital Signs (Past 12 Hours) Vital Signs Temp Pulse Pulse Resp BP BP Pulse Ox 12/01/23 23:00 75 15 113/58 L 96 12/01/23 21:35 85 15 124/57 L 94 12/01/23 21:21 101 H 12/01/23 19:43 36.5 C 140 H 20 113/75 93 O2 Del Method 12/01/23 23:00 Room Air 12/01/23 21:35 Room Air 12/01/23 21:21 12/01/23 19:43 Room Air Laboratory Results Laboratory Results WBC 10.49 K/ul (4.8-10.8) 12/01/23 19:50 RBC 4.74 M/uL (4.20-5.40) 12/01/23 19:50 Hgb 13.9 g/dl (12.0-16.0) 12/01/23 19:50 Hct 42.3 % (37.0-47.0) 12/01/23 19:50 MCV 89.2 fL (80.0-100.0) 12/01/23 19:50 MCH 29.3 pg (25.0-34.0) 12/01/23 19:50 MCHC 32.9 g/dL (32.0-36.0) 12/01/23 19:50 RDW Std Deviation 45.1 fL (36.4-46.3) 12/01/23 19:50 RDW Coeff of Steven 13.8 % (11.5-14.5) 12/01/23 19:50 Plt Count 339 K/uL (130-400) 12/01/23 19:50 MPV 9.6 fL (9.4-12.4) 12/01/23 19:50 Immature Gran % (Auto) 0.6 % 12/01/23 19:50 Neut % (Auto) 57.9 % 12/01/23 19:50 Lymph % (Auto) 30.0 % 12/01/23 19:50 [place] % (Auto) 8.5 % 12/01/23 19:50 Eos % (Auto) 2.2 % 12/01/23 19:50 Baso % (Auto) 0.8 % 12/01/23 19:50 Neut # (Auto) 6.08 K/uL (1.40-6.50) 12/01/23 19:50 Lymph # (Auto) 3.15 K/uL (1.20-3.40) 12/01/23 19:50 [place] # (Auto) 0.89 K/uL (0.11-0.59) H 12/01/23 19:50 Eos # (Auto) 0.23 K/uL (0.00-0.50) 12/01/23 19:50 Baso # (Auto) 0.08 K/uL (0.00-0.20) 12/01/23 19:50 Immature Gran # (Auto) 0.06 K/uL (0.01-0.20) 12/01/23 19:50 Sodium 135 mmol/L (136-145) L 12/01/23 19:50 Potassium 3.9 mmol/L (3.5-5.1) 12/01/23 19:50 Chloride 100 mmol/L (98-107) 12/01/23 19:50 Carbon Dioxide 25 mmol/L (21-32) 12/01/23 19:50 Anion Gap 10 (3-11) 12/01/23 19:50 BUN 53 mg/dl (6-23) H 12/01/23 19:50 Creatinine 1.87 mg/dl (0.6-1.2) H 12/01/23 19:50 Est Cr Clr Drug Dosing Not Reportable 12/01/23 19:50 Est GFR ( Amer) 27.3 ml/min 12/01/23 19:50 Est GFR (Non-Af Amer) 23.6 ml/min 12/01/23 19:50 BUN/Creatinine Ratio 28.3 (10-20) H 12/01/23 19:50 Glucose 127 mg/dl (70-99(Fasting)) H 12/01/23 19:50 Calcium 9.7 mg/dl (8.6-10.3) 12/01/23 19:50 Total Bilirubin 0.3 mg/dl (0.2-1.0) 12/01/23 19:50 AST 19 U/L (13-39) 12/01/23 19:50 ALT 16 U/L (7-52) 12/01/23 19:50 Alkaline Phosphatase 95 U/L (34-104) 12/01/23 19:50 Total Protein 7.1 gm/dl (6.0-8.3) 12/01/23 19:50 Albumin 4.2 gm/dl (3.4-5.0) 12/01/23 19:50 Globulin 2.9 gm/dl (2.5-4.0) 12/01/23 19:50 Albumin/Globulin Ratio 1.4 (0.9-2) 12/01/23 19:50 Urine Color Yellow 12/01/23 22:40 Urine Appearance Clear (Clear) 12/01/23 22:40 Urine pH 5.5 (4.5-7.5) 12/01/23 22:40 Ur Specific [place] 1.011 (1.000-1.030) 12/01/23 22:40 Urine Protein Negative (Negative) 12/01/23 22:40 Urine Glucose (UA) Negative (Negative) 12/01/23 22:40 Urine Ketones Negative (Negative) 12/01/23 22:40 Urine Blood Negative (Negative) 12/01/23 22:40 Urine Nitrite Negative (Negative) 12/01/23 22:40 Urine Bilirubin Negative (Negative) 12/01/23 22:40 Urine Urobilinogen Negative (Negative) 12/01/23 22:40 Ur Leukocyte Esterase Trace (Negative) H 12/01/23 22:40 Urine WBC (Auto) 0-5 /hpf (0-5) 12/01/23 22:40 Urine RBC (Auto) 0-2 /hpf (0-2) 12/01/23 22:40 U Hyaline Cast (Auto) 3-5 /lpf (0-2) H 12/01/23 22:40 U Epithel Cells (Auto) 0-2 /hpf (0-2) 12/01/23 22:40 Urine Bacteria (Auto) None Seen (None Seen) 12/01/23 22:40 Code Status & VTE Plan Code Status Full code VTE Prophylaxis Plan VTE Prophylaxis will be ordered: Yes PG Care Time/CCT Total # of Minutes Spent Total Time Spent with Patient: Total time spent is greater than 50% in coordination of care (as documented) at patient's floor/unit and/or counseling patient: Coding Level of Care Code 18465 INT INP/OBS CARE MIN Diagnoses Acute kidney injury N17.9 Dehydration E86.0 Urinary tract infection N39.0 High cholesterol E78.00 Alzheimers disease G30.9; F02.80 Hypertension I10 Anxiety F41.9 Depression F32.9
[2023-12-02] MEDS: SODIUM CHLORIDE 0.9% 1,000 ML IV SCH (00:40)
[2023-12-02] MEDS ORDERED: ALBUTEROL HFA 8 GM INHALER INH PRN (01:11)
[2023-12-02] MEDS ORDERED: ONDANSETRON INJ 2 MG/ML 2 ML VIAL IV PRN (01:11)
[2023-12-02] MEDS: cefTRIAXone SODIUM 1,000 MG/50 ML BAG IV SCH (06:21)
--- NOTE | 2023-12-02 06:58 | XRay Report ---
XR chest 1V not portable HISTORY: 88 years-old Female tachycardia acute tachycardia COMPARISON: CTA chest 02/23/2021 TECHNIQUE: PA view of the chest FINDINGS: Cardiomediastinal and hilar silhouettes are within normal limits. Atherosclerosis of the aorta. Emphy sema with chronic reticular interstitial densities/scarring. No pneumothorax, pleural effusion or pul monary edema. Bones appear grossly intact. Abdominal aortic endograft with vascular coils. IMPRESSION: Emphysema without acute process. ACT 112: Negative or not required by law. The above report was generated using voice recognition software. It may contain grammatical, syntax o r spelling errors. Electronically signed by: Cody Maurer M.D. 12/02/2023 6:56 AM
[2023-12-02] MEDS: HEPARIN SOD 5,000 UNIT/0.5 ML VIAL SQ SCH (07:19)
[2023-12-02] MEDS: UMECLIDINIUM BROMIDE 62.5MCG/BLISTER 7 PUFFS/INHALER INH SCH (07:20)
[2023-12-02] MEDS: ATORVASTATIN 20 MG TAB PO SCH (07:20)
[2023-12-02] MEDS: dilTIAZem HCL 180 MG CAPCR PO SCH (07:20)
[2023-12-02] MEDS: ASPIRIN 81 MG ECTAB PO SCH (07:21)
[2023-12-02 08:18] LABS: Basophils # (auto) 0.06 K/uL (0.00-0.20); Basophils % (auto) 0.7 %; Eosinophils # (auto) 0.37 K/uL (0.00-0.50); Eosinophils % (auto) 4.5 %; Hemoglobin 10.8 g/dl (12.0-16.0); Immature Granulocytes # (auto) 0.05 K/uL (0.01-0.20); Immature Granulocytes % (auto) 0.6 %; Lymphocytes # (auto) 2.87 K/uL (1.20-3.40); Mean Corpuscular Hemoglobin 29.1 pg (25.0-34.0); Mean Corpuscular Hgb Conc 32.7 g/dL (32.0-36.0); Mean Corpuscular Volume 88.9 fL (80.0-100.0); Mean Platelet Volume 9.7 fL (9.4-12.4); Monocytes # (auto) 0.77 K/uL (0.11-0.59); Monocytes % (auto) 9.4 %; Neutrophils # (auto) 4.09 K/uL (1.40-6.50); Neutrophils % (auto) 49.8 %; Platelet Count 269 K/uL (130-400); RDW Coefficient of Variation 13.8 % (11.5-14.5); RDW Standard Deviation 44.9 fL (36.4-46.3); Red Blood Count 3.71 M/uL (4.20-5.40); White Blood Count 8.21 K/ul (4.8-10.8)
[2023-12-02 08:34] LABS: Albumin Level 3.2 gm/dl (3.4-5.0); Calcium 7.7 mg/dl (8.6-10.3); Creatinine Clr Calc Pharmacy 19.7 ml/min; Est GFR (African American) 38.1 ml/min; Est GFR (Non-African American) 32.9 ml/min; Magnesium 2.2 mg/dl (1.7-2.4); Phosphorus 3.6 mg/dl (2.5-4.9); Potassium 4.2 mmol/L (3.5-5.1)
--- NOTE | 2023-12-02 16:36 | Hospitalist Progress Note ---
Date of Service December 02, 2023 Assessment & Plan (1) Acute kidney injury: Plan: Presenting Cr 1.87, now 1.4 following IV fluids since ER presentation By history had very poor PO intake over the last 1-2 weeks likely due, in part, to the recent UTI Cont IVF but can reduce rate to 50cc/hr Repeat BMP am (2) Acute metabolic encephalopathy: Plan: etiology? dehydration? stroke event? UTI was treated 10+ days ago and admission ua is relatively normal send culture to be complete and ensure test of cure plan MRI brain - r/o subacute CVA check B12 and B1 levels am add melatonin to help reinforce day/night cycle (3) Dehydration: Plan: Improving Cont IVF but reduce rate to 50cc/hr (4) Urinary tract infection: Plan: urine cx from 11/16 with pansensitive e.coli Rx with bactrim x 7 days as outpatient finished course late last week u/a upon admission yesterday was unremarkable send urine cx for test of cure can likely d/c rocephin at this time (5) High cholesterol: Plan: cont lipitor daily (6) Alzheimers disease: Plan: advanced lives with daughter order PT/OT evals check B12 and B1 levels in am TSH wnl now with superimposed metabolic encephalopathy - see below (7) Hypertension: Plan: holding lisinopril-HCTZ due to BELA and BPs are low-normal ok to continue diltiazem (8) Anxiety: (9) Depression: (10) COPD (chronic obstructive pulmonary disease): Plan: stable, controlled, no flare at this time cont Incruse Ellipta cxr wnl COVID checked - negative (11) AAA (abdominal aortic aneurysm): Plan: history of - September 2017 Dr Man - [facility] Plan both daughters updated at bedside obtain PT/OT evals Admission and Anticipated Discharge Date Admission Date: December 01, 2023 Subjective patient resting comfortably in bed did wake up and was interactive, talking, making jokes 2 daughters were present at bedside the daughter with whom she lives reported that her mother finished the PO abx for the recent UTI late last week it wasn't until about 2 days after finishing the abx course that her mother got much more confused above baseline baseline mental status - sometimes calls her 2 daughters her "sisters" walks independently although occasionally needs some minor assistance feeds self although appetite has been generally poor for several months including the last 1-2 weeks this past weekend was sleeping much of the time and was simply not herself daughters deny that their mother complained of any specific symptom or ailment Review of Systems Review of Systems: neuro - pt denied headache; denied focal motor weakness cv - no chest pain; per pt's daughter she had edema of legs last week - now reso lved pulm - no dyspnea GI - no abd pain or nausea Physical Exam Physical Exam: gen - thin, NAD, pleasant confusion eyes - PERRL, lens implants b/l mouth - MMM neck - no JVD face - no droop heart - 2/6 TERESITA LSB, RRR, s1 s2 lungs - CTA b/l, no rales abd - soft NT ND BS+ ext - no edema, pulses 1+ b/l skin - no rash psych - a/o x 1 Results & Data Results & Data Vital Signs (Past 12 Hours) Vital Signs Temp Pulse Resp BP Pulse Ox O2 Del Method 12/02/23 07:12 36.5 C 65 14 98/61 L 97 Room Air Laboratory Results Laboratory Results - last 24 hr 12/01/23 12/01/23 12/02/23 19:50 22:40 07:50 WBC 10.49 8.21 RBC 4.74 3.71 L Hgb 13.9 10.8 L D Hct 42.3 33.0 L MCV 89.2 88.9 MCH 29.3 29.1 MCHC 32.9 32.7 RDW Std Deviation 45.1 44.9 RDW Coeff of Steven 13.8 13.8 Plt Count 339 269 MPV 9.6 9.7 Immature Gran % (Auto) 0.6 0.6 Neut % (Auto) 57.9 49.8 Lymph % (Auto) 30.0 35.0 [place] % (Auto) 8.5 9.4 Eos % (Auto) 2.2 4.5 Baso % (Auto) 0.8 0.7 Neut # (Auto) 6.08 4.09 Lymph # (Auto) 3.15 2.87 [place] # (Auto) 0.89 H 0.77 H Eos # (Auto) 0.23 0.37 Baso # (Auto) 0.08 0.06 Immature Gran # (Auto) 0.06 0.05 Sodium 135 L 136 Potassium 3.9 4.2 Chloride 100 107 Carbon Dioxide 25 24 Anion Gap 10 5 BUN 53 H 44 H Creatinine 1.87 H 1.42 H D Est Cr Clr Drug Dosing Not Reportable 19.7 Est GFR ( Amer) 27.3 38.1 Est GFR (Non-Af Amer) 23.6 32.9 BUN/Creatinine Ratio 28.3 H 31.0 H Glucose 127 H 91 Calcium 9.7 7.7 L D Phosphorus 3.6 Magnesium 2.2 Total Bilirubin 0.3 AST 19 ALT 16 Alkaline Phosphatase 95 Total Protein 7.1 Albumin 4.2 3.2 L Globulin 2.9 Albumin/Globulin Ratio 1.4 Urine Color Yellow Urine Appearance Clear Urine pH 5.5 Ur Specific Howard 1.011 Urine Protein Negative Urine Glucose (UA) Negative Urine Ketones Negative Urine Blood Negative Urine Nitrite Negative Urine Bilirubin Negative Urine Urobilinogen Negative Ur Leukocyte Esterase Trace H Urine WBC (Auto) 0-5 Urine RBC (Auto) 0-2 U Hyaline Cast (Auto) 3-5 H U Epithel Cells (Auto) 0-2 Urine Bacteria (Auto) None Seen SARS-CoV-2, RNA, NAAT 12/02/23 08:35 WBC RBC Hgb Hct MCV MCH MCHC RDW Std Deviation RDW Coeff of Steven Plt Count MPV Immature Gran % (Auto) Neut % (Auto) Lymph % (Auto) [place] % (Auto) Eos % (Auto) Baso % (Auto) Neut # (Auto) Lymph # (Auto) [place] # (Auto) Eos # (Auto) Baso # (Auto) Immature Gran # (Auto) Sodium Potassium Chloride Carbon Dioxide Anion Gap BUN Creatinine Est Cr Clr Drug Dosing Est GFR ( Amer) Est GFR (Non-Af Amer) BUN/Creatinine Ratio Glucose Calcium Phosphorus Magnesium Total Bilirubin AST ALT Alkaline Phosphatase Total Protein Albumin Globulin Albumin/Globulin Ratio Urine Color Urine Appearance Urine pH Ur Specific Howard Urine Protein Urine Glucose (UA) Urine Ketones Urine Blood Urine Nitrite Urine Bilirubin Urine Urobilinogen Ur Leukocyte Esterase Urine WBC (Auto) Urine RBC (Auto) U Hyaline Cast (Auto) U Epithel Cells (Auto) Urine Bacteria (Auto) SARS-CoV-2, RNA, NAAT NEGATIVE PG Care Time/CCT Total # of Minutes Spent Total Time Spent with Patient: Total time spent is greater than 50% in coordination of care (as documented) at patient's floor/unit and/or counseling patient: Coding Level of Care Code 67536 SUB INP/OBS CARE 50MIN Diagnoses Acute kidney injury N17.9 Acute metabolic encephalopathy G93.41 Dehydration E86.0 Urinary tract infection N39.0 High cholesterol E78.00 Alzheimers disease G30.9; F02.80 Hypertension I10 Anxiety F41.9 Depression F32.9 COPD (chronic obstructive pulmonary disease) J44.9 AAA (abdominal aortic aneurysm) I71.4
--- NOTE | 2023-12-03 00:33 | Magnetic Resonance Report ---
Exam(s): MRI HEAD Without Contrast EXAM: MR Head Without Intravenous Contrast CLINICAL HISTORY: Reason for exam: confusion. TECHNIQUE: Magnetic resonance images of the head/brain without intravenous contrast in multiple planes. COMPARISON: Prior head CT from April 16, 2017. FINDINGS: Brain: Minimal nonspecific white matter changes. No mass. No hemorrhage. No acute infarct. Ventricles: Moderate ventriculomegaly. Bones/joints: Unremarkable. No acute fracture. Sinuses: Chronic right ethmoid sinusitis with single opacified air cell. No acute sinusitis. Mastoid air cells: Unremarkable as visualized. No mastoid effusion. Orbits: Bilateral lens replacements. IMPRESSION: No evidence of acute intracranial pathology.. Electronically signed by: Holly Castillo MD 12/03/23 00:32 AM
[2023-12-03] MEDS: ACETAMINOPHEN 325 MG TAB PO PRN (05:46)
[2023-12-03 06:36] LABS: Basophils # (auto) 0.06 K/uL (0.00-0.20); Basophils % (auto) 0.9 %; Eosinophils # (auto) 0.42 K/uL (0.00-0.50); Eosinophils % (auto) 6.1 %; Hematocrit (blood only) 34.7 % (37.0-47.0); Hemoglobin 11.2 g/dl (12.0-16.0); Immature Granulocytes # (auto) 0.04 K/uL (0.01-0.20); Immature Granulocytes % (auto) 0.6 %; Lymphocytes # (auto) 2.55 K/uL (1.20-3.40); Lymphocytes % (auto) 36.9 %; Mean Corpuscular Hemoglobin 28.9 pg (25.0-34.0); Mean Corpuscular Hgb Conc 32.3 g/dL (32.0-36.0); Mean Corpuscular Volume 89.7 fL (80.0-100.0); Mean Platelet Volume 9.8 fL (9.4-12.4); Monocytes % (auto) 8.7 %; Neutrophils # (auto) 3.24 K/uL (1.40-6.50); Neutrophils % (auto) 46.8 %; Platelet Count 297 K/uL (130-400); RDW Coefficient of Variation 13.9 % (11.5-14.5); RDW Standard Deviation 45.2 fL (36.4-46.3); Red Blood Count 3.87 M/uL (4.20-5.40); White Blood Count 6.91 K/ul (4.8-10.8)
[2023-12-03 06:40] LABS: Albumin Level 3.5 gm/dl (3.4-5.0); BUN Creatinine Ratio 27.5 (10-20); Calcium 8.2 mg/dl (8.6-10.3); Creatinine Clr Calc Pharmacy 25.6 ml/min; Est GFR (African American) 52.5 ml/min; Est GFR (Non-African American) 45.3 ml/min; Phosphorus 3.1 mg/dl (2.5-4.9); Potassium 4.3 mmol/L (3.5-5.1)
[2023-12-03 07:13] VITALS: RESP 16; TEMP 97.5; O2SAT 94
[2023-12-03] MEDS: CYANOCOBALAMIN (B-12) 500 MCG TABLET PO SCH (09:00)
[2023-12-03] MEDS: THIAMINE HCL 100 MG TAB PO SCH (10:59)
--- NOTE | 2023-12-03 16:26 | Discharge Summary ---
Discharge Summary Date of Service date of admission - December 01, 2023 date of discharge - December 03, 2023 Principal Dx & Hospital Course #1 = Principal Diagnosis (1) Acute kidney injury: Presenting Cr 1.87. Patient lives with her daughter and her daughter reported very poor PO intake in the 1-2 weeks leading up to admission. Thus, BELA likely prerenal from volume depletion. Can't exclude BELA from recent bactrim use, however. Discharge Creatinine was 1 -- s/p IV fluids and holding her lisinopril-HCTZ. Recommend repeat BMP at time of hospital follow-up. (2) Acute metabolic encephalopathy: Etiology uncertain. UTI was treated 10+ days prior to admission. Further, admission ua was relatively normal, and urine culture was negative - thus, UTI was fully resolved. MRI brain was negative for acute or subacute CVA. B12 level was low-normal in the high 200s - recommended replacement. B1 level was dispatched & pending; supplementation started while awaiting the level. TSH wnl. Perhaps her confusion was due to BELA, dehydration, and lingering effects from her resolving UTI. By the time of hospital discharge she had returned to her typical neuropsych baseline per her daughters. (3) Dehydration: resolved with IV fluids. (4) Urinary tract infection: urine cx from 11/17/23 with pansensitive e.coli Rx with bactrim x 7 days as outpatient finished course prior to admission u/a upon admission was unremarkable urine cx here was negative resolved (5) High cholesterol: cont lipitor daily (6) Alzheimers disease: advanced. a/o x 1 only. lives with daughter. ordered PT/OT evals; cleared for home. TSH wnl. B12 level low-normal at 279 - advised OTC B12 1000mcg daily x 6 months. B1 level sent & was pending at discharge. Per her daughters she still looks at magazines but has stopped most other activities. Appetite & intake are poor day to day - "a struggle" per her daughters. Concomitant depression?? To help with sleep, eating, and potentially a co-existent depression we discussed initiation of mirtazapine 7.5mg HS. Prescribed such at discharge. (7) Hypertension: held lisinopril-HCTZ due to BELA and low-normal BPs. even after 2 days of IV fluids her BPs were normal despite being off the lisinopril-HCTZ. at discharge recommended holding the lisinopril-HCTZ until she sees her PCP. continue diltiazem. (8) Anxiety: (9) Depression: see #6 above. (10) COPD (chronic obstructive pulmonary disease): stable, controlled, no flare while here CXR was wnl COVID testing was negative O2 sats were normal the entire stay cont Incruse Ellipta (11) AAA (abdominal aortic aneurysm): s/p repair - September 2017 Dr Kieran Man - [facility] Plan seen by PT/OT while here - cleared for home with her daughter with whom she lives Notes For Next Care Provider Recommend repeat BMP at time of hospital follow-up. Medication Changes From Visit 1. Lisinopril-HCTZ has been HELD at discharge 2. Thiamine 200mg BID x 30 days 3. OTC Vitamin B12 1000mcg daily 4. Trial of Mirtazapine 7.5mg HS Admission HPI Per Admitting Provider The patient is AN 88-year-old female with a past medical history including abdominal aortic aneurysm, hypercholesterolemia, SDAT, hypertension, anxiety, aortic regurgitation, COPD, depression, venous insufficiency, B12 deficiency and vitamin D deficiency. She has history urinary tract infection with Klebsiella from on 06/04/2023, and most recently was diagnosed with an E. coli urine tract infection on 11/17/2023. As noted above, she completed a 7-day course of oral antibiotics 4 days ago, and then 2 days ago began to start having altered mentation, and slept all day today, which caused her family to be concerned to bring to the ED for assessment. Her daughter reports that she was so unresponsive that she thought her mother was Discharge Exam gen - thin, NAD, pleasant confusion; sitting in chair mouth - MMM neck - no JVD heart - 1/6 TERESITA LSB, RRR, s1 s2 lungs - CTA b/l, no rales abd - soft NT ND BS+ ext - no edema, pulses 1+ b/l skin - no rash psych - a/o x 1 neuro - strength 5/5 x 4 exts Updated Medication List Medication Instructions Recorded Confirmed Type aspirin 81 mg tablet,delayed 81 mg PO DAILY 02/17/19 12/01/23 History release diaper,brief,adult,disposable #120 ea 02/18/22 11/07/23 Rx (Undergarment misc) atorvastatin 20 mg tablet 20 mg PO DAILY #90 tabs 03/18/23 12/01/23 Rx albuterol sulfate 90 mcg/actuation 2 puff inhalation QID PRN 11/07/23 12/01/23 Rx aerosol inhaler (Ventolin HFA) shortness of breath or wheezing #8.5 grams diltiazem HCl 180 mg capsule,24 180 mg PO DAILY #30 caps 11/07/23 12/01/23 Rx hr,extended release lisinopril 20 1 tab PO DAILY #30 tabs 11/07/23 12/01/23 Rx mg-hydrochlorothiazide 25 mg tablet umeclidinium 62.5 mcg/actuation 1 inh inhalation DAILY 12/01/23 12/01/23 History blister powder for inhalation (Incruse Ellipta) cyanocobalamin (vitamin B-12) 1,000 mcg PO DAILY #90 tabs 12/03/23 Rx 1,000 mcg tablet,extended release mirtazapine 15 mg tablet (Remeron) 7.5 mg (1/2 x 15 mg) PO HS #30 tabs 12/03/23 Rx thiamine HCl (vitamin B1) 100 mg 200 mg (2 x 100 mg) PO BID 30 days 12/03/23 Rx tablet #120 tabs Hospital Stay Data Consultations PT, OT Diagnostic Imagining Performed Chest X-Ray 12/01/23 19:47 XR chest 1V not portable HISTORY: 88 years-old Female tachycardia acute tachycardia COMPARISON: CTA chest 02/23/2021 TECHNIQUE: PA view of the chest FINDINGS: Cardiomediastinal and hilar silhouettes are within normal limits. Atherosclerosis of the aorta. Emphysema with chronic reticular interstitial densities/scarring. No pneumothorax, pleural effusion or pulmonary edema. Bones appear grossly intact. Abdominal aortic endograft with vascular coils. IMPRESSION: Emphysema without acute process. ACT 112: Negative or not required by law. The above report was generated using voice recognition software. It may contain grammatical, syntax or spelling errors. Electronically signed by: Cody Maurer M.D. 12/02/2023 6:56 AM Brain MRI 12/02/23 16:36 Exam(s): MRI HEAD Without Contrast EXAM: MR Head Without Intravenous Contrast CLINICAL HISTORY: Reason for exam: confusion. TECHNIQUE: Magnetic resonance images of the head/brain without intravenous contrast in multiple planes. COMPARISON: Prior head CT from April 16, 2017. FINDINGS: Brain: Minimal nonspecific white matter changes. No mass. No hemorrhage. No acute infarct. Ventricles: Moderate ventriculomegaly. Bones/joints: Unremarkable. No acute fracture. Sinuses: Chronic right ethmoid sinusitis with single opacified air cell. No acute sinusitis. Mastoid air cells: Unremarkable as visualized. No mastoid effusion. Orbits: Bilateral lens replacements. IMPRESSION: No evidence of acute intracranial pathology.. Electronically signed by: Holly Castillo MD 12/03/23 00:32 AM Pending Results Patient Have Any Pending Studies at Discharge: Yes Discharge Instructions Given to Patient (Per Discharging Provider) Mrs Chin, You were hospitalized due to confusion, recent urinary tract infection, and simply being unwell. At time of admission your creatinine level in the blood, which is your kidney function level, was elevated. This was likely due to dehydration. The recent bactrim antibiotic you took for the urinary tract infection could have also elevated the creatinine. Either way the creatinine is now back to normal after receiving gentle IV fluids. I believe that the recent urinary infection, coupled with dehydration and the abnormal labs, may have led to your confusion and being unwell. We repeated a urine culture while here and it returned negative meaning that your recent urinary infection is resolved. We performed a COVID test and this was negative. Chest x-ray did not show pneumonia. MRI brain did not show an old or new stroke. We checked several vitamin levels while here including vitamin B12 and vitamin B1. Your vitamin B12 level is in the low-normal range; you might benefit from taking a B12 supplement. The B1 level (thiamine level) is pending. We talked about your eating, drinking, and activities at home. We discussed the possibility of you taking a medicine called mirtazapine (see handout). This is an antidepressant, but it often helps people sleep better and also improves appetite. Recommendations - 1. take [id number] vitamin B12 1000mcg (1mg) once daily x 6 months. 2. take prescription thiamine (vitamin B1) 200mg twice daily x 30 days. I will let you know if the vitamin B1 level comes back low or normal. 3. mirtazapine - take 7.5mg (1/2 tablet) about 30 minutes before bedtime. The most common side effect is feeling too sleepy/sedated. This can occur with just the first dose. If you experience this side effect you can continue the medicine cautiously and monitor over several days, or you can simply stop it. 4. consider Boost or Ensure drink once or twice daily to help improve caloric intake, liquid intake, and protein intake. 5. consider a multivitamin such as Centrum Silver once daily. 6. during your stay your lisinopril-hydrochlorothiazide was held due to dehydration and the elevated creatinine. Your blood pressures have been normal/acceptable without it. Please HOLD this medicine until you see Dr Ludwig. Follow-up - see separate section Return to [facility] if - * you have fevers over 100 degrees * you have worsening shortness of breath * you have chest pains or abdominal pains * you have worsening mentation/confusion * you develop severe diarrhea * any other concerns It was our pleasure to care for you! -Dr Calhoun Total Time Total Time Spent Total Time Spent (In Minutes): 45 Coding Level of Care Code 47670 INP/OBS DISCH >30 MIN Diagnoses Acute kidney injury N17.9 Acute metabolic encephalopathy G93.41 Dehydration E86.0 Urinary tract infection N39.0 High cholesterol E78.00 Alzheimers disease G30.9; F02.80 Hypertension I10 Anxiety F41.9 Depression F32.9 COPD (chronic obstructive pulmonary disease) J44.9 AAA (abdominal aortic aneurysm) I71.4
[2023-12-03 16:27] VITALS: BP 125/67; PULSE 75
--- NOTE | 2023-12-04 06:11 | Electrocardiogram Report ---
Test Reason : Blood Pressure : / mmHG Vent. Rate : 139 BPM Atrial Rate : 139 BPM P-R Int : 170 ms QRS Dur : 090 ms QT Int : 280 ms P-R-T Axes : 000 038 076 degrees QTc Int : 426 ms Possible Supraventricular tachycardia Nonspecific ST abnormality Poor R wave progression, consider anterior VA vs. lead placement vs. LVH Abnormal ECG When compared with ECG of 23-FEB-2021 17:03, Premature ventricular complexes are no longer Present Vent. rate has increased BY 69 BPM Inverted T waves have replaced nonspecific T wave abnormality in Lateral leads Confirmed by Chip Crooks ([id number]) on 12/04/2023 6:11:34 AM Referred By: Confirmed By:Chip Crooks
== END 2023-12-03 16:59 | disposition home or self-care (01) | DRG 682 ==
LOC: SUATTDRO → ED 19:34 → INTOOBSV 23:31 → 3N 23:31 → SUATTDRO 23:31 → 3N 12-02 01:03

== ENCOUNTER 2023-12-16 13:15 | Observation (INO) ==
[2023-12-16] MEDS: SODIUM CHLORIDE 0.9% 1,000 ML IV SCH (14:02)
[2023-12-16 14:21] LABS: HCO3 VBG 33 mmol/L; Oxygen Saturation VBG < 60.0 %; PCO2 VBG 54 mmHg (38-50); PO2 VBG 30 mmHg
[2023-12-16 14:25] LABS: Basophils # (auto) 0.05 K/uL (0.00-0.20); Basophils % (auto) 0.6 %; Eosinophils # (auto) 0.38 K/uL (0.00-0.50); Eosinophils % (auto) 4.9 %; Hemoglobin 11.8 g/dl (12.0-16.0); Immature Granulocytes # (auto) 0.03 K/uL (0.01-0.20); Immature Granulocytes % (auto) 0.4 %; Lymphocytes # (auto) 1.97 K/uL (1.20-3.40); Lymphocytes % (auto) 25.4 %; Mean Corpuscular Hemoglobin 29.3 pg (25.0-34.0); Mean Corpuscular Hgb Conc 32.8 g/dL (32.0-36.0); Mean Corpuscular Volume 89.3 fL (80.0-100.0); Mean Platelet Volume 9.5 fL (9.4-12.4); Monocytes # (auto) 0.79 K/uL (0.11-0.59); Monocytes % (auto) 10.2 %; Neutrophils # (auto) 4.53 K/uL (1.40-6.50); Neutrophils % (auto) 58.5 %; Platelet Count 242 K/uL (130-400); RDW Coefficient of Variation 14.1 % (11.5-14.5); RDW Standard Deviation 46.2 fL (36.4-46.3); Red Blood Count 4.03 M/uL (4.20-5.40); White Blood Count 7.75 K/ul (4.8-10.8)
[2023-12-16 14:39] LABS: Albumin Globulin Ratio 1.4 (0.9-2); Albumin Level 3.6 gm/dl (3.4-5.0); BUN Creatinine Ratio 12.6 (10-20); Bilirubin,Total 0.3 mg/dl (0.2-1.0); Calcium 8.8 mg/dl (8.6-10.3); Creatinine Clr Calc Pharmacy 27.1 ml/min; Est GFR (African American) 56.2 ml/min; Est GFR (Non-African American) 48.5 ml/min; Globulin 2.6 gm/dl (2.5-4.0); Total Protein 6.2 gm/dl (6.0-8.3)
--- NOTE | 2023-12-16 14:40 | XRay Report ---
XR chest 1V portable HISTORY: Shortness of breath. COMPARISON: Chest 12/01/2023. FINDINGS: No pneumothorax. No pleural effusions. The cardiac silhouette remains mildly enlarged. Mild emphysema and mild interstitial thickening persists. No new focal lung consolidations to suggest a p neumonia. No evidence for pulmonary edema. IMPRESSION: Emphysema without acute process. ACT 112: Negative or not required by law. Electronically signed by: Ba Kirkland M.D. 12/16/2023 2:39 PM
[2023-12-16 14:45] LABS: Troponin I High Sensitivity 7.3 pg/ml (0-14)
[2023-12-16 14:54] LABS: Thyroid Stimulating Hormone 2.076 uIu/ml (0.300-4.500)
[2023-12-16 14:55] LABS: D Dimer 5420 ug/L FEU (0-500)
--- NOTE | 2023-12-16 15:24 | Emergency Department Note ---
Impression & Plan Dyspnea, COPD (chronic obstructive pulmonary disease), Chest pain, Fatigue ED Provider Note ED Provider Note NAME: YAMILA VO AGE:88 SEX: Female : 1935 ARRIVES VIA: INFORMANT: Daughter ED PROVIDER(s): Prerna Lazo DO CHIEF COMPLAINT: Shortness of breath, chest pain, increased weakness HPI: This is an 88-year-old female brought in by her daughter due to concern for increased shortness of breath, chest pain, and increased weakness/fatigue. Daughter states she was admitted several weeks ago with a urinary tract infection. She states she did seem to be improving and appetite was recovering at home however in the course of the last week she seemed worse again. Daughter states she seems to have increased difficulty breathing and complains of chest pressure in the mornings. Daughter notes that she sounds wheezy. She states she does give her her usual MDI/nebulizer treatments and it seems to improve for a little while and then returns. She also notes her mom's appetite has dropped off again and she seems more weak and fatigued. No recent falls. No change in medications. Patient does have a history of dementia and cannot provide much additional history. She denies any pain at this time. PAST MEDICAL HISTORY:See Below PAST SURGICAL HISTORY:See Below FAMILY HISTORY:See Below SOCIAL HISTORY:See Below HOME MEDICATIONS:See Below ALLERGIES:See Below VITALS:See Below PHYSICAL EXAMINATION: GENERAL: alert, well appearing, well nourished, no distress, non-toxic EYE EXAM: normal conjunctiva, PERRL and EOM's grossly intact OROPHARYNX: no exudate, no erythema, lips, buccal mucosa, and tongue normal and mucous membranes are dry NECK: supple, no nuchal rigidity, no adenopathy, non-tender LUNGS: Decreased bilaterally to auscultation. Normal chest wall mechanics, no w/r/r HEART: no murmurs, S1 normal and S2 normal, barrel chested ABDOMEN: abdomen soft, non-tender, normo-active bowel sounds, no masses, no rebound or guarding. BACK: Back is symmetrical on inspection and there is no deformity, no midline tenderness, no CVA tenderness. SKIN: no rashes, petechiae, orbruising UPPER EXTREMITIES: upper extremities are grossly normal. FROM, nml pulses b/l. LOWER EXTREMITIES: No pitting edema. FROM, nml pulses b/l. NEURO EXAM: Normal sensorium, cranial nerves II-XII grossly intact, normal speech, no facial droop,nogross weakness of arms, no gross weakness of legs. Gross sensation intact. No ataxia. Vital Signs: reviewed and remarkable Differential Diagnosis: pneumonia, bronchitis, COPD/Asthma exacerbation, pneumothorax, pulmonary embolism, congestive heart failure, acute coronary syndrome, as well as others were considered MEDICAL DECISION MAKING: This is an 88-year-old female who presents emerged part due to concern for increased shortness of breath and chest pain as noted by her daughter. Patient does have a history of dementia and daughter cares for her primarily. Does have a history of COPD and was recently admitted with a UTI. Patient noted to be mildly tachypneic with pursed lip breathing on initial exam although no overt hypoxia. Labs drawn and sent, IV established, EKG and CXR performed and interpreted at bedside, and patient placed on telemetry. She was given DuoNeb treatment here and started on IV fluids and IV famotidine. Patient's labs and imaging reassuring. Nasal swab obtained for viral respiratory panel which was negative also. Patient noted to have a significantly elevated D-dimer. She was sent for CT angiography of the chest additionally. This was negative for acute PE. Patient with intermittent tachypnea noted, she was given an additional DuoNeb treatment. IV Solu-Medrol given additionally. Daughters concern for her increased work of breathing and accompanying chest discomfort. Due to concern for potential COPD exacerbation, case discussed with the hospitalist team for additional evaluation and management. Consultation(s): 1739: Discussed with Dr. Torre, [place] hospitalist for additional evaluation and mgmt. ER Treatment Provided: See below Diagnostics Interpreted By Me: -ECG: Normal sinus at 69, normal axis, normal intervals, nonspecific ST/T wave changes -Cardiac Monitoring: An order was placed for continuous cardiac monitoring. The monitor shows a rate of 70 with normal sinus rhythm. -Laboratory studies: As stated above and show below. -Imaging studies: X-ray Chest: A single view study of the chest was reviewed and was negative for cardiomegaly, focal infiltrate, effusion, pulmonary edema, or wide mediastinum. Triage Nursing Note Reviewed Prior/Outside Records Reviewed -recent discharge summary reviewed Past Med/Surg History Problem List (Updated 12/16/23 @ 15:24 by Prerna Lazo DO) Fatigue (Acute) Chest pain (Acute) COPD (chronic obstructive pulmonary disease) (Acute) Dyspnea (Acute) Acute dehydration (Acute) Acute metabolic encephalopathy (Acute) Urinary tract infection Acute kidney injury (Acute) Urinary incontinence (Chronic) High cholesterol (Chronic) Alzheimers disease (Chronic) Hypertension (Chronic) Anxiety (Chronic) Aortic regurgitation (Chronic) COPD (chronic obstructive pulmonary disease) (Chronic) Hearing loss (Chronic) Mitral regurgitation (Chronic) Osteopenia (Chronic) Venous insufficiency (Chronic) Vitamin B12 deficiency (Chronic) Vitamin D deficiency (Chronic) Medical History Depression Surgical History S/P cataract surgery S/P abdominal aortic aneurysm repair Family History Denies family history of Ovarian cancer Prostate cancer Myocardial infarction Breast cancer Colorectal cancer Social History Smoking Status: Former smoker Tobacco Type: Cigarettes Age Started Using Tobacco: 20; Age Quit Using Tobacco: 70; packs per day: 1; Second Hand Exposure: No; Do You Dip or Chew Tobacco: No; Hx Alcohol Use: Yes Alcohol type: beer Alcohol Intake Frequency: Monthly or Less Hx Substance Use: No Preferred Language: [place] Communication Ability: Impaired Visual Impairment: No Limitations Hearing Ability: Normal Boiler Helper Required: No Beliefs That Will Affect Care: None marital status: / Current Living Situation: Family Current Living Situation Comment: lives with daughter 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 Safe at Home: Yes Childhood Exposure to Second-Hand Smoke: No Diet: regular Diet Comment: regular Dental Care, Regularly: No Physical Activity Frequency: Does not Exercise Seatbelt Use: always Sunscreen Use: Yes Assistive Devices: None Allergies Allergies Allergy/AdvReac Type Severity Reaction Status Date / Time donepezil Allergy Unknown CAN'T Verified 12/01/23 21:51 REMEMBER Penicillins Allergy Unknown CAN'T Verified 12/01/23 21:51 REMEMBER Home Meds Home Medications Medication Instructions Recorded Confirmed aspirin 81 mg tablet,delayed 81 mg PO DAILY 02/17/19 12/16/23 release umeclidinium 62.5 mcg/actuation 1 inh inhalation DAILY 12/01/23 12/16/23 blister powder for inhalation (Incruse Ellipta) [id number]-[id number] ac 400 1 tab PO DAILY 12/16/23 12/16/23 mcg-calcium carb 500 mg-vit K1 20 mcg tablet (Women's 50 Plus Multivitamin) Previous Rx's Medication Instructions Recorded diaper,brief,adult,disposable #120 ea 02/18/22 (Undergarment misc) atorvastatin 20 mg tablet 20 mg PO DAILY #90 tabs 03/18/23 albuterol sulfate 90 mcg/actuation 2 puff inhalation QID PRN 11/07/23 aerosol inhaler (Ventolin HFA) shortness of breath or wheezing #8.5 grams diltiazem HCl 180 mg capsule,24 180 mg PO DAILY #30 caps 11/07/23 hr,extended release lisinopril 20 1 tab PO DAILY #30 tabs 11/07/23 mg-hydrochlorothiazide 25 mg tablet cyanocobalamin (vitamin B-12) 1,000 mcg PO DAILY #90 tabs 12/03/23 1,000 mcg tablet,extended release mirtazapine 15 mg tablet (Remeron) 7.5 mg (1/2 x 15 mg) PO HS #30 tabs 12/03/23 thiamine HCl (vitamin B1) 100 mg 200 mg (2 x 100 mg) PO BID 30 days 12/03/23 tablet #120 tabs albuterol sulfate 2.5 mg/3 mL 2.5 mg (3 mL) NEB Q2H PRN 12/17/23 (0.083 %) solution for nebulization shortness of breath or wheezing 30 days #90 mL Results & Data (ED) Vital Signs Vital Signs - 24 hr 12/16/23 13:16 12/16/23 13:57 12/16/23 14:00 Temperature 36.7 C Temperature Source Temporal Artery Scan Pulse Rate 83 70 Pulse Rate [Finger] Pulse Rhythm [Finger] Pulse Strength [Finger] Respiratory Rate 18 Respiratory Effort / Characteristics Non-Labored Spontaneous Non-Labored Respiratory Depth Normal Normal Respiratory Pattern Regular Regular Blood Pressure 150/67 H Blood Pressure [Left Arm] Blood Pressure Mean 94 Blood Pressure Mean [Left Arm] Blood Pressure Position Sitting Blood Pressure Position [Left Arm] Pulse Oximetry 93 Oxygen Delivery Method Room Air Room Air Oxygen Flow Rate Sepsis Recent Fever Within 48 Hours No Sepsis New/Unexplained Change in Mental Status No Sepsis Action Taken by Nursing No Action Required 12/16/23 14:00 12/16/23 14:00 12/16/23 16:28 Temperature 36.8 C Temperature Source Oral Pulse Rate Pulse Rate [Finger] 69 94 H Pulse Rhythm [Finger] Regular Pulse Strength [Finger] Normal Normal Respiratory Rate 20 23 Respiratory Effort / Characteristics Non-Labored Non-Labored Spontaneous Respiratory Depth Normal Normal Respiratory Pattern Regular Regular Blood Pressure Blood Pressure [Left Arm] 124/64 160/71 H Blood Pressure Mean Blood Pressure Mean [Left Arm] 84 100 Blood Pressure Position Blood Pressure Position [Left Arm] Lying Pulse Oximetry 95 91 Oxygen Delivery Method Room Air Room Air Room Air Oxygen Flow Rate 95 Sepsis Recent Fever Within 48 Hours Sepsis New/Unexplained Change in Mental Status Sepsis Action Taken by Nursing 12/16/23 17:33 Temperature Temperature Source Pulse Rate Pulse Rate [Finger] 69 Pulse Rhythm [Finger] Pulse Strength [Finger] Respiratory Rate 21 Respiratory Effort / Characteristics SOB on Exertion Respiratory Depth Respiratory Pattern Blood Pressure Blood Pressure [Left Arm] 156/75 H Blood Pressure Mean Blood Pressure Mean [Left Arm] 102 Blood Pressure Position Blood Pressure Position [Left Arm] Pulse Oximetry 94 Oxygen Delivery Method Room Air Oxygen Flow Rate Sepsis Recent Fever Within 48 Hours Sepsis New/Unexplained Change in Mental Status Sepsis Action Taken by Nursing Laboratory Data 12/16/23 13:55 12/16/23 13:55 Lab Results 12/16/23 12/16/23 Range/Units 13:55 14:50 WBC 7.75 (4.8-10.8) K/ul RBC 4.03 L (4.20-5.40) M/uL Hgb 11.8 L (12.0-16.0) g/dl Hct 36.0 L (37.0-47.0) % MCV 89.3 (80.0-100.0) fL MCH 29.3 (25.0-34.0) pg MCHC 32.8 (32.0-36.0) g/dL RDW Std Deviation 46.2 (36.4-46.3) fL RDW Coeff of Steven 14.1 (11.5-14.5) % Plt Count 242 (130-400) K/uL MPV 9.5 (9.4-12.4) fL Immature Gran % (Auto) 0.4 % Neut % (Auto) 58.5 % Lymph % (Auto) 25.4 % [place] % (Auto) 10.2 % Eos % (Auto) 4.9 % Baso % (Auto) 0.6 % Neut # (Auto) 4.53 (1.40-6.50) K/uL Lymph # (Auto) 1.97 (1.20-3.40) K/uL [place] # (Auto) 0.79 H (0.11-0.59) K/uL Eos # (Auto) 0.38 (0.00-0.50) K/uL Baso # (Auto) 0.05 (0.00-0.20) K/uL Immature Gran # (Auto) 0.03 (0.01-0.20) K/uL D-Dimer 5420 H* (0-500) ug/L FEU VBG pH 7.40 (7.36-7.41) VBG pCO2 54 H (38-50) mmHg VBG pO2 30 mmHg VBG HCO3 33 mmol/L VBG O2 Saturation < 60.0 % VBG Base Excess 7.0 mEq/L Sodium 138 (136-145) mmol/L Potassium 4.0 (3.5-5.1) mmol/L Chloride 102 (98-107) mmol/L Carbon Dioxide 31 (21-32) mmol/L Anion Gap 5 (3-11) BUN 13 (6-23) mg/dl Creatinine 1.03 (0.6-1.2) mg/dl Est Cr Clr Drug Dosing 27.1 ml/min Est GFR ( Amer) 56.2 ml/min Est GFR (Non-Af Amer) 48.5 ml/min BUN/Creatinine Ratio 12.6 (10-20) Glucose 110 H (70-99(Fasting)) mg/dl Calcium 8.8 (8.6-10.3) mg/dl Magnesium 2.0 (1.7-2.4) mg/dl Total Bilirubin 0.3 (0.2-1.0) mg/dl AST 20 (13-39) U/L ALT 14 (7-52) U/L Alkaline Phosphatase 93 (34-104) U/L Troponin I High Sens 7.3 (0-14) pg/ml B-Natriuretic Peptide 107 H (0-100) pg/ml Total Protein 6.2 (6.0-8.3) gm/dl Albumin 3.6 (3.4-5.0) gm/dl Globulin 2.6 (2.5-4.0) gm/dl Albumin/Globulin Ratio 1.4 (0.9-2) Lipase 33 (11-82) U/L TSH 2.076 (0.300-4.500) uIu/ml Adenovirus (PCR) Not Detected (NotDetected) B. pertussis DNA (PCR) Not Detected (NotDetected) B.parapertussis DNA PCR Not Detected (NotDetected) C. pneumoniae DNA (PCR) Not Detected (NotDetected) Coronavirus OC43 (PCR) Not Detected (NotDetected) Coronavirus HKU1 (PCR) Not Detected (NotDetected) Coronavirus 229E (PCR) Not Detected (NotDetected) SARS-CoV-2 (PCR) Not Detected (NotDetected) Coronavirus NL63 (PCR) Not Detected (NotDetected) Human Metapneumovir PCR Not Detected (NotDetected) Influenza Type A (PCR) Not Detected (NotDetected) Influenza Type B (PCR) Not Detected (NotDetected) M. pneumoniae (PCR) Not Detected (NotDetected) Parainfluenza 1 (PCR) Not Detected (NotDetected) Parainfluenza 2 (PCR) Not Detected (NotDetected) Parainfluenza 3 (PCR) Not Detected (NotDetected) Parainfluenza 4 (PCR) Not Detected (NotDetected) RSV (PCR) Not Detected (NotDetected) Entero/Rhino (PCR) Not Detected (NotDetected) Administered Medications Discontinued Medications Albuterol (Albut/Ipratrop 3mg/0.5mg Neb 3 Ml Vial) 3 ml NEB NOW STA; Protocol Stop: 12/16/23 16:50 Last Admin: 12/16/23 16:55 Dose: 3 ml Documented By: GGG Albuterol (Albut/Ipratrop 3mg/0.5mg Neb 3 Ml Vial) 3 ml NEB NOW STA; Protocol Stop: 12/16/23 17:24 Last Admin: 12/16/23 17:31 Dose: 3 ml Documented By: ELAINE Albuterol (Albut/Ipratrop 3mg/0.5mg Neb 3 Ml Vial) 3 ml NEB Q6R MORIAH; Protocol Stop: 01/15/24 18:59 Last Admin: 12/17/23 13:22 Dose: 3 ml Documented By: Admin: 12/17/23 07:31 Dose: 3 ml Documented By: Admin: 12/17/23 00:33 Dose: Not Given Documented By: Admin: 12/16/23 19:32 Dose: 3 ml Documented By: ELAINE Sodium Chloride (Nss) 1,000 mls @ 125 mls/hr IV .Q8H MORIAH Stop: 01/15/24 13:59 Last Infusion: 12/16/23 20:36 Dose: Infused Documented By: Admin: 12/16/23 14:02 Dose: 125 mls/hr Documented By: FLOR Famotidine (Pepcid 20mg Iv Push) 20 mg in 5 mls @ 2.5 mls/min IV NOW STA Stop: 12/16/23 17:24 Last Admin: 12/16/23 17:31 Dose: 2.5 mls/min Documented By: ELAINE Ioversol (Optiray 320 125ml) 119 ml IV ONCE ONE Stop: 12/16/23 16:20 Last Admin: 12/16/23 16:20 Dose: 119 ml Documented By: LASHAY Methylprednisolone (Methylprednisolone 125 Mg/2 Ml Vial) 60 mg IV NOW STA Stop: 12/16/23 17:24 Last Admin: 12/16/23 17:31 Dose: 60 mg Documented By: ELAINE Imaging Data Radiologist's Impression: Chest X-Ray 12/16/23 13:51 XR chest 1V portable HISTORY: Shortness of breath. COMPARISON: Chest 12/01/2023. FINDINGS: No pneumothorax. No pleural effusions. The cardiac silhouette remains mildly enlarged. Mild emphysema and mild interstitial thickening persists. No new focal lung consolidations to suggest a pneumonia. No evidence for pulmonary edema. IMPRESSION: Emphysema without acute process. ACT 112: Negative or not required by law. Electronically signed by: Ba Kirkland M.D. 12/16/2023 2:39 PM Chest CTA 12/16/23 15:11 CHEST CTA for PULMONARY ARTERIES CT DOSE: 317.26 mGy.cm HISTORY: Difficulty breathing. TECHNIQUE: Multiaxial CT images of the chest were performed following the intravenous administration of contrast to evaluate the pulmonary arteries. 3D/Maximal intensity projection images were also obtained. Sagittal and coronal reformations were also reviewed. A dose lowering technique was utilized adhering to the principles of ALARA. COMPARISON STUDY: Chest CTA 02/23/2021. FINDINGS: Moderate calcified plaque within the normal caliber thoracic aorta. No evidence for an aortic dissection. The heart is top normal in size. There is a small fat-containing right-sided Bochdalek hernia. No pleural or pericardial effusions. Limited views of the upper abdomen demonstrate a normal liver, spleen, and adrenal glands. Normal esophagus. Normal thyroid gland. No mediastinal or hilar lymphadenopathy. No acute fractures within the chest. Suboptimal evaluation of the bilateral lower lobe segmental pulmonary arteries due to the respiratory motion artifact. Otherwise, no filling defects within the pulmonary arteries to suggest a pulmonary embolus. No pneumothorax. The central airways are patent. Mild biapical pleural-parenchymal scarlike densities persist. Moderate to severe emphysema again noted. No focal lung consolidations to suggest a pneumonia. No evidence for pulmonary edema. IMPRESSION: 1. No evidence for a pulmonary embolus with limitations as described above. 2. Moderate to severe emphysema. 3. No focal lung consolidations to suggest a pneumonia. ACT 112: Negative or not required by law. Electronically signed by: Ba Kirkland M.D. 12/16/2023 4:58 PM Discharge Plan Visit Data Chief Complaint: Shortness of Breath/Dyspnea Stated Complaint: SOB, CHEST PAIN/PRESSURE ED Provider: Prerna Lazo Discharge Problem: Dyspnea, COPD (chronic obstructive pulmonary disease), Chest pain, Fatigue Patient Disposition: Admitted As Inpatient Discharge Instructions Interventions: ED Discharge Assessment Last Done: 12/16/23 20:20
--- NOTE | 2023-12-16 15:30 | Electrocardiogram Report ---
Test Reason : Blood Pressure : */* mmHG Vent. Rate : 69 BPM Atrial Rate : 69 BPM P-R Int : 148 ms QRS Dur : 84 ms QT Int : 410 ms P-R-T Axes : 47 47 71 degrees QTcB Int : 439 ms Normal sinus rhythm Septal infarct (cited on or before 01-Dec-2023) Abnormal ECG When compared with ECG of 01-Dec-2023 19:53, Significant changes have occurred Confirmed by Abner Arcos ([id number]) on 12/16/2023 3:30:03 PM Referred By: REFERRED SELF Confirmed By: Abner Arcos
[2023-12-16 15:50] LABS: Adenovirus PCR Not Detected (NotDetected); Bordetella parapertussis PCR Not Detected (NotDetected); Bordetella pertussis PCR Not Detected (NotDetected); Chlamydia pneumoniae PCR Not Detected (NotDetected); Coronavirus 229E PCR Not Detected (NotDetected); Coronavirus CoV-2 (COVID19)PCR Not Detected (NotDetected); Coronavirus HKU1 PCR Not Detected (NotDetected); Coronavirus NL63 PCR Not Detected (NotDetected); Coronavirus OC43PCR Not Detected (NotDetected); Human Metapneumovirus PCR Not Detected (NotDetected); Influenza A PCR Not Detected (NotDetected); Influenza B PCR Not Detected (NotDetected); Mycoplasma pneumoniae PCR Not Detected (NotDetected); Parainfluenza Virus 1 PCR Not Detected (NotDetected); Parainfluenza Virus 2 PCR Not Detected (NotDetected); Parainfluenza Virus 3 PCR Not Detected (NotDetected); Parainfluenza Virus 4 PCR Not Detected (NotDetected); Respiratory Syncytial VirusPCR Not Detected (NotDetected); Rhinovirus/Enterovirus PCR Not Detected (NotDetected)
[2023-12-16] MEDS: OPTIRAY 320 125ml IV ONE (16:20)
[2023-12-16] MEDS: ALBUT/IPRATROP 3MG/0.5MG NEB 3 ML VIAL NEB STA ×2 (16:55→17:31)
--- NOTE | 2023-12-16 16:59 | CT Scan Report ---
CHEST CTA for PULMONARY ARTERIES CT DOSE: 317.26 mGy.cm HISTORY: Difficulty breathing. TECHNIQUE: Multiaxial CT images of the chest were performed following the intravenous administration of contrast to evaluate the pulmonary arteries. 3D/Maximal intensity projection images were also obta ined. Sagittal and coronal reformations were also reviewed. A dose lowering technique was utilized a dhering to the principles of ALARA. COMPARISON STUDY: Chest CTA 02/23/2021. FINDINGS: Moderate calcified plaque within the normal caliber thoracic aorta. No evidence for an aort ic dissection. The heart is top normal in size. There is a small fat-containing right-sided Bochdalek hernia. No pleural or pericardial effusions. Limited views of the upper abdomen demonstrate a normal liver, spleen, and adrenal glands. Normal esophagus. Normal thyroid gland. No mediastinal or hilar l ymphadenopathy. No acute fractures within the chest. Suboptimal evaluation of the bilateral lower lob e segmental pulmonary arteries due to the respiratory motion artifact. Otherwise, no filling defects within the pulmonary arteries to suggest a pulmonary embolus. No pneumothorax. The central airways ar e patent. Mild biapical pleural-parenchymal scarlike densities persist. Moderate to severe emphysema again noted. No focal lung consolidations to suggest a pneumonia. No evidence for pulmonary edema. IMPRESSION: 1. No evidence for a pulmonary embolus with limitations as described above. 2. Moderate to severe emphysema. 3. No focal lung consolidations to suggest a pneumonia. ACT 112: Negative or not required by law. Electronically signed by: Ba Kirkland M.D. 12/16/2023 4:58 PM
[2023-12-16] MEDS: methylPREDNISolone 125 MG/2 ML VIAL IV STA (17:31)
[2023-12-16] MEDS: FAMOTIDINE 20MG IV PUSH 20 MG/5 ML SYR IV STA (17:31)
[2023-12-16] MEDS ORDERED: ALBUTEROL 0.083% NEBU SOLN 3 ML VIAL NEB PRN (17:59)
[2023-12-16] MEDS ORDERED: ACETAMINOPHEN 325 MG TAB PO PRN (18:02)
--- NOTE | 2023-12-16 18:14 | History & Physical Report ---
Date of Service December 16, 2023 Assessment & Plan (1) COPD (chronic obstructive pulmonary disease): Plan: Assessment: 1. Reported chest pain. Troponin negative. EKG reassuring. Will do serial troponins. Check an echocardiogram. 2. Reported shortness of breath. Reassuring CTA of the chest. COVID test negative. Positive emphysema on CTA. Possible mild acute exacerbation of COPD. However she has been anywhere from 93 to 100% on room air during her entire stay. She already had a dose of Solu-Medrol 60 mg. I will give no more steroids currently. I will order nebulizers. She does not have a nebulizer machine at home. This may be of benefit at home given her advanced emphysema on imaging. The patient's daughter states she has "puffers" but she is unsure if they are in date and working appropriately. 3. Ex tobacco abuse in the form of smoking she quit some 20 years ago. 4. Recent admission for acute kidney injury urinary tract infection. This was approximately 2 weeks ago. This seems to be resolved. Renal function normal today. 5. Hypertension. 6. Anxiety. 7. Depression. 8. Alzheimer's dementia appears to be advancing. 9. Debility. Patient's daughter states she is weak. She has a walker at home but forgets to use it. Typically uses furniture. She does have some bruising on the extensor surfaces as discussed above with consulted PT for further evaluation. We have ordered falls precautions. Plan: As discussed above. Please refer to orders for further planning History of Present Illness Chief Complaint: Shortness of breath, chest pain. Primary Care Provider: Adrianne Ludwig MD This is a pleasant 88-year-old female lives at home with her daughter. The lester ent has advancing Alzheimer's dementia. Patient was brought in by the daughter today with concern for chest pain and shortness of breath over the last 2 days. Patient's daughter states that when she gets up in the morning the patient complains of chest pain and shortness of breath which improves gradually through the day. Upon presentation emergency department the patient's vital signs were stable including 95% pulse ox on room air. Laboratory studies showed a grossly abnormal D-dimer. The patient underwent a CTA of the chest. This was negative for PE negative for pneumonia but positive for advanced emphysema. Laboratory studies were otherwise unremarkable. EKG showed a normal sinus rhythm with no acute ST-T abnormalities. Patient's course Emergency Department she received multiple rounds of nebulizer treatments. Her pulse ox was never below 93%. She has been on room air. She received 60 mg of IV Solu-Medrol. We are called with the patient further evaluation and treatment for her shortness of breath and chest discomfort thought to be related to acute exacerbation of COPD. Allergies Allergy/AdvReac Type Severity Reaction Status Date / Time donepezil Allergy Unknown CAN'T Verified 12/01/23 21:51 REMEMBER Penicillins Allergy Unknown CAN'T Verified 12/01/23 21:51 REMEMBER Home Medications Medication Instructions Recorded Confirmed Type aspirin 81 mg tablet,delayed 81 mg PO DAILY 02/17/19 12/01/23 History release diaper,brief,adult,disposable #120 ea 02/18/22 11/07/23 Rx (Undergarment misc) atorvastatin 20 mg tablet 20 mg PO DAILY #90 tabs 03/18/23 12/01/23 Rx albuterol sulfate 90 mcg/actuation 2 puff inhalation QID PRN 11/07/23 12/01/23 Rx aerosol inhaler (Ventolin HFA) shortness of breath or wheezing #8.5 grams diltiazem HCl 180 mg capsule,24 180 mg PO DAILY #30 caps 11/07/23 12/01/23 Rx hr,extended release lisinopril 20 1 tab PO DAILY #30 tabs 11/07/23 12/01/23 Rx mg-hydrochlorothiazide 25 mg tablet umeclidinium 62.5 mcg/actuation 1 inh inhalation DAILY 12/01/23 12/01/23 History blister powder for inhalation (Incruse Ellipta) cyanocobalamin (vitamin B-12) 1,000 mcg PO DAILY #90 tabs 12/03/23 Rx 1,000 mcg tablet,extended release mirtazapine 15 mg tablet (Remeron) 7.5 mg (1/2 x 15 mg) PO HS #30 tabs 12/03/23 Rx thiamine HCl (vitamin B1) 100 mg 200 mg (2 x 100 mg) PO BID 30 days 12/03/23 Rx tablet #120 tabs Past Med/Surg History Problem List (Updated 12/16/23 @ 15:24 by Prerna Lazo DO) Fatigue (Acute) Chest pain (Acute) COPD (chronic obstructive pulmonary disease) (Acute) Dyspnea (Acute) Acute dehydration (Acute) Acute metabolic encephalopathy (Acute) Urinary tract infection Acute kidney injury (Acute) Urinary incontinence (Chronic) High cholesterol (Chronic) Alzheimers disease (Chronic) Hypertension (Chronic) Anxiety (Chronic) Aortic regurgitation (Chronic) COPD (chronic obstructive pulmonary disease) (Chronic) Hearing loss (Chronic) Mitral regurgitation (Chronic) Osteopenia (Chronic) Venous insufficiency (Chronic) Vitamin B12 deficiency (Chronic) Vitamin D deficiency (Chronic) Medical History Depression Surgical History S/P cataract surgery S/P abdominal aortic aneurysm repair Family History Denies family history of Ovarian cancer Prostate cancer Myocardial infarction Breast cancer Colorectal cancer Social History Smoking Status: Former smoker Tobacco Type: Cigarettes Age Started Using Tobacco: 20; Age Quit Using Tobacco: 70; packs per day: 1; Second Hand Exposure: No; Do You Dip or Chew Tobacco: No; Hx Alcohol Use: Yes Alcohol type: beer Alcohol Intake Frequency: Monthly or Less Hx Substance Use: No Preferred Language: Citizen Of [place] Communication Ability: Impaired Visual Impairment: No Limitations Hearing Ability: Normal 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 Beliefs That Will Affect Care: None marital status: / Current Living Situation: Family Current Living Situation Comment: lives with daughter 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 Physical Exam Physical Exam: In General: In general pleasant 88-year-old female who is alert and oriented to person. This appears to be her baseline. She is accompanied by her daughter at the bedside. She is talking in complete sentences. She is actually 100% on room air currently. She is not tachypneic. She is resting flat and comfortable. HEENT: Normocephalic atraumatic pupils are equal round and reactive to light bilaterally. No scleral icterus no conjunctival injection external auditory canals are patent septum is in the midline nose is without discharge oral mucosa is pink and moist without lesion. NECK: Supple no rigidity no lymphadenopathy no thyromegaly no carotid bruits no JVD no masses. HEART: Regular rate and rhythm I do not appreciate any ectopy or rub. There is a faint 2/6 systolic ejection murmur at the right sternal border. LUNGS: Patient has scattered expiratory wheezes. She is moving air in all lung rm however. No rales. No rhonchi. ABDOMEN: Soft nontender, no rebound, no peritoneal signs, positive bowel sounds, no appreciable organomegaly. EXTREMITIES: Intact, no peripheral cyanosis, clubbing or edema. Strength is 5 out of 5 in extremities x4. She does have some bruising of the bilateral extensor surfaces of the shins. NEUROLOGICAL: Cranial nerves II through XII are grossly intact with no focal deficit elicited upon examination. Results & Data Results & Data Vital Signs (Past 12 Hours) Vital Signs Temp Pulse Pulse Resp BP BP Pulse Ox 12/16/23 17:56 82 12/16/23 17:33 69 21 156/75 H 94 12/16/23 16:28 36.8 C 94 H 23 160/71 H 91 12/16/23 14:00 69 20 124/64 95 12/16/23 14:00 12/16/23 14:00 12/16/23 13:57 70 12/16/23 13:16 36.7 C 83 18 150/67 H 93 O2 Del Method O2 Flow Rate 12/16/23 17:56 12/16/23 17:33 Room Air 12/16/23 16:28 Room Air 12/16/23 14:00 Room Air 12/16/23 14:00 Room Air 95 12/16/23 14:00 Room Air 12/16/23 13:57 12/16/23 13:16 Room Air Code Status & VTE Plan Code Status Full code. I personally discussed with patient and daughter at the bedside. VTE Prophylaxis Plan VTE Prophylaxis will be ordered: Yes PG Care Time/CCT Total # of Minutes Spent Total Time Spent with Patient: Total time spent is greater than 50% in coordination of care (as documented) at patient's floor/unit and/or counseling patient: Coding Level of Care Code 10203 INT INP/OBS CARE Diagnoses COPD (chronic obstructive pulmonary disease) J44.9
[2023-12-16] MEDS: ALBUT/IPRATROP 3MG/0.5MG NEB 3 ML VIAL NEB SCH (19:32)
--- NOTE | 2023-12-17 08:59 | XCELERA ---
[id number]
[2023-12-17 12:55] VITALS: BP 128/73; TEMP 97.9
[2023-12-17 13:23] VITALS: RESP 16; O2SAT 95
[2023-12-17 14:55] VITALS: PULSE 100
--- NOTE | 2023-12-17 15:14 | Discharge Summary ---
Date of Service December 17, 2023 Admission HPI Per Admitting Provider This is a pleasant 88-year-old female lives at home with her daughter. The patient has advancing Alzheimer's dementia. Patient was brought in by the daughter today with concern for chest pain and shortness of breath over the last 2 days. Patient's daughter states that when she gets up in the morning the patient complains of chest pain and shortness of breath which improves gradually through the day. Upon presentation emergency department the patient's vital signs were stable including 95% pulse ox on room air. Laboratory studies showed a grossly abnormal D-dimer. The patient underwent a CTA of the chest. This was negative for PE negative for pneumonia but positive for advanced emphysema. Laboratory studies were otherwise unremarkable. EKG showed a normal sinus rhythm with no acute ST-T abnormalities. Patient's course Emergency Department she received multiple rounds of nebulizer treatments. Her pulse ox was never below 93%. She has been on room air. She received 60 mg of IV Solu-Medrol. We are called with the patient further evaluation and treatment for her shortness of breath and chest discomfort thought to be related to acute exacerbation of COPD. Principal Diagnosis SOB chest pain Discharge Exam General: patient resting comfortably, NAD, non-toxic in appearance, answers questions appropriately. Skin: warm, dry, intact HEENT: NC/AT, anicteric sclera, conjunctiva without injection, moist mucus membranes. Heart: +S1/S2, regular, no m/r/g Lungs: equal air entry bilaterally, no rales/rhonchi/wheezes Abd: +BS, soft, NT/ND Ext: warm, no clubbing/cyanosis or edema Neuro: nonfocal, speech intact, no facial droop, moving all extremities. Discharge Data Allergies Allergy/AdvReac Type Severity Reaction Status Date / Time donepezil Allergy Unknown CAN'T Verified 12/01/23 21:51 REMEMBER Penicillins Allergy Unknown CAN'T Verified 12/01/23 21:51 REMEMBER Consultations 12/16/23 17:30 ED Decision to Admit Stat Ordered Studies 12/16/23 15:11 CT angio chest PE protocol Stat Laboratory Results WBC 7.75 K/ul (4.8-10.8) 12/16/23 13:55 RBC 4.03 M/uL (4.20-5.40) L 12/16/23 13:55 Hgb 11.8 g/dl (12.0-16.0) L 12/16/23 13:55 Hct 36.0 % (37.0-47.0) L 12/16/23 13: MCV 89.3 fL (80.0-100.0) 12/16/23 13: MCH 29.3 pg (25.0-34.0) 12/16/23 13: MCHC 32.8 g/dL (32.0-36.0) 12/16/23 13: RDW Std Deviation 46.2 fL (36.4-46.3) 12/16/23 13: RDW Coeff of Steven 14.1 % (11.5-14.5) 12/16/23 13: Plt Count 242 K/uL (130-400) 12/16/23 13: MPV 9.5 fL (9.4-12.4) 12/16/23 13: Immature Gran % (Auto) 0.4 % 12/16/23 13:55 Neut % (Auto) 58.5 % 12/16/23 13:55 Lymph % (Auto) 25.4 % 12/16/23 13:55 [place] % (Auto) 10.2 % 12/16/23 13:55 Eos % (Auto) 4.9 % 12/16/23 13: Baso % (Auto) 0.6 % 12/16/23 13:55 Neut # (Auto) 4.53 K/uL (1.40-6.50) 12/16/23 13:55 Lymph # (Auto) 1.97 K/uL (1.20-3.40) 12/16/23 13:55 [place] # (Auto) 0.79 K/uL (0.11-0.59) H 12/16/23 13:55 Eos # (Auto) 0.38 K/uL (0.00-0.50) 12/16/23 13: Baso # (Auto) 0.05 K/uL (0.00-0.20) 12/16/23 13: Immature Gran # (Auto) 0.03 K/uL (0.01-0.20) 12/16/23 13: D-Dimer 5420 ug/L FEU (0-500) H* 12/16/23 13:55 VBG pH 7.40 (7.36-7.41) 12/16/23 13:55 VBG pCO2 54 mmHg (38-50) H 12/16/23 13:55 VBG pO2 30 mmHg 12/16/23 13:55 VBG HCO3 33 mmol/L 12/16/23 13:55 VBG O2 Saturation < 60.0 % 12/16/23 13:55 VBG Base Excess 7.0 mEq/L 12/16/23 13:55 Sodium 138 mmol/L (136-145) 12/16/23 13:55 Potassium 4.0 mmol/L (3.5-5.1) 12/16/23 13:55 Chloride 102 mmol/L (98-107) 12/16/23 13:55 Carbon Dioxide 31 mmol/L (21-32) 12/16/23 13:55 Anion Gap 5 (3-11) 12/16/23 13:55 BUN 13 mg/dl (6-23) 12/16/23 13:55 Creatinine 1.03 mg/dl (0.6-1.2) 12/16/23 13:55 Est Cr Clr Drug Dosing 27.1 ml/min 12/16/23 13:55 Est GFR ( Amer) 56.2 ml/min 12/16/23 13:55 Est GFR (Non-Af Amer) 48.5 ml/min 12/16/23 13:55 BUN/Creatinine Ratio 12.6 (10-20) 12/16/23 13:55 Glucose 110 mg/dl (70-99(Fasting)) H 12/16/23 13:55 Calcium 8.8 mg/dl (8.6-10.3) 12/16/23 13:55 Magnesium 2.0 mg/dl (1.7-2.4) 12/16/23 13:55 Total Bilirubin 0.3 mg/dl (0.2-1.0) 12/16/23 13:55 AST 20 U/L (13-39) 12/16/23 13:55 ALT 14 U/L (7-52) 12/16/23 13:55 Alkaline Phosphatase 93 U/L (34-104) 12/16/23 13:55 Troponin I High Sens 6.8 pg/ml (0-14) 12/16/23 21:19 B-Natriuretic Peptide 107 pg/ml (0-100) H 12/16/23 13:55 Total Protein 6.2 gm/dl (6.0-8.3) 12/16/23 13:55 Albumin 3.6 gm/dl (3.4-5.0) 12/16/23 13:55 Globulin 2.6 gm/dl (2.5-4.0) 12/16/23 13:55 Albumin/Globulin Ratio 1.4 (0.9-2) 12/16/23 13:55 Lipase 33 U/L (11-82) 12/16/23 13:55 TSH 2.076 uIu/ml (0.300-4.500) 12/16/23 13:55 Adenovirus (PCR) Not Detected (NotDetected) 12/16/23 14:50 B. pertussis DNA (PCR) Not Detected (NotDetected) 12/16/23 14:50 B.parapertussis DNA PCR Not Detected (NotDetected) 12/16/23 14:50 C. pneumoniae DNA (PCR) Not Detected (NotDetected) 12/16/23 14:50 Coronavirus OC43 (PCR) Not Detected (NotDetected) 12/16/23 14:50 Coronavirus HKU1 (PCR) Not Detected (NotDetected) 12/16/23 14:50 Coronavirus 229E (PCR) Not Detected (NotDetected) 12/16/23 14:50 SARS-CoV-2 (PCR) Not Detected (NotDetected) 12/16/23 14:50 Coronavirus NL63 (PCR) Not Detected (NotDetected) 12/16/23 14:50 Human Metapneumovir PCR Not Detected (NotDetected) 12/16/23 14:50 Influenza Type A (PCR) Not Detected (NotDetected) 12/16/23 14:50 Influenza Type B (PCR) Not Detected (NotDetected) 12/16/23 14:50 M. pneumoniae (PCR) Not Detected (NotDetected) 12/16/23 14:50 Parainfluenza 1 (PCR) Not Detected (NotDetected) 12/16/23 14:50 Parainfluenza 2 (PCR) Not Detected (NotDetected) 12/16/23 14:50 Parainfluenza 3 (PCR) Not Detected (NotDetected) 12/16/23 14:50 Parainfluenza 4 (PCR) Not Detected (NotDetected) 12/16/23 14:50 RSV (PCR) Not Detected (NotDetected) 12/16/23 14:50 Entero/Rhino (PCR) Not Detected (NotDetected) 12/16/23 14:50 Impressions Chest X-Ray 12/16/23 13:51 XR chest 1V portable HISTORY: Shortness of breath. COMPARISON: Chest 12/01/2023. FINDINGS: No pneumothorax. No pleural effusions. The cardiac silhouette remains mildly enlarged. Mild emphysema and mild interstitial thickening persists. No new focal lung consolidations to suggest a pneumonia. No evidence for pulmonary edema. IMPRESSION: Emphysema without acute process. ACT 112: Negative or not required by law. Electronically signed by: Ba Kirkland M.D. 12/16/2023 2:39 PM Chest CTA 12/16/23 15:11 CHEST CTA for PULMONARY ARTERIES CT DOSE: 317.26 mGy.cm HISTORY: Difficulty breathing. TECHNIQUE: Multiaxial CT images of the chest were performed following the intravenous administration of contrast to evaluate the pulmonary arteries. 3D/ Maximal intensity projection images were also obtained. Sagittal and coronal reformations were also reviewed. A dose lowering technique was utilized adhering to the principles of ALARA. COMPARISON STUDY: Chest CTA 02/23/2021. FINDINGS: Moderate calcified plaque within the normal caliber thoracic aorta. No evidence for an aortic dissection. The heart is top normal in size. There is a small fat-containing right-sided Bochdalek hernia. No pleural or pericardial effusions. Limited views of the upper abdomen demonstrate a normal liver, spleen, and adrenal glands. Normal esophagus. Normal thyroid gland. No mediastinal or hilar lymphadenopathy. No acute fractures within the chest. Suboptimal evaluation of the bilateral lower lobe segmental pulmonary arteries due to the respiratory motion artifact. Otherwise, no filling defects within the pulmonary arteries to suggest a pulmonary embolus. No pneumothorax. The central airways are patent. Mild biapical pleural-parenchymal scarlike densities persist. Moderate to severe emphysema again noted. No focal lung consolidations to suggest a pneumonia. No evidence for pulmonary edema. IMPRESSION: 1. No evidence for a pulmonary embolus with limitations as described above. 2. Moderate to severe emphysema. 3. No focal lung consolidations to suggest a pneumonia. ACT 112: Negative or not required by law. Electronically signed by: Ba Kirkland M.D. 12/16/2023 4:58 PM Hospital Course (1) COPD (chronic obstructive pulmonary disease): - Patient reported SOB on admit - COVID negative, CTA of chest clear of PE/Pneumonia, but showed emphysema - Patient remained 93-100% on RA for her entire stay - nebulizers and machine will be ordered for maintenance of oxygenation and breathing at home - Albuterol/Ipratropium (3mg/0.5mg) and Albuterol 0.083% used during stay - Will resume patients inhaler and added Rx for Albuterol sulfate 2.5 mg NEB Q2H PRN (2) Chest pain: - Patient reported chest pain - Troponins negative, EKG reassuring, echocardiogram pending (3) Fatigue: - Patient's daughter states she is weak, uses walker at home, but irregularly - Consulted PT recommended home with home health services - Daughter is considering home pt/ot Total Time Total Time Spent Total Time Spent (In Minutes): <30 Discharge Plan Discharge Items Patient Disposition: Home - Self-Care Reason For Visit: SOB/C\P Discharge Diagnosis: COPD Activity: Per Instructions section Non-emergency contact: Primary Care Provider Call non-emergency contact if: you have any medication questions and your symptoms worsen Follow-up/Referrals: Adrianne Ludwig MD [Primary Care Provider] - 12/22/23 3:00 pm Diet: Regular Addtl Attending Provider Instructions: You were admitted with increased shortness of breath, which we believe was secondary to your COPD. We would like you to continue to use your daily inhaler. For your rescue medication to be used with increased shortness of breath/wheezing you are currently an albuterol inhaler. We are going to work to get a nebulizer set up, to be used in place of the inhaler to ensure that you are getting maximum benefit from the albuterol. The solution will be sent to the pharmacy. We will work to send the nebulizer though DME. Pending Studies at Discharge: No Stand-Alone Forms: My [facility] Next audience, Smoking Cessation Medications and DC Order Prescriptions: New albuterol sulfate 2.5 mg /3 mL (0.083 %) Solution For Nebulization 2.5 mg NEB Q2H PRN (Reason: shortness of breath or wheezing) 30 Days Qty: 90 0RF Continued atorvastatin 20 mg tablet 20 mg PO DAILY Qty: 90 3RF aspirin 81 mg tablet,delayed release (DR/EC) 81 mg PO DAILY (DME) Undergarment Misc See Rx Instructions .Route Qty: 120 5RF Rx Instructions: As directed-R32 diltiazem HCl 180 mg capsule,extended release 24 hr 180 mg PO DAILY Qty: 30 5RF lisinopril-hydrochlorothiazide 20-25 mg tablet 1 tab PO DAILY Qty: 30 2RF Hold Instructions: hold unless Dr Ludwig asks you to resume Women's 50 Plus Multivitamin 400 mcg-500 mg calcium-20 mcg Tablet 1 tab PO DAILY Incruse Ellipta 62.5 mcg/actuation blister with device 1 inh inhalation DAILY Rx Instructions: Inhale 1 puff by mouth once daily thiamine HCl (vitamin B1) 100 mg Tablet 200 mg PO BID 30 Days Qty: 120 0RF cyanocobalamin (vitamin B-12) 1,000 mcg tablet extended release 1,000 mcg PO DAILY Qty: 90 1RF Rx Instructions: take for 6 months; purchase [id number] mirtazapine [Remeron] 15 mg tablet 7.5 mg PO HS Qty: 30 2RF Rx Instructions: has not started this script yet Held albuterol sulfate [Ventolin HFA] 90 mcg/actuation HFA aerosol inhaler 2 puff inhalation QID PRN (Reason: shortness of breath or wheezing) Qty: 8.5 3RF Hold Instructions: Hold while use albuterol nebulizer Discharge Orders: Discharge Order (Routine); Ordered 12/17/23 Ordered By: Bethany Louise Admission Data Admit Date/Time: 12/16/23 18:03 Attending Provider: Brandon Mahoney Admit Provider: Kyle Torre Primary Care Provider: Adrianne Ludwig Other Providers: Kyle Torre Other Interventions: Discharge Summary Assessment (RN) Last Done: 12/17/23 14:54 Supervising Physician Co-Signing Physician Notes I personally examined the patient and verified all arceo points of history and exam, discussed case, and agree with decision making with Dr Tai Symptoms seem to have resolved. Daughter present updated to the best of my ability. Vitals noted, in general she is awake and appears to be in no distress. Breathing unlabored no accessory muscle use good effort. Skin without rashes pallor or icterus. Neuro without focal deficits. Chest painresolved. No MD. Agree with admitting physician that COPD pathophysiology could have been at play. Echocardiogram noted after dischargeaortic stenosis has progressed over the last 2+ years to moderatebut given her symptoms I really doubt the chest pain was valve driven. If not related to COPD, her daughter that she normally lives with notes that the patient was living with her other daughter for a few days and her other daughter seems to push the patient more to exercise and be outsideit is possible it was simply stress from a change of environment and much more exertion. Either way stable for home. Entertaining the thought that she may not be using her albuterol inhaler effectively due to lack of coordinationgive trial the nebulizer. Otherwise outpatient follow-up. Resident Activity Tracking Resident Involvement: Resident Care Provided Care Provided: Adult Hospital Medicine
--- NOTE | 2023-12-17 17:44 | Billing Data ---
Date of Service December 17, 2023 Coding Level of Care Code 69715 IN/OBS DISCH 30 MIN/LESS
== END 2023-12-17 15:40 | disposition home or self-care (01) | DRG 191 ==
LOC: ED 13:15 → 3W 18:03 → SUATTDRO 18:03 → INTOOBSV 18:03 → 3W 20:20

== ENCOUNTER 2024-11-27 18:11 | Inpatient (IN) ==
[2024-11-27 18:40] LABS: Hematocrit (blood only) 39.6 % (37.0-47.0); Hemoglobin 14.1 g/dl (12.0-16.0); Immature Granulocytes # (auto) 0.08 K/uL (0.01-0.20); Immature Granulocytes % (auto) 0.5 %; Mean Corpuscular Hemoglobin 30.2 pg (25.0-34.0); Mean Corpuscular Volume 84.8 fL (80.0-100.0); Platelet Count 383 K/uL (130-400); RDW Standard Deviation 40.4 fL (36.4-46.3); Red Blood Count 4.67 M/uL (4.20-5.40); White Blood Count 15.50 K/ul (4.8-10.8)
[2024-11-27] MEDS: ACETAMINOPHEN 1,000 MG/100 ML VIAL IV STA (18:41)
[2024-11-27] MEDS: SODIUM CHLORIDE 0.9% 500 ML IV ONE (18:42)
[2024-11-27 19:06] LABS: INR 1.0 (0.9-1.1); Prothrombin Time 10.7 Seconds (9.0-12.0)
[2024-11-27 19:26] LABS: Sodium 119.0 mmol/L (136-145)
[2024-11-27 19:27] LABS: Alanine Aminotransferase 19.0 U/L (7-52); Albumin Globulin Ratio 1.3 (0.9-2); Alkaline Phosphatase 120.0 U/L (34-104); Anion Gap 13.0 (3-11); Bilirubin,Total 1.0 mg/dl (0.2-1.0); Blood Urea Nitrogen 46.0 mg/dl (6-23); Calcium 8.7 mg/dl (8.6-10.3); Carbon Dioxide 25.0 mmol/L (21-32); Chloride 81.0 mmol/L (98-107); Creatinine Clr Calc Pharmacy 20.5 ml/min; Globulin 2.8 gm/dl (2.5-4.0); Glucose 196.0 mg/dl (70-99(Fasting)); Lipase 25.0 U/L (11-82); Magnesium 2.1 mg/dl (1.7-2.4); Potassium 4.2 mmol/L (3.5-5.1); Total Protein 6.3 gm/dl (6.0-8.3)
[2024-11-27 20:15] LABS: Appearance Urine Turbid (Clear); Bacteria Urine Automated 2+ (None Seen); Cast Urine Automated >20 /lpf (0-2); Glucose Urine UA Negative (Negative); WBC Urine Automated >50 /hpf (0-5)
--- NOTE | 2024-11-27 20:25 | Emergency Department Note ---
Impression & Plan SBO (small bowel obstruction), Alzheimers disease, Volvulus, Hyponatremia, BELA (acute kidney injury) ED Provider Note NAME: YAMILA VO AGE: 89 SEX: F : 1935 ARRIVES VIA: Ambulance INFORMANT: Patient ED PROVIDER(S): Adis Willard MD CHIEF COMPLAINT: Abdominal pain, diarrhea PLAN: Disposition: Admit MEDICAL DECISION MAKING: The patient is a pleasant 89-year-old woman with a past medical history of dementia, COPD, hypertension, hyperlipidemia who presents to the emergency department via EMS and accompanied by her daughter for evaluation of abdominal pain with nausea and vomiting and diarrhea over the past several days with worsening generalized weakness and confusion from baseline. Upon evaluation the patient is no distress, afebrile with blood pressure 100/50s, heart rate in 90s and vital signs otherwise stable. She appears clinically dry. Abdomen is mildly distended but soft and nontender. EKG without overt acute ischemia. WBC 15.5 K with neutrophilia but no left shift. H/H and platelets within normal limits. Chemistry without metabolic acidosis. Creatinine is 1.5 consistent with patient's clinically dry appearance. Sodium is 119 with serum osmolality 273 and urine osmolality 382 and so likely related to dehydration and poor solute intake. LFTs are unremarkable. UA with bacteria and WBCs albeit with negative nitrites. CT of the abdomen pelvis was performed with final report pending. Given the patient's acute hyponatremia in the setting of poor oral intake due to GI symptoms, patient's daughter does agree with plan for admission for further management. Will additionally treat with ceftriaxone at this time for possible urinary infection. Case was discussed with Dr. Limon, [facility] hospitalist, who will evaluate the patient for admission. Subsequently CT report was finalized and demonstrated evidence of small bowel obstruction/volvulus which was clarified with radiology and involved only the small bowel and not the large bowel. Case was discussed with Jonathon Jean, general surgery BREANNE with Dr. Iniguez, general surgery. Case was also reviewed with GI on-call, Dr. Fowler, given no involvement of the large bowel no indication for endoscopic treatment. NG tube placement ordered. General surgery updated. Appreciate consultation recommendations. Admitting team updated. Further management per admitting team. Triage Nursing notes reviewed and agree them. Prior/external medical records reviewed Vital Signs: reviewed Differential diagnosis: Gastroenteritis, food borne illness, infections, appendicitis, diverticulitis, inflammatory bowel disease, obstruction, GI bleed, biliary pathology, volvulus, as well as other pathologies. ER treatment provided: See below. Diagnostics interpreted by me: ECG: Sinus rhythm, 88 bpm, PACs, no overt ST ovation or depression, QTc 469, QRS 86 Cardiac Monitoring: An order for continuous cardiac monitoring was placed and demonstrated Sinus rhythm, 88 bpm, PACs. Laboratory studies: See below Imaging studies: See below Consultation(s): Dr. Limon, [facility] hospitalist Jonathon Jean, general surgery PA-C with Dr. Iniguez, general surgery. Dr. Fowler, GI on-call HPI: Per MDM. ROS: See above HPI for pertinent positives & negatives. A total of 10 systems reviewed and were otherwise negative. VITALS:See Below PHYSICAL EXAMINATION: GENERAL: Awake, alert, fatigued-appearing, in no distress HENT: Normocephalic, atraumatic. Oropharynx with dry mucous membranes and otherwise unremarkable. EYES: Normal conjunctiva. Sclera non-icteric. NECK: Supple. No nuchal rigidity. FROM. No JVD. RESPIRATORY: Clear to auscultation. CARDIAC: Regular rate, normal rhythm. Extremities warm and well perfused. Pulses equal. ABDOMEN: Abdomen is mildly distended but soft and nontender. No rebound or guarding. MUSCULOSKELETAL: Chest examination reveals no tenderness. The back is symmetrical on inspection without obvious abnormality. There is no CVA tenderness to palpation. No joint edema. LOWER EXTREMITIES: Calves are equal size bilaterally and non-tender. No edema. No discoloration. NEURO: Pleasantly confused at baseline for dementia. No focal sensory or motor deficits noted. SKIN: No rash or jaundice noted. Adis Willard MD Past Med/Surg History Problem List (Updated 11/28/24 @ 05:49 by Adis Willard MD) SBO (small bowel obstruction) (Acute) BELA (acute kidney injury) (Acute) Hyponatremia (Acute) Volvulus (Acute) Tachycardia Moderate aortic stenosis Leg edema Paroxysmal SVT (supraventricular tachycardia) Dyspnea (Acute) Urinary incontinence (Chronic) High cholesterol (Chronic) Alzheimers disease (Chronic) Hypertension (Chronic) Anxiety (Chronic) Aortic regurgitation (Chronic) COPD (chronic obstructive pulmonary disease) (Chronic) Hearing loss (Chronic) Mitral regurgitation (Chronic) Osteopenia (Chronic) Venous insufficiency (Chronic) Vitamin B12 deficiency (Chronic) Vitamin D deficiency (Chronic) Medical History Fatigue Depression Surgical History S/P cataract surgery S/P abdominal aortic aneurysm repair Family History Denies family history of Ovarian cancer Prostate cancer Myocardial infarction Breast cancer Colorectal cancer Social History Smoking Status: Former smoker Tobacco Type: Cigarettes Age Started Using Tobacco: 20; Age Quit Using Tobacco: 70; packs per day: 1; Second Hand Exposure: No; Do You Dip or Chew Tobacco: No; Hx Alcohol Use: No Hx Substance Use: No Preferred Language: Latvian Communication Ability: Effective Visual Impairment: No Limitations Hearing Ability: Normal Beef Selector Required: Yes and No Beliefs That Will Affect Care: None marital status: / Current Living Situation: Family Current Living Situation Comment: lives with daughter 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 Safe at Home: Yes Childhood Exposure to Second-Hand Smoke: No Diet: regular Diet Comment: regular Dental Care, Regularly: No Physical Activity Frequency: Does not Exercise Seatbelt Use: always Sunscreen Use: Yes Assistive Devices: Denture - Upper, Denture - Lower and Nebulizer Allergies Allergies Allergy/AdvReac Type Severity Reaction Status Date / Time donepezil Allergy Unknown CAN'T Verified 10/28/24 13:18 REMEMBER Penicillins Allergy Unknown CAN'T Verified 10/28/24 13:18 REMEMBER Home Meds Home Medications Medication Instructions Recorded Confirmed aspirin 81 mg tablet,delayed 81 mg PO DAILY 02/17/19 11/27/24 release umeclidinium 62.5 mcg/actuation 1 inh inhalation DAILY 12/01/23 11/27/24 blister powder for inhalation (Incruse Ellipta) [id number] ac 400 1 tab PO DAILY 12/16/23 11/27/24 mcg-calcium carb 500 mg-vit K1 20 mcg tablet (Women's 50 Plus Multivitamin) Previous Rx's Medication Instructions Recorded diaper,brief,adult,disposable #120 ea 02/18/22 (Undergarment mis) albuterol sulfate 90 mcg/actuation 2 puff inhalation QID PRN 11/07/23 aerosol inhaler (Ventolin HFA) shortness of breath or wheezing #8.5 grams diltiazem HCl 180 mg capsule,24 180 mg PO DAILY #30 caps 11/07/23 hr,extended release cyanocobalamin (vitamin B-12) 1,000 mcg PO DAILY #90 tabs 12/03/23 1,000 mcg tablet,extended release miscellaneous medical supply 1 ea miscellaneous .COMPLEX #1 ea 12/24/23 albuterol sulfate 2.5 mg/3 mL 2.5 mg (3 mL) NEB Q4H PRN 02/09/24 (0.083 %) solution for nebulization shortness of breath or wheezing 30 days #90 mL atorvastatin 20 mg tablet 20 mg PO DAILY #90 tabs 08/10/24 lisinopril 20 1 tab PO DAILY #90 tabs 10/26/24 mg-hydrochlorothiazide 25 mg tablet Results & Data (ED) Vital Signs Vital Signs - 24 hr 11/27/24 18:04 11/27/24 18:18 11/27/24 18:21 Temperature 36.3 C L Temperature Source Axillary Pulse Rate 91 H 96 H Pulse Rate [Apical] Pulse Rate from SpO2 Sensor 78 Pulse Rhythm Regular Respiratory Rate 22 30 H Respiratory Effort / Characteristics Non-Labored Respiratory Depth Normal Respiratory Pattern Blood Pressure 104/55 L Blood Pressure [Right Arm] Blood Pressure Mean 71 Blood Pressure Mean [Right Arm] Pulse Oximetry 92 92 91 Oxygen Delivery Method Room Air Room Air Sepsis Recent Fever Within 48 Hours No Sepsis New/Unexplained Change in Mental Status N/A Sepsis Action Taken by Nursing No Action Required 11/27/24 18:28 11/27/24 18:31 11/27/24 18:42 Temperature Temperature Source Pulse Rate 86 97 H 82 Pulse Rate [Apical] Pulse Rate from SpO2 Sensor 75 Pulse Rhythm Regular Respiratory Rate 28 H 23 Respiratory Effort / Characteristics Respiratory Depth Respiratory Pattern Blood Pressure 101/60 Blood Pressure [Right Arm] Blood Pressure Mean 73 Blood Pressure Mean [Right Arm] Pulse Oximetry 92 92 Oxygen Delivery Method Room Air Sepsis Recent Fever Within 48 Hours Sepsis New/Unexplained Change in Mental Status Sepsis Action Taken by Nursing 11/27/24 18:44 11/27/24 19:45 11/27/24 20:24 Temperature Temperature Source Pulse Rate 95 H 85 Pulse Rate [Apical] 84 Pulse Rate from SpO2 Sensor 64 Pulse Rhythm Respiratory Rate 25 H 30 H 23 Respiratory Effort / Characteristics Non-Labored Spontaneous Respiratory Depth Normal Respiratory Pattern Regular Blood Pressure 97/57 L Blood Pressure [Right Arm] 101/60 Blood Pressure Mean 70 Blood Pressure Mean [Right Arm] 73 Pulse Oximetry 92 90 Oxygen Delivery Method Room Air Room Air Sepsis Recent Fever Within 48 Hours Sepsis New/Unexplained Change in Mental Status Sepsis Action Taken by Nursing 11/27/24 20:27 11/27/24 20:48 11/27/24 22:20 Temperature Temperature Source Pulse Rate 81 75 81 Pulse Rate [Apical] Pulse Rate from SpO2 Sensor 72 74 Pulse Rhythm Respiratory Rate 19 19 Respiratory Effort / Characteristics Respiratory Depth Respiratory Pattern Blood Pressure 97/57 L 116/52 L Blood Pressure [Right Arm] Blood Pressure Mean 70 73 Blood Pressure Mean [Right Arm] Pulse Oximetry 87 L 92 Oxygen Delivery Method Sepsis Recent Fever Within 48 Hours Sepsis New/Unexplained Change in Mental Status Sepsis Action Taken by Nursing 11/27/24 22:21 11/27/24 22:30 11/27/24 22:51 Temperature Temperature Source Pulse Rate 76 89 79 Pulse Rate [Apical] Pulse Rate from SpO2 Sensor 76 73 78 Pulse Rhythm Respiratory Rate 28 H 26 H 27 H Respiratory Effort / Characteristics Respiratory Depth Respiratory Pattern Blood Pressure 91/62 L Blood Pressure [Right Arm] Blood Pressure Mean 71 Blood Pressure Mean [Right Arm] Pulse Oximetry 92 91 92 Oxygen Delivery Method Room Air Sepsis Recent Fever Within 48 Hours Sepsis New/Unexplained Change in Mental Status Sepsis Action Taken by Nursing Laboratory Data Attestation: I reviewed the patient's lab results. 11/27/24 18:20 11/28/24 00:54 Lab Results 11/27/24 11/27/24 Range/Units 18:20 19:46 WBC 15.50 H (4.8-10.8) K/ul RBC 4.67 (4.20-5.40) M/uL Hgb 14.1 (12.0-16.0) g/dl Hct 39.6 (37.0-47.0) % MCV 84.8 (80.0-100.0) fL MCH 30.2 (25.0-34.0) pg MCHC 35.6 (32.0-36.0) g/dL RDW Std Deviation 40.4 (36.4-46.3) fL RDW Coeff of Steven 13.0 (11.5-14.5) % Plt Count 383 (130-400) K/uL MPV 9.2 L (9.4-12.4) fL Immature Gran % (Auto) 0.5 % Neut % (Auto) 83.8 % Lymph % (Auto) 6.0 % [place] % (Auto) 9.5 % Eos % (Auto) 0.1 % Baso % (Auto) 0.1 % Neut # (Auto) 13.00 H (1.40-6.50) K/uL Lymph # (Auto) 0.93 L (1.20-3.40) K/uL [place] # (Auto) 1.47 H (0.11-0.59) K/uL Eos # (Auto) 0.01 (0.00-0.50) K/uL Baso # (Auto) 0.01 (0.00-0.20) K/uL Immature Gran # (Auto) 0.08 (0.01-0.20) K/uL PT 10.7 (9.0-12.0) Seconds INR 1.0 (0.9-1.1) Sodium 119 L* (136-145) mmol/L Potassium 4.2 (3.5-5.1) mmol/L Chloride 81 L (98-107) mmol/L Carbon Dioxide 25 (21-32) mmol/L Anion Gap 13 H (3-11) BUN 46 H (6-23) mg/dl Creatinine 1.54 H (0.6-1.2) mg/dl Est Cr Clr Drug Dosing 20.5 ml/min eGFR 32.07 BUN/Creatinine Ratio 29.9 H (10-20) Glucose 196 H (70-99(Fasting)) mg/dl Osmolality 273 L (280-300) mOsm/kg Calcium 8.7 (8.6-10.3) mg/dl Magnesium 2.1 (1.7-2.4) mg/dl Total Bilirubin 1.0 (0.2-1.0) mg/dl Direct Bilirubin 0.3 H (0-0.2) mg/dl AST 26 (13-39) U/L ALT 19 (7-52) U/L Alkaline Phosphatase 120 H (34-104) U/L Total Protein 6.3 (6.0-8.3) gm/dl Albumin 3.5 (3.4-5.0) gm/dl Globulin 2.8 (2.5-4.0) gm/dl Albumin/Globulin Ratio 1.3 (0.9-2) Lipase 25 (11-82) U/L Urine Color Yellow Urine Appearance Turbid A (Clear) Urine pH 5.0 (4.5-7.5) Ur Specific [place] 1.017 (1.000-1.030) Urine Protein Trace H (Negative) Urine Glucose (UA) Negative (Negative) Urine Ketones Trace H (Negative) Urine Blood Trace H (Negative) Urine Nitrite Negative (Negative) Urine Bilirubin Negative (Negative) Urine Urobilinogen Negative (Negative) Ur Leukocyte Esterase 3+ H (Negative) Urine WBC (Auto) >50 H (0-5) /hpf Urine RBC (Auto) 3-5 H (0-2) /hpf U Hyaline Cast (Auto) >20 H (0-2) /lpf U Epithel Cells (Auto) 11-20 H (0-2) /hpf Urine Bacteria (Auto) 2+ H (None Seen) Urine Osmolality 382 L (500-800) mOsm/kg Ur Random Sodium 19 mmol/L Urine Comment Administered Medications Sodium Chloride (Nss) 1,000 mls @ 125 mls/hr IV .Q8H MORIAH Stop: 11/30/24 23:14 Last Admin: 11/27/24 23:28 Dose: 125 mls/hr Documented By: DLRob Discontinued Medications Sodium Chloride (Nss) 500 mls @ 999 mls/hr IV .Q31M ONE Stop: 11/27/24 18:55 Last Infusion: 11/27/24 19:24 Dose: Infused Documented By: Admin: 11/27/24 18:42 Dose: 999 mls/hr Documented By: ELAINE Acetaminophen (Ofirmev) 1,000 mg in 100 mls @ 400 mls/hr IV NOW STA Stop: 11/27/24 18:40 Last Infusion: 11/27/24 19:04 Dose: Infused Documented By: Admin: 11/27/24 18:41 Dose: 400 mls/hr Documented By: ELAINE Ceftriaxone Sodium (Rocephin) 2,000 mg in 50 mls @ 100 mls/hr IV NOW STA Stop: 11/27/24 22:54 Last Infusion: 11/27/24 23:04 Dose: Infused Documented By: Admin: 11/27/24 22:33 Dose: 100 mls/hr Documented By: JOHN Sodium Chloride (Hypertonic Saline 3%) 50 mls @ 300 mls/hr IV .Q10M STA; Protocol Stop: 11/27/24 22:58 Last Infusion: 11/27/24 23:56 Dose: Infused Documented By: CHRISTEN Co-signed By: CELIA Admin: 11/27/24 23:27 Dose: 300 mls/hr Documented By: CHRISTEN Co-signed By: CELIA Sodium Chloride (Hypertonic Saline 3%) 50 mls @ 300 mls/hr IV .Q10M ONE; Protocol Stop: 11/28/24 02:36 Last Infusion: 11/28/24 03:33 Dose: Infused Documented By: JACQUELINE Co-signed By: [facility] Admin: 11/28/24 03:00 Dose: 300 mls/hr Documented By: JACQUELINE Co-signed By: [facility] Imaging Data Radiologist's Impression: Abdomen/Pelvis CT 11/27/24 19:06 CR Exam(s): CT ABDOMEN + PELVIS Without Contrast EXAM: CT Abdomen and Pelvis Without Intravenous Contrast CLINICAL HISTORY: Abdominal Pain and diarrhea. TECHNIQUE: Axial computed tomography images of the abdomen and pelvis without intravenous contrast. CTDI is 10 mGy and DLP is 423 mGy-cm. Automated exposure control was utilized for the study. A dose lowering technique was utilized adhering to the principles of ALARA. COMPARISON: CT abdomen and pelvis 02/23/2021. FINDINGS: Lung bases: Unremarkable. No mass. No consolidation. Pleural space: Small bilateral pleural effusions. ABDOMEN: Liver: Unremarkable. Gallbladder and bile ducts: Unremarkable. No calcified stones. No ductal dilation. Pancreas: Unremarkable. No ductal dilation. Spleen: Unremarkable. No splenomegaly. Adrenals: Nonspecific hypertrophy of both adrenal glands. No discrete adrenal nodule. Kidneys and ureters: Simple appearing renal cyst. No follow-up is necessary. The kidneys are otherwise unremarkable. No obstructing stones. No hydronephrosis. Stomach and bowel: Fluid distended loops of small bowel with distention of the bowel measuring up to 7.8 cm. There is swirling of the mesentery in the right lower quadrant, coronal images 40-50. Diverticulosis. No mucosal thickening. PELVIS: Appendix: No findings to suggest acute appendicitis. Bladder: Unremarkable. No stones. Reproductive: Hysterectomy. ABDOMEN and PELVIS: Intraperitoneal space: Small amount of free fluid in the pelvis is nonspecific. Bones/joints: There are degenerative changes of the spine. No acute fracture. 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 Grade 1 anterolisthesis of L4 relative to L5. No dislocation. Soft tissues: Unremarkable. Vasculature: Unremarkable. No abdominal aortic aneurysm. Lymph nodes: Unremarkable. No enlarged lymph nodes. Tubes, lines and devices: An endotracheal stent traverses the aorta and common iliac arteries. IMPRESSION: 1. Fluid distended loops of small bowel with distention of the bowel measuring up to 7.8 cm. There is swirling of the mesentery in the right lower quadrant, coronal images 40-50. This is consistent with volvulus. Surgical consultation is recommended. 2. Small amount of free fluid in the pelvis is nonspecific. 3. Nonspecific hypertrophy of both adrenal glands. No discrete adrenal nodule. 4. 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 5. Diverticulosis. 6. Small bilateral pleural effusions. Communications: Call Doctor Above results Electronically signed by: Gia Sinclair MD 11/27/24 22:54 PM Chest X-Ray 11/27/24 22:44 Exam(s): XR CXR 1 VIEW EXAM: XR Chest, 1 View CLINICAL HISTORY: Leukocytosis. TECHNIQUE: Frontal view of the chest. COMPARISON: Chest radiograph 12/16/2023 FINDINGS: Lungs: Question subtle right lower lobe atelectasis or pneumonia. Emphysema. Pleural space: Unremarkable. No pneumothorax. Heart: Unremarkable. No cardiomegaly. Mediastinum: Unremarkable. Normal mediastinal contour. Bones/joints: There are degenerative changes of the spine. No acute fracture. IMPRESSION: 1. Question subtle right lower lobe atelectasis or pneumonia. Clinical correlation is recommended. 2. Emphysema. Electronically signed by: Gia Sinclair MD 11/28/24 01:08 AM Discharge Plan Visit Data Chief Complaint: Abdominal Pain ED Provider: Adis Willard Discharge Problem: SBO (small bowel obstruction), Alzheimers disease, Volvulus, Hyponatremia, BELA (acute kidney injury) Patient Disposition: Admitted As Inpatient Condition: Serious Discharge Instructions Interventions: ED Discharge Assessment Last Done: 11/28/24 00:11
[2024-11-27] MEDS: cefTRIAXone SODIUM 2,000 MG/50 ML BAG IV STA (22:33)
[2024-11-27] MEDS ORDERED: STAT IV/IM STA (22:42)
--- NOTE | 2024-11-27 22:49 | History & Physical Report ---
Date of Service November 27, 2024 Assessment & Plan (1) Volvulus: (2) Hyponatremia: (3) BELA (acute kidney injury): Plan addendum 0030 - ED provider spoke with radiologist who stated involvement is of small bowel, no large insensitive involvement. No need for GI eval at this time, continue with general surgery consult. NG tube ordered by ED. Patient is an 89-year-old female with past medical history of Alzheimer's dementia, COPD, depression, hyperlipidemia, hypertension. Patient presented due to 2 days of weakness, abdominal distention, vomiting, and diarrhea/bowel incontinence. Patient has been unable to ambulate and typically ambulates without assistance at baseline. She is being admitted after found to have a sodium level of 119 and an BELA. Abdominal CT returned showing volvulus. #hyponatremia - NA 119, serum osmole 273, urine sodium 19. Suspect hypotonic hyponatremia with GI losses. Received 500 mL NSS in ED - 50 mL hypertonic saline on admission - repeat BMP 1145 11/27 - NSS @ 125 ml/hr - BMP with AM labs #Volvulus/diarrhea/vomiting CT showing volvulus. WBC 15.50. Patient without abd pain on admission. - GI and General surgery consulted - anticipate surgical procedure however given patient's advanced age and dementia, further discussion with daughter. - NPO status - Zofran prn #BELA - Cr increase from 1.05 to 1.54, Bun 46. Suspect from hypovolemia. UA wi th greater than 20 hyaline casts. - hold lisinopril HCTZ IVF as above Avoid nephrotoxic agents Trend BMP #ambulatory dysfunction/weakness suspect 2/2 acute hyponatremia. - CXR ordered with weakness and leukocytosis - PT/OT consulted - fall and aspiration precautions #Asymptomatic bacteriuria - UA appears infectious however contaminated with 11- 20 epithelial cells. Empirically treated with IV ABX in ED. Asymptomatic. Defer further Rocephin use Follow urine cultures #Alzheimer's dementia - pleasant on admission. Promote good sleep-wake cycles, melatonin as needed. #COPD - continue home inhalers #HTN - continue diltiazem. Holding lisinopril HCTZ. VTE ppx: scds, defer chemical ppx with possible surgical managment Dispo: med/tele Admission and Anticipated Discharge Date Admission Date: 11/27/24 History of Present Illness Chief Complaint: abd pain Primary Care Provider: Adrianne Ludwig MD Patient is an 89-year-old female with past medical history of Alzheimer's dementia, COPD, depression, hyperlipidemia, hypertension. Patient presented due to 2 days of weakness, abdominal distention, vomiting, and diarrhea/bowel incontinence. Patient has been unable to ambulate and typically ambulates without assistance at baseline. She is being admitted after found to have a sodium level of 119 [address]A. Abdominal CT pending at time of admission. Patient seen at bedside with her daughter present. Following history obtained by patient's daughter as patient denies all ROS. Patient's daughter stated she lives with her at home and for 48 hours the patient has been unable to get up and walk at all. She also noticed the patient has a significantly distended abdomen that has been getting worse over the day and specifically this evening. She was vomiting today and had an episode of bowel incontinence with diarrhea this morning. Patient currently denies any shortness of breath, chest pain, nausea, vomiting, abdominal pain, dysuria. They deny any sick contacts. She did not get any of her home medications today. She wishes to be full code. Allergies Allergy/AdvReac Type Severity Reaction Status Date / Time donepezil Allergy Unknown CAN'T Verified 10/28/24 13:18 REMEMBER Penicillins Allergy Unknown CAN'T Verified 10/28/24 13:18 REMEMBER Home Medications Medication Instructions Recorded Confirmed Type aspirin 81 mg tablet,delayed 81 mg PO DAILY 02/17/19 11/27/24 History release diaper,brief,adult,disposable #120 ea 02/18/22 10/28/24 Rx (Undergarment misc) albuterol sulfate 90 mcg/actuation 2 puff inhalation QID PRN 11/07/23 11/27/24 Rx aerosol inhaler (Ventolin HFA) shortness of breath or wheezing #8.5 grams diltiazem HCl 180 mg capsule,24 180 mg PO DAILY #30 caps 11/07/23 11/27/24 Rx hr,extended release umeclidinium 62.5 mcg/actuation 1 inh inhalation DAILY 12/01/23 11/27/24 History blister powder for inhalation (Incruse Ellipta) cyanocobalamin (vitamin B-12) 1,000 mcg PO DAILY #90 tabs 12/03/23 11/27/24 Rx 1,000 mcg tablet,extended release ptxuwarl-xhx-uuytw ac 400 1 tab PO DAILY 12/16/23 11/27/24 History mcg-calcium carb 500 mg-vit K1 20 mcg tablet (Women's 50 Plus Multivitamin) miscellaneous medical supply 1 ea miscellaneous .COMPLEX #1 ea 12/24/23 11/27/24 Rx albuterol sulfate 2.5 mg/3 mL 2.5 mg (3 mL) NEB Q4H PRN 02/09/24 11/27/24 Rx (0.083 %) solution for nebulization shortness of breath or wheezing 30 days #90 mL atorvastatin 20 mg tablet 20 mg PO DAILY #90 tabs 08/10/24 11/27/24 Rx lisinopril 20 1 tab PO DAILY #90 tabs 10/26/24 11/27/24 Rx mg-hydrochlorothiazide 25 mg tablet Past Med/Surg History Problem List (Updated 11/28/24 @ 01:52 by Adis Willard MD) SBO (small bowel obstruction) (Acute) BELA (acute kidney injury) Hyponatremia Volvulus (Acute) Tachycardia Moderate aortic stenosis Leg edema Paroxysmal SVT (supraventricular tachycardia) Dyspnea (Acute) Urinary incontinence (Chronic) High cholesterol (Chronic) Alzheimers disease (Chronic) Hypertension (Chronic) Anxiety (Chronic) Aortic regurgitation (Chronic) COPD (chronic obstructive pulmonary disease) (Chronic) Hearing loss (Chronic) Mitral regurgitation (Chronic) Osteopenia (Chronic) Venous insufficiency (Chronic) Vitamin B12 deficiency (Chronic) Vitamin D deficiency (Chronic) Medical History Fatigue Depression Surgical History S/P cataract surgery S/P abdominal aortic aneurysm repair Family History Denies family history of Ovarian cancer Prostate cancer Myocardial infarction Breast cancer Colorectal cancer Social History Smoking Status: Former smoker Tobacco Type: Cigarettes Age Started Using Tobacco: 20; Age Quit Using Tobacco: 70; packs per day: 1; Second Hand Exposure: No; Do You Dip or Chew Tobacco: No; Hx Alcohol Use: No Hx Substance Use: No Preferred Language: Sinhala Communication Ability: Effective Visual Impairment: No Limitations Hearing Ability: Normal Equipment Washer Required: Yes and No Beliefs That Will Affect Care: None marital status: / Current Living Situation: Family Current Living Situation Comment: lives with daughter 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 Non-toxic appearing. HEENT- EOMI, mucous membranes dry. Hearing grossly intact. Heart-normal S1 and S2. No murmurs, rubs or gallops. Lungs-clear bilaterally, no respiratory distress, no accessory muscle use. Abdomen-normal bowel sounds and soft. Significantly distended. Non-tender. Extremities- no clubbing, cyanosis, or edema. Rheumatologic-normal range of motion. Psychiatric-normal affect. Results & Data Results & Data Vital Signs (Past 12 Hours) Vital Signs Temp Pulse Pulse Resp BP BP Pulse Ox 11/27/24 22:20 81 11/27/24 20:24 85 23 97/57 L 90 11/27/24 19:45 95 H 30 H 11/27/24 18:44 84 25 H 101/60 92 11/27/24 18:42 82 23 101/60 92 11/27/24 18:31 97 H 11/27/24 18:28 86 28 H 92 11/27/24 18:21 96 H 30 H 104/55 L 91 11/27/24 18:18 36.3 C L 91 H 22 92 11/27/24 18:04 92 O2 Del Method 11/27/24 22:20 11/27/24 20:24 Room Air 11/27/24 19:45 11/27/24 18:44 Room Air 11/27/24 18:42 11/27/24 18:31 11/27/24 18:28 Room Air 11/27/24 18:21 11/27/24 18:18 Room Air 11/27/24 18:04 Room Air Laboratory Results Reviewed CBC, CMP, PT/INR, magnesium, serum osmolality, urine osmolality, urine sodium, UA Diagnostic Findings reviewed abdomen pelvis CT ordered CXR Medications Administered ED500 mL NSS bolus, Tylenol 1G IV, Rocephin 2G IV [id number] mL hypertonic saline ECG Additional Comments: ordered Code Status & VTE Plan Code Status full code VTE Prophylaxis Plan VTE Prophylaxis will be ordered: Yes Supervising Physician Co-Signing Physician Notes Patient seen and examined, chart reviewed, case discussed with BREANNE Kennedy and I agree with the assessment and plan as above. Patient with n/v/d and abdominal distention Ambulatory dysfunction with gait disturbance ongoing since 11/25/24 Found with hyponatremia - Pq=556 and BELA on labs Imaging suggestive of small bowel volvulus Patient does not provide history and offers no complaints independently Daughter is at bedside and provides history Diminished bowel sounds, soft, distended, tympanic, non-tender with no peritoneal signs Labs and images reviewed Assessment/Plan -Na 119 --> 120. Patient received 50mL 3% saline - will give another 50mL now -BMP q 6 hours -NGT to suction - appreciate general surgery assistance with management of possible small bowel volvulus -Remainder as above PG Care Time/CCT Total # of Minutes Spent Total Time Spent with Patient: Total time spent is greater than 50% in coordination of care (as documented) at patient's floor/unit and/or counseling patient: Coding Level of Care Code 00523 INT INP/OBS CARE 3/75MIN Diagnoses Volvulus K56.2 Hyponatremia E87.1 BELA (acute kidney injury) N17.9
--- NOTE | 2024-11-27 22:55 | CT Scan Report ---
Exam(s): CT ABDOMEN + PELVIS Without Contrast EXAM: CT Abdomen and Pelvis Without Intravenous Contrast CLINICAL HISTORY: Abdominal Pain and diarrhea. TECHNIQUE: Axial computed tomography images of the abdomen and pelvis without intravenous contrast. CTDI is 10 mGy and DLP is 423 mGy-cm. Automated exposure control was utilized for the study. A dose lowering technique was utilized adhering to the principles of ALARA. COMPARISON: CT abdomen and pelvis 02/23/2021. FINDINGS: Lung bases: Unremarkable. No mass. No consolidation. Pleural space: Small bilateral pleural effusions. ABDOMEN: Liver: Unremarkable. Gallbladder and bile ducts: Unremarkable. No calcified stones. No ductal dilation. Pancreas: Unremarkable. No ductal dilation. Spleen: Unremarkable. No splenomegaly. Adrenals: Nonspecific hypertrophy of both adrenal glands. No discrete adrenal nodule. Kidneys and ureters: Simple appearing renal cyst. No follow-up is necessary. The kidneys are otherwise unremarkable. No obstructing stones. No hydronephrosis. Stomach and bowel: Fluid distended loops of small bowel with distention of the bowel measuring up to 7.8 cm. There is swirling of the mesentery in the right lower quadrant, coronal images 40-50. Diverticulosis. No mucosal thickening. PELVIS: Appendix: No findings to suggest acute appendicitis. Bladder: Unremarkable. No stones. Reproductive: Hysterectomy. ABDOMEN and PELVIS: Intraperitoneal space: Small amount of free fluid in the pelvis is nonspecific. Bones/joints: There are degenerative changes of the spine. No acute fracture. 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 Grade 1 anterolisthesis of L4 relative to L5. No dislocation. Soft tissues: Unremarkable. Vasculature: Unremarkable. No abdominal aortic aneurysm. Lymph nodes: Unremarkable. No enlarged lymph nodes. Tubes, lines and devices: An endotracheal stent traverses the aorta and common iliac arteries. IMPRESSION: 1. Fluid distended loops of small bowel with distention of the bowel measuring up to 7.8 cm. There is swirling of the mesentery in the right lower quadrant, coronal images 40-50. This is consistent with volvulus. Surgical consultation is recommended. 2. Small amount of free fluid in the pelvis is nonspecific. 3. Nonspecific hypertrophy of both adrenal glands. No discrete adrenal nodule. 4. 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 5. Diverticulosis. 6. Small bilateral pleural effusions. Communications: Call Doctor Above results Electronically signed by: Gia Sinclair MD 11/27/24 22:54 PM
[2024-11-27] MEDS: SODIUM CHLORIDE 3 % 50 ML IV STA (23:27)
[2024-11-27] MEDS: SODIUM CHLORIDE 0.9% 1,000 ML IV SCH (23:28)
--- NOTE | 2024-11-27 23:45 | Surgery Consultation ---
Date of Consultation November 27, 2024 Assessment & Plan (1) Volvulus: I discussed with the treating clinician emergency department patient is being admitted on the hospitalist service. Surgical recommendations are as follows: Implement n.p.o. status If the patient has further episodes of nausea and vomiting consideration can be given to placing NG tube Hydrate patient with IV fluids Follow serial labs Concerning the patient sigmoid volvulusgiven the patient's dementia and advanced age and the fact that she is not peritoneal at this time would recommend consulting with gastroenterology for endoscopic decompression as it would be preferable to avoid surgical intervention on an unprepped bowel as this would likely necessitate a colostomy I had a lengthy discussion with the patient's daughter who was present at bedside outlining the possible treatment options and she to would like to avoid having a colostomy performed as well and would prefer endoscopic intervention as a first line intervention The above recommendations were discussed with the admitting service Additional recommendations to be forthcoming based on her clinical course as it unfolds Addendum: (12:30 am) Gastroenterology reviewed CT scan and did not feel this represented a sigmoid volvulus. Ed physician discussed with radiology and upon further reviewed felt this was a small bowel volvulus. Given this is felt to b a small bowel volvulus, endoscopic decompression is not an option. I discussed with surgical attending and we will place a NGT and check lactic acid level. Further recommendations to follow. Daughter updated at bedside. Addendum (1:15 am) NGT placed and appears to be in good position on KUB. Will place to low intermittent suction. Lactic acid level noted to be normal at 1.1. Upon re- exam abdomen remains distended but slightly less. Pt. appears comfortable and abdominal exam dose not show sign of peritonitis. Will continue with conservative measures for now, Family updated at bedside. Addendum (3:30 am) Patient revisited at bedside and she is resting comfortably in bed. She denies any worsening abdominal pain, and reports her pain has slightly improved. She denies any nausea or vomiting. She is not passing any flatus. I discussed with nurses attending the patient and they do not report any new issues. On physical exam the patient's abdomen is still distended but appears slightly less distended than what was noted during my initial visit with the patient. She has minimal pain with palpation. There are no signs of peritonitis such as rebound tenderness or guarding. NG tube remains in place and is draining fluid consistent with gastric contents. We will continue with conservative plan as outlined above (n.p.o. status, hydration with intravenous fluids) Will check a.m. labs and KUB this morning once available. As above. Patient examined twice today by myself. Daughter currently at bedside. Patient was sleeping upon me entering the room. Currently denying abdominal pain. Her abdomen is quite distended. It is soft and only minimally tender. Unclear of exactly what is going on. Doubt bowel ischemia secondary to patient's clinical exam. Lactic acid level was normal last night we will recheck today. I think all things considered we should repeat her CT scan with contrast to get a better evaluation of her small bowel. Again I believe surgery should be a last resort. Questionable distended secondary to A-fib with rapid rate which is new for her. She also has electrolyte abnormalities which we are currently correcting. I told the daughter I will call her following results of the CT scan History of Present Illness Reason for Consultation: Sigmoid volvulus History of Present Illness This is a 89-year-old female who presented to the emergency department with her daughter who was present at bedside. The patient has underlying dementia and cannot provide any meaningful history. The history was obtained from the patient's daughter who was present at bedside. The patient's daughter notes that over the past few weeks she noted that her mother's abdomen was slightly distended but this is gotten worse over the past 48 hours. Over the past 24 hours patient has had some nausea and vomiting and had markedly decreased appetite. She does note that her mother had a normal bowel movement at approximate 4:00 PM earlier today. Because of her nausea and vomiting and abdominal distention she did bring her to the emergency department. She notes that her mother has never had any open abdominal surgeries but did have an endovascular abdominal aortic aneurysm repair. Since arrival to the hospital the patient has had labs and imaging which independent reviewed. A CT scan of the abdomen pelvis showed the patient had some swirling of the mesentery in the right lower quadrant and some fluid distended loops of small bowel concerning for a sigmoid volvulus. Labs included CBC white blood cell count was elevated at 15.5. Hemoglobin hematocrit as well as platelet count were normal. Coagulation studies showed an INR of 1.0. Chemistry profile showed sodium was 119 with a normal potassium. BUN and crea tinine were 46 and 1.5. Magnesium was normal at 2.1. Urinalysis showed turbid urine with negative nitrites and pyuria with greater than 50 white blood cells per high-power field. There is 2+ bacteria on the study and 3+ leukocyte esterase. At the time of my interview the patient was resting comfortably bed she was no distress Allergies Allergy/AdvReac Type Severity Reaction Status Date / Time donepezil Allergy Unknown CAN'T Verified 10/28/24 13:18 REMEMBER Penicillins Allergy Unknown CAN'T Verified 10/28/24 13:18 REMEMBER Home Medications Medication Instructions Recorded Confirmed Type aspirin 81 mg tablet,delayed 81 mg PO DAILY 02/17/19 11/27/24 History release diaper,brief,adult,disposable #120 ea 02/18/22 10/28/24 Rx (Undergarment misc) albuterol sulfate 90 mcg/actuation 2 puff inhalation QID PRN 11/07/23 11/27/24 Rx aerosol inhaler (Ventolin HFA) shortness of breath or wheezing #8.5 grams diltiazem HCl 180 mg capsule,24 180 mg PO DAILY #30 caps 11/07/23 11/27/24 Rx hr,extended release umeclidinium 62.5 mcg/actuation 1 inh inhalation DAILY 12/01/23 11/27/24 History blister powder for inhalation (Incruse Ellipta) cyanocobalamin (vitamin B-12) 1,000 mcg PO DAILY #90 tabs 12/03/23 11/27/24 Rx 1,000 mcg tablet,extended release yzpyohuh-jsq-floez ac 400 1 tab PO DAILY 12/16/23 11/27/24 History mcg-calcium carb 500 mg-vit K1 20 mcg tablet (Women's 50 Plus Multivitamin) miscellaneous medical supply 1 ea miscellaneous .COMPLEX #1 ea 12/24/23 11/27/24 Rx albuterol sulfate 2.5 mg/3 mL 2.5 mg (3 mL) NEB Q4H PRN 02/09/24 11/27/24 Rx (0.083 %) solution for nebulization shortness of breath or wheezing 30 days #90 mL atorvastatin 20 mg tablet 20 mg PO DAILY #90 tabs 08/10/24 11/27/24 Rx lisinopril 20 1 tab PO DAILY #90 tabs 10/26/24 11/27/24 Rx mg-hydrochlorothiazide 25 mg tablet Patient History Medical History Fatigue Depression Surgical History S/P cataract surgery S/P abdominal aortic aneurysm repair Family History Denies family history of Ovarian cancer Prostate cancer Myocardial infarction Breast cancer Colorectal cancer Social History Smoking Status: Former smoker Tobacco Type: Cigarettes Age Started Using Tobacco: 20; Age Quit Using Tobacco: 70; packs per day: 1; Second Hand Exposure: No; Do You Dip or Chew Tobacco: No; Hx Alcohol Use: No Hx Substance Use: No Preferred Language: Czech Communication Ability: Effective Visual Impairment: No Limitations Hearing Ability: Normal Team Facilitator Required: Yes and No Beliefs That Will Affect Care: None marital status: / Current Living Situation: Family Current Living Situation Comment: lives with daughter 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 Safe at Home: Yes Childhood Exposure to Second-Hand Smoke: No Diet: regular Diet Comment: regular Dental Care, Regularly: No Physical Activity Frequency: Does not Exercise Seatbelt Use: always Sunscreen Use: Yes Assistive Devices: Denture - Upper, Denture - Lower and Nebulizer Review of Systems Review of Systems: All systems reviewed & are unremarkable except as noted in HPI & below Physical Exam Constitutional: WD/WN, vitals as above Eyes: no conjunctival abnormality ENMT: Ears: no hearing impairment and no external ear abnormality Mouth: no oropharynx abnormality Neck: trachea midline Respiratory: normal respiratory effort; no respiratory distress and no labored breathing Cardiovascular: Rate/Rhythm: regular rate and regular rhythm Gastrointestinal (Abdomen): Patient's abdomen is distended and tympanic to percussion. There is only slight tenderness to palpation. There is no rigidity, rebound tenderness, or guarding, or other signs of peritonitis. There are no scars noted on the abdomen. I did not appreciate any hernias. Musculoskeletal: No calf tenderness Skin: no rashes Neurologic: moves all extremities Psychiatric: Patient is confused to time and place but alert to person Results & Data Vital Signs (Past 12 Hours) Vital Signs Temp Pulse Pulse Resp BP BP Pulse Ox 11/27/24 22:51 79 27 H 92 11/27/24 22:30 89 26 H 91 11/27/24 22:21 76 28 H 91/62 L 92 11/27/24 22:20 81 11/27/24 20:48 75 19 116/52 L 92 11/27/24 20:27 81 19 97/57 L 87 L 11/27/24 20:24 85 23 97/57 L 90 11/27/24 19:45 95 H 30 H 11/27/24 18:44 84 25 H 101/60 92 11/27/24 18:42 82 23 101/60 92 11/27/24 18:31 97 H 11/27/24 18:28 86 28 H 92 11/27/24 18:21 96 H 30 H 104/55 L 91 11/27/24 18:18 36.3 C L 91 H 22 92 11/27/24 18:04 92 O2 Del Method 11/27/24 22:51 11/27/24 22:30 11/27/24 22:21 Room Air 11/27/24 22:20 11/27/24 20:48 11/27/24 20:27 11/27/24 20:24 Room Air 11/27/24 19:45 11/27/24 18:44 Room Air 11/27/24 18:42 11/27/24 18:31 11/27/24 18:28 Room Air 11/27/24 18:21 11/27/24 18:18 Room Air 11/27/24 18:04 Room Air PG Care Time/CCT Total # of Minutes Spent Total Time Spent with Patient: Total time spent is greater than 50% in coordination of care (as documented) at patient's floor/unit and/or counseling patient: Coding Level of Care Code 55211 INT INP/OBS CARE 3/75MIN Diagnoses Volvulus K56.2
[2024-11-28] MEDS ORDERED: ONDANSETRON INJ 2 MG/ML 2 ML VIAL IV PRN (00:41)
[2024-11-28] MEDS ORDERED: ACETAMINOPHEN 325 MG TAB PO PRN (00:41)
[2024-11-28] MEDS ORDERED: ALBUTEROL HFA 8 GM INHALER INH PRN (00:41)
[2024-11-28] MEDS ORDERED: MELATONIN 3 MG TAB PO PRN (00:41)
--- NOTE | 2024-11-28 01:08 | XRay Report ---
Exam(s): XR CXR 1 VIEW EXAM: XR Chest, 1 View CLINICAL HISTORY: Leukocytosis. TECHNIQUE: Frontal view of the chest. COMPARISON: Chest radiograph 12/16/2023 FINDINGS: Lungs: Question subtle right lower lobe atelectasis or pneumonia. Emphysema. Pleural space: Unremarkable. No pneumothorax. Heart: Unremarkable. No cardiomegaly. Mediastinum: Unremarkable. Normal mediastinal contour. Bones/joints: There are degenerative changes of the spine. No acute fracture. IMPRESSION: 1. Question subtle right lower lobe atelectasis or pneumonia. Clinical correlation is recommended. 2. Emphysema. Electronically signed by: Gia Sinclair MD 11/28/24 01:08 AM
[2024-11-28 01:23] LABS: Anion Gap 11.0 (3-11); Blood Urea Nitrogen 50.0 mg/dl (6-23); Calcium 8.4 mg/dl (8.6-10.3); Carbon Dioxide 25.0 mmol/L (21-32); Chloride 84.0 mmol/L (98-107); Creatinine Clr Calc Pharmacy 21.3 ml/min; Glucose 128.0 mg/dl (70-99(Fasting)); Potassium 4.1 mmol/L (3.5-5.1); Sodium 120.0 mmol/L (136-145)
--- NOTE | 2024-11-28 02:22 | XRay Report ---
EXAM: XR KUB/Abdomen 1 view CLINICAL HISTORY: NGT placement. TECHNIQUE: X-ray image of the upper abdomen was obtained in AP projection. COMPARISON: No prior studies available for comparison. FINDINGS: A nasogastric tube is seen with its tip just below the diaphragm, but the fenestra is seen above the gastroesophageal junction; it needs to be advanced for about 10 cm. Dilated bowel loops filled with gas are seen in the scanned upper abdomen. No evidence of air under the diaphragm. An aortic stent is noted. IMPRESSION: 1. A nasogastric tube is seen with its tip just below the diaphragm, but the fenestra is seen above the gastroesophageal junction; it needs to be advanced for about 10 cm. 2. Dilated gas-filled bowel loops in the scanned upper abdomen; would recommend clinical correlation. Electronically signed by Jasen Barger 11-28-2024 02:22 AM
[2024-11-28] MEDS ORDERED: STAT IV/IM STA ×2 (02:27→17:36)
[2024-11-28] MEDS: SODIUM CHLORIDE 3 % 50 ML IV ONE ×2 (03:00→17:48)
--- NOTE | 2024-11-28 03:44 | XRay Report ---
EXAM: XR KUB/Abdomen 1 view CLINICAL HISTORY: Advancement of NG- check placement TECHNIQUE: X-ray image of the abdomen was obtained in AP position. 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 FINDINGS: Properly positioned NGT with its tip seen below the left hemidiaphragm. Gas Pattern: Still seen dilated bowel loops filled with gas are seen in the scanned upper abdomen. Aortic stent is noted IMPRESSION: 1. Properly positioned NGT with its tip seen below the left hemidiaphragm. 2. Still seen dilated bowel loops filled with gas are seen in the scanned upper abdomen. (Unchanged). Electronically signed by Jasen Barger 11-28-2024 03:44 AM
[2024-11-28] MEDS ORDERED: Heparin IV Adult Wt-Based Standard w/ INITIAL Bolus Protocol IV STA (05:27)
[2024-11-28 06:06] LABS: Hematocrit (blood only) 38.6 % (37.0-47.0); Hemoglobin 13.6 g/dl (12.0-16.0); Immature Granulocytes # (auto) 0.03 K/uL (0.01-0.20); Immature Granulocytes % (auto) 0.3 %; Mean Corpuscular Hemoglobin 29.4 pg (25.0-34.0); Mean Corpuscular Volume 83.5 fL (80.0-100.0); Platelet Count 364 K/uL (130-400); RDW Standard Deviation 39.8 fL (36.4-46.3); Red Blood Count 4.62 M/uL (4.20-5.40); White Blood Count 11.34 K/ul (4.8-10.8)
[2024-11-28 06:21] LABS: Anion Gap 11.0 (3-11); Blood Urea Nitrogen 52.0 mg/dl (6-23); Calcium 8.3 mg/dl (8.6-10.3); Carbon Dioxide 25.0 mmol/L (21-32); Chloride 87.0 mmol/L (98-107); Creatinine Clr Calc Pharmacy 20.0 ml/min; Glucose 123.0 mg/dl (70-99(Fasting)); Magnesium 2.1 mg/dl (1.7-2.4); Potassium 3.9 mmol/L (3.5-5.1); Sodium 123.0 mmol/L (136-145)
[2024-11-28] MEDS: HEPARIN SOD (PORCINE) 1000 UNIT/ML IV ONE (07:03)
[2024-11-28] MEDS: HEPARIN 25000 UNIT/500 ML D5W 25,000 UNITS/500 ML BAG IV SCH (07:03)
[2024-11-28] MEDS: METOPROLOL TARTRATE 1 MG/ML VIAL IV PRN (07:30)
[2024-11-28] MEDS: ASPIRIN 81 MG ECTAB PO SCH (07:30)
[2024-11-28] MEDS: ATORVASTATIN 20 MG TAB PO SCH (07:30)
[2024-11-28 07:53] LABS: Partial Thromboplastin Time 20 Seconds (21-31)
--- NOTE | 2024-11-28 08:13 | XRay Report ---
KUB HISTORY: NG tube placement. NG was removed by patient COMPARISON STUDY: 11/28/2024 FINDINGS: Nasogastric tube tip is in the proximal stomach with the sidehole near the GE junction. The re are multiple dilated small bowel loops measuring up to 4.5 cm, grossly stable. Stable distention o f a loop of colon in the upper central to right pelvis measuring up to 11 cm diameter, possibly the s igmoid colon. No gross free air seen. Stable aortobiiliac endograft. IMPRESSION: 1. Endotracheal tube tip is in the proximal stomach with the sidehole near the GE junction. 2. There is stable small bowel distention and stable distention of a loop of colon, possible the sigm oid colon. Findings are consistent with bowel obstruction. ACT 112: Negative or not required by law. The above report was generated using voice recognition software. It may contain grammatical, syntax o r spelling errors. Electronically signed by: Lan Ramsey M.D. 11/28/2024 8:10 AM
[2024-11-28] MEDS ORDERED: HEPARIN SOD 5,000 UNIT/0.5 ML VIAL SQ SCH (09:00)
--- NOTE | 2024-11-28 09:33 | Gastrointestinal Consultation ---
Date of Consultation November 28, 2024 Assessment & Plan (1) SBO (small bowel obstruction): Imaging supports small bowel obstruction etiology unclear. Unusual without prior history of surgery. Need to consider internal hernia, ischemia as well as neoplasm. Agree with NG tube and IV fluids. May ultimately need surgery if does not resolve or symptoms worsen. Repeat x-ray daily. Correct hyponatremia. (2) Hyponatremia: May be contributing to bowel obstruction or ileus needs correction History of Present Illness Reason for Consultation: Abdominal pain and vomiting possible bowel obstruction Attending Physician: Jessi Trammell MD History of Present Illness Patient presented to the hospital with a several day history of increasing abdominal pain associated with vomiting. She denied any prior significant GI symptoms no prior abdominal surgery. Imaging shows a small bowel obstruction with normal-appearing colon. Patient has dementia and is not a great historian. Allergies Allergy/AdvReac Type Severity Reaction Status Date / Time donepezil Allergy Unknown CAN'T Verified 10/28/24 13:18 REMEMBER Penicillins Allergy Unknown CAN'T Verified 10/28/24 13:18 REMEMBER Home Medications Medication Instructions Recorded Confirmed Type aspirin 81 mg tablet,delayed 81 mg PO DAILY 02/17/19 11/27/24 History release diaper,brief,adult,disposable #120 ea 02/18/22 10/28/24 Rx (Undergarment misc) albuterol sulfate 90 mcg/actuation 2 puff inhalation QID PRN 11/07/23 11/27/24 Rx aerosol inhaler (Ventolin HFA) shortness of breath or wheezing #8.5 grams diltiazem HCl 180 mg capsule,24 180 mg PO DAILY #30 caps 11/07/23 11/27/24 Rx hr,extended release umeclidinium 62.5 mcg/actuation 1 inh inhalation DAILY 12/01/23 11/27/24 History blister powder for inhalation (Incruse Ellipta) cyanocobalamin (vitamin B-12) 1,000 mcg PO DAILY #90 tabs 12/03/23 11/27/24 Rx 1,000 mcg tablet,extended release lwvsilnd-cbg-kwcww ac 400 1 tab PO DAILY 12/16/23 11/27/24 History mcg-calcium carb 500 mg-vit K1 20 mcg tablet (Women's 50 Plus Multivitamin) miscellaneous medical supply 1 ea miscellaneous .COMPLEX #1 ea 12/24/23 11/27/24 Rx albuterol sulfate 2.5 mg/3 mL 2.5 mg (3 mL) NEB Q4H PRN 02/09/24 11/27/24 Rx (0.083 %) solution for nebulization shortness of breath or wheezing 30 days #90 mL atorvastatin 20 mg tablet 20 mg PO DAILY #90 tabs 08/10/24 11/27/24 Rx lisinopril 20 1 tab PO DAILY #90 tabs 10/26/24 11/27/24 Rx mg-hydrochlorothiazide 25 mg tablet Patient History Medical History Fatigue Depression Surgical History S/P cataract surgery S/P abdominal aortic aneurysm repair Family History Denies family history of Ovarian cancer Prostate cancer Myocardial infarction Breast cancer Colorectal cancer Social History Smoking Status: Former smoker Tobacco Type: Cigarettes Age Started Using Tobacco: 20; Age Quit Using Tobacco: 70; packs per day: 1; Second Hand Exposure: No; Do You Dip or Chew Tobacco: No; Hx Alcohol Use: No Hx Substance Use: No Preferred Language: Afghan Communication Ability: Effective Visual Impairment: No Limitations Hearing Ability: Normal Caustic Preparer Required: Yes and No Beliefs That Will Affect Care: None marital status: / Current Living Situation: Family Current Living Situation Comment: lives with daughter 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 Safe at Home: Yes Childhood Exposure to Second-Hand Smoke: No Diet: regular Diet Comment: regular Dental Care, Regularly: No Physical Activity Frequency: Does not Exercise Seatbelt Use: always Sunscreen Use: Yes Assistive Devices: Denture - Upper, Denture - Lower and Nebulizer Review of Systems Review of Systems: She denies any abdominal pain unable to obtain additional information Physical Exam Physical Exam: Eyes; anicteric HENT No masses Chest clear to A Cor S1, S2 physiologic Abd: softer nontender distended bowel sounds high-pitched Ext no edema E Results & Data Vital Signs (Past 12 Hours) Vital Signs Temp Pulse Pulse Resp BP BP Pulse Ox 11/28/24 09:19 11/28/24 07:56 85 11/28/24 07:30 123 H 11/28/24 04:47 118 H 106/64 11/28/24 02:40 36.4 C L 92 H 18 113/72 90 11/28/24 01:39 36.5 C 83 16 133/71 93 11/28/24 00:00 79 16 113/61 92 11/27/24 22:51 79 27 H 92 11/27/24 22:30 89 26 H 91 11/27/24 22:21 76 28 H 91/62 L 92 11/27/24 22:20 81 O2 Del Method 11/28/24 09:19 Room Air 11/28/24 07:56 11/28/24 07:30 11/28/24 04:47 11/28/24 02:40 Room Air 11/28/24 01:39 Room Air 11/28/24 00:00 Room Air 11/27/24 22:51 11/27/24 22:30 11/27/24 22:21 Room Air 11/27/24 22:20 Laboratory Results Laboratory Results - last 48 hr 11/27/24 11/27/24 11/28/24 18:20 19:46 00:54 WBC 15.50 H RBC 4.67 Hgb 14.1 Hct 39.6 MCV 84.8 MCH 30.2 MCHC 35.6 RDW Std Deviation 40.4 RDW Coeff of Steven 13.0 Plt Count 383 MPV 9.2 L Immature Gran % (Auto) 0.5 Neut % (Auto) 83.8 Lymph % (Auto) 6.0 Lea % (Auto) 9.5 Eos % (Auto) 0.1 Baso % (Auto) 0.1 Neut # (Auto) 13.00 H Lymph # (Auto) 0.93 L Lea # (Auto) 1.47 H Eos # (Auto) 0.01 Baso # (Auto) 0.01 Immature Gran # (Auto) 0.08 PT 10.7 INR 1.0 APTT PTT Ratio Sodium 119 L* 120 L Potassium 4.2 4.1 Chloride 81 L 84 L Carbon Dioxide 25 25 Anion Gap 13 H 11 BUN 46 H 50 H Creatinine 1.54 H 1.48 H Est Cr Clr Drug Dosing 20.5 21.3 eGFR 32.07 33.64 BUN/Creatinine Ratio 29.9 H 33.8 H Glucose 196 H 128 H Osmolality 273 L Lactate 1.1 Calcium 8.7 8.4 L Phosphorus Magnesium 2.1 Total Bilirubin 1.0 Direct Bilirubin 0.3 H AST 26 ALT 19 Alkaline Phosphatase 120 H Total Protein 6.3 Albumin 3.5 Globulin 2.8 Albumin/Globulin Ratio 1.3 Lipase 25 Urine Color Yellow Urine Appearance Turbid A Urine pH 5.0 Ur Specific [place] 1.017 Urine Protein Trace H Urine Glucose (UA) Negative Urine Ketones Trace H Urine Blood Trace H Urine Nitrite Negative Urine Bilirubin Negative Urine Urobilinogen Negative Ur Leukocyte Esterase 3+ H Urine WBC (Auto) >50 H Urine RBC (Auto) 3-5 H U Hyaline Cast (Auto) >20 H U Epithel Cells (Auto) 11-20 H Urine Bacteria (Auto) 2+ H Urine Osmolality 382 L Ur Random Sodium 19 Urine Comment 11/28/24 11/28/24 05:43 06:51 WBC 11.34 H RBC 4.62 Hgb 13.6 Hct 38.6 MCV 83.5 MCH 29.4 MCHC 35.2 RDW Std Deviation 39.8 RDW Coeff of Steven 13.2 Plt Count 364 MPV 9.3 L Immature Gran % (Auto) 0.3 Neut % (Auto) 77.9 Lymph % (Auto) 9.0 Lea % (Auto) 12.5 Eos % (Auto) 0.1 Baso % (Auto) 0.2 Neut # (Auto) 8.84 H Lymph # (Auto) 1.02 L Lea # (Auto) 1.42 H Eos # (Auto) 0.01 Baso # (Auto) 0.02 Immature Gran # (Auto) 0.03 PT INR APTT 20 L PTT Ratio 0.7 Sodium 123 L Potassium 3.9 Chloride 87 L Carbon Dioxide 25 Anion Gap 11 BUN 52 H Creatinine 1.37 H Est Cr Clr Drug Dosing 20.0 eGFR 36.91 BUN/Creatinine Ratio 38.0 H Glucose 123 H Osmolality Lactate Calcium 8.3 L Phosphorus 4.2 Magnesium 2.1 Total Bilirubin Direct Bilirubin AST ALT Alkaline Phosphatase Total Protein Albumin Globulin Albumin/Globulin Ratio Lipase Urine Color Urine Appearance Urine pH Ur Specific [place] Urine Protein Urine Glucose (UA) Urine Ketones Urine Blood Urine Nitrite Urine Bilirubin Urine Urobilinogen Ur Leukocyte Esterase Urine WBC (Auto) Urine RBC (Auto) U Hyaline Cast (Auto) U Epithel Cells (Auto) Urine Bacteria (Auto) Urine Osmolality Ur Random Sodium Urine Comment Diagnostic Findings Abdomen/Pelvis CT 11/27/24 19:06 CR Exam(s): CT ABDOMEN + PELVIS Without Contrast EXAM: CT Abdomen and Pelvis Without Intravenous Contrast CLINICAL HISTORY: Abdominal Pain and diarrhea. TECHNIQUE: Axial computed tomography images of the abdomen and pelvis without intravenous contrast. CTDI is 10 mGy and DLP is 423 mGy-cm. Automated exposure control was utilized for the study. A dose lowering technique was utilized adhering to the principles of ALARA. COMPARISON: CT abdomen and pelvis 02/23/2021. FINDINGS: Lung bases: Unremarkable. No mass. No consolidation. Pleural space: Small bilateral pleural effusions. ABDOMEN: Liver: Unremarkable. Gallbladder and bile ducts: Unremarkable. No calcified stones. No ductal dilation. Pancreas: Unremarkable. No ductal dilation. Spleen: Unremarkable. No splenomegaly. Adrenals: Nonspecific hypertrophy of both adrenal glands. No discrete adrenal nodule. Kidneys and ureters: Simple appearing renal cyst. No follow-up is necessary. The kidneys are otherwise unremarkable. No obstructing stones. No hydronephrosis. Stomach and bowel: Fluid distended loops of small bowel with distention of the bowel measuring up to 7.8 cm. There is swirling of the mesentery in the right lower quadrant, coronal images 40-50. Diverticulosis. No mucosal thickening. PELVIS: Appendix: No findings to suggest acute appendicitis. Bladder: Unremarkable. No stones. Reproductive: Hysterectomy. ABDOMEN and PELVIS: Intraperitoneal space: Small amount of free fluid in the pelvis is nonspecific. Bones/joints: There are degenerative changes of the spine. No acute fracture. 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 Grade 1 anterolisthesis of L4 relative to L5. No dislocation. Soft tissues: Unremarkable. Vasculature: Unremarkable. No abdominal aortic aneurysm. Lymph nodes: Unremarkable. No enlarged lymph nodes. Tubes, lines and devices: An endotracheal stent traverses the aorta and common iliac arteries. IMPRESSION: 1. Fluid distended loops of small bowel with distention of the bowel measuring up to 7.8 cm. There is swirling of the mesentery in the right lower quadrant, coronal images 40-50. This is consistent with volvulus. Surgical consultation is recommended. 2. Small amount of free fluid in the pelvis is nonspecific. 3. Nonspecific hypertrophy of both adrenal glands. No discrete adrenal nodule. 4. 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 5. Diverticulosis. 6. Small bilateral pleural effusions. Communications: Call Doctor Above results Electronically signed by: Gia Sinclair MD 11/27/24 22:54 PM Chest X-Ray 11/27/24 22:44 Exam(s): XR CXR 1 VIEW EXAM: XR Chest, 1 View CLINICAL HISTORY: Leukocytosis. TECHNIQUE: Frontal view of the chest. COMPARISON: Chest radiograph 12/16/2023 FINDINGS: Lungs: Question subtle right lower lobe atelectasis or pneumonia. Emphysema. Pleural space: Unremarkable. No pneumothorax. Heart: Unremarkable. No cardiomegaly. Mediastinum: Unremarkable. Normal mediastinal contour. Bones/joints: There are degenerative changes of the spine. No acute fracture. IMPRESSION: 1. Question subtle right lower lobe atelectasis or pneumonia. Clinical correlation is recommended. 2. Emphysema. Electronically signed by: Gia Sinclair MD 11/28/24 01:08 AM KUB X-Ray 11/28/24 00:55 EXAM: XR KUB/Abdomen 1 view CLINICAL HISTORY: NGT placement. TECHNIQUE: X-ray image of the upper abdomen was obtained in AP projection. COMPARISON: No prior studies available for comparison. FINDINGS: A nasogastric tube is seen with its tip just below the diaphragm, but the fenestra is seen above the gastroesophageal junction; it needs to be advanced for about 10 cm. Dilated bowel loops filled with gas are seen in the scanned upper abdomen. No evidence of air under the diaphragm. An aortic stent is noted. IMPRESSION: 1. A nasogastric tube is seen with its tip just below the diaphragm, but the fenestra is seen above the gastroesophageal junction; it needs to be advanced for about 10 cm. 2. Dilated gas-filled bowel loops in the scanned upper abdomen; would recommend clinical correlation. Electronically signed by Jasen Barger 11-28-2024 02:22 AM KUB X-Ray 11/28/24 02:35 EXAM: XR KUB/Abdomen 1 view CLINICAL HISTORY: Advancement of NG- check placement TECHNIQUE: X-ray image of the abdomen was obtained in AP position. 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 FINDINGS: Properly positioned NGT with its tip seen below the left hemidiaphragm. Gas Pattern: Still seen dilated bowel loops filled with gas are seen in the scanned upper abdomen. Aortic stent is noted IMPRESSION: 1. Properly positioned NGT with its tip seen below the left hemidiaphragm. 2. Still seen dilated bowel loops filled with gas are seen in the scanned upper abdomen. (Unchanged). Electronically signed by Jasen Barger 11-28-2024 03:44 AM KUB X-Ray 11/28/24 05:55 KUB HISTORY: NG tube placement. NG was removed by patient COMPARISON STUDY: 11/28/2024 FINDINGS: Nasogastric tube tip is in the proximal stomach with the sidehole near the GE junction. There are multiple dilated small bowel loops measuring up to 4.5 cm, grossly stable. Stable distention of a loop of colon in the upper central to right pelvis measuring up to 11 cm diameter, possibly the sigmoid colon. No gross free air seen. Stable aortobiiliac endograft. IMPRESSION: 1. Endotracheal tube tip is in the proximal stomach with the sidehole near the GE junction. 2. There is stable small bowel distention and stable distention of a loop of colon, possible the sigmoid colon. Findings are consistent with bowel obstruction. ACT 112: Negative or not required by law. The above report was generated using voice recognition software. It may contain grammatical, syntax or spelling errors. Electronically signed by: Lan Ramsey M.D. 11/28/2024 8:10 AM PG Care Time/CCT Total # of Minutes Spent Total Time Spent with Patient: Total time spent is greater than 50% in coordination of care (as documented) at patient's floor/unit and/or counseling patient: Coding Level of Care Code 98801 INT INP/OBS CARE 3/75MIN Diagnoses SBO (small bowel obstruction) K56.609 Hyponatremia E87.1
[2024-11-28] MEDS: UMECLIDINIUM BROMIDE 62.5MCG/BLISTER 7 PUFFS/INHALER INH SCH (10:45)
[2024-11-28 11:28] LABS: Anion Gap 9.0 (3-11); Blood Urea Nitrogen 50.0 mg/dl (6-23); Calcium 7.9 mg/dl (8.6-10.3); Carbon Dioxide 27.0 mmol/L (21-32); Chloride 88.0 mmol/L (98-107); Creatinine Clr Calc Pharmacy 21.2 ml/min; Glucose 128.0 mg/dl (70-99(Fasting)); Potassium 3.8 mmol/L (3.5-5.1); Sodium 124.0 mmol/L (136-145)
[2024-11-28] MEDS: METOPROLOL TARTRATE 1 MG/ML VIAL IV SCH (12:31)
[2024-11-28 13:34] LABS: ANTI-Xa, UFH(UnfractionatedHep 1.36 IU/ml (0.3-0.7)
--- NOTE | 2024-11-28 14:14 | Hospitalist Progress Note ---
Date of Service November 28, 2024 Assessment & Plan (1) Volvulus: (2) Hyponatremia: (3) BELA (acute kidney injury): (4) Atrial fibrillation: Plan Patient is an 89-year-old woman with Alzheimer's dementia, COPD, AAA with endovascular repair admitted with small bowel volvulus and severe hyponatremia. At admission general surgery and GI consulted, it was determined that the volvulus was small bowel (not cecal). NG tube was placed. She went into new onset Afib with RVR. #severe hyponatremia - NA 119. 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 At risk for ODS so will correct slowly <=7 meq/24h Received 500 mL NSS in ED and 50 mL hypertonic saline on 11/27 - sodium trend 199 --> 123 over 12 hours. Goal by 6 pm today is 125-126. - currently on NS at 125/h and sodium 124 late morning. Continue same fluids but change to D5NS + 20K, and check serial sodium # New onset Afib with RVR - occurred night of admission. I reviewed old records and no hx Afib. Followed by Dr. Hamilton. Has mod and some AR. Holter 11/04 with no Afib. TTE 09/26 with EF 65-70% no rwma's moderate and atria were not dilated. Hopefully this limited to her acute illness and will resolve. -ordered scheduled metoprolol 5 mg IV q6h and continue PRN -currently anticoagulated on heparin drip -held today for high Xa of 1.31 - there is significant risk of UGIB because of her NG tube/NPO, advanced age. She has advanced dementia Also doubt this is chronic afib as discussed above. Low threshold to stop heparin. For the outpatient setting her Has-BLED is 1 and ORBIT is 2 (presuming aspirin is stopped) which are acceptable risk, though I think this is an underestimate. [id number] is 4. -TSH is normal and had recent TTE #Small bowel volvulus - GI and General surgery consulted - continue conservative care with NG tube, IV fluids, electrolyte replacement - monitor daily CBC, BMP, KUB. KUB today personally reviewed film NG is in appropriate position and dilated bowel persists. #BELA on CKD-3 - Cr increase from 1.05 to 1.54, Bun 46. Prerenal - hold lisinopril HCTZ IVF as above, monitor UOP Avoid nephrotoxic agents Cr improved to 1.37 #ambulatory dysfunction/weakness related to acute illness and hyponatremia - CXR ordered with weakness and leukocytosis - PT/OT consulted - fall and aspiration precautions #Asymptomatic bacteriuria - UA appears infectious however contaminated with 11- 20 epithelial cells. Empirically treated with IV ABX in ED. Asymptomatic. Defer further Rocephin use Follow urine cultures #Alzheimer's dementia - pleasant on admission. Promote good sleep-wake cycles, melatonin as needed. #COPD - not in exacerbation. continue home inhalers #HTN - diltiazem, HCTZ, lisinopril held. Currently on IV metoprolol and controlled VTE ppx: scds, currently on heparin drip Admission and Anticipated Discharge Date Admission Date: November 27, 2024 Subjective Sleeping pretty soundly now and didn't arouse to exam or voice, however, PSA reports she was awake and alert earlier today with no vomiting or abdominal pain Physical Exam 2 Physical Exam: Last 24h vitals reviewed GEN: sleeping soundly in bed HEENT: pupils equal, sclerae anicteric, dry MM, NG in place RESP: normal WOB, CTAB CV: irreg, systolic M ABD: soft, distended, did not react to exam, NG suction sounds : yan SKIN: warm and dry, no generalized rashes NEURO: sleeping/sedated currently. demetra Results & Data Results & Data Vital Signs (Past 12 Hours) Vital Signs Temp Pulse Pulse Resp BP Pulse Ox O2 Del Method 11/28/24 13:20 88 11/28/24 12:31 101 H 11/28/24 09:44 111 H 11/28/24 09:19 Room Air 11/28/24 07:56 85 11/28/24 07:30 123 H 11/28/24 04:47 118 H 106/64 11/28/24 02:40 36.4 C L 92 H 18 113/72 90 Room Air Laboratory Results 11/28/24 05:43 11/28/24 11:00 PG Care Time/CCT Total # of Minutes Spent Total Time Spent with Patient: Total time spent is greater than 50% in coordination of care (as documented) at patient's floor/unit and/or counseling patient: Coding Level of Care Code 82405 SUB INP/OBS CARE 3/50MIN Diagnoses Volvulus K56.2 Hyponatremia E87.1 BELA (acute kidney injury) N17.9 Atrial fibrillation I48.91
--- NOTE | 2024-11-28 15:48 | CT Scan Report ---
EXAMINATION: CT of the abdomen and pelvis performed without IV contrast, with oral contrast. TECHNIQUE: Helical CT images from the lung bases through the symphysis pubis were obtained without IV contrast. Oral contrast administered. Coronal and sagittal reformatted images were generated at a workstation for further assessment. Dose reduction techniques were achieved by using automatic exposure control and/or adjustment of mA and/or kV according to patient size and/or use of iterative reconstruction technique. COMPARISON: None HISTORY: Abdominal pain FINDINGS: Lower chest: Small pleural effusions. Liver: No suspicious liver lesions. Gallbladder: No gallstones. No evidence of acute cholecystitis. Spleen: Normal size. Pancreas: No suspicious pancreatic lesions. The pancreatic duct is not dilated. Adrenal glands: No adrenal nodules. Kidneys: No hydronephrosis or obstructing renal stones. Bladder / Pelvic organs: Unremarkable. Bowel: There are numerous abnormally dilated loops of small bowel, several of which are filled with oral contrast. There is oral contrast in the stomach. Oral contrast does not reach the terminal ileum. There is a dilated viscus in the mid anterior abdomen with an air/fluid level corresponding to the cecum. Swirling of the mesentery, with beaking of the cecum seen posteriorly on series 2 image 51, compatible with volvulus. An NG/OG tube sidehole is in the stomach. Lymph nodes: No retroperitoneal, mesenteric, or pelvic lymphadenopathy. Peritoneum / Retroperitoneum: There is mild free fluid. No free air. Vessels: No infrarenal aortic aneurysm. Aortoiliac stent in place. Bones and soft tissues: No suspicious lesion in the bones. 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 Electronically signed by Oneil Marshall 11-28-2024 3:48 PM
[2024-11-28 16:35] LABS: Anion Gap 11.0 (3-11); Blood Urea Nitrogen 49.0 mg/dl (6-23); Calcium 8.0 mg/dl (8.6-10.3); Carbon Dioxide 25.0 mmol/L (21-32); Chloride 87.0 mmol/L (98-107); Creatinine Clr Calc Pharmacy 20.9 ml/min; Glucose 132.0 mg/dl (70-99(Fasting)); Potassium 3.8 mmol/L (3.5-5.1); Sodium 123.0 mmol/L (136-145)
[2024-11-28 16:42] LABS: ANTI-Xa, UFH(UnfractionatedHep 0.31 IU/ml (0.3-0.7)
--- NOTE | 2024-11-28 17:00 | XRay Report ---
Chest radiograph, one view History: hypoxia Comparison: None Findings: Single AP view of the chest performed. No focal consolidation or pleural effusion. No pneumothorax. Severe emphysema. NG/OG tube sidehole projects over the upper stomach. The cardiomediastinal silhouette is within normal limits. Normal pulmonary vascularity. No evidence for lymphadenopathy. No visualized bony or soft tissue abnormality. Impression: Severe emphysema. No acute process Electronically signed by Oneil Marshall 11-28-2024 5:00 PM
--- NOTE | 2024-11-28 18:26 | Communication Note ---
Date of Service: November 28, 2024 CT images and report reviewed, CXR images and report reviewed. Developing some pleural effusions but lungs remain clear. Clinical update - distention worsening on exam and on CT. Discussed with Dr. Gold. At this point she will need surgery for chance at resolving this, though recovery will be difficult and she is at significant risk of cardiac, pulmonary complications, delirium, and significant functional decline. Surgery planned for tomorrow if her family decides to proceed. I have stopped the heparin drip at this time because the risk of complications of anticoagulation in this situation (especially gastrointestinal or perioperative bleeding) are greater than the benefit of stroke risk reduction related to acute onset afib over the short term. Please see ACP note for family discussion.
--- NOTE | 2024-11-28 18:40 | Advance Care Plan Prog Note ---
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 Chin's three adult children and myself took place during this hospitalization on the above date. We discussed at length the patient's medical conditions (both acute and chronic), general prognosis, treatment options, and goals of care. The following summarizes the discussion: Without surgery it is very unlikely that she would survive very long, so the realistic options at this point are proceed with surgery (planned tomorrow AM) or change to comfort measures. We discussed likely outcome if comfort measures / hospice - expectation that she may only have a few days and would need to be cared for in the hospital setting because of the bowel obstruction, which would require intravenous medications and ng tube to provide adequate comfort. Keisha's preference is to take her home, which is unfortunately unlikely under this scenario. We discussed in general the type of surgery required to treat this and the expected immediate and long-term recovery process were things to go optimally well, versus a more typical scenario with the expected complications related to her age and frailty. Keisha feels extremely torn, Skyla advocates for comfort care, and Esther's son favors proceeding with surgery. They had not spoken to Esther about her wishes prior to the onset of her dementia , which makes things harder for them. I encouraged them to try to make a decision based on what they think Esther would want and also to come together for a decision they can live with as a family. DPOA-HC/Surrogate Decision Maker Daughters Keisha and Skyla, and her son. Status Resuscitation Status Full Code Total Time I spent a total of 40 minutes was spent on this discussion, including counseling, answering questions, and completing, if any, pertinent advanced care planning forms/documents.
[2024-11-29 01:02] LABS: Anion Gap 10.0 (3-11); Blood Urea Nitrogen 55.0 mg/dl (6-23); Calcium 8.0 mg/dl (8.6-10.3); Carbon Dioxide 26.0 mmol/L (21-32); Chloride 90.0 mmol/L (98-107); Creatinine Clr Calc Pharmacy 18.3 ml/min; Glucose 120.0 mg/dl (70-99(Fasting)); Potassium 3.7 mmol/L (3.5-5.1); Sodium 126.0 mmol/L (136-145)
[2024-11-29 05:49] LABS: Hematocrit (blood only) 34.9 % (37.0-47.0); Hemoglobin 12.1 g/dl (12.0-16.0); Mean Corpuscular Hemoglobin 30.0 pg (25.0-34.0); Mean Corpuscular Volume 86.4 fL (80.0-100.0); Platelet Count 338 K/uL (130-400); RDW Standard Deviation 42.3 fL (36.4-46.3); Red Blood Count 4.04 M/uL (4.20-5.40); White Blood Count 9.47 K/ul (4.8-10.8)
[2024-11-29 06:04] LABS: Anion Gap 10.0 (3-11); Blood Urea Nitrogen 53.0 mg/dl (6-23); Calcium 7.8 mg/dl (8.6-10.3); Carbon Dioxide 25.0 mmol/L (21-32); Chloride 92.0 mmol/L (98-107); Creatinine Clr Calc Pharmacy 17.4 ml/min; Glucose 104.0 mg/dl (70-99(Fasting)); Magnesium 2.1 mg/dl (1.7-2.4); Potassium 3.6 mmol/L (3.5-5.1); Sodium 127.0 mmol/L (136-145)
--- NOTE | 2024-11-29 06:40 | Communication Note ---
Date of Service: November 29, 2024 Dr. Iniguez met with family on 11/28/2024 after repeat CAT scan showed concern for potential cecal volvulus. Initially family wanted to proceed with surgical intervention. Dr. Gold initially scheduled surgery for 11/29/2024 however the patient's family then seemed somewhat reluctant for her to undergo surgery and canceled/rescheduled surgery multiple times. Daughter Arielle called most recently at approximately 9:00 PM on 11/28/2024 and expressed to the nurse that they did not want patient undergo surgery. Will therefore cancel patient's surgery for today.
--- NOTE | 2024-11-29 07:26 | Surgery Progress Note ---
Date of Service November 28, 2024 Assessment & Plan (1) SBO (small bowel obstruction): Plan: After examination I decided to order a CT scan with oral contrast to better evaluate exactly what was going on. 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 I had multiple discussions with the family including several phone calls. We discussed that this is unlikely to improve on its own and even if it did it is high likelihood of recurrence. We also discussed that while she is at high surgical risk, she certainly could not live with a small bowel obstruction and these can be a very painful and prolonged cause of demise. My recommendation was to proceed with an open ileocecectomy for permanent repair of the issue. We discussed the risks. We also discussed other options which are quite limited. Ultimately at the end of the day the 3 siblings decided to not have surgery. I therefore took her off the surgery schedule for Friday. At this point in time I would recommend proceeding with palliative care consult with the goal of comfort measures. (2) Atrial fibrillation: (3) BELA (acute kidney injury): (4) Cecal volvulus: Admission and Anticipated Discharge Date Admission Date: November 27, 2024 Subjective Patient seen multiple times on Tuesday 11/28. Family at bedside. Patient awake and alert however with some disorientation which is her baseline. Appears comfortable. Denies abdominal pain Physical Exam Constitutional: WD/WN, vitals as above no acute distress and not ill appearing Eyes: PERRL, conjunctivae normal, anicteric sclerae EOM intact bilaterally ENMT: external ear and nose normal, oropharynx normal Ears: no hearing impairment Neck: trachea midline, no thyromegaly Respiratory: normal respiratory effort; no respiratory distress and does not use accessory muscles Gastrointestinal (Abdomen): Very distended. Soft. With minimal tenderness and no peritonitis Skin: no rashes, warm and dry Psychiatric: Orientation: alert, oriented x 3 and cooperative Results & Data Vital Signs (Past 12 Hours) Vital Signs Temp Pulse Pulse Resp BP BP Pulse Ox 11/29/24 06:13 85 16 105/68 94 11/29/24 05:40 81 113/56 L 11/29/24 01:51 11/29/24 01:25 81 113/56 L 11/29/24 00:44 81 16 113/56 L 93 11/29/24 00:16 95 H 141/65 H 11/28/24 23:14 36.7 C 95 H 18 141/65 H 93 O2 Del Method O2 Flow Rate 11/29/24 06:13 Nasal Cannula 2 11/29/24 05:40 11/29/24 01:51 Nasal Cannula 2 11/29/24 01:25 11/29/24 00:44 Nasal Cannula 2 11/29/24 00:16 11/28/24 23:14 Nasal Cannula 2 PG Care Time/CCT Total # of Minutes Spent Total Time Spent with Patient: Total time spent is greater than 50% in coordination of care (as documented) at patient's floor/unit and/or counseling patient: Coding Level of Care Code 25310 SUB INP/OBS CARE 3/50MIN Diagnoses SBO (small bowel obstruction) K56.609 Atrial fibrillation I48.91 BELA (acute kidney injury) N17.9 Cecal volvulus K56.2
[2024-11-29] MEDS: ACETAMINOPHEN 1,000 MG/100 ML VIAL IV PRN (10:27)
--- NOTE | 2024-11-29 10:50 | XRay Report ---
KUB HISTORY: sbo COMPARISON STUDY: 11/28/2024 FINDINGS: Nasogastric tube tip is in the proximal stomach with the sidehole near the GE junction. The re is small bowel distention measuring up to 5 cm. There is stable distention of the sigmoid colon me asuring up to 11 cm. No gross free air seen. IMPRESSION: Stable distended small bowel and sigmoid colon. ACT 112: Negative or not required by law. The above report was generated using voice recognition software. It may contain grammatical, syntax o r spelling errors. Electronically signed by: Lan Ramsey M.D. 11/29/2024 10:48 AM
--- NOTE | 2024-11-29 11:02 | Gastroenterology Progress Note ---
Date of Service November 29, 2024 Assessment & Plan (1) Cecal volvulus: Plan: 89 year old female w/ history of Alzheimer's dementia, COPD, depression, hyperlipidemia, hypertension admitted w/ cecal volvulus. Management per general surgery. Surgery appears to be canceled this AM related to family wishes. Recall GI as needed. Admission and Anticipated Discharge Date Admission Date: November 27, 2024 Supervising Physician Co-Signing Physician Notes I saw and examined this patient with our nurse practitioner and agree with her assessment and plan. Repeat imaging suggested a cecal volvulus no improvement in bowel obstruction. Patient high risk for surgery. After discussion with surgeon family has decided to not take the risk at this time. Subjective CT w/ cecal volvulus, resulting in small bowel obstruction. General surgery following w/ appropriate surgical recommendations. Appears there has been ongoing communication between surgery and family - family has currently decided against surgical intervention at this time. Review of Systems Review of Systems: Other Pt resting, sitter at bedside who notes she just fell asleep. Physical Exam Gastrointestinal (Abdomen): + distention No obvious distress w/ palpation of abdomen. Results & Data Results & Data Vital Signs (Past 12 Hours) Vital Signs Temp Pulse Pulse Resp BP BP Pulse Ox 11/29/24 08:45 69 11/29/24 07:35 97.3 F L 66 18 126/66 95 11/29/24 06:13 85 16 105/68 94 11/29/24 05:40 81 113/56 L 11/29/24 01:51 11/29/24 01:25 81 113/56 L 11/29/24 00:44 81 16 113/56 L 93 11/29/24 00:16 95 H 141/65 H 11/28/24 23:14 98.1 F 95 H 18 141/65 H 93 O2 Del Method O2 Flow Rate 11/29/24 08:45 11/29/24 07:35 Nasal Cannula 2 11/29/24 06:13 Nasal Cannula 2 11/29/24 05:40 11/29/24 01:51 Nasal Cannula 2 11/29/24 01:25 11/29/24 00:44 Nasal Cannula 2 11/29/24 00:16 11/28/24 23:14 Nasal Cannula 2 Laboratory Results 11/29/24 11/29/24 11/28/24 Range/Units 05:35 00:31 16:03 WBC 9.47 (4.8-10.8) K/ul RBC 4.04 L (4.20-5.40) M/uL Hgb 12.1 (12.0-16.0) g/dl POC Hgb (12.0-16.0) g/dl Hct 34.9 L (37.0-47.0) % POC Hct (37-47) % MCV 86.4 (80.0-100.0) fL MCH 30.0 (25.0-34.0) pg MCHC 34.7 (32.0-36.0) g/dL RDW Std Deviation 42.3 (36.4-46.3) fL RDW Coeff of Steven 13.4 (11.5-14.5) % Plt Count 338 (130-400) K/uL MPV 9.0 L (9.4-12.4) fL Heparin Anti-Xa, Unfract 0.31 (0.3-0.7) IU/ml POC Sodium (135-144) mmol/L Sodium 127 L 126 L 123 L (136-145) mmol/L POC Potassium (3.3-5.0) mmol/L Potassium 3.6 3.7 3.8 (3.5-5.1) mmol/L POC Chloride (101-112) mmol/L Chloride 92 L 90 L 87 L (98-107) mmol/L Carbon Dioxide 25 26 25 (21-32) mmol/L POC Total CO2 (24-31) mmol/L Anion Gap 10 10 11 (3-11) POC Anion Gap (16-25) mmol/L POC BUN (7-18) mg/dl BUN 53 H 55 H 49 H (6-23) mg/dl Creatinine 1.57 H 1.50 H 1.31 H (0.6-1.2) mg/dl POC Creatinine (0.6-1.3) mg/dl Est Cr Clr Drug Dosing 17.4 18.3 20.9 ml/min eGFR 31.34 33.10 38.95 BUN/Creatinine Ratio 33.8 H 36.7 H 37.4 H (10-20) Glucose 104 H 120 H 132 H (70-99(Fasting)) mg/dl POC Glucose (other) (70-99) mg/dl Lactate (0.4-2.0) mmol/L Calcium 7.8 L 8.0 L 8.0 L (8.6-10.3) mg/dl POC Ioniz Calcium Martín (1.12-1.32) mmol/l Magnesium 2.1 (1.7-2.4) mg/dl 11/28/24 11/28/24 11/27/24 Range/Units 12:31 11:00 18:36 WBC (4.8-10.8) K/ul RBC (4.20-5.40) M/uL Hgb (12.0-16.0) g/dl POC Hgb 13.9 (12.0-16.0) g/dl Hct (37.0-47.0) % POC Hct 41 (37-47) % MCV (80.0-100.0) fL MCH (25.0-34.0) pg MCHC (32.0-36.0) g/dL RDW Std Deviation (36.4-46.3) fL RDW Coeff of Steven (11.5-14.5) % Plt Count (130-400) K/uL MPV (9.4-12.4) fL Heparin Anti-Xa, Unfract 1.36 H* (0.3-0.7) IU/ml POC Sodium 117 L* (135-144) mmol/L Sodium 124 L (136-145) mmol/L POC Potassium 4.1 (3.3-5.0) mmol/L Potassium 3.8 (3.5-5.1) mmol/L POC Chloride 81 L (101-112) mmol/L Chloride 88 L (98-107) mmol/L Carbon Dioxide 27 (21-32) mmol/L POC Total CO2 26 (24-31) mmol/L Anion Gap 9 (3-11) POC Anion Gap 15.0 L (16-25) mmol/L POC BUN 43 H (7-18) mg/dl BUN 50 H (6-23) mg/dl Creatinine 1.29 H (0.6-1.2) mg/dl POC Creatinine 1.8 H (0.6-1.3) mg/dl Est Cr Clr Drug Dosing 21.2 ml/min eGFR 39.67 BUN/Creatinine Ratio 38.8 H (10-20) Glucose 128 H (70-99(Fasting)) mg/dl POC Glucose (other) 172 H (70-99) mg/dl Lactate 1.3 (0.4-2.0) mmol/L Calcium 7.9 L (8.6-10.3) mg/dl POC Ioniz Calcium Martín 1.06 L (1.12-1.32) mmol/l Magnesium (1.7-2.4) mg/dl PG Care Time/CCT Total # of Minutes Spent Total Time Spent with Patient: Total time spent is greater than 50% in coordination of care (as documented) at patient's floor/unit and/or counseling patient: Coding Level of Care Code None Diagnoses Cecal volvulus K56.2
--- NOTE | 2024-11-29 11:35 | Communication Note ---
Date of Service: November 29, 2024 I met with her daughters Keisha and Skyla at bedside this morning. They remain conflicted with Skyla strongly favoring comfort care, Keisha is torn but does not want Esther to suffer and is realistic about medium to longer term outcomes, her son Tulio wishes her to undergo surgery. They could not reach a consensus last night so planned surgery with Dr. Iniguez today was put on hold. They would like to hear an opinion from another surgeon as well. They also are receptive to palliative care consultation to help with family communication and clarify goals of care. At this time both are in agreement that code status be changed to DNR, which can be suspended for OR if she does undergo a procedure.
--- NOTE | 2024-11-29 12:04 | Hospitalist Progress Note ---
Date of Service November 29, 2024 Assessment & Plan (1) Volvulus: (2) Hyponatremia: (3) BELA (acute kidney injury): (4) Atrial fibrillation: Plan Patient is an 89-year-old woman with Alzheimer's dementia, COPD, AAA with endovascular repair admitted with bowel obstruction due to volvulus and severe hyponatremia. At admission general surgery and GI consulted, it was thought that volvulus was small bowel and decompressive endoscopy thus not pursued. NG tube was placed. She went into new onset Afib with RVR, which eventually came under rate control. 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 Dr. Iniguez offered surgery planned for today, however, her family has remained conflicted about surgery vs comfort care. #severe hyponatremia - admission NA 119. -has been under correction appropriately slowly. Has needed hypertonic saline boluses -IVF D5NS + 20K at gentle rate - had dyspnea yesterday and accumulating small pleural effusions -Na 127 today, ordered 50 mL 3% saline and recheck at 2pm # New onset Afib with RVR - occurred night of admission. I reviewed old records and no hx Afib. Followed by Dr. Hamilton. Has mod and some AR. Holter 11/04 with no Afib. TTE 09/26 with EF 65-70% no rwma's moderate and atria were not dilated. Hopefully this limited to her acute illness and will resolve. -ordered scheduled metoprolol 5 mg IV q6h and continue PRN - rate currently well controlled -TSH is normal and had recent TTE -stopped heparin drip 11/28 because of short term risk:benefit. see discussion in prog note. AC remains on hold pending further discussions about plan of overall care #bowel obstruction due to volvulus - GI and General surgery consulted - has clinically worsened despite conservative care with NG tube, IV fluids, electrolyte replacement - monitor daily CBC, BMP, KUB. KUB today personally reviewed - severely dilated bowel persists. - potassium low normal, Na low, mag normal - see discussion above #BELA on CKD-3 - Cr increase from 1.05 to 1.54, Bun 46. Prerenal - hold lisinopril HCTZ IVF as above, monitor UOP Avoid nephrotoxic agents Cr increased to 1.57, UOP remains on low side 350 yesterday. NG output yesterday not recorded #COPD and dyspnea - not wheezing lungs clear, bilateral small pleural effusions on CT 11/29 and accumulating anasarca. Dyspnea at this time related to restriction because of pressure on diaphragms from bowel distention - continue bronchodilators - she is at risk for acute respiratory failure, will need abg/vbg if not remaining alert today #ambulatory dysfunction/weakness related to acute illness and hyponatremia - CXR ordered with weakness and leukocytosis - PT/OT consulted - fall and aspiration precautions #UTI vs asymptomatic bacteriuria- unable to truly assess symptoms. Culture with kuo-sensitive E. coli -ceftriaxone #Alzheimer's dementia - pleasant on admission. Caregiver is daughter Keisha with whom she lives. 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 Currently on IV metoprolol and controlled VTE ppx: scds, heparin drip on hold Admission and Anticipated Discharge Date Admission Date: November 27, 2024 Subjective Per PSA she was awake early this morning, but was not awake either time I subsequently visited this AM Earlier had continued to deny pain and nausea Family remains conflicted and decided to put surgery on hold Physical Exam 2 Physical Exam: Last 24h vitals reviewed GEN: sleeping, doesn't arouse to conversation or exam HEENT: dry MM, NG in place RESP: respirations are deep, CTA bilaterally CV: irreg, systolic M ABD: very distended and tympanic, did not react to exam, NG suction sounds : yan SKIN: warm and dry, no generalized rashes NEURO: sleeping/sedated currently. Results & Data Results & Data Vital Signs (Past 12 Hours) Vital Signs Temp Pulse Pulse Resp BP BP Pulse Ox 11/29/24 08:45 69 11/29/24 07:35 36.3 C L 66 18 126/66 95 11/29/24 06:13 85 16 105/68 94 11/29/24 05:40 81 113/56 L 11/29/24 01:51 11/29/24 01:25 81 113/56 L 11/29/24 00:44 81 16 113/56 L 93 11/29/24 00:16 95 H 141/65 H O2 Del Method O2 Flow Rate 11/29/24 08:45 11/29/24 07:35 Nasal Cannula 2 11/29/24 06:13 Nasal Cannula 2 11/29/24 05:40 11/29/24 01:51 Nasal Cannula 2 11/29/24 01:25 11/29/24 00:44 Nasal Cannula 2 11/29/24 00:16 Laboratory Results 11/29/24 05:35 11/29/24 05:35 PG Care Time/CCT Total # of Minutes Spent Total Time Spent with Patient: Total time spent is greater than 50% in coordination of care (as documented) at patient's floor/unit and/or counseling patient: Coding Level of Care Code 38678 SUB INP/OBS CARE 3/50MIN Diagnoses Volvulus K56.2 Hyponatremia E87.1 BELA (acute kidney injury) N17.9 Atrial fibrillation I48.91
[2024-11-29] MEDS ORDERED: MoRPHine SULFATE 2 MG/ML CARP IV PRN (12:43)
[2024-11-29] MEDS: SODIUM CHLORIDE 3 % 50 ML IV ONE (12:44)
[2024-11-29] MEDS: STOP ORDER ONE (13:11)
--- NOTE | 2024-11-29 13:17 | Palliative Care Consultation ---
Date of Consultation November 29, 2024 Assessment & Plan (1) Palliative care by specialist: Met with pt's adult daughters Keisha and Skyla at bedside. Keisha made attempt to add pt's son to conversation via phone, no answer. Introduced Palliative Medicine and explained our role in advanced care planning, symptom management and navigation through the progression of life limiting disease. Patient and/or family were receptive to palliative services for goals of care discussions. Reviewed we are different from hospice, a home health nurse visiting service. (2) Counseling regarding advanced directives and goals of care: Patient currently lacks decisional capacity based on the inability to convey understanding of personal PMHx, current medical condition, treatment options nor the risks / benefits/ potential outcomes of accepting/declining those options, and inability to make decisions based on such knowledge. Hospital does not have written documentation of patient wishes concerning her chosen proxy for medical decisions. Per PA [id number], in absence of written documentation of patient wishes, pt's proxy for medical decisions would be her three adult children with equal authority. Pt does currently require a proxy for medical decisions, given the progressively debilitating nature of dementia, this is likely to continue for the foreseeable future. Met with Keisha and Skyla at bedside from 11:00 - 11:40. Keisha shared that the patient lives with her and has needed assistance with most ADLs and all iADLs for a few years. They shared concern that with the pt's advanced dementia, her quality of life is limited. The also shared that they both feel that surgical intervention for the pt's volvulus is too high risk and would likely cause the pt more suffering. Suly shared that the pt would not wish to be on life support and after previous, less invasive, procedures the patient took many days to wake fully from anesthesia and did not do well on the ventilator. Skyla shared concern as well that if there were any complications with surgery, pt may not survive the hospitalization. I validated these very real concerns, and we discussed that the pt's multiple comorbidities, age and dementia would all make the post operative recovery process very difficult even if surgery is successful. We discussed the pt's poor prognosis given her age, comorbidities and dementia. They both shared that they would not wish to pursue surgery and to allow care to transition to comfort directed care. They shared that their brother Tulio is not in agreement with this and has been encouraging surgical intervention. They shared that this is the reason they are requesting a second surgeon to weigh in. We discussed [id number]-pyge likely case scenarios. We discussed the patient's level of dependence due to her advanced dementia and how this will make the recovery process very difficult. We discussed options of continuing current course of treatment including surgery and ken operative care that would at least in part require pt cooperation vs transition to comfort directed care /hospice care where comfort and quality of life are valued over length of life. Discussed hospice benefit: an interdisciplinary program offered by nurses, nurses aides, social workers, chaplains and a medical claims representative for patients with a terminal condition and a life expectancy of less than 6 months. This is covered by Medicare at 100%/no out of pocket expense to patient and all meds/supplies needed by patient for the reason they are on hospice are paid for/covered by hospice. The goal is assure quality of life of the patient in their home setting (home, care home, inpatient hospice setting) by providing symptoms management, psychosocial and spiritual support. However, they cannot offer 24 hours care and if the family is unable to provide that care, they will have to consider personal care with out of pocket cost vs. care home placement. We discussed the goals of hospice as a patient service and the goals of care; we discussed EOL trajectories and transitions alesha the emotional impact of realizing mortality as a concrete reality from prior abstract considerations. Pt was reassured that no matter where they are along this trajectory, they are not alone - their medical team will remain by their side through their journey. Discussed the pros/cons of accepting help when especially weakened and distressed by pain-which would also help provide relief/decrease caregiver burden/strain. Keisha and Skyal request a family meeting to discuss GOC with their brother present after they have input for second GI surgeon. Contact information shared for them to call the palliative care office to schedule GOC family meeting in upcoming days. Plan Family GOC meeting to be scheduled likely for tomorrow, time TBD - after GI surgery consult. History of Present Illness Reason for Consultation: goals of care Requesting Physician: Jessi Trammell MD Attending Physician: Jessi Trammell MD History of Present Illness Ms Chin is an 89-year-old woman with Alzheimer's dementia, COPD, AAA with endovascular repair admitted with bowel obstruction due to volvulus and severe hyponatremia. General surgery and GI consulted, it was thought that volvulus was small bowel and decompressive endoscopy thus not pursued. NG tube was placed. She went into new onset Afib with RVR, which eventually came under rate control. 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 Dr. Iniguez offered surgery planned for today, however, her family has remained conflicted about surgery vs comfort care. Palliative care has been consulted for assistance with goals of care. Allergies Allergy/AdvReac Type Severity Reaction Status Date / Time donepezil Allergy Unknown CAN'T Verified 10/28/24 13:18 REMEMBER Penicillins Allergy Unknown CAN'T Verified 10/28/24 13:18 REMEMBER Home Medications Medication Instructions Recorded Confirmed Type aspirin 81 mg tablet,delayed 81 mg PO DAILY 02/17/19 11/27/24 History release diaper,brief,adult,disposable #120 ea 02/18/22 10/28/24 Rx (Undergarment misc) albuterol sulfate 90 mcg/actuation 2 puff inhalation QID PRN 11/07/23 11/27/24 Rx aerosol inhaler (Ventolin HFA) shortness of breath or wheezing #8.5 grams diltiazem HCl 180 mg capsule,24 180 mg PO DAILY #30 caps 11/07/23 11/27/24 Rx hr,extended release umeclidinium 62.5 mcg/actuation 1 inh inhalation DAILY 12/01/23 11/27/24 History blister powder for inhalation (Incruse Ellipta) cyanocobalamin (vitamin B-12) 1,000 mcg PO DAILY #90 tabs 12/03/23 11/27/24 Rx 1,000 mcg tablet,extended release qtjeveyy-wco-ghxdz ac 400 1 tab PO DAILY 12/16/23 11/27/24 History mcg-calcium carb 500 mg-vit K1 20 mcg tablet (Women's 50 Plus Multivitamin) miscellaneous medical supply 1 ea miscellaneous .COMPLEX #1 ea 12/24/23 11/27/24 Rx albuterol sulfate 2.5 mg/3 mL 2.5 mg (3 mL) NEB Q4H PRN 02/09/24 11/27/24 Rx (0.083 %) solution for nebulization shortness of breath or wheezing 30 days #90 mL atorvastatin 20 mg tablet 20 mg PO DAILY #90 tabs 08/10/24 11/27/24 Rx lisinopril 20 1 tab PO DAILY #90 tabs 10/26/24 11/27/24 Rx mg-hydrochlorothiazide 25 mg tablet Patient History Medical History Fatigue Depression Surgical History S/P cataract surgery S/P abdominal aortic aneurysm repair Family History Denies family history of Ovarian cancer Prostate cancer Myocardial infarction Breast cancer Colorectal cancer Social History Smoking Status: Former smoker Tobacco Type: Cigarettes Age Started Using Tobacco: 20; Age Quit Using Tobacco: 70; packs per day: 1; Second Hand Exposure: No; Do You Dip or Chew Tobacco: No; Hx Alcohol Use: No Hx Substance Use: No Preferred Language: Khmer Communication Ability: Impaired Visual Impairment: No Limitations Hearing Ability: Normal Manager Lab Required: Yes and No Beliefs That Will Affect Care: None marital status: / Current Living Situation: Family Current Living Situation Comment: lives with daughter 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 Safe at Home: Yes Childhood Exposure to Second-Hand Smoke: No Diet: regular Diet Comment: regular Dental Care, Regularly: No Physical Activity Frequency: Does not Exercise Seatbelt Use: always Sunscreen Use: Yes Assistive Devices: Bedside Commode, Walker and Wheelchair Review of Systems Review of Systems: All systems reviewed & are unremarkable except as noted in HPI & below Physical Exam Constitutional: WD/WN, vitals as above no acute distress and not ill appearing Eyes: PERRL, conjunctivae normal, anicteric sclerae EOM intact bilaterally ENMT: external ear and nose normal, oropharynx normal Ears: no hearing impairment Neck: trachea midline, no thyromegaly Respiratory: normal respiratory effort; no respiratory distress and does not use accessory muscles Gastrointestinal (Abdomen): Very distended. Soft, TTP, NGT in place to LIWSx Skin: no rashes, warm and dry Psychiatric: Orientation: oriented to person; + not alert drowsy arousable, minimally communicative. Results & Data Vital Signs (Past 12 Hours) Vital Signs Temp Pulse Pulse Resp BP BP Pulse Ox 11/29/24 11:48 36.6 C 99 H 20 122/76 94 11/29/24 08:45 69 11/29/24 08:00 91 H 11/29/24 08:00 11/29/24 07:35 36.3 C L 66 18 126/66 95 11/29/24 06:13 85 16 105/68 94 11/29/24 05:40 81 113/56 L 11/29/24 01:51 11/29/24 01:25 81 113/56 L O2 Del Method O2 Flow Rate 11/29/24 11:48 Room Air 11/29/24 08:45 11/29/24 08:00 11/29/24 08:00 Nasal Cannula 2 11/29/24 07:35 Nasal Cannula 2 11/29/24 06:13 Nasal Cannula 2 11/29/24 05:40 11/29/24 01:51 Nasal Cannula 2 11/29/24 01:25 Laboratory Results Abnormal lab results 11/27/24 11/29/24 11/29/24 Range/Units 18:36 00:31 05:35 RBC 4.04 L (4.20-5.40) M/uL Hct 34.9 L (37.0-47.0) % MPV 9.0 L (9.4-12.4) fL POC Sodium 117 L* (135-144) mmol/L Sodium 126 L 127 L (136-145) mmol/L POC Chloride 81 L (101-112) mmol/L Chloride 90 L 92 L (98-107) mmol/L POC Anion Gap 15.0 L (16-25) mmol/L POC BUN 43 H (7-18) mg/dl BUN 55 H 53 H (6-23) mg/dl Creatinine 1.50 H 1.57 H (0.6-1.2) mg/dl POC Creatinine 1.8 H (0.6-1.3) mg/dl BUN/Creatinine Ratio 36.7 H 33.8 H (10-20) Glucose 120 H 104 H (70-99(Fasting)) mg/dl POC Glucose (other) 172 H (70-99) mg/dl Calcium 8.0 L 7.8 L (8.6-10.3) mg/dl POC Ioniz Calcium Martín 1.06 L (1.12-1.32) mmol/l 11/29/24 Range/Units 14:28 RBC (4.20-5.40) M/uL Hct (37.0-47.0) % MPV (9.4-12.4) fL POC Sodium (135-144) mmol/L Sodium 130 L (136-145) mmol/L POC Chloride (101-112) mmol/L Chloride 95 L (98-107) mmol/L POC Anion Gap (16-25) mmol/L POC BUN (7-18) mg/dl BUN 58 H (6-23) mg/dl Creatinine 1.47 H (0.6-1.2) mg/dl POC Creatinine (0.6-1.3) mg/dl BUN/Creatinine Ratio 39.5 H (10-20) Glucose (70-99(Fasting)) mg/dl POC Glucose (other) (70-99) mg/dl Calcium 7.7 L (8.6-10.3) mg/dl POC Ioniz Calcium Martín (1.12-1.32) mmol/l Diagnostic Findings Abdomen/Pelvis CT 11/28/24 12:12 EXAMINATION: CT of the abdomen and pelvis performed without IV contrast, with oral contrast. TECHNIQUE: Helical CT images from the lung bases through the symphysis pubis were obtained without IV contrast. Oral contrast administered. Coronal and sagittal reformatted images were generated at a workstation for further assessment. Dose reduction techniques were achieved by using automatic exposure control and/or adjustment of mA and/or kV according to patient size and/or use of iterative reconstruction technique. COMPARISON: None HISTORY: Abdominal pain FINDINGS: Lower chest: Small pleural effusions. Liver: No suspicious liver lesions. Gallbladder: No gallstones. No evidence of acute cholecystitis. Spleen: Normal size. Pancreas: No suspicious pancreatic lesions. The pancreatic duct is not dilated. Adrenal glands: No adrenal nodules. Kidneys: No hydronephrosis or obstructing renal stones. Bladder / Pelvic organs: Unremarkable. Bowel: There are numerous abnormally dilated loops of small bowel, several of which are filled with oral contrast. There is oral contrast in the stomach. Oral contrast does not reach the terminal ileum. There is a dilated viscus in the mid anterior abdomen with an air/fluid level corresponding to the cecum. Swirling of the mesentery, with beaking of the cecum seen posteriorly on series 2 image 51, compatible with volvulus. An NG/OG tube sidehole is in the stomach. Lymph nodes: No retroperitoneal, mesenteric, or pelvic lymphadenopathy. Peritoneum / Retroperitoneum: There is mild free fluid. No free air. Vessels: No infrarenal aortic aneurysm. Aortoiliac stent in place. Bones and soft tissues: No suspicious lesion in the bones. 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 Electronically signed by Oneil Marshall 11-28-2024 3:48 PM Chest X-Ray 11/28/24 15:52 Chest radiograph, one view History: hypoxia Comparison: None Findings: Single AP view of the chest performed. No focal consolidation or pleural effusion. No pneumothorax. Severe emphysema. NG/OG tube sidehole projects over the upper stomach. The cardiomediastinal silhouette is within normal limits. Normal pulmonary vascularity. No evidence for lymphadenopathy. No visualized bony or soft tissue abnormality. Impression: Severe emphysema. No acute process Electronically signed by Oneil Marshall 11-28-2024 5:00 PM KUB X-Ray 11/29/24 07:03 KUB HISTORY: sbo COMPARISON STUDY: 11/28/2024 FINDINGS: Nasogastric tube tip is in the proximal stomach with the sidehole near the GE junction. There is small bowel distention measuring up to 5 cm. There is stable distention of the sigmoid colon measuring up to 11 cm. No gross free air seen. IMPRESSION: Stable distended small bowel and sigmoid colon. ACT 112: Negative or not required by law. The above report was generated using voice recognition software. It may contain grammatical, syntax or spelling errors. Electronically signed by: Lan Ramsey M.D. 11/29/2024 10:48 AM Medications Administered Current Inpatient Medications Acetaminophen (Acetaminophen 325 Mg Tab) 650 mg PO Q4H PRN PRN Reason: Pain or Fever Stop: 12/28/24 00:40 Albuterol (Albuterol Hfa 8 Gm Inhaler) 2 puffs INH QID PRN PRN Reason: shortness of breath or wheezing Stop: 12/28/24 00:40 Aspirin (Aspirin 81 Mg Ectab) 81 mg PO DAILY MORIAH Stop: 12/28/24 08:59 Last Admin: 11/28/24 07:30 Dose: Not Given Atorvastatin Calcium (Atorvastatin 20 Mg Tab) 20 mg PO DAILY [facility] Stop: 12/28/24 08:59 Last Admin: 11/28/24 07:30 Dose: Not Given Diltiazem HCl (Diltiazem Hcl 180 Mg Capcr) 180 mg PO DAILY [facility] [place] Stop: 12/28/24 08:59 Last Admin: 11/28/24 07:30 Dose: Not Given Glycopyrrolate (Glycopyrrolate 0.2 Mg/Ml Vial) 0.2 mg IV Q4H PRN PRN Reason: secretions Stop: 12/29/24 12:42 Sodium Chloride (Nss) 1,000 mls @ 75 mls/hr IV .[id number] [facility] [place] Stop: 11/30/24 23:14 Last Infusion: 11/29/24 13:32 Dose: Infused Acetaminophen (Ofirmev) 1,000 mg in 100 mls @ 400 mls/hr IV Q8H PRN PRN Reason: Pain or Fever Stop: 12/01/24 09:25 Last Infusion: 11/29/24 10:42 Dose: Infused Melatonin (Melatonin 3 Mg Tab) 3 mg PO HS PRN PRN Reason: Sleep Stop: 12/28/24 00:40 Metoprolol Tartrate (Metoprolol Tartrate 1 Mg/Ml Vial) 5 mg IV Q4H PRN PRN Reason: HR>120 Stop: 12/28/24 05:26 Last Admin: 11/28/24 07:30 Dose: 5 mg Metoprolol Tartrate (Metoprolol Tartrate 1 Mg/Ml Vial) 5 mg IV Q6 [facility] [place] Stop: 12/28/24 11:59 Last Admin: 11/29/24 13:38 Dose: 5 mg Morphine Sulfate (Morphine Sulfate 2 Mg/Ml Carp) 2 mg IV Q3H PRN PRN Reason: Moderate Pain (Scale 4, 5, 6) Stop: 12/13/24 12:42 Ondansetron HCl (Ondansetron Inj 2 Mg/Ml 2 Ml Vial) 4 mg IV Q6H PRN PRN Reason: Nausea And Vomiting Stop: 12/28/24 00:40 Umeclidinium [place] (Umeclidinium [place] 62.5mcg/Blister 7 Puffs/Inhaler) 1 puffs INH DAILY [facility] [place] Stop: 12/28/24 08:59 Last Admin: 11/29/24 08:45 Dose: 1 puffs PG Care Time/CCT Total # of Minutes Spent Total Time Spent with Patient: Total time spent is greater than 50% in coordination of care (as documented) at patient's floor/unit and/or counseling patient: Advanced Care Planning 59410 Advanced Care Planning 30 [place] [address] IN/OBS CONSULT LVL 4,60M Patient Type New Medical Decision Making Moderate Complexity Diagnoses Palliative care by specialist Z51.5 Counseling regarding advanced directives and goals of care Z71.89 Additional Codes Advanced Care Planning - 01104 Advanced Care Planning 30 Min: 56066 Advanced Care Planning 30 Min ([id number])
[2024-11-29] MEDS: STAT IV/IM STA (14:05)
[2024-11-29 15:03] LABS: Anion Gap 11.0 (3-11); Blood Urea Nitrogen 58.0 mg/dl (6-23); Calcium 7.7 mg/dl (8.6-10.3); Carbon Dioxide 24.0 mmol/L (21-32); Chloride 95.0 mmol/L (98-107); Creatinine Clr Calc Pharmacy 20.5 ml/min; Glucose 93.0 mg/dl (70-99(Fasting)); Potassium 3.9 mmol/L (3.5-5.1); Sodium 130.0 mmol/L (136-145)
--- NOTE | 2024-11-29 15:35 | Communication Note ---
Date of Service: November 29, 2024 I was called by Dr. Trammell to come and talk to the family about possible surgery. In brief, she is an 89-year-old woman with dementia, COPD, new onset atrial fibrillation, who presented with a bowel obstruction secondary to a cecal volvulus. She has been on the schedule a few times for surgery but then removed due to conflicting opinions for surgery or for comfort care measures. I have been asked to give a second opinion. Currently, she is very somnolent, difficult to wake up, does not answer questions. Abdomen is distended but she does not appear to be in pain. NG tube in place. No nausea or vomiting. I explained the surgery that would be required to fix the cecal volvulus. This would require an exploratory laparotomy with a cecopexy at the least, more durably a ileocecectomy. I discussed the risk of general anesthesia as well as a large surgery such as this on an 89-year-old woman with multiple comorbidities as she has. We discussed the expected postoperative course, and what that would bring in terms of complications and difficulties/challenges. We discussed quality of life issues after a big surgery. In my opinion, given her current status, she is not a good candidate for surgery, as the risks would outweigh the benefits. All questions were answered to the best my ability. They are leaning towards comfort measures at this time. We will be available for further questions and consultation if necessary.
[2024-11-29] MEDS: MoRPHine SULFATE 2 MG/ML CARP IV STA (15:47)
--- NOTE | 2024-11-29 17:32 | Communication Note ---
Date of Service: November 29, 2024 I spent 45 additional minutes this afternoon with Esther and both daughters, surgical team also present, and Tulio was on conference call. 100 percent was o n counseling and coordination of care. Both Keisha and Skyla wish to proceed with comfort care. Tulio was on the phone for the discussion, but needs some time to think and will call his sisters back. I shared with them my concerns that she is much more lethargic and has delirium at this time, possibly in respiratory failure as well. Esther woke briefly to interact with them, whispered some words and squeezed hands, was grimacing. Plan to not escalate level of care at this time, pending final decision from family.
--- NOTE | 2024-11-29 17:32 | Billing Data ---
Date of Service November 29, 2024 Coding Level of Care Code PROLONG IP/OBS E/M EA 15 MIN Time Spent (min) 45
[2024-11-30 06:15] LABS: Hematocrit (blood only) 34.3 % (37.0-47.0); Hemoglobin 11.2 g/dl (12.0-16.0); Mean Corpuscular Hemoglobin 29.2 pg (25.0-34.0); Mean Corpuscular Volume 89.3 fL (80.0-100.0); Platelet Count 308 K/uL (130-400); RDW Standard Deviation 44.9 fL (36.4-46.3); Red Blood Count 3.84 M/uL (4.20-5.40); White Blood Count 7.84 K/ul (4.8-10.8)
[2024-11-30 06:32] LABS: Anion Gap 9.0 (3-11); Blood Urea Nitrogen 52.0 mg/dl (6-23); Calcium 7.9 mg/dl (8.6-10.3); Carbon Dioxide 26.0 mmol/L (21-32); Chloride 100.0 mmol/L (98-107); Creatinine Clr Calc Pharmacy 28.9 ml/min; Glucose 77.0 mg/dl (70-99(Fasting)); Magnesium 2.2 mg/dl (1.7-2.4); Potassium 3.6 mmol/L (3.5-5.1); Sodium 135.0 mmol/L (136-145)
[2024-11-30 07:41] VITALS: BP 138/76; RESP 16; TEMP 97.5; O2SAT 98
--- NOTE | 2024-11-30 08:12 | Hospitalist Progress Note ---
Date of Service November 30, 2024 Assessment & Plan (1) Volvulus: (2) Hyponatremia: (3) BELA (acute kidney injury): (4) Atrial fibrillation: Plan Patient is an 89-year-old woman with Alzheimer's dementia, COPD, AAA with endovascular repair admitted with bowel obstruction due to volvulus and severe hyponatremia. At admission general surgery and GI consulted, it was thought that volvulus was small bowel. decompressive endoscopy thus not pursued, thereafter too distended for safe attempt. NG tube was placed. She went into new onset Afib with RVR, which eventually came under rate control. 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 Dr. Iniguez offered surgery planned 11/29 AM, however, her family remained conflicted about surgery vs comfort care. Palliative care consulted 11/[address] Araya gave second surgical opinion. Poor surgical candidate, OR would be high risk, if surviving operation will have prolonged hospital/ICU stay with high chance of mortality and complications. Best case outcome would be survival of hospital stay to total care / mcc placement with significant loss of functional status. Clinically declined on 11/29. By AM of 11/30 family made decision for comfort care. symptomatic issues: #bowel obstruction due to volvulus, comfort care -less distended today because sigmoid colon no longer dilated but small bowel obstruction / cecal -continue NG tube -IV antiemetics, IV morphine increased to 2qh PRN pain, IV APAP -IV lorazepam prn agitation/anxiety -home hospice may not be an option at all with NG tube, no oral route meds can be given so would be very challenging -made hospice GIP referral #COPD and dyspnea - not wheezing lungs clear, bilateral small pleural effusions on CT 11/29 and accumulating anasarca. Dyspnea at this time related to restriction because of pressure on diaphragms from bowel distention, also accumulating bilateral pleural effusions - continue bronchodilators - continue PRN robinul for secretions Needs 1:1 sitter to keep from pulling NG tube Other problems treated this admission: #severe hyponatremia # New onset Afib with RVR #BELA on CKD-3 #ambulatory dysfunction/weakness #UTI vs asymptomatic bacteriuria #Acute metabolic encephalopathy #Alzheimer's dementia #HTN Discussed plan of care with both daughters at bedside this AM, with bedside RN Jake, Palliative care WHEEL ALIGNEREMILEE Guzman Admission and Anticipated Discharge Date Admission Date: November 27, 2024 Subjective Less distended More alert than yesterday but still lethargic. Grimaces/furrowed brow. Says few things in a whisper. Not oriented to hospital/situation Denied abdominal pain, nausea, shortness of breath Physical Exam Physical Exam: Last 24h vitals reviewed GEN: awake interacting with daughters, ill appearing HEENT: dry MM, NG in place with dark bloody appearing drainage RESP: respirations are deep, CTA bilaterally, prolonged exp phase CV: irreg, systolic M ABD: distended and tympanic, did not react to exam, NG suction sounds. Less distended than yesterday : yan SKIN: warm and dry, no generalized rashes NEURO: lethargic, awake Ox self and daughters Results & Data Results & Data Vital Signs (Past 12 Hours) Vital Signs Temp Pulse Pulse Resp BP BP Pulse Ox 11/30/24 07:40 36.4 C L 62 16 138/76 98 11/30/24 06:27 95 H 11/30/24 06:12 102 H 125/66 11/30/24 04:12 36.8 C 64 18 128/65 96 11/30/24 00:16 97 H 11/30/24 00:01 102 H 111/55 L 11/30/24 00:00 36.8 C 102 H 20 111/55 L 92 11/29/24 23:43 94 H 11/29/24 20:45 36.5 C 88 18 118/66 99 O2 Del Method O2 Flow Rate 11/30/24 07:40 Nasal Cannula 2 11/30/24 06:27 11/30/24 06:12 11/30/24 04:12 Room Air 11/30/24 00:16 11/30/24 00:01 11/30/24 00:00 Nasal Cannula 2 11/29/24 23:43 11/29/24 20:45 Nasal Cannula 2 Laboratory Results Na 135 Cr 1 Diagnostic Findings KUB - sigmoid colonic distention resolved, but SBO persists with multiple dilated loops of small bowel, unchanged PG Care Time/CCT Total # of Minutes Spent Total Time Spent with Patient: Total time spent is greater than 50% in coordination of care (as documented) at patient's floor/unit and/or counseling patient: Coding Level of Care Code 75247 SUB INP/OBS CARE 3/50MIN Diagnoses Volvulus K56.2 Hyponatremia E87.1 BELA (acute kidney injury) N17.9 Atrial fibrillation I48.91
[2024-11-30] MEDS: cefTRIAXone SODIUM 1,000 MG/50 ML BAG IV SCH (09:03)
--- NOTE | 2024-11-30 09:22 | XRay Report ---
KUB HISTORY: volvulus COMPARISON STUDY: 11/29/2024 FINDINGS: Stable aortobiiliac graft. Stable small bowel distention measuring up to 5 cm diameter. The re is residual contrast throughout the colon. The prior sigmoid distention is no longer seen. No colo lyla distention seen. No gross free air. IMPRESSION: 1. Prior sigmoid distention is no longer seen. 2. Stable small bowel distention. ACT 112: Negative or not required by law. The above report was generated using voice recognition software. It may contain grammatical, syntax o r spelling errors. Electronically signed by: Lan Ramsey M.D. 11/30/2024 9:21 AM
--- NOTE | 2024-11-30 11:11 | Communication Note ---
Date of Service: November 30, 2024 Last night family reached decision for comfort measures and not to have surgery. They did not notify me last night, however, so she was on usual care overnight. 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 She now has some red blood coming from NG tube Both her daughters are in the room this am and we discussed events and plan of care, we discussed that the distention is better but it is unfortunately not because the bowel obstruction is resolving. I spoke with CARL Guzman from palliative care, and Jake CROCKETT Comfort care orders entered
[2024-11-30] MEDS: GLYCOPYRROLATE 0.2 MG/ML VIAL IV PRN (11:22)
[2024-11-30] MEDS: MoRPHine SULFATE 2 MG/ML CARP IV PRN ×3 (11:22→20:43)
[2024-11-30] MEDS ORDERED: PROCHLORPERAZINE 5 MG in SYRINGE 4 ML IV PRN (11:24)
--- NOTE | 2024-11-30 11:51 | Palliative Care Progress Note ---
Date of Service November 30, 2024 Assessment & Plan (1) Palliative care by specialist: Plan: Palliative care will continue to follow for ongoing EOL pt care and family support. (2) Counseling regarding advanced directives and goals of care: Plan: Met with pt's daughters, Keisha and Skyla at bedside for 30 minute ACP discussion. They expressed that after discussing options with both GI surgery a nd Br Valeri last evening, they would like to transition to comfort directed care. They expressed concern that the patient was placed in restraints/mitts and sitter was not being utilized. Pt is confused (baseline dementia plus hospital delirium) and at risk for pulling NGT which is required for comfort at this time. Keisha asked what to expect and how long pt could survive like this. Discussed that predicting mortality is not an exact science, but given pt's comorbidities and current medical situation, i believe that days to possibly but less likely weeks to live. Anticipatory guidance offered. Discussed changes pt may move through in the dying process including but not limited to sleeping more, disorientation when awake, restlessness, diminished senses/inability to respond to stimulus although ability to be aware of them remains intact longer, and changes in body temperatures, skin changes/mottling/cyanosis, respiratory pattern changes, and oral secretions. Family verbalized understanding. The goal is to assure a peaceful . Keisha expressed concern that patient appears better today and she worries that they may have made hasty decisions. We discussed that the patient's cognitive state and alertness can be expected to wax and wane and encouraged visitation. We discussed the concept of end of life rally. When a person facing the end of life rallies, they seem to become "more stable" - may want to talk or even begin taking PO; this phenomenon is usually seen as a sudden burst of energy before . This period of perking up can be accompanied by such a notable change in mental clarity that is often referred to as terminal lucidity. This change in cognition and behavior goes against everything families learn about the physical signs that the end of life is near. It is important to note that evidence-based data is elusive, if nonexistent. Theories support that it may be a search for a final, strong connection. Also, as organs shut down, they can release a steroid like compound that briefly rouses the body - in the specific case of brain tumors, swelling occurs in the confined space of the skull. The edema shrinks as EOL care patients are weaned off food and drink, waking up the brain a bit. Families and caregivers may grasp at what seems to be a turnaround in a loved ones health, however, the EOL Rally is a hallmark pre- sign. It is not uncommon for patients to show improvement before : they may want to talk while others may become restless or act as if they need to start preparing for a trip. Some patients will become more relaxed yet remain tuned in to what is going on around them, others will show signs of physical stability when, seconds before, they seemed on the verge of letting go. A rally can last for a few moments or even days. Short or long, these temporary improvements can have a profound effect on loved ones who are keeping buchanan. Like a moment of clarity for someone who has dementia, a rally is one last opportunity to connect with a loved one. Each persons experience is unique and impossible to predict with total accuracy. Life is full of questions, and some of them simply are not meant to be answered. Marisa were thankful for information offered and reinforced wish for comfort directed care. (3) Comfort measures only status: Plan: Family requests transition to comfort directed care. Patient requires NGT for comfort due to unresolved obstructive volvulus, unclear if pt will be able to di scharge to home with hospice with NGT in place vs GIP hospice care. discussed with CM, hospice referral placed. (4) Need for comfort care: Plan: On family request, pt was transitioned to [employer] on 11/30/24. Comfort plan of care parameters: 1. Patient/Family want hospice added to their care. 2. NO rehab/PT/OT 3. Strictly End of Life care only 4. NO escalation of care: do not increase oxygen, escalate therapies, etc. The focus is on comfort through end of life, assure this is accomplished with aggressive symptom management (i.e. relief of dyspnea, pain, etc.) 5. NO return to hospital 6. NO labs, imaging, surgery 7. Oral intake as desired for comfort and pleasure: NO dietary restriction, Allow permissive aspiration, do not withhold food or drink for concern of aspiration and allow PO for pleasure and comfort. 8. If difficulty urinating/commode/bedpan, ok to place Barber catheter for comfort/hygiene/skin protection AND/OR Continue Barber catheter for comfort/hygiene/skin protection 9. NO: calorie counts, artificial nutrition, feeding tubes or IV fluids Medications to continue are noted on discharge summary. Provider to contact if any questions about comfort plan of care: [facility] Artist or designee EOL Symptom manamgement: Pain/dyspnea/tachypnea morphine 2mg IVP PRN [id number] Consider titratable morphine drip if pt requires >3 PRN doses in under two consecutive hours. Nausea/vomitting zofran 4mg IVP q4h PRN Agitation ativan 0.5mg IVP q4h PRN Hyperactive delirium haldol 5mg IVP q6h PRN Secretions - if repositioning not effective robinul 0.4mg IV q4h PRN atropine SL 3 drops Q1h PRN Nursing care: Discontinue all medications not directed towards comfort. Detether pt from IV tubing, monitor cables, and check vitals once per shift. Please continue HFNC and titrate down as able for patient comfort. Use medications above PRN for dyspnea/tachypnea and do not increase oxygen once titrated down. Assess q1h for pain/dyspnea and treat accordingly. Plan as above Admission and Anticipated Discharge Date Admission Date: November 27, 2024 Subjective Assessed pt at bedside, she was transitioned to [employer] overnight. Pt is drowsy but asousable, and confused per baseline. She appears uncomfortable, with furrowed brow and tachypnea, but denies discomfort when asked. daughters Keisha and Skyla at bedside. Review of Systems Review of Systems: Unobtainable due to cognitive status Physical Exam Constitutional: WD/WN, vitals as above no acute distress and not ill appearing Eyes: PERRL, conjunctivae normal, anicteric sclerae EOM intact bilaterally ENMT: external ear and nose normal, oropharynx normal Ears: no hearing impairment Neck: trachea midline, no thyromegaly Respiratory: normal respiratory effort; no respiratory distress and does not use accessory muscles Gastrointestinal (Abdomen): distended, firm, TTP, NGT in place to LIWSx draining dark maroon liquid. Skin: no rashes, warm and dry Psychiatric: Orientation: oriented to person; + not alert drowsy arousable, minimally communicative. Results & Data Vital Signs (Past 12 Hours) Vital Signs Temp Pulse Pulse Resp BP BP Pulse Ox 11/30/24 08:00 95 H 11/30/24 08:00 11/30/24 07:40 36.4 C L 62 16 138/76 98 11/30/24 06:27 95 H 11/30/24 06:12 102 H 125/66 11/30/24 04:12 36.8 C 64 18 128/65 96 11/30/24 00:16 97 H 11/30/24 00:01 102 H 111/55 L 11/30/24 00:00 36.8 C 102 H 20 111/55 L 92 O2 Del Method O2 Flow Rate 11/30/24 08:00 11/30/24 08:00 Room Air 11/30/24 07:40 Nasal Cannula 2 11/30/24 06:27 11/30/24 06:12 11/30/24 04:12 Room Air 11/30/24 00:16 11/30/24 00:01 11/30/24 00:00 Nasal Cannula 2 Laboratory Results Abnormal lab results 11/29/24 11/30/24 Range/Units 14:28 05:49 RBC 3.84 L (4.20-5.40) M/uL Hgb 11.2 L (12.0-16.0) g/dl Hct 34.3 L (37.0-47.0) % MPV 9.2 L (9.4-12.4) fL Sodium 130 L 135 L (136-145) mmol/L Chloride 95 L (98-107) mmol/L BUN 58 H 52 H (6-23) mg/dl Creatinine 1.47 H (0.6-1.2) mg/dl BUN/Creatinine Ratio 39.5 H 50.0 H (10-20) Calcium 7.7 L 7.9 L (8.6-10.3) mg/dl Diagnostic Findings Abdomen/Pelvis CT 11/28/24 12:12 EXAMINATION: CT of the abdomen and pelvis performed without IV contrast, with oral contrast. TECHNIQUE: Helical CT images from the lung bases through the symphysis pubis were obtained without IV contrast. Oral contrast administered. Coronal and sagittal reformatted images were generated at a workstation for further assessment. Dose reduction techniques were achieved by using automatic exposure control and/or adjustment of mA and/or kV according to patient size and/or use of iterative reconstruction technique. COMPARISON: None HISTORY: Abdominal pain FINDINGS: Lower chest: Small pleural effusions. Liver: No suspicious liver lesions. Gallbladder: No gallstones. No evidence of acute cholecystitis. Spleen: Normal size. Pancreas: No suspicious pancreatic lesions. The pancreatic duct is not dilated. Adrenal glands: No adrenal nodules. Kidneys: No hydronephrosis or obstructing renal stones. Bladder / Pelvic organs: Unremarkable. Bowel: There are numerous abnormally dilated loops of small bowel, several of which are filled with oral contrast. There is oral contrast in the stomach. Oral contrast does not reach the terminal ileum. There is a dilated viscus in the mid anterior abdomen with an air/fluid level corresponding to the cecum. Swirling of the mesentery, with beaking of the cecum seen posteriorly on series 2 image 51, compatible with volvulus. An NG/OG tube sidehole is in the stomach. Lymph nodes: No retroperitoneal, mesenteric, or pelvic lymphadenopathy. Peritoneum / Retroperitoneum: There is mild free fluid. No free air. Vessels: No infrarenal aortic aneurysm. Aortoiliac stent in place. Bones and soft tissues: No suspicious lesion in the bones. 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 Electronically signed by Oneil Marshall 11-28-2024 3:48 PM Chest X-Ray 11/28/24 15:52 Chest radiograph, one view History: hypoxia Comparison: None Findings: Single AP view of the chest performed. No focal consolidation or pleural effusion. No pneumothorax. Severe emphysema. NG/OG tube sidehole projects over the upper stomach. The cardiomediastinal silhouette is within normal limits. Normal pulmonary vascularity. No evidence for lymphadenopathy. No visualized bony or soft tissue abnormality. Impression: Severe emphysema. No acute process Electronically signed by Oneil Marshall 11-28-2024 5:00 PM KUB X-Ray 11/30/24 08:00 KUB HISTORY: volvulus COMPARISON STUDY: 11/29/2024 FINDINGS: Stable aortobiiliac graft. Stable small bowel distention measuring up to 5 cm diameter. There is residual contrast throughout the colon. The prior sigmoid distention is no longer seen. No colonic distention seen. No gross free air. IMPRESSION: 1. Prior sigmoid distention is no longer seen. 2. Stable small bowel distention. ACT 112: Negative or not required by law. The above report was generated using voice recognition software. It may contain grammatical, syntax or spelling errors. Electronically signed by: Lan Ramsey M.D. 11/30/2024 9:21 AM Medications Administered Current Inpatient Medications Albuterol (Albuterol Hfa 8 Gm Inhaler) 2 puffs INH QID PRN PRN Reason: shortness of breath or wheezing Stop: 12/28/24 00:40 Glycopyrrolate (Glycopyrrolate 0.2 Mg/Ml Vial) 0.2 mg IV Q4H PRN PRN Reason: secretions Stop: 12/29/24 12:42 Last Admin: 11/30/24 11:22 Dose: 0.2 mg Sodium Chloride (Nss) 1,000 mls @ 50 mls/hr IV .Q20H MORIAH Stop: 11/30/24 23:14 Last Admin: 11/30/24 08:10 Dose: 75 mls/hr Acetaminophen (Ofirmev) 1,000 mg in 100 mls @ 400 mls/hr IV Q8H PRN PRN Reason: Pain or Fever Stop: 12/01/24 09:25 Last Infusion: 11/29/24 10:42 Dose: Infused Prochlorperazine 5 mg/ Syringe 5 mls @ 5 mls/min IV Q6H PRN PRN Reason: Nausea &/or Vomiting Stop: 12/30/24 11:23 Lorazepam (Lorazepam 2 Mg/1 Ml Vial) 0.5 mg IV Q4H PRN PRN Reason: Anxiety/Agitation Stop: 12/30/24 11:23 Morphine Sulfate (Morphine Sulfate 2 Mg/Ml Carp) 2 mg IV Q3H PRN PRN Reason: Moderate Pain (Scale 4, 5, 6) Stop: 12/13/24 12:42 Ondansetron HCl (Ondansetron Inj 2 Mg/Ml 2 Ml Vial) 4 mg IV Q6H PRN PRN Reason: Nausea And Vomiting Stop: 12/28/24 00:40 Umeclidinium [place] (Umeclidinium [place] 62.5mcg/Blister 7 Puffs/Inhaler) 1 puffs INH DAILY MORIAH Stop: 12/28/24 08:59 Last Admin: 11/30/24 08:10 Dose: 1 puffs PG Care Time/CCT Total # of Minutes Spent Total Time Spent with Patient: Total time spent is greater than 50% in coordination of care (as documented) at patient's floor/unit and/or counseling patient: Advanced Care Planning 80310 Advanced Care Planning 30 Min C[place] [address] SUB INP/OBS CARE 2/35MIN Patient Type Established History Problem Focused Exam Problem Focused Medical Decision Making Moderate Complexity Diagnoses Palliative care by specialist Z51.5 Counseling regarding advanced directives and goals of care Z71.89 Comfort measures only status Z51.5 Need for comfort care Additional Codes Advanced Care Planning - 98353 Advanced Care Planning 30 Min: 09329 Advanced Care Planning 30 Min ([id number])
[2024-11-30 11:54] VITALS: PULSE 144
--- NOTE | 2024-12-01 01:13 | Death Pronouncement Note ---
Date of Service December 01, 2024 Pronouncement Note Admission Date Admission Date: November 27, 2024 Date and Time of Date of : 12/01/24 Time of : 01:00 Contributing Factors (1) Volvulus: (2) Hyponatremia: (3) BELA (acute kidney injury): (4) Atrial fibrillation: Summary Additional details: I was called to pronounce the of Esther Chin ( [id number]) by Shannon Rutledge RN on 12/01/2024 Upon entering the room, patient was found to be in a terminal state. They were unresponsive to, and did not withdrawal from, verbal or tactile stimuli. They were unresponsive to corneal, pupillary, and oculocephalic reflexes. On cardiopulmonary exam, they were found to be without detectable carotid pulses, and without spontaneous heart tones or respirations. Time of was pronounced by me on 12/01/2024 at 0100. Attending physician was notified. Next of kin was notified by myself. Signed: Jose D Tai DO Additional Data Attending physician: Anusha Price DO Resident Activity Tracking Resident Involvement: Resident Care Provided Care Provided: [facility]
--- NOTE | 2024-12-01 12:58 | Discharge Summary ---
Discharge Summary Date of Service December 01, 2024 Principal Dx & Hospital Course #1 = Principal Diagnosis (1) Volvulus: (2) Hyponatremia: (3) BELA (acute kidney injury): (4) Atrial fibrillation: Plan Esther was an 89-year-old woman with Alzheimer's dementia, COPD, AAA with endovascular repair admitted with bowel obstruction due to volvulus and severe hyponatremia. At admission general surgery and GI consulted, it was thought that volvulus was small bowel. decompressive endoscopy thus not pursued, thereafter too distended for safe attempt. NG tube was placed. She went into new onset Afib with RVR, which eventually came under rate control. 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 Dr. Iniguez offered surgery planned 11/29 AM, however, her family remained conflicted about surgery vs comfort care. Palliative care consulted 11/[address] Araya gave second surgical opinion. Poor surgical candidate, OR would be high risk, if surviving operation will have prolonged hospital/ICU stay with high chance of mortality and complications. Best case outcome would be survival of hospital stay to total care / care home placement with significant loss of functional status. Clinically declined on 11/29. By AM of 11/30 family made decision for comfort care. Esther early on the following day at 1AM. 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 Dyspnea and hypoxia related to restriction because of pressure on diaphragms from bowel distention, also accumulating bilateral pleural effusions. Not in COPD exacerbation. #severe hyponatremia # New onset Afib with RVR #BELA on CKD-3 #UTI vs asymptomatic bacteriuria #Acute metabolic encephalopathy #Alzheimer's dementia, severe #HTN Admission HPI Per Admitting Provider Patient is an 89-year-old female with past medical history of Alzheimer's dementia, COPD, depression, hyperlipidemia, hypertension. Patient presented due to 2 days of weakness, abdominal distention, vomiting, and diarrhea/bowel incontinence. Patient has been unable to ambulate and typically ambulates without assistance at baseline. She is being admitted after found to have a sodium level of [address]. Abdominal [address] pending at time of admission. Patient seen at bedside with her daughter present. Following history obtained by patient's daughter as patient denies all ROS. Patient's daughter stated she lives with her at home and for 48 hours the patient has been unable to get up and walk at all. She also noticed the patient has a significantly distended abdomen that has been getting worse over the day and specifically this evening. She was vomiting today and had an episode of bowel incontinence with diarrhea this morning. Patient currently denies any shortness of breath, chest pain, nausea, vomiting, abdominal pain, dysuria. They deny any sick contacts. She did not get any of her home medications today. She wishes to be full code. Discharge Plan Discharge Items Patient Disposition: Other Date/Time: 12/01/24 01:00 Hospital Stay Data Consultations 11/27/24 22:21 ED Decision to Admit Stat 11/27/24 23:23 Consult General Surgery Routine 11/29/24 11:19 Consult Palliative Care Routine Procedures Performed Operation Date: 11/29/24 11:00 <No data on this case meets the specified criteria> Diagnostic Imagining Performed 11/27/24 19:06 CT abd pelvis wo con Stat 11/28/24 12:12 CT abd pelvis oral con only Stat Total Time Total Time Spent Total Time Spent (In Minutes): n/a Coding Level of Care Code None Diagnoses Volvulus K56.2 Hyponatremia E87.1 BELA (acute kidney injury) N17.9 Atrial fibrillation I48.91
--- NOTE | 2024-12-03 23:51 | Electrocardiogram Report ---
Test Reason : Blood Pressure : */* mmHG Vent. Rate : 88 BPM Atrial Rate : 88 BPM P-R Int : 154 ms QRS Dur : 86 ms QT Int : 388 ms P-R-T Axes : 64 -11 52 degrees QTcB Int : 469 ms Sinus rhythm with Premature atrial complexes Otherwise normal ECG When compared with ECG of 13-Oct-2024 14:01, Criteria for Septal infarct are no longer Present T wave inversion no longer evident in Lateral leads Confirmed by Chip Crooks ([id number]) on 12/03/2024 11:51:06 PM Referred By: REFERRED SELF Confirmed By: Chip Crooks
--- NOTE | 2024-12-03 23:52 | Electrocardiogram Report ---
Test Reason : Blood Pressure : */* mmHG Vent. Rate : 106 BPM Atrial Rate : * BPM P-R Int : * ms QRS Dur : 86 ms QT Int : 342 ms P-R-T Axes : * 4 78 degrees QTcB Int : 454 ms Atrial fibrillation with rapid ventricular response with premature ventricular or aberrantly conducte d complexes Nonspecific ST and T wave abnormality Abnormal ECG When compared with ECG of 27-Nov-2024 18:21, Atrial fibrillation has replaced Sinus rhythm Confirmed by Chip Crooks ([id number]) on 12/03/2024 11:51:45 PM Referred By: REFERRED SELF Confirmed By: Chip Crooks
== END 2024-12-01 05:47 | disposition expired | DRG 388 ==
LOC: ED 18:11 → 4W 22:57 → SUATTDRO 22:57 → 4W 11-28 00:11